=== PATIENT | female | born 1955 | race Caucasian/White ===

== ENCOUNTER 2020-05-06 08:18 | Day surgery (SDC) | payer BC, SELFPAY ==
--- NOTE | 2020-05-06 08:28 | MHC.SHP ---
Pre-Procedural Eval Section A The patient is an INPATIENT: No Changes since office visit: Yes Patient answered all questions; No Cold of Flu in the past 2 weeks, No New Medical Problems and No Changes in Medication The History & Physical has been completed within 30 days and I have reviewed it.: No Section B Chief Complaint: screening Details of Present Illness: Pt. has no GI complaints. She has no family history of colon cancer. She has a normal bowel pattern, BM daily. A good appetite. Relevant Family History (Specify if Yes): No Relevant Social History: None Present Medications: see Short Stay Collaborative assessment Medical History: Significant History (Attention, hyperlipidemia, low back pain, left pain, right shoulder pain.) History of Previous Operations: Relevant previous surgery/procedure and date(s) ( Excision fibroma of tongue 10/2009.) Allergies: Allergies Allergy/AdvReac Type Severity Reaction Status Date / Time No Known Allergies Allergy Mild NKA Unverified 04/07/20 16:18 Review of Systems Sugical H&P ROS: Negative: Constitution, Cardiovascular, Respiratory, Psychiatric and Gastrointestinal Exam Surgical H&P Exam: Normal: HEENT, Normal: Heart, Normal: Lungs, Normal: Extremities and Normal: Abdomen Plan Diagnosis/Plan: Unchanged Patient has been examined and remains a candidate for the planned procedure
--- NOTE | 2020-05-06 08:30 | P.BOP_ITS ---
Brief Operative Note Date of procedure: 05/06/20 Pre-op diagnosis: Colon cancer screening. Post-op diagnosis: other (Colon polyp, diverticulosis) Procedure: COLONOSCOPY TILL CECUM WITH BIOPSIES Consent: Indications for the procedure and potential complications of bleeding, perforation, reaction to medications and missed diagnosis were discussed with the patient and informed consent was obtained. Instrument: Olympus PCF H 190 L variable stiffness pediatric colonoscope Monitoring: Vital signs and clinical assessment, intermittent blood pressure monitoring, continuous EKG monitoring, Pulse oximetry and Carbon Dioxide monitoring were done throughout the procedure. Colon withdrawl time was 13 minutes. Procedure: The patient was placed in the left lateral decubitis position and pre-procedure medications were administered. After a digital rectal examination of the ano-rectum, the video colonoscope was inserted into the rectum and advanced through the colon to the cecum. The colonoscope was slowly withdrawn in a retrograde panoramic fashion and the colon mucosa was carefully examined including a retroflexed view of the rectum. Findings and interventions are described below. Procedure Difficulty: Without difficulty Findings: Terminal Ileum: Distal 5 cms was examined and appeared normal. Cecum: A 4 - 5 mm sessile polyp removed with the cold biopsy Ascending Colon: Normal Transverse Colon: Normal Descending Colon: Normal Sigmoid Colon: Moderate diverticulosis Rectum: Normal Ano-rectum: perianal skin tags Colon preparation: Excellent Impression and Post Procedure Diagnosis: Colonoscopy Findings: One small polyp removed Moderate diverticulosis seen in the sigmoid colon Plan: Await pathology results Patient has an appointment on 05/26/20 in the GI Clinic with JOSE Vargas. Repeat Colonoscopy interval based on path results - in 5 years if polyps is adenomatous and 10 years if polyps is hyperplastic. Above findings were reviewed with the patient and colon polyps and diverticulosis handouts were given to the patient. Surgeon: Charlette Beauchamp MD Anesthesia: MAC (Dena Portillo CRNA) Integrated Circuit Design Engineer: Damon Stokes Pathology: other (A. Cecal polyp x 1) Condition: stable Disposition: PACU
[2020-05-06 08:34] VITALS: BP 142/87; PULSE 64; RESP 16; TEMP 36.6; O2SAT 97
[2020-05-06 08:36] VITALS: BMI 32.8
--- NOTE | 2020-05-06 08:55 | P.CONAN_ITS ---
[facility] Past Medical History Medical History Back pain Colonoscopy planned Elevated cholesterol Fibroma of tongue HTN (hypertension) Hyperlipidemia Left hip pain Right shoulder pain Vertigo Surgical History Surgical History History of dilatation and curettage Social History Social History Smoking Status: Never smoker Second Hand Smoke Exposure: Yes Use of substances other than those prescribed or required for medical reasons: No Advance Directives: No Meds Allergies Allergy/AdvReac Type Severity Reaction Status Date / Time No Known Allergies Allergy Mild NKA Verified 05/06/20 08:39 Home Medications Medication Instructions Recorded Confirmed Type atenolol 50 mg PO DAILY 04/29/20 05/06/20 History atorvastatin 40 mg PO BEDTIME 04/29/20 04/29/20 History hydrochlorothiazide 25 mg PO DAILY 04/29/20 04/29/20 History meclizine 25 mg PO TID PRN 04/29/20 05/06/20 History Exam Exam Date and Time: May 06, 2020 0855 Height,Weight and Vital Signs: Height 5 ft 3 in Weight 83.915 kg Last Vital Signs Temp 97.8 F 05/06/20 08:34 Pulse 64 05/06/20 08:34 Resp 16 05/06/20 08:34 BP 142/87 H 05/06/20 08:34 Pulse Ox 97 05/06/20 08:34 Airway Mallampati Class: II TM Dist: >3cm Neck ROM: Full Heart: RRR Lungs: CTA
--- NOTE | 2020-05-06 08:56 | P.CONAN_ITS ---
[facility] Past Medical History Medical History Back pain Colonoscopy planned Elevated cholesterol Fibroma of tongue HTN (hypertension) Hyperlipidemia Left hip pain Right shoulder pain Vertigo Surgical History Surgical History History of dilatation and curettage Social History Social History Smoking Status: Never smoker Second Hand Smoke Exposure: Yes Use of substances other than those prescribed or required for medical reasons: No Advance Directives: No Meds Allergies Allergy/AdvReac Type Severity Reaction Status Date / Time No Known Allergies Allergy Mild NKA Verified 05/06/20 08:39 Home Medications Medication Instructions Recorded Confirmed Type atenolol 50 mg PO DAILY 04/29/20 05/06/20 History atorvastatin 40 mg PO BEDTIME 04/29/20 04/29/20 History hydrochlorothiazide 25 mg PO DAILY 04/29/20 04/29/20 History meclizine 25 mg PO TID PRN 04/29/20 05/06/20 History Exam Exam Date and Time: May 06, 2020 0856 Height,Weight and Vital Signs: Height 5 ft 3 in Weight 83.915 kg Last Vital Signs Temp 97.8 F 05/06/20 08:34 Pulse 64 05/06/20 08:34 Resp 16 05/06/20 08:34 BP 142/87 H 05/06/20 08:34 Pulse Ox 97 05/06/20 08:34 Assessment and Plan Assessment Anesthesia Assessment: Anesthesia Plan Discussed and Chart Reviewed Final Anesthetic Review NPO: Yes ASA Class: II Final Preanesthetic Review: No Changes in Pt Med Stat, Meds/Allgs Chart Reviewed, Consent Obtained/Reviewed and Anes Risks/Benef Reviewed Patient Risk: Low Procedure Risk: Low Assessment/Block/Sedation in SS: Assess/Block/Sedation-SS Anesthetic Plan Anesthetic Plan: MAC: Disposition: Standard PACU
[2020-05-06 09:34] VITALS: BP 106/64; PULSE 64; RESP 14; TEMP 36.2; O2SAT 96
[2020-05-06 09:49] VITALS: BP 124/79; PULSE 62; RESP 20; TEMP 36.8; O2SAT 95
--- NOTE | 2020-05-06 09:58 | HO.POSTANES ---
Post Anesthesia Evaluation Post Anesthesia Evaluation Vital Signs: Vital Signs Temp Pulse Resp BP Pulse Ox 05/06/20 09:49 98.2 F 62 20 124/79 95 05/06/20 09:34 97.2 F 64 14 106/64 96 05/06/20 08:34 97.8 F 64 16 142/87 H 97 Anesthesia: Monitored Mental Status: Awake Pain Control: Satisfactory Nausea/Vomiting: None Hydration: Adequate Anesthesia-Related Issues: No Anes. Related Issues
== END 2020-05-06 10:10 | disposition home or self-care (01) ==
PROVIDERS: PCP Internal Medicine Medical Oncology; Visit Provider Internal Medicine Gastroenterology
PROC: 0DJD8ZZ Inspection of Lower Intestinal Tract, Via Natural or Artificial Opening Endoscopic (ICD-10-PCS; CPT 45378; principal; 2020-05-06 09:00)
DX: Z12.11 Encounter for screening for malignant neoplasm of colon (principal); D12.0 Benign neoplasm of cecum; K57.30 Diverticulosis of large intestine without perforation or abscess without bleeding; K64.4 Residual hemorrhoidal skin tags; I10 Essential (primary) hypertension; E78.5 Hyperlipidemia, unspecified; Z77.22 Contact with and (suspected) exposure to environmental tobacco smoke (acute) (chronic); R42 Dizziness and giddiness; Z79.899 Other long term (current) drug therapy
CPT/HCPCS: 45380; 88305

== ENCOUNTER 2020-05-21 07:52 | Outpatient (REF) | payer BC, SELFPAY ==
[2020-05-21 08:41] LABS: MANUAL DIFF FLAG NO
[2020-05-21 08:47] LABS: Basophils Absolute Auto 0.1 X10*3/uL (0.0-0.2); Basophils Percent Auto 1.1 % (0-2); Eosinophils Absolute Auto 0.1 X10*3/uL (0.0-0.4); Eosinophils Percent Auto 2.5 % (0-4); Hematocrit 45.6 % (37-47); Hemoglobin 15.2 g/dl (12.0-16.0); Imm Gran Abs Auto 0.01 X10*3/uL (0.00-0.03); Imm Gran Pct Auto 0.2 % (0.0-0.4); Lymphocytes Absolute Auto 2.2 X10*3/uL (1.2-4.9); Lymphocytes Percent Auto 39.2 % (20-40); Mean Corpuscular HGB Conc 33.3 g/dl (31.0-35.0); Mean Corpuscular Hemoglobin 31.5 pg (27.0-33.0); Mean Corpuscular Volume 94.4 fL (80-98); Mean Platelet Volume 11.8 fL (9.4-12.3); Monocytes Absolute Auto 0.4 X10*3/uL (0.1-1.2); Monocytes Percent Auto 7.8 % (2-11); Neutrophils Absolute Auto 2.7 X10*3/uL (2.0-8.3); Neutrophils Percent Auto 49.2 % (45-73); Platelet Count 229 X10*3/uL (160-400); Red Blood Count 4.83 X10*6/uL (4.20-5.50); Red Cell Distribution Width 11.6 % (11.0-16.0); White Blood Count 5.5 X10*3/uL (4.8-10.8)
[2020-05-21 09:04] LABS: Alanine Aminotransferase 41 U/L (0-31); Albumin Level 4.4 g/dL (3.5-5.0); Alkaline Phosphatase 82 U/L (39-117); Anion Gap 13 (12-20); Aspartate Amino Transferase 25 U/L (5-31); Bilirubin Total 0.8 mg/dL (0.0-1.0); Blood Urea Nitrogen 15 mg/dL (9-16); Calcium 8.9 mg/dL (8.4-10.2); Carbon Dioxide 27 mmol/L (22-29); Chloride 107 mmol/L (96-108); Cholesterol 177 mg/dL; Estimated Glomerular Filt Rate > 60; Glucose Fasting 130 mg/dL (60-99); HDL Cholesterol 45 mg/dL; LDL Cholesterol Calculated 102 mg/dl; Potassium 4.3 mmol/l (3.3-5.1); Sodium 143 mmol/L (135-145); Total Protein 7.5 g/dL (6.5-8.0); Triglycerides 152 mg/dL
== END 2020-05-21 07:53 | disposition home or self-care (01) ==
LOC: HO.LAB 07:52
PROVIDERS: PCP Internal Medicine Medical Oncology; Visit Provider Internal Medicine Medical Oncology
DX: E78.5 Hyperlipidemia, unspecified (principal); I10 Essential (primary) hypertension; E66.9 Obesity, unspecified; R73.9 Hyperglycemia, unspecified
CPT/HCPCS: 36415; 80053; 80061; 85025

== ENCOUNTER 2020-08-06 09:52 | Outpatient (REF) | payer BC, SELFPAY ==
--- NOTE | 2020-08-06 09:55 | MM_ITS ---
EXAMINATION: MM SCREENING DIGITAL BREAST TOMOSYNTHESIS, BILATERAL CLINICAL INFORMATION: Screening. Asymptomatic. The lifetime risk of breast cancer based on the Tyrer-Cuzick Model is 4%. COMPARISON: Mammography: 08/01/2019, 07/26/2018, 05/11/2017 TECHNIQUE: Digital breast tomosynthesis is performed in both the craniocaudal and mediolateral oblique views along with computer-aided detection (CAD). Synthesized 2D images are generated from the tomosynthesis. Additional left MLO view is provided. FINDINGS: There are scattered areas of fibroglandular density (ACR BI-RADS breast composition Category b). There are no significant masses, abnormal calcifications, or other abnormalities. Parenchymal pattern is similar to prior exams. No significant changes. MM/MM tomosynthesis screening BI IMPRESSION: There are no significant changes from prior study. ASSESSMENT: BI-RADS 1: Negative RECOMMENDATION: Routine annual mammography screening. This patient's information was entered into a reminder system with a target due date for their next mammogram.
== END 2020-08-06 09:53 | disposition home or self-care (01) ==
LOC: HO.MAMMO 09:52
PROVIDERS: PCP Internal Medicine Medical Oncology; Visit Provider Internal Medicine Medical Oncology
DX: Z12.31 Encounter for screening mammogram for malignant neoplasm of breast (principal)
CPT/HCPCS: 77063; 77067

== ENCOUNTER 2020-09-16 08:00 | Outpatient (REF) | payer BC, SELFPAY ==
[2020-09-16 09:17] LABS: MANUAL DIFF FLAG NO
[2020-09-16 09:23] LABS: Basophils Absolute Auto 0.1 X10*3/uL (0.0-0.2); Basophils Percent Auto 1.2 % (0-2); Eosinophils Absolute Auto 0.1 X10*3/uL (0.0-0.4); Hematocrit 43.8 % (37-47); Imm Gran Abs Auto 0.01 X10*3/uL (0.00-0.03); Imm Gran Pct Auto 0.2 % (0.0-0.4); Lymphocytes Percent Auto 40.3 % (20-40); Mean Corpuscular HGB Conc 34.2 g/dl (31.0-35.0); Mean Corpuscular Hemoglobin 32.3 pg (27.0-33.0); Mean Corpuscular Volume 94.2 fL (80-98); Mean Platelet Volume 11.7 fL (9.4-12.3); Monocytes Absolute Auto 0.4 X10*3/uL (0.1-1.2); Neutrophils Absolute Auto 2.3 X10*3/uL (2.0-8.3); Neutrophils Percent Auto 47.3 % (45-73); Platelet Count 200 X10*3/uL (160-400); Red Blood Count 4.65 X10*6/uL (4.20-5.50); Red Cell Distribution Width 11.7 % (11.0-16.0); White Blood Count 4.9 X10*3/uL (4.8-10.8)
[2020-09-16 09:46] LABS: Alanine Aminotransferase 51 U/L (0-31); Albumin Level 4.2 g/dL (3.5-5.0); Alkaline Phosphatase 84 U/L (39-117); Anion Gap 13 (12-20); Aspartate Amino Transferase 30 U/L (5-31); Bilirubin Total 0.9 mg/dL (0.0-1.0); Blood Urea Nitrogen 18 mg/dL (9-16); Calcium 9.4 mg/dL (8.4-10.2); Carbon Dioxide 26 mmol/L (22-29); Chloride 104 mmol/L (96-108); Cholesterol 178 mg/dL; Estimated Glomerular Filt Rate > 60; Glucose Fasting 113 mg/dL (60-99); HDL Cholesterol 42 mg/dL; LDL Cholesterol Calculated 111 mg/dl; Potassium 4.2 mmol/L (3.3-5.1); Sodium 139 mmol/L (135-145); Total Protein 7.1 g/dL (6.5-8.0); Triglycerides 128 mg/dL
== END 2020-09-16 08:01 | disposition home or self-care (01) ==
LOC: HO.LAB 08:00
PROVIDERS: PCP Internal Medicine Medical Oncology; Visit Provider Internal Medicine Medical Oncology
DX: I10 Essential (primary) hypertension (principal); E78.5 Hyperlipidemia, unspecified; E66.9 Obesity, unspecified; R73.9 Hyperglycemia, unspecified
CPT/HCPCS: 36415; 80053; 80061; 85025

== ENCOUNTER 2020-09-23 14:21 | Outpatient (REF) | payer BC, SELFPAY ==
[2020-09-24 12:04] LABS: BV Int Neg Control Negative (Negative); BV Int Pos Control Positive (Positive)
== END 2020-09-23 14:22 | disposition home or self-care (01) ==
LOC: HO.LAB 14:21
PROVIDERS: Advanced Practice Midwife; PCP Internal Medicine Medical Oncology; Visit Provider Advanced Practice Midwife
DX: N89.8 Other specified noninflammatory disorders of vagina (principal); L29.2 Pruritus vulvae
CPT/HCPCS: 87480; 87510; 87660

== ENCOUNTER 2020-10-20 14:15 | Outpatient (REF) | payer BC, SELFPAY | END 2020-10-20 14:16 | disposition home or self-care (01) | LOC: HO.LAB 14:15 | PROVIDERS: PCP Internal Medicine Medical Oncology; Visit Provider Obstetrics & Gynecology | DX: N90.4 Leukoplakia of vulva (principal) | CPT/HCPCS: 56605; 88305; 88312 ==

== ENCOUNTER → 2020-11-09 16:16 | Outpatient (BNVA) | payer BC, SELFPAY | PROVIDERS: PCP Internal Medicine Medical Oncology; Visit Provider Obstetrics & Gynecology ==

== ENCOUNTER 2021-01-28 08:01 | Outpatient (REF) | payer BC, SELFPAY ==
[2021-01-28 08:47] LABS: Basophils Percent Auto 0.8 % (0-2); Eosinophils Absolute Auto 0.1 X10*3/uL (0.0-0.4); Eosinophils Percent Auto 2.1 % (0-4); Hematocrit 44.3 % (37-47); Hemoglobin 15.2 g/dl (12.0-16.0); Imm Gran Abs Auto 0.01 X10*3/uL (0.00-0.03); Imm Gran Pct Auto 0.2 % (0.0-0.4); Lymphocytes Absolute Auto 1.9 X10*3/uL (1.2-4.9); MANUAL DIFF FLAG NO; Mean Corpuscular HGB Conc 34.3 g/dl (31.0-35.0); Mean Corpuscular Hemoglobin 32.3 pg (27.0-33.0); Mean Corpuscular Volume 94.1 fL (80-98); Mean Platelet Volume 11.6 fL (9.4-12.3); Monocytes Absolute Auto 0.5 X10*3/uL (0.1-1.2); Monocytes Percent Auto 9.7 % (2-11); Neutrophils Absolute Auto 2.3 X10*3/uL (2.0-8.3); Neutrophils Percent Auto 48.2 % (45-73); Platelet Count 208 X10*3/uL (160-400); Red Blood Count 4.71 X10*6/uL (4.20-5.50); Red Cell Distribution Width 11.9 % (11.0-16.0); White Blood Count 4.9 X10*3/uL (4.8-10.8)
[2021-01-28 09:27] LABS: Alanine Aminotransferase 50 U/L (0-31); Albumin Level 4.2 g/dL (3.5-5.0); Alkaline Phosphatase 73 U/L (39-117); Anion Gap 13 (12-20); Aspartate Amino Transferase 29 U/L (5-31); Bilirubin Total 0.8 mg/dL (0.0-1.0); Blood Urea Nitrogen 15 mg/dL (9-16); Calcium 9.6 mg/dL (8.4-10.2); Carbon Dioxide 24 mmol/L (22-29); Chloride 106 mmol/L (96-108); Cholesterol 182 mg/dL; Estimated Glomerular Filt Rate > 60; Glucose Fasting 133 mg/dL (60-99); HDL Cholesterol 45 mg/dL; LDL Cholesterol Calculated 108 mg/dl; Potassium 4.2 mmol/L (3.3-5.1); Sodium 139 mmol/L (135-145); Total Protein 7.2 g/dL (6.5-8.0); Triglycerides 147 mg/dL
== END 2021-01-28 08:02 | disposition home or self-care (01) ==
LOC: HO.LAB 08:01
PROVIDERS: PCP Internal Medicine Medical Oncology; Visit Provider Internal Medicine Medical Oncology
DX: E78.5 Hyperlipidemia, unspecified (principal); I10 Essential (primary) hypertension; D70.9 Neutropenia, unspecified
CPT/HCPCS: 36415; 80053; 80061; 85025

== ENCOUNTER 2021-08-12 10:15 | Outpatient (REF) | payer MEDICARE, SELFPAY ==
--- NOTE | ~2021-08-12 | MM_ITS ---
EXAMINATION: MM SCREENING DIGITAL BREAST TOMOSYNTHESIS, BILATERAL CLINICAL INFORMATION: Screening. Asymptomatic. The lifetime risk of breast cancer based on the Tyrer-Cuzick Model is 4%. COMPARISON: Mammography: 08/06/2020, 08/01/2019, 07/26/2018 TECHNIQUE: Digital breast tomosynthesis is performed in both the craniocaudal and mediolateral oblique views along with computer-aided detection (CAD). Synthesized 2D images are generated from the tomosynthesis. FINDINGS: There are scattered areas of fibroglandular density (ACR BI-RADS breast composition Category b). There are no significant masses, abnormal calcifications, or other abnormalities. Parenchymal pattern is similar to prior studies. There is no developing density or architectural abnormality. The axilla and skin contours are unremarkable. No significant changes. MM/MM tomosynthesis screening BI IMPRESSION: No mammographic evidence of malignancy. ASSESSMENT: BI-RADS 1: Negative RECOMMENDATION: Routine annual mammography screening. This patient's information was entered into a reminder system with a target due date for their next mammogram.
== END 2021-08-12 10:16 | disposition home or self-care (01) ==
LOC: HO.MAMMO 10:15
PROVIDERS: PCP Internal Medicine Medical Oncology; Visit Provider Internal Medicine Medical Oncology
DX: Z12.31 Encounter for screening mammogram for malignant neoplasm of breast (principal)
CPT/HCPCS: 77063; 77067

== ENCOUNTER 2021-10-21 07:50 | Outpatient (REF) | payer MEDICARE, SELFPAY ==
[2021-10-21 08:13] LABS: MANUAL DIFF FLAG NO
[2021-10-21 09:30] LABS: Basophils Absolute Auto 0.1 X10*3/uL (0.0-0.2); Eosinophils Absolute Auto 0.1 X10*3/uL (0.0-0.4); Eosinophils Percent Auto 2.1 % (0-4); Hematocrit 43.5 % (37.0-47.0); Hemoglobin 14.7 g/dl (12.0-16.0); Imm Gran Abs Auto 0.01 X10*3/uL (0.00-0.03); Imm Gran Pct Auto 0.2 % (0.0-0.4); Lymphocytes Absolute Auto 1.9 X10*3/uL (1.2-4.9); Lymphocytes Percent Auto 39.6 % (20-40); Mean Corpuscular HGB Conc 33.8 g/dl (31.0-35.0); Mean Corpuscular Hemoglobin 32.2 pg (27.0-33.0); Mean Corpuscular Volume 95.2 fL (80.0-98.0); Mean Platelet Volume 12.3 fL (9.4-12.3); Monocytes Absolute Auto 0.4 X10*3/uL (0.1-1.2); Monocytes Percent Auto 7.6 % (2-11); Neutrophils Absolute Auto 2.4 x10*3/uL (2.0-8.3); Neutrophils Percent Auto 49.5 % (45-73); Platelet Count 189 X10*3/uL (160-400); Red Blood Count 4.57 X10*6/uL (4.20-5.50); Red Cell Distribution Width 11.9 % (11.0-16.0); White Blood Count 4.9 X10*3/uL (4.8-10.8)
[2021-10-21 09:53] LABS: Alanine Aminotransferase 53 U/L (0-31); Albumin Level 4.2 g/dL (3.5-5.0); Alkaline Phosphatase 79 U/L (39-117); Anion Gap 12 (12-20); Aspartate Amino Transferase 29 U/L (5-31); Bilirubin Total 0.7 mg/dL (0.0-1.0); Blood Urea Nitrogen 13 mg/dL (9-16); Calcium 9.6 mg/dL (8.4-10.2); Carbon Dioxide 28 mmol/L (22-29); Chloride 104 mmol/L (96-108); Cholesterol 183 mg/dL; Estimated Glomerular Filt Rate > 60; Glucose Fasting 133 mg/dL (60-99); HDL Cholesterol 37 mg/dL; LDL Cholesterol Calculated 116 mg/dl; Potassium 4.5 mmol/L (3.3-5.1); Sodium 139 mmol/L (135-145); Total Protein 7.2 g/dL (6.5-8.0); Triglycerides 150 mg/dL
== END 2021-10-21 07:51 | disposition home or self-care (01) ==
LOC: HO.LAB 07:50
PROVIDERS: PCP Internal Medicine Medical Oncology; Visit Provider Internal Medicine Medical Oncology
DX: E78.5 Hyperlipidemia, unspecified (principal); I10 Essential (primary) hypertension; D70.9 Neutropenia, unspecified; R73.9 Hyperglycemia, unspecified
CPT/HCPCS: 36415; 80053; 80061; 85025

== ENCOUNTER 2022-02-05 07:48 | Outpatient (REF) | payer MEDICARE, SELFPAY ==
[2022-02-05 08:09] LABS: MANUAL DIFF FLAG NO
[2022-02-05 08:53] LABS: Basophils Absolute Auto 0.1 X10*3/uL (0.0-0.2); Basophils Percent Auto 1.1 % (0-2); Eosinophils Absolute Auto 0.1 X10*3/uL (0.0-0.4); Eosinophils Percent Auto 1.5 % (0-4); Hematocrit 43.6 % (37.0-47.0); Imm Gran Abs Auto 0.01 X10*3/uL (0.00-0.03); Imm Gran Pct Auto 0.2 % (0.0-0.4); Lymphocytes Absolute Auto 1.9 X10*3/uL (1.2-4.9); Lymphocytes Percent Auto 36.1 % (20-40); Mean Corpuscular HGB Conc 34.4 g/dl (31.0-35.0); Mean Corpuscular Hemoglobin 32.5 pg (27.0-33.0); Mean Corpuscular Volume 94.6 fL (80.0-98.0); Mean Platelet Volume 12.2 fL (9.4-12.3); Monocytes Absolute Auto 0.4 X10*3/uL (0.1-1.2); Monocytes Percent Auto 6.7 % (2-11); Neutrophils Absolute Auto 2.9 x10*3/uL (2.0-8.3); Neutrophils Percent Auto 54.4 % (45-73); Platelet Count 204 X10*3/uL (160-400); Red Blood Count 4.61 X10*6/uL (4.20-5.50); Red Cell Distribution Width 12.1 % (11.0-16.0); White Blood Count 5.4 X10*3/uL (4.8-10.8)
[2022-02-05 09:17] LABS: Alanine Aminotransferase 51 U/L (0-31); Albumin Level 4.2 g/dL (3.5-5.0); Alkaline Phosphatase 84 U/L (39-117); Anion Gap 12 (12-20); Aspartate Amino Transferase 27 U/L (5-31); Bilirubin Total 0.6 mg/dL (0.0-1.0); Blood Urea Nitrogen 12 mg/dL (9-16); Calcium 9.4 mg/dL (8.4-10.2); Carbon Dioxide 27 mmol/L (22-29); Chloride 105 mmol/L (96-108); Cholesterol 188 mg/dL; Estimated Glomerular Filt Rate > 60; Glucose Fasting 137 mg/dL (60-99); HDL Cholesterol 39 mg/dL; LDL Cholesterol Calculated 116 mg/dl; Potassium 4.7 mmol/L (3.3-5.1); Sodium 139 mmol/L (135-145); Total Protein 7.2 g/dL (6.5-8.0); Triglycerides 167 mg/dL
== END 2022-02-05 07:49 | disposition home or self-care (01) ==
LOC: HO.LAB 07:48
PROVIDERS: PCP Internal Medicine Medical Oncology; Visit Provider Internal Medicine Medical Oncology
DX: I10 Essential (primary) hypertension (principal); M19.90 Unspecified osteoarthritis, unspecified site; E78.5 Hyperlipidemia, unspecified
CPT/HCPCS: 36415; 80053; 80061; 85025

== ENCOUNTER → 2022-03-22 15:39 | Outpatient (BNVA) | payer MEDICARE, SELFPAY | PROVIDERS: PCP Internal Medicine Medical Oncology; Visit Provider Obstetrics & Gynecology | DX: N76.4 Abscess of vulva (principal) | CPT/HCPCS: 99212 ==

== ENCOUNTER 2022-05-23 08:42 | Outpatient (REF) | payer MEDICARE, SELFPAY ==
[2022-05-23 09:04] LABS: MANUAL DIFF FLAG NO
[2022-05-23 09:30] LABS: Basophils Percent Auto 0.6 % (0-2); Eosinophils Absolute Auto 0.1 X10*3/uL (0.0-0.4); Eosinophils Percent Auto 1.8 % (0-4); Hematocrit 42.6 % (37.0-47.0); Imm Gran Abs Auto 0.01 X10*3/uL (0.00-0.03); Imm Gran Pct Auto 0.2 % (0.0-0.4); Lymphocytes Absolute Auto 2.1 X10*3/uL (1.2-4.9); Lymphocytes Percent Auto 42.1 % (20-40); Mean Corpuscular HGB Conc 35.2 g/dl (31.0-35.0); Mean Corpuscular Hemoglobin 32.6 pg (27.0-33.0); Mean Corpuscular Volume 92.6 fL (80.0-98.0); Mean Platelet Volume 11.6 fL (9.4-12.3); Monocytes Absolute Auto 0.4 X10*3/uL (0.1-1.2); Monocytes Percent Auto 7.9 % (2-11); Neutrophils Absolute Auto 2.4 x10*3/uL (2.0-8.3); Neutrophils Percent Auto 47.4 % (45-73); Platelet Count 171 X10*3/uL (160-400); Red Cell Distribution Width 11.9 % (11.0-16.0)
[2022-05-23 09:59] LABS: Estimated Average Glucose 143 mg/dL; Hemoglobin A1c % 6.6 %
[2022-05-23 10:52] LABS: Alanine Aminotransferase 68 U/L (0-31); Albumin Level 4.2 g/dL (3.5-5.0); Alkaline Phosphatase 83 U/L (39-117); Anion Gap 13 (12-20); Aspartate Amino Transferase 39 U/L (5-31); Bilirubin Total 0.6 mg/dL (0.0-1.0); Blood Urea Nitrogen 11 mg/dL (9-16); Calcium 9.6 mg/dL (8.4-10.2); Carbon Dioxide 26 mmol/L (22-29); Chloride 105 mmol/L (96-108); Cholesterol 176 mg/dL; Estimated Glomerular Filt Rate > 60; Glucose Random 134 mg/dL (60-115); HDL Cholesterol 36 mg/dL; LDL Cholesterol Calculated 113 mg/dl; Potassium 4.1 mmol/L (3.3-5.1); Sodium 140 mmol/L (135-145); Total Protein 7.2 g/dL (6.5-8.0); Triglycerides 139 mg/dL
== END 2022-05-23 08:43 | disposition home or self-care (01) ==
LOC: HO.LAB 08:42
PROVIDERS: PCP Internal Medicine Medical Oncology; Visit Provider Internal Medicine Medical Oncology
DX: I10 Essential (primary) hypertension (principal); R73.9 Hyperglycemia, unspecified; E78.5 Hyperlipidemia, unspecified
CPT/HCPCS: 36415; 80053; 80061; 83036; 85025

== ENCOUNTER 2022-08-25 07:48 | Outpatient (REF) | payer MEDICARE, SELFPAY ==
--- NOTE | ~2022-08-25 | MM_ITS ---
EXAMINATION: MM SCREENING DIGITAL BREAST TOMOSYNTHESIS, BILATERAL CLINICAL INFORMATION: Screening. Asymptomatic. The lifetime risk of breast cancer based on the Tyrer-Cuzick Model is 3.5%. COMPARISON: Mammography: August 12, 2021 and studies dating back to March 31, 2016 TECHNIQUE: Digital breast tomosynthesis is performed in both the craniocaudal and mediolateral oblique views along with computer-aided detection (CAD). Synthesized 2D images are generated from the tomosynthesis. FINDINGS: There are scattered areas of fibroglandular density (ACR BI-RADS breast composition Category b). There are no significant masses, abnormal calcifications, or other abnormalities. MM/MM tomosynthesis screening BI IMPRESSION: No significant changes ASSESSMENT: BI-RADS 1: Negative RECOMMENDATION: Routine annual mammography screening. This patient's information was entered into a reminder system with a target due date for their next mammogram.
[2022-08-25 07:59] LABS: MANUAL DIFF FLAG NO
[2022-08-25 08:55] LABS: Basophils Absolute Auto 0.1 X10*3/uL (0.0-0.2); Basophils Percent Auto 1.1 % (0-2); Eosinophils Absolute Auto 0.1 X10*3/uL (0.0-0.4); Eosinophils Percent Auto 1.8 % (0-4); Hematocrit 43.8 % (37.0-47.0); Hemoglobin 15.3 g/dl (12.0-16.0); Imm Gran Abs Auto 0.01 X10*3/uL (0.00-0.03); Imm Gran Pct Auto 0.2 % (0.0-0.4); Lymphocytes Absolute Auto 2.4 X10*3/uL (1.2-4.9); Lymphocytes Percent Auto 43.5 % (20-40); Mean Corpuscular HGB Conc 34.9 g/dl (31.0-35.0); Mean Corpuscular Hemoglobin 32.3 pg (27.0-33.0); Mean Corpuscular Volume 92.4 fL (80.0-98.0); Monocytes Absolute Auto 0.5 X10*3/uL (0.1-1.2); Monocytes Percent Auto 8.6 % (2-11); Neutrophils Absolute Auto 2.5 x10*3/uL (2.0-8.3); Neutrophils Percent Auto 44.8 % (45-73); Platelet Count 190 X10*3/uL (160-400); Red Blood Count 4.74 X10*6/uL (4.20-5.50); Red Cell Distribution Width 11.9 % (11.0-16.0); White Blood Count 5.6 X10*3/uL (4.8-10.8)
[2022-08-25 09:07] LABS: Estimated Average Glucose 148 mg/dL; Hemoglobin A1c % 6.8 %
[2022-08-25 09:49] LABS: Alanine Aminotransferase 85 U/L (0-31); Albumin Level 4.2 g/dL (3.5-5.0); Alkaline Phosphatase 78 U/L (39-117); Anion Gap 16 (12-20); Aspartate Amino Transferase 46 U/L (5-31); Bilirubin Total 0.8 mg/dL (0.0-1.0); Blood Urea Nitrogen 14 mg/dL (9-16); Calcium 9.6 mg/dL (8.4-10.2); Carbon Dioxide 23 mmol/L (22-29); Chloride 105 mmol/L (96-108); Cholesterol 189 mg/dL; Estimated Glomerular Filt Rate > 60; Glucose Fasting 144 mg/dL (60-99); HDL Cholesterol 37 mg/dL; LDL Cholesterol Calculated 111 mg/dl; Potassium 4.3 mmol/L (3.3-5.1); Sodium 140 mmol/L (135-145); Triglycerides 205 mg/dL
== END 2022-08-25 07:49 | disposition home or self-care (01) ==
LOC: HO.MAMMO 07:48
PROVIDERS: PCP Internal Medicine Medical Oncology; Visit Provider Internal Medicine Medical Oncology
DX: Z12.31 Encounter for screening mammogram for malignant neoplasm of breast (principal); I10 Essential (primary) hypertension; M19.90 Unspecified osteoarthritis, unspecified site; E78.5 Hyperlipidemia, unspecified; R73.9 Hyperglycemia, unspecified
CPT/HCPCS: 36415; 77063; 77067; 80053; 80061; 83036; 85025

== ENCOUNTER 2022-11-16 10:59 | Emergency (ER) | payer MEDICARE, SELFPAY ==
--- NOTE | ~2022-11-16 | XR_ITS ---
EXAMINATION: XR CHEST CLINICAL INFORMATION: Chest pain. COMPARISON: Chest 09/18/2008 TECHNIQUE: Frontal view of the chest was obtained. FINDINGS: The lungs are hypoexpanded with platelike atelectasis left midlung. Rest of the lungs are clear. No pleural effusion seen. The heart size is borderline enlarged. Pulmonary vascularity is normal. No gross bony abnormality seen.. XR/XR chest 1V IMPRESSION: 1. Hypoexpanded lungs with platelike atelectasis left midlung. 2. Mild cardiomegaly.
[2022-11-16 11:09] VITALS: BP 134/101; PULSE 71; RESP 18; TEMP 36.7; O2SAT 99; BMI 35.2
--- NOTE | 2022-11-16 11:13 | ECG_ITS ---
Test Reason : CHEST PAIN Blood Pressure : / mmHG Vent. Rate : 063 BPM Atrial Rate : 063 BPM P-R Int : 194 ms QRS Dur : 096 ms QT Int : 420 ms P-R-T Axes : 048 -10 007 degrees QTc Int : 429 ms Normal sinus rhythm with sinus arrhythmia Moderate voltage criteria for LVH, may be normal variant ( R in aVL , Farhat product ) Nonspecific ST abnormality Abnormal ECG When compared with ECG of 03-OCT-2004 16:35, No significant change was found Referred By: Desiree El Electronically Signed By:Dalton Vazquez
--- NOTE | 2022-11-16 11:40 | ED_ITS ---
HPI - Chest Pain General Chief Complaint: Chest Pain Stated Complaint: Chest pain L arm pain Time Seen by Provider: 11/16/22 11:39 Source: patient and family History of Present Illness HPI narrative: This is a 67 years old female presented to the emergency department complaining of chest pain radiated to the left arm a and weakness in the legs. Patient has history of hypertension she takes atenolol 40 daily and hydrochlorothiazide she has history of hypercholesterolemia she has no smoker. Symptom occur early this morning she is feeling better at this time MD complaint: chest pain Onset (ago): hour(s) (3) Prior episodes: No Pain location: substernal Pain radiation: left arm Severity: mild Risk Factors Coronary artery disease risk factors: none Thoracic aortic dissection risk factors: none Related Data Home Medications Medication Instructions Recorded Confirmed atenolol 50 mg tablet 50 mg PO DAILY 04/29/20 05/06/20 atorvastatin 40 mg tablet 40 mg PO BEDTIME 04/29/20 04/29/20 hydrochlorothiazide 25 mg tablet 25 mg PO DAILY 04/29/20 04/29/20 meclizine 25 mg tablet 25 mg PO TID PRN Vertigo 04/29/20 05/06/20 Previous Rx's Medication Instructions Recorded clobetasol 0.05 % topical cream 1 appl topical BID 2 weeks #45 11/09/20 grams Allergies Allergy/AdvReac Type Severity Reaction Status Date / Time No Known Allergies Allergy Mild NKA Verified 03/22/22 16:00 Review of Systems Constitutional: Constitutional: Reports no additional constitutional complaints Cardiovascular: Cardiovascular: Reports no additional cardiovascular compl aints [facility] Past Medical History Medical History Back pain Colonoscopy planned Diverticulosis Elevated cholesterol Fibroma of tongue HTN (hypertension) Hyperlipidemia Left hip pain Right shoulder pain Vertigo Surgical History History of dilatation and curettage Social History Social History Second Hand Smoke Exposure: Yes Advance Directives: No Advance Directives Information Provided: Yes Physical Exam Vital Signs: Vital Signs: Last Vital Signs Temp 98.0 F 11/16/22 11:09 Pulse 78 11/16/22 13:59 Resp 12 11/16/22 13:59 BP 143/89 H 11/16/22 13:59 Pulse Ox 98 11/16/22 13:59 O2 Del Method Room Air 11/16/22 13:59 BMI result Body Mass Index 33.7 Const: General: cooperative, no acute distress, well developed, alert and awake Orientation/consciousness: patient oriented x3 HEENT: Head: Yes normal to inspection Face and sinus: Yes normal facial exam Throat: Yes posterior oropharynx normal Neck: Neck: Yes normal visual inspection Chest: Chest palpation & inspection: normal inspection of the chest Resp: Effort & Inspection: normal respiratory effort Cardio: Rate: regular rate Rhythm: regular rhythm GI: Inspection: Yes normal to inspection Palpation (GI): Soft to palpation, not firm, nontender and no guarding Auscultation: normal bowel sounds Skin: General skin exam: no rashes or lesions noted Rashes: no rashes Neuro: General: patient oriented x3 Cranial nerves: Yes CN's II-XII intact bilaterally Course Reevaluation(s) Reevaluation #1: pt has elevated tropi exertional symtoms,seen by restoration officer Dr Vazquez she will be transfer to [facility] Time: 13:40 Medications Administered Generic Name Dose Route Start Last Admin Trade Name Freq PRN Reason Stop Dose Admin Heparin Sodium/Sodium Chloride 25,000 unit in 250 mls @ 0 mls/hr 11/16/22 14:00 11/16/22 13:56 Heparin Sodium,Porcine/1/2ns IVCONT 11.57 units/kg/hr .Q0M LILIAN 10 mls/hr Administration Protocol Per Protocol Discontinued Medications Generic Name Dose Route Start Last Admin Trade Name Freq PRN Reason Stop Dose Admin Aspirin 325 mg 11/16/22 12:28 11/16/22 12:45 Aspirin 325 Mg Tablet PO 11/16/22 12:29 325 mg ONCE ONE Administration Heparin Sodium (Porcine) 4,000 unit 11/16/22 13:34 11/16/22 13:53 Heparin Sodium,Porcine 5,000 Unit/Ml Vial IVPUSH 11/16/22 13:35 4,000 unit ONCE ONE Administration Metoprolol Tartrate 50 mg 11/16/22 13:42 11/16/22 13:54 Metoprolol Tartrate 50 Mg Tablet PO 11/16/22 13:43 50 mg ONCE ONE Administration Protocol Medical Decision Making Medical Decision Making [facility] Narrative: Patient presented with chest pain will check EKG chest x-ray and will do high sensitive troponin Differential Diagnosis Differential Diagnoses: The differential diagnosis associated with the presentation includes Acute coronary syndrome/dissection of the thoracic aorta/P Admission/Observation Consideration of admission/observation: Escalation of care including admission/observation considered Consult Healthcare Provider Management of the patient was discussed with: Hogshead Stripper Dr Vazquez Lab Data [facility] Lab Attestation statement: I reviewed the patient's lab results. 11/16/22 11:39 11/16/22 11:39 Labs: Lab Results 11/16/22 11/16/22 11/16/22 Range/Units 11:39 11:39 11:39 WBC 7.4 (4.8-10.8) X10*3/uL RBC 4.76 (4.20-5.50) X10*6/uL Hgb 15.2 (12.0-16.0) g/dl Hct 44.4 (37.0-47.0) % MCV 93.3 (80.0-98.0) fL MCH 31.9 (27.0-33.0) pg MCHC 34.2 (31.0-35.0) g/dl RDW 11.9 (11.0-16.0) % Plt Count 166 (160-400) X10*3/uL MPV 12.0 (9.4-12.3) fL Immature Gran % (Auto) 0.3 (0.0-0.4) % Neut % (Auto) 79.8 H (45-73) % Lymph % (Auto) 13.8 L (20-40) % Montague % (Auto) 5.0 (2-11) % Eos % (Auto) 0.4 (0-4) % Baso % (Auto) 0.7 (0-2) % Lymph # (Auto) 1.0 L (1.2-4.9) X10*3/uL [place]ague # (Auto) 0.4 (0.1-1.2) X10*3/uL Eos # (Auto) 0.0 (0.0-0.4) X10*3/uL Baso # (Auto) 0.1 (0.0-0.2) X10*3/uL Abs Immat Gran (auto) 0.02 (0.00-0.03) X10*3/uL Absolute Neuts (auto) 5.9 (2.0-8.3) x10*3/uL Absolute Nucleated RBC 0.000 (0.0-0.012) X10*3/uL Nucleated RBC % (auto) 0.0 (0.0-0.2) /100WBC PT (10.0-13.1) SEC INR (0.9-1.1) aPTT Heparin Protocol (53-77.9) SEC Sodium 141 (135-145) mmol/L Potassium 3.5 (3.3-5.1) mmol/L Chloride 107 (96-108) mmol/L Carbon Dioxide 24 (22-29) mmol/L Anion Gap 14 (12-20) BUN 20 H (9-16) mg/dL Creatinine 0.84 (0.5-1.4) mg/dL Estim Creat Clear Calc 70.2 Estimated GFR > 60 Random Glucose 161 H (60-115) mg/dL Calcium 9.8 (8.4-10.2) mg/dL Total Bilirubin 0.9 (0.0-1.0) mg/dL AST 40 H (5-31) U/L ALT 67 H (0-31) U/L Alkaline Phosphatase 74 (39-117) U/L Troponin I High Sens 34.7 H (<3.5-17.0) ng/L Total Protein 7.1 (6.5-8.0) g/dL Albumin 4.3 (3.5-5.0) g/dL 11/16/22 11/16/22 11/16/22 Range/Units 13:40 13:40 13:40 WBC 9.1 (4.8-10.8) X10*3/uL RBC 4.87 (4.20-5.50) X10*6/uL Hgb 15.8 (12.0-16.0) g/dl Hct 45.4 (37.0-47.0) % MCV 93.2 (80.0-98.0) fL MCH 32.4 (27.0-33.0) pg MCHC 34.8 (31.0-35.0) g/dl RDW 11.9 (11.0-16.0) % Plt Count 188 (160-400) X10*3/uL MPV 11.2 (9.4-12.3) fL Immature Gran % (Auto) (0.0-0.4) % Neut % (Auto) (45-73) % Lymph % (Auto) (20-40) % Montague % (Auto) (2-11) % Eos % (Auto) (0-4) % Baso % (Auto) (0-2) % Lymph # (Auto) (1.2-4.9) X10*3/uL Montague # (Auto) (0.1-1.2) X10*3/uL Eos # (Auto) (0.0-0.4) X10*3/uL Baso # (Auto) (0.0-0.2) X10*3/uL Abs Immat Gran (auto) (0.00-0.03) X10*3/uL Absolute Neuts (auto) (2.0-8.3) x10*3/uL Absolute Nucleated RBC 0.000 (0.0-0.012) X10*3/uL Nucleated RBC % (auto) 0.0 (0.0-0.2) /100WBC PT 12.6 (10.0-13.1) SEC INR 1.1 (0.9-1.1) aPTT Heparin Protocol 31.6 L (53-77.9) SEC Sodium (135-145) mmol/L Potassium (3.3-5.1) mmol/L Chloride (96-108) mmol/L Carbon Dioxide (22-29) mmol/L Anion Gap (12-20) BUN (9-16) mg/dL Creatinine (0.5-1.4) mg/dL Estim Creat Clear Calc Estimated GFR Random Glucose (60-115) mg/dL Calcium (8.4-10.2) mg/dL Total Bilirubin (0.0-1.0) mg/dL AST (5-31) U/L ALT (0-31) U/L Alkaline Phosphatase (39-117) U/L Troponin I High Sens 1051.2 H* D (<3.5-17.0) ng/L Total Protein (6.5-8.0) g/dL Albumin (3.5-5.0) g/dL Independent Interpretation I performed an independent interpretation of an: EKG Interpretation: Normal sinus st depression V3,V4,V5 Radiology Impression Discussion of test interpretation with radiology: I have reviewed the radiologis t's reading. Radiologist Impression: TECHNIQUE: Frontal view of the chest was obtained. FINDINGS: The lungs are hypoexpanded with platelike atelectasis left midlung. Rest of the lungs are clear. No pleural effusion seen. The heart size is borderline enlarged. Pulmonary vascularity is normal. No gross bony abnormality seen.. XR/XR chest 1V IMPRESSION: 1.? Hypoexpanded lungs with platelike atelectasis left midlung. 2.? Mild cardiomegaly. ? Dictated By: Kyle Jorgensen MD Signed By: <Electronically salma Chronic Conditions Patient?s care impacted by: Hypertension Critical Care Time Critical Care Time Critical Care Time: Yes Total Critical Care Time: 60 Attestation: starting IV heparin/cardiology consult Discharge Plan Discharge Clinical Impression: ACS (acute coronary syndrome), Non-ST elevation (NSTEMI) myocardial infarction Patient Disposition: Xfer [facility] Transfer Details: [facility] for cath Prescriptions: No Action atorvastatin 40 mg Tablet 40 mg PO BEDTIME meclizine 25 mg Tablet 25 mg PO TID PRN (Reason: Vertigo) hydrochlorothiazide 25 mg Tablet 25 mg PO DAILY atenolol 50 mg Tablet 50 mg PO DAILY clobetasol 0.05 % cream 1 appl topical BID 14 Days Qty: 45 1RF Rx Instructions: Then maintenance therapy for 2-3 times per week
[2022-11-16 11:44] LABS: MANUAL DIFF FLAG NO
[2022-11-16 11:46] LABS: Basophils Absolute Auto 0.1 X10*3/uL (0.0-0.2); Basophils Percent Auto 0.7 % (0-2); Eosinophils Percent Auto 0.4 % (0-4); Hematocrit 44.4 % (37.0-47.0); Hemoglobin 15.2 g/dl (12.0-16.0); Imm Gran Abs Auto 0.02 X10*3/uL (0.00-0.03); Imm Gran Pct Auto 0.3 % (0.0-0.4); Lymphocytes Percent Auto 13.8 % (20-40); Mean Corpuscular HGB Conc 34.2 g/dl (31.0-35.0); Mean Corpuscular Hemoglobin 31.9 pg (27.0-33.0); Mean Corpuscular Volume 93.3 fL (80.0-98.0); Monocytes Absolute Auto 0.4 X10*3/uL (0.1-1.2); Neutrophils Absolute Auto 5.9 x10*3/uL (2.0-8.3); Neutrophils Percent Auto 79.8 % (45-73); Platelet Count 166 X10*3/uL (160-400); Red Blood Count 4.76 X10*6/uL (4.20-5.50); Red Cell Distribution Width 11.9 % (11.0-16.0); White Blood Count 7.4 X10*3/uL (4.8-10.8)
[2022-11-16 12:04] LABS: Alanine Aminotransferase 67 U/L (0-31); Albumin Level 4.3 g/dL (3.5-5.0); Alkaline Phosphatase 74 U/L (39-117); Anion Gap 14 (12-20); Aspartate Amino Transferase 40 U/L (5-31); Bilirubin Total 0.9 mg/dL (0.0-1.0); Blood Urea Nitrogen 20 mg/dL (9-16); Calcium 9.8 mg/dL (8.4-10.2); Carbon Dioxide 24 mmol/L (22-29); Chloride 107 mmol/L (96-108); Creatinine Clr Calc Pharmacy 70.2; Estimated Glomerular Filt Rate > 60; Glucose Random 161 mg/dL (60-115); Potassium 3.5 mmol/L (3.3-5.1); Sodium 141 mmol/L (135-145); Total Protein 7.1 g/dL (6.5-8.0)
[2022-11-16 12:12] LABS: Troponin-I High Sensitivity 34.7 ng/L (<3.5-17.0)
[2022-11-16] MEDS: Aspirin 325 MG TABLET PO (12:45)
--- NOTE | 2022-11-16 13:24 | ECG_ITS ---
Test Reason : chest pain Blood Pressure : / mmHG Vent. Rate : 077 BPM Atrial Rate : 077 BPM P-R Int : 186 ms QRS Dur : 094 ms QT Int : 406 ms P-R-T Axes : 043 -11 027 degrees QTc Int : 459 ms Normal sinus rhythm Moderate voltage criteria for LVH, may be normal variant ( R in aVL , Farhat product ) Borderline ECG When compared with ECG of 16-NOV-2022 11:04, ST no longer depressed in Anterior leads Referred By: Jose Campbell Electronically Signed By:Dalton Vazquez
[2022-11-16 13:45] VITALS: BMI 33.7
[2022-11-16 13:47] LABS: Hematocrit 45.4 % (37.0-47.0); Hemoglobin 15.8 g/dl (12.0-16.0); Mean Corpuscular HGB Conc 34.8 g/dl (31.0-35.0); Mean Corpuscular Hemoglobin 32.4 pg (27.0-33.0); Mean Corpuscular Volume 93.2 fL (80.0-98.0); Mean Platelet Volume 11.2 fL (9.4-12.3); Platelet Count 188 X10*3/uL (160-400); Red Blood Count 4.87 X10*6/uL (4.20-5.50); Red Cell Distribution Width 11.9 % (11.0-16.0); White Blood Count 9.1 X10*3/uL (4.8-10.8)
[2022-11-16] MEDS: Heparin Sodium,Porcine 5,000 UNIT/ML VIAL 4000 UNIT IVPUSH (13:53)
[2022-11-16] MEDS: Metoprolol Tartrate 50 MG TABLET PO (13:54)
[2022-11-16] MEDS: Heparin Sodium,Porcine/1/2NS 25,000 UNIT/250 ML IV.SOLN 10 UNIT IVCONT (13:56)
[2022-11-16 13:58] LABS: INTERNATIONAL NORM RATIO 1.1 (0.9-1.1); Prothrombin Time 12.6 SEC (10.0-13.1)
[2022-11-16 13:59] VITALS: BP 143/89; PULSE 78; RESP 12; O2SAT 98
[2022-11-16 14:01] LABS: PTT Heparin Drip 31.6 SEC (53-77.9)
--- NOTE | 2022-11-16 14:10 | PC.NURSE ---
attempt to call [facility] no answer [phone]
[2022-11-16 14:12] LABS: Troponin-I High Sensitivity 1051.2 ng/L (<3.5-17.0)
--- NOTE | 2022-11-16 14:12 | PC.NURSE ---
second attempt to call mm6 rn is at lunch, told to call back
--- NOTE | 2022-11-16 14:17 | MHC.EDTECH ---
@[id number] was notified that the patient was being tranferred to [facility] M6 room 26. The accepting doctor is Dr. Trevino. Nurse to nurse number is .
--- NOTE | 2022-11-16 14:30 | PC.NURSE ---
medicated per emar. attempt again to give report to [facility]. rn to call back when ready for report. alba gives eta of 1500 for trasnport.
--- NOTE | 2022-11-17 08:59 | PM.CNCAR ---
History of Present Illness History of Present Illness Date of Service: 11/16/22 Requesting physician: Jose Campbell Chief complaint: Chest pain L arm pain Narrative: Patient was seen and examined at bedside on 11/16/2022 in the emergency department. Consult note dictated on 11/17 because of some technical issues with the [employer]. [age] year female background history of hypertension who is presenting with chest pain and left arm discomfort. She is saying that she has been walking regularly up to 4 miles a day without any issues but today while walking she started feeling art and then started feeling chest pressure on the left side along with left arm discomfort. She said these symptoms persisted till she came to the emergency department. She was given nitroglycerin in the ER with some improvement in symptoms and at the time of interview she was pain free. Her EKG showed some inferior T-wave changes then mostly had LVH like changes. No bleeding concerns in the past. No known history of coronary disease. Nonsmoker. Not diabetic. [facility] Past Medical History Medical History Back pain Colonoscopy planned Diverticulosis Elevated cholesterol Fibroma of tongue HTN (hypertension) Hyperlipidemia Left hip pain Right shoulder pain Vertigo Surgical History Surgical History History of dilatation and curettage Social History Social History Second Hand Smoke Exposure: Yes Advance Directives: No Advance Directives Information Provided: Yes Meds Allergies Allergy/AdvReac Type Severity Reaction Status Date / Time No Known Allergies Allergy Mild NKA Verified 03/22/22 16:00 Home Medications Medication Instructions Recorded Confirmed Last Taken Type atenolol 50 mg tablet 50 mg PO DAILY 04/29/20 05/06/20 05/06/20 07:00 History atorvastatin 40 mg tablet 40 mg PO BEDTIME 04/29/20 04/29/20 Unknown History hydrochlorothiazide 25 mg tablet 25 mg PO DAILY 04/29/20 04/29/20 Unknown History meclizine 25 mg tablet 25 mg PO TID PRN Vertigo 04/29/20 05/06/20 05/06/20 07:00 History Physical Exam Vital Signs: Vital Signs: Last Vital Signs Temp 98.0 F 11/16/22 11:09 Pulse 78 11/16/22 13:59 Resp 12 11/16/22 13:59 BP 143/89 H 11/16/22 13:59 Pulse Ox 98 11/16/22 13:59 O2 Del Method Room Air 11/16/22 13:59 BMI result Body Mass Index 33.7 GENERAL APPEARANCE: in no acute distress, pleasant. NECK: no carotid bruit, no jugular venous distention. SKIN: no suspicious lesions, warm and dry. HEART: no murmurs, regular rate and rhythm. LUNGS: clear to auscultation bilaterally. ABDOMEN: soft, nontender. EXTREMITIES: no edema. PERIPHERAL PULSES: equal. NEUROLOGIC: No gross deficits, AAO X 3 Objective Labs and Meds 11/16/22 13:40 11/16/22 11:39 Lab results: Laboratory Results - last 24 hr 11/16/22 11/16/22 11/16/22 11:39 11:39 11:39 WBC 7.4 RBC 4.76 Hgb 15.2 Hct 44.4 MCV 93.3 MCH 31.9 MCHC 34.2 RDW 11.9 Plt Count 166 MPV 12.0 Immature Gran % (Auto) 0.3 Neut % (Auto) 79.8 H Lymph % (Auto) 13.8 L [place] % (Auto) 5.0 Eos % (Auto) 0.4 Baso % (Auto) 0.7 Lymph # (Auto) 1.0 L [place] # (Auto) 0.4 Eos # (Auto) 0.0 Baso # (Auto) 0.1 Abs Immat Gran (auto) 0.02 Absolute Neuts (auto) 5.9 Absolute Nucleated RBC 0.000 Nucleated RBC % (auto) 0.0 PT INR aPTT Heparin Protocol Sodium 141 Potassium 3.5 Chloride 107 Carbon Dioxide 24 Anion Gap 14 BUN 20 H Creatinine 0.84 Estim Creat Clear Calc 70.2 Estimated GFR > 60 Random Glucose 161 H Calcium 9.8 Total Bilirubin 0.9 AST 40 H ALT 67 H Alkaline Phosphatase 74 Troponin I High Sens 34.7 H Total Protein 7.1 Albumin 4.3 11/16/22 11/16/22 11/16/22 13:40 13:40 13:40 WBC 9.1 RBC 4.87 Hgb 15.8 Hct 45.4 MCV 93.2 MCH 32.4 MCHC 34.8 RDW 11.9 Plt Count 188 MPV 11.2 Immature Gran % (Auto) Neut % (Auto) Lymph % (Auto) [place] % (Auto) Eos % (Auto) Baso % (Auto) Lymph # (Auto) [place] # (Auto) Eos # (Auto) Baso # (Auto) Abs Immat Gran (auto) Absolute Neuts (auto) Absolute Nucleated RBC 0.000 Nucleated RBC % (auto) 0.0 PT 12.6 INR 1.1 aPTT Heparin Protocol 31.6 L Sodium Potassium Chloride Carbon Dioxide Anion Gap BUN Creatinine Estim Creat Clear Calc Estimated GFR Random Glucose Calcium Total Bilirubin AST ALT Alkaline Phosphatase Troponin I High Sens 1051.2 H* D Total Protein Albumin Imaging Radiologist's impression: Impressions Chest X-Ray 11/16/22 11:45 IMPRESSION: 1. Hypoexpanded lungs with platelike atelectasis left midlung. 2. Mild cardiomegaly. Assessment and Plan (1) Non-ST elevation (NSTEMI) myocardial infarction: Status: Inactive Plan 67-year-old female who is presenting with chest pain and NSTEMI. Clinical story is quite concerning for acute coronary syndrome. She had sudden-onset chest discomfort while ambulating with radiation to the arm. She also dynamic EKG changes with inferior T-wave changes. We discussed about cardiac catheterization and she is agreeable. Start her on heparin drip per ACS protocol. Keep NPO going for. Will transfer to [facility] for diagnostic angiography today. Pros and cons of angiography discussed with the patient her family and they are agreeable. Low-dose beta-reg metoprolol 25 mg twice a day. High-intensity statin therapy. Thank you for allowing me to participate in the care of your patient. Please feel free to contact me if you have any questions. Time Spent With Patient Time: Total time managing care of this patient today ____ minutes. Procedures Date of Service Date of Service: 11/16/22
== END 2022-11-16 14:49 | disposition short-term general hospital (02) ==
PROVIDERS: Emergency Provider Emergency Medicine; PCP Internal Medicine Medical Oncology
DX: I21.4 Non-ST elevation (NSTEMI) myocardial infarction (principal); I24.9 Acute ischemic heart disease, unspecified; I10 Essential (primary) hypertension; E78.00 Pure hypercholesterolemia, unspecified; Z79.02 Long term (current) use of antithrombotics/antiplatelets; Z79.899 Other long term (current) drug therapy
CPT/HCPCS: 36415; 71045; 80053; 84484; 85025; 85027; 85610; 85730; 93005; 96365; 96375; 99285; J1643

== ENCOUNTER 2022-12-03 08:18 | Outpatient (REF) | payer MEDICARE, SELFPAY ==
[2022-12-03 08:33] LABS: MANUAL DIFF FLAG NO
[2022-12-03 08:48] LABS: Basophils Absolute Auto 0.1 X10*3/uL (0.0-0.2); Basophils Percent Auto 1.1 % (0-2); Eosinophils Absolute Auto 0.2 X10*3/uL (0.0-0.4); Eosinophils Percent Auto 2.6 % (0-4); Hematocrit 41.9 % (37.0-47.0); Hemoglobin 14.7 g/dl (12.0-16.0); Imm Gran Abs Auto 0.01 X10*3/uL (0.00-0.03); Imm Gran Pct Auto 0.2 % (0.0-0.4); Lymphocytes Absolute Auto 1.5 X10*3/uL (1.2-4.9); Lymphocytes Percent Auto 24.1 % (20-40); Mean Corpuscular HGB Conc 35.1 g/dl (31.0-35.0); Mean Corpuscular Hemoglobin 32.2 pg (27.0-33.0); Mean Corpuscular Volume 91.9 fL (80.0-98.0); Mean Platelet Volume 11.3 fL (9.4-12.3); Monocytes Absolute Auto 0.4 X10*3/uL (0.1-1.2); Monocytes Percent Auto 6.9 % (2-11); Neutrophils Percent Auto 65.1 % (45-73); Platelet Count 208 X10*3/uL (160-400); Red Blood Count 4.56 X10*6/uL (4.20-5.50); Red Cell Distribution Width 11.9 % (11.0-16.0); White Blood Count 6.1 X10*3/uL (4.8-10.8)
[2022-12-03 09:33] LABS: Alanine Aminotransferase 53 U/L (0-31); Albumin Level 4.1 g/dL (3.5-5.0); Alkaline Phosphatase 69 U/L (39-117); Anion Gap 11 (12-20); Aspartate Amino Transferase 28 U/L (5-31); Bilirubin Total 0.5 mg/dL (0.0-1.0); Blood Urea Nitrogen 17 mg/dL (9-16); Calcium 9.4 mg/dL (8.4-10.2); Carbon Dioxide 24 mmol/L (22-29); Chloride 108 mmol/L (96-108); Cholesterol 142 mg/dL; Estimated Glomerular Filt Rate > 60; Glucose Fasting 118 mg/dL (60-99); HDL Cholesterol 32 mg/dL; LDL Cholesterol Calculated 77 mg/dl; Potassium 4.2 mmol/L (3.3-5.1); Sodium 139 mmol/L (135-145); Total Protein 6.8 g/dL (6.5-8.0); Triglycerides 168 mg/dL
== END 2022-12-03 08:19 | disposition home or self-care (01) ==
LOC: HO.LAB 08:18
PROVIDERS: PCP Internal Medicine Medical Oncology; Visit Provider Internal Medicine Medical Oncology
DX: I10 Essential (primary) hypertension (principal); E78.5 Hyperlipidemia, unspecified; E66.9 Obesity, unspecified
CPT/HCPCS: 36415; 80053; 80061; 85025

== ENCOUNTER → 2022-12-26 14:58 | Outpatient (BNVA) | payer MEDICARE, SELFPAY | PROVIDERS: PCP Internal Medicine Medical Oncology; Visit Provider Internal Medicine Cardiovascular Disease | DX: I21.4 Non-ST elevation (NSTEMI) myocardial infarction (principal); I20.8 Other forms of angina pectoris; Z98.61 Coronary angioplasty status | CPT/HCPCS: 99212 ==

== ENCOUNTER 2023-01-24 09:42 | Outpatient (REF) | payer MEDICARE, SELFPAY ==
[2023-01-31 05:18] LABS: HPV mRNA E6/E7 rflx Not Detected (Not Detected)
== END 2023-01-24 09:43 | disposition home or self-care (01) ==
LOC: HO.LNP 09:42
PROVIDERS: PCP Internal Medicine Medical Oncology; Visit Provider Obstetrics & Gynecology
DX: Z01.419 Encounter for gynecological examination (general) (routine) without abnormal findings (principal); Z11.51 Encounter for screening for human papillomavirus (HPV); N95.0 Postmenopausal bleeding; N90.89 Other specified noninflammatory disorders of vulva and perineum
CPT/HCPCS: 87624; 88142; 99212

== ENCOUNTER 2023-02-04 11:14 | Outpatient (REF) | payer MEDICARE, SELFPAY ==
--- NOTE | ~2023-02-04 | US_ITS ---
EXAMINATION: US PELVIS CLINICAL INFORMATION: Postmenopausal bleeding COMPARISON: None available. TECHNIQUE: Ultrasound of the pelvis is performed using both transabdominal and transvaginal transducers along with Doppler. Transvaginal imaging is performed due to inadequate visualization transabdominally. FINDINGS: The uterus is anteverted and measures 11.8 x 5.5 x 6.1 cm in dimension. There are 3 focal uterine lesions probably representing fibroids measuring 3.7 x 3.9 x 3.3 cm in the fundus, 5 x 5 x 5.7 cm in the central upper uterine body and 3.5 x 3.4 x 3.6 cm in the left fundus/cornual region. Endometrium not visualized. Ovaries not seen. No fluid in the pelvis. US/US pelvic and transvaginal IMPRESSION: Limited exam. Enlarged fibroid uterus. Endometrium and ovaries not seen. Follow-up pelvic MRI should be considered if clinically indicated.
== END 2023-02-04 11:15 | disposition home or self-care (01) ==
LOC: HO.US 11:14
PROVIDERS: PCP Internal Medicine Medical Oncology; Visit Provider Obstetrics & Gynecology
DX: N95.0 Postmenopausal bleeding (principal)
CPT/HCPCS: 76830; 76856

== ENCOUNTER 2023-03-23 08:14 | Outpatient (REF) | payer MEDICARE, SELFPAY ==
[2023-02-05 07:17] VITALS: BP 104/68; BP 122/80
[2023-03-04 15:25] VITALS: BP 120/70; BMI 33.0
[2023-03-23 08:26] LABS: MANUAL DIFF FLAG NO
[2023-03-23 09:16] LABS: Basophils Percent Auto 0.7 % (0-2); Eosinophils Absolute Auto 0.1 X10*3/uL (0.0-0.4); Eosinophils Percent Auto 2.3 % (0-4); Hematocrit 45.1 % (37.0-47.0); Hemoglobin 15.8 g/dl (12.0-16.0); Lymphocytes Absolute Auto 2.2 X10*3/uL (1.2-4.9); Lymphocytes Percent Auto 38.8 % (20-40); Mean Corpuscular Hemoglobin 32.4 pg (27.0-33.0); Mean Corpuscular Volume 92.4 fL (80.0-98.0); Mean Platelet Volume 11.1 fL (9.4-12.3); Monocytes Absolute Auto 0.4 X10*3/uL (0.1-1.2); Monocytes Percent Auto 7.5 % (2-11); Neutrophils Absolute Auto 2.8 x10*3/uL (2.0-8.3); Neutrophils Percent Auto 50.7 % (45-73); Platelet Count 193 X10*3/uL (160-400); Red Blood Count 4.88 X10*6/uL (4.20-5.50); Red Cell Distribution Width 12.2 % (11.0-16.0); White Blood Count 5.6 X10*3/uL (4.8-10.8)
[2023-03-23 09:26] LABS: Estimated Average Glucose 120 mg/dL; Hemoglobin A1c % 5.8 % (<6.0)
[2023-03-23 09:37] LABS: Alanine Aminotransferase 47 U/L (0-31); Albumin Level 4.2 g/dL (3.5-5.0); Alkaline Phosphatase 77 U/L (39-117); Anion Gap 16 (12-20); Aspartate Amino Transferase 30 U/L (5-31); Bilirubin Total 0.8 mg/dL (0.0-1.0); Blood Urea Nitrogen 15 mg/dL (9-16); Calcium 9.8 mg/dL (8.4-10.2); Carbon Dioxide 23 mmol/L (22-29); Chloride 105 mmol/L (96-108); Cholesterol 185 mg/dL (<200); Estimated Glomerular Filt Rate > 60; Glucose Random 121 mg/dL (60-115); HDL Cholesterol 39 mg/dL (>40); LDL Cholesterol Calculated 110 mg/dL (<100); Sodium 140 mmol/L (135-145); Total Protein 7.2 g/dL (6.5-8.0); Triglycerides 181 mg/dL (<150)
== END 2023-03-23 08:15 | disposition home or self-care (01) ==
LOC: HO.LAB 08:14
PROVIDERS: PCP Internal Medicine Medical Oncology; Visit Provider Internal Medicine Medical Oncology
DX: I21.9 Acute myocardial infarction, unspecified (principal); I10 Essential (primary) hypertension; E78.5 Hyperlipidemia, unspecified; E66.9 Obesity, unspecified; R73.9 Hyperglycemia, unspecified; R73.03 Prediabetes
CPT/HCPCS: 36415; 80053; 80061; 83036; 85025

== ENCOUNTER 2023-05-08 13:46 | Outpatient (AMB) | payer MEDICARE, SELFPAY ==
[2023-02-05 07:17] VITALS: BP 104/68; BP 122/80
[2023-04-30 14:54] VITALS: BP 116/60; BMI 33.0
[2023-05-08 13:50] VITALS: BP 120/78; PULSE 72; BMI 33.6
--- NOTE | 2023-05-08 13:50 | A.OFFVIS_ITS ---
Intake Vital Signs 05/08/23 13:50 Height 5 ft 3 in Weight 189 lb 9.561 oz BMI 33.6 BP 120/78 Blood Pressure Location Lt brachial Position Sitting Pulse 72 Intake Visit Reasons: 4 mth f/up Intake Note: 4 month follow-up feeling good R&D Lab Technician Required: No Allergies No Known Allergies Allergy (Mild, Verified 01/24/23 10:11) NKA Medication List - Last Reconciled 05/08/23 by Dalton Vazquez MD aspirin (Adult Aspirin Regimen) 81 mg PO DAILY atenolol 100 mg PO DAILY atorvastatin 80 mg PO DAILY clopidogrel 75 mg PO DAILY hydrochlorothiazide 25 mg PO DAILY meclizine 25 mg PO TID PRN HPI HPI Comments History of Present Illness Details Pleasant 67 year female who is here for follow-up. She was seen in [facility] for NSTEMI and was transferred cardiac catheterization. Cardiac catheterization shows severe diagonal and LAD stenosis. Lad had diffuse segment of 70% stenosis. Diagonal 1 was a large size branch and had severe stenosis and was culprit for NSTEMI. We decided to treat the diagonal artery and medically treat the LAD. She did fine after that and was discharged home. Subsequently she went back to [facility] with dyspnea and this was thought to be a side effect of Brilinta and she was changed to Plavix. Since then she has done well and has no symptoms. No bleeding concerns. Taking medications regularly. 05/08/2023: She returns for follow-up. She has been doing cardiac rehabilitation and has not had any significant symptoms there. She had severe LAD stenosis which was medically treated previously. Diagonal was stented as culprit. She is tolerating dual antiplatelet therapy. No bleeding concerns currently. [facility] Medical History Back pain Colonoscopy planned Diverticulosis Elevated cholesterol Fibroma of tongue HTN (hypertension) Hyperlipidemia Left hip pain Right shoulder pain Vertigo Surgical History History of cardiac cath History of dilatation and curettage Family History Mother Heart disease Father Throat cancer Social History Alcohol intake: never Patient Tobacco Use Status: Never used Tobacco Second Hand Smoke Exposure: Yes Female Reproductive History Menstrual Age of Menarche: 16 Review of Systems Const Denies chills, Denies fatigue, Denies fever(s), Denies frequent falls, Denies weakness, Denies weight gain and Denies weight loss ENT Denies dizziness Card Denies chest pain, Denies leg edema, Denies lightheadedness, Denies palpitations, Denies dyspnea, Denies dyspnea on exertion, Denies orthopnea and Denies other (loss of consciousness) Resp Denies cough, Denies dyspnea and Denies dyspnea on exertion GI Denies hematochezia and Denies change in stool character Musc Denies abnormal gait, Denies muscle weakness, Denies numbness, Denies radiating pain into limb and Denies tingling Neuro Denies abnormal gait, Denies dizziness, Denies frequent falls, Denies numbness, Denies tingling and Denies weakness Endo Denies fatigue and Denies palpitations Physical Exam Vital Signs: Last Vital Signs Pulse 72 05/08/23 13:50 BP 120/78 05/08/23 13:50 BMI result Body Mass Index 33.6 GENERAL APPEARANCE: in no acute distress, pleasant. NECK: no carotid bruit, no jugular venous distention. SKIN: no suspicious lesions, warm and dry. HEART: no murmurs, regular rate and rhythm. LUNGS: clear to auscultation bilaterally. ABDOMEN: soft, nontender. EXTREMITIES: no edema. PERIPHERAL PULSES: equal. NEUROLOGIC: No gross deficits, AAO X 3 Assessment & Plan Assessment & Plan (1) Stable angina: Code(s): I20.89 - Other forms of angina pectoris (2) S/P coronary angioplasty: Code(s): Z98.61 - Coronary angioplasty status Plan Pleasant 67-year-old female who is here for follow-up. She was seen for NSTEMI at [facility] and was taken for cardiac catheterization at [facility] where severe LAD and diagonal stenosis was noted. Lad had diffuse disease. Diagonal was a large-sized vessel and was culprit for NSTEMI and was treated with drug-eluting stent. She has done well since then. She wants to join a gym as she is finishing her cardiac rehabilitation. I explained to her that there are many ways to approach her residual LAD stenosis at this stage. After discussion we have decided to do an exercise tolerance test. We will arrange this for her. Thank you for allowing me to participate in the care of your patient. Please feel free to contact me if you have any questions. Orders: Orders CA stress test Today I20.89 - Other forms of angina pectoris Coding Level of Care Code Est Pt Level 4 (05009) Diagnoses Stable angina I20.89 S/P coronary angioplasty Z98.61
== END 2023-05-08 14:16 | disposition home or self-care (01) ==
PROVIDERS: PCP Internal Medicine Medical Oncology; Visit Provider Internal Medicine Cardiovascular Disease
DX: I20.89 Other forms of angina pectoris (principal); Z98.61 Coronary angioplasty status
CPT/HCPCS: 99214

== ENCOUNTER → 2023-05-08 13:46 | Outpatient (BNVA) | payer MEDICARE, SELFPAY ==
[2023-02-05 07:17] VITALS: BP 104/68; BP 122/80
[2023-04-30 14:54] VITALS: BP 116/60; BMI 33.0
== END ==
PROVIDERS: PCP Internal Medicine Medical Oncology; Visit Provider Internal Medicine Cardiovascular Disease
DX: I20.89 Other forms of angina pectoris (principal); Z98.61 Coronary angioplasty status
CPT/HCPCS: 99212

== ENCOUNTER → 2023-05-21 07:53 | Outpatient (REF) | payer MEDICARE, SELFPAY ==
[2023-02-05 07:17] VITALS: BP 104/68; BP 122/80
[2023-04-30 14:54] VITALS: BP 116/60; BMI 33.0
--- NOTE | 2023-05-21 07:57 | CA_ITS ---
Acquisition Time: 2023-05-21 08:09:30 Total Exercise Time: 00:08:13 Test Indications: Suspected Angina Medications: ASA ATENOLOL ATORVASTATIN CLOPIDOGREL HCTZ MECLIZINE Protocol: ELAINE Max HR: 117 BPM 75% of Pred: 154 BPM Max BP: 204/088 mmHG Max Work Load: 8.8 METS Exercise stress test exercise 8 min 31 sec of Elaine protocol stage three reduced speed to 2.9 MPH, achieving 72% MPHR. without chest pain , mild SOB, HR slowly climbed, with isolated PACs, with resting HTN max BP 204/88 at peak, without EKG changes. BP and breathing returned to baseline with rest. Test reviewed with Dr. Vazquez Referred By: Dalton Vazquez Overread By: iWllow Lynn
== END ==
LOC: HO.CARD 07:53
PROVIDERS: PCP Internal Medicine Medical Oncology; Visit Provider Internal Medicine Cardiovascular Disease
DX: I20.89 Other forms of angina pectoris (principal)
CPT/HCPCS: 93017

== ENCOUNTER → 2023-05-21 07:57 | Outpatient (BNV) | payer MEDICARE, SELFPAY ==
[2023-05-16 08:53] VITALS: BP 104/68; BP 116/60; BP 122/80; BMI 33.0
== END ==
PROVIDERS: PCP Internal Medicine Medical Oncology; Visit Provider Nurse Practitioner
DX: R06.02 Shortness of breath (principal); I20.89 Other forms of angina pectoris
CPT/HCPCS: 93016; 93018

== ENCOUNTER 2023-06-22 08:04 | Outpatient (REF) | payer MEDICARE, SELFPAY ==
[2023-05-16 08:53] VITALS: BP 104/68; BP 116/60; BP 122/80; BMI 33.0
[2023-06-22 08:33] LABS: MANUAL DIFF FLAG NO
[2023-06-22 09:13] LABS: Basophils Absolute Auto 0.1 X10*3/uL (0.0-0.2); Basophils Percent Auto 0.9 % (0-2); Eosinophils Absolute Auto 0.1 X10*3/uL (0.0-0.4); Eosinophils Percent Auto 1.4 % (0-4); Hematocrit 43.8 % (37.0-47.0); Hemoglobin 14.9 g/dl (12.0-16.0); Lymphocytes Absolute Auto 2.1 X10*3/uL (1.2-4.9); Lymphocytes Percent Auto 36.7 % (20-40); Mean Corpuscular Hemoglobin 31.9 pg (27.0-33.0); Mean Corpuscular Volume 93.8 fL (80.0-98.0); Mean Platelet Volume 11.9 fL (9.4-12.3); Monocytes Absolute Auto 0.7 X10*3/uL (0.1-1.2); Monocytes Percent Auto 11.6 % (2-11); Neutrophils Absolute Auto 2.8 x10*3/uL (2.0-8.3); Neutrophils Percent Auto 49.4 % (45-73); Platelet Count 179 X10*3/uL (160-400); Red Blood Count 4.67 X10*6/uL (4.20-5.50); Red Cell Distribution Width 11.9 % (11.0-16.0); White Blood Count 5.7 X10*3/uL (4.8-10.8)
[2023-06-22 09:47] LABS: Alanine Aminotransferase 27 U/L (0-31); Albumin Level 4.3 g/dL (3.5-5.0); Alkaline Phosphatase 76 U/L (39-117); Anion Gap 13 (12-20); Aspartate Amino Transferase 20 U/L (5-31); Blood Urea Nitrogen 12 mg/dL (9-16); Calcium 9.7 mg/dL (8.4-10.2); Carbon Dioxide 28 mmol/L (22-29); Chloride 104 mmol/L (96-108); Cholesterol 163 mg/dL (<200); Estimated Glomerular Filt Rate > 60; Glucose Fasting 117 mg/dL (60-99); HDL Cholesterol 38 mg/dL (>40); LDL Cholesterol Calculated 104 mg/dL (<100); Potassium 3.7 mmol/L (3.3-5.1); Sodium 141 mmol/L (135-145); Total Protein 7.8 g/dL (6.5-8.0); Triglycerides 108 mg/dL (<150)
== END 2023-06-22 08:05 | disposition home or self-care (01) ==
LOC: HO.LAB 08:04
PROVIDERS: Visit Provider Internal Medicine Medical Oncology
DX: I21.9 Acute myocardial infarction, unspecified (principal); E78.5 Hyperlipidemia, unspecified; E66.9 Obesity, unspecified
CPT/HCPCS: 36415; 80053; 80061; 85025

== ENCOUNTER 2023-07-03 09:27 | Outpatient (AMB) | payer MEDICARE, SELFPAY ==
[2023-02-05 07:17] VITALS: BP 104/68; BP 122/80
[2023-04-01 15:50] VITALS: BP 116/60; BMI 33.0
[2023-04-30 14:54] VITALS: BP 116/60; BMI 33.0
[2023-05-16 08:53] VITALS: BP 104/68; BP 116/60; BP 122/80; BMI 33.0
--- NOTE | 2023-07-03 09:44 | MHC.OFFVIS ---
Intake Vital Signs 07/03/23 09:50 Height 5 ft 3 in Weight 189 lb 9.561 oz BMI 33.6 BP 122/80 Intake Visit Reasons: US follow up/Vulva-EMB/DO NOT RS Collector Of Internal Revenue Required: No Information Interpreted: non-clinical & clinical [employer] Experience Strategy: [employer] Experience Strategy Present Accompanied by: Self / Same As Patient Allergies No Known Allergies Allergy (Mild, Verified 07/03/23 09:51) NKA Post menopausal: Yes HPI HPI Comments History of Present Illness Details Presenting for ultrasound follow-up for postmenopausal bleeding and vulvar biopsies for leukoplakia . Pelvic ultrasound showed the following: The uterus is anteverted and measures 11.8 x 5.5 x 6.1 cm in dimension. There are 3 focal uterine lesions probably representing fibroids measuring 3.7 x 3.9 x 3.3 cm in the fundus, 5 x 5 x 5.7 cm in the central upper uterine body and 3.5 x 3.4 x 3.6 cm in the left fundus/cornual region. Endometrium not visualized. Ovaries not seen. No fluid in the pelvis. No previous ultrasound done prior to 2004 which showed multiple myomas the largest in the anterior body/anterior fundal uterine myoma measuring 7.4 cm. [facility] Medical History Diverticulosis Right shoulder pain Left hip pain Hyperlipidemia Colonoscopy planned Vertigo Fibroma of tongue Back pain Elevated cholesterol HTN (hypertension) Surgical History History of cardiac cath History of dilatation and curettage Family History Mother Heart disease Father Throat cancer Social History Alcohol intake: never Patient Tobacco Use Status: Never used Tobacco Second Hand Smoke Exposure: Yes Female Reproductive History Menstrual Age of Menarche: 16 Office Procedures Endometrial Biopsy Details: The patient was counseled regarding the indication and benefits of endometrial sampling to rule out endometrial pathology including not limited to endometrial hyperplasia or endometrial cancer and others; The alternatives (Either do nothing vs. hysteroscopy D&C) & the risks were discussed with the patient including but not limited: pain, uterine perforation, bleeding, infection, possible injury to bladder, bowel, ureter, possible need for blood transfusion with all its possible risks. The patient verbalized understanding all questions answered and signed consent. The patient was placed into the dorsal lithotomy position; a speculum was inserted in the vagina. Using aseptic technique for the procedure, the cervix was cleansed with Betadine. The anterior lip of the cervix was grasped with a single tooth tenaculum. The uterus was sounded to 7 cm with a 4 mm Pipelle was used. Tissues samples were obtained and placed in formalin, in a patient labeled container and sent to the pathology department. At the end of the procedure, there was minimal bleeding noted The patient tolerated the procedure well and was discharged in good condition with the following instructions: Nothing in the vagina until the bleeding stops. No sex until the bleeding stops, to call if any of the following occurs: fever (>100.4), flu-like symptoms, abdominal pain, heavy bleeding, four smelling vaginal discharge. The patient was instructed to schedule a Follow up appointment in 2 weeks to discuss pathology results of the biopsy and treatment options. This note was generated with a voice recognition program. Some errors may have been overlooked during the review of this note. Sometimes these errors may affect the content or meaning of a given sentence. 43870-Namvraljsmy Biopsy CHASER APPRENTICE Biopsy Before the procedure was started d/w patient the procedure, alternatives ( do nothing, medical rx), & all the risks associated with the procedure ( bleeding , infection, vulvar scarring, painful intercourse, injury to vessels, possible need for transfusion with all its risks) then patient signed the consent. Preop dx: Right vulvar leukoplakia Op: Right vulvar leukoplakia biopsy Post op: Same Anesthesia: Lidocaine 1% 3cc used Procedure: Using betadine the area was scrubbed and draped in the usual manner. 3 cc of lidocaine was used for anesthesia at the right vulvar leukoplakia area ; using punch biopsy and pickup the Right vulvar leukoplakia was biopsied. Pressure was used for hemostasis. The patient tolerated the procedure well. Discharge Instructions: The patient was instructed to schedule an appointment in 2 weeks for follow-up and to call if temp>100.4, area of the biopsy redness or pain, nausea/vomiting. This note was generated with a voice recognition program. Some errors may have been overlooked during the review of this note. Sometimes these errors may affect the content or meaning of a given sentence. 96701-Ilnlhe of Vulva/Perineum Procedure code (CPT) selection complete Assessment & Plan Assessment & Plan (1) Postmenopausal bleeding: Code(s): N95.0 - Postmenopausal bleeding Plan: Since the endometrium was not identified by ultrasound, recommend endometrial biopsy to rule out endometrial pathology including endometrial hyperplasia and/or malignancy. EMB done, see procedure note (2) Labial lesion: Comment: History of lichen sclerosis Code(s): N90.89 - Other specified noninflammatory disorders of vulva and perineum Plan: Vulvar biopsies taken, see procedure note (3) Uterine myoma: Code(s): D25.9 - Leiomyoma of uterus, unspecified Plan: Discussed with the patient the findings on pelvic ultrasound & the risk of myosarcoma; discussed with the patient the options of treatment including expectant management versus hysterectomy; the pros and cons, risks benefits of each approach were discussed with the patient including the fact that in cases of myosarcoma, surgical treatment can lead to early diagnosis and positively affects the prognosis; after further discussion, the patient decided to proceed with expectant management. Will repeat pelvic ultrasound in 3 months compare the size is. Instructions given to patient to call in case any of the following occurs: pressure symptoms, abnormal uterine bleeding, pelvic pain; and to schedule a 3 more office follow-up appointment for reassessment and to follow-up on the repeat ultrasound . All questions answered, the patient verbalized understanding and agreed with the plan . Orders: Orders AMB CHASER APPRENTICE Biopsy Today N90.89 - Other specified noninflammatory disorders of vulva and perineum US pelvic and transvaginal 3 Months D25.9 - Leiomyoma of uterus, unspecified AMB Endometrial Biopsy Today N95.0 - Postmenopausal bleeding Coding Level of Care Code Est Pt Level 3 (44502) Procedure Only Diagnoses Postmenopausal bleeding N95.0 Labial lesion N90.89 Uterine myoma D25.9 CPT Codes Endometrial Biopsy - CPT: 40020-Yciwuilvygy Biopsy ([id number]) CHASER APPRENTICE Biopsy - CPT: 73966-Rwsgde of Vulva/Perineum ([id number])
[2023-07-03 09:50] VITALS: BP 122/80; BMI 33.6
== END 2023-07-03 10:17 | disposition home or self-care (01) ==
PROVIDERS: PCP Internal Medicine Medical Oncology; Visit Provider Obstetrics & Gynecology
DX: N95.0 Postmenopausal bleeding (principal); N90.89 Other specified noninflammatory disorders of vulva and perineum; D25.9 Leiomyoma of uterus, unspecified
CPT/HCPCS: 56605; 58100; 99213

== ENCOUNTER 2023-07-03 09:27 | Outpatient (REF) | payer MEDICARE, SELFPAY ==
[2023-05-16 08:53] VITALS: BP 104/68; BP 116/60; BP 122/80; BMI 33.0
== END 2023-07-03 09:28 | disposition home or self-care (01) ==
LOC: HO.LNP 09:27
PROVIDERS: PCP Internal Medicine Medical Oncology; Visit Provider Obstetrics & Gynecology
DX: N90.89 Other specified noninflammatory disorders of vulva and perineum (principal); N95.0 Postmenopausal bleeding; D25.9 Leiomyoma of uterus, unspecified
CPT/HCPCS: 56605; 58100; 88305; 99212

== ENCOUNTER 2023-08-26 09:13 | Outpatient (AMB) | payer MEDICARE, SELFPAY ==
[2023-05-16 08:53] VITALS: BP 104/68; BP 116/60; BP 122/80; BMI 33.0
[2023-07-03 10:14] VITALS: BP 104/68; BP 116/60; BP 122/80; BMI 33.0
--- NOTE | 2023-08-26 09:20 | A.OFFVIS_ITS ---
Intake Vital Signs 08/26/23 09:22 Height 5 ft 3 in Weight 189 lb 9.561 oz BMI 33.6 BP 120/78 Intake Visit Reasons: follow up Biopsy/ok per Elina for 15 min Audio Visual Aids Director Required: No Information Interpreted: non-clinical & clinical Accompanied by: Self / Same As Patient Allergies No Known Allergies Allergy (Mild, Verified 08/26/23 09:22) NKA Post menopausal: Yes HPI HPI Comments History of Present Illness Details The patient is presenting after endometrial and vulvar biopsy. The patient has no complaints, no vaginal bleeding, no feverishness chills or abdominal pain. The pathology results showed following: A. Vulva, right labia majora, biopsy: Superficial fragments of hyperkeratotic squamous mucosa with features of lichen sclerosus; negative for atypia or malignancy. B. Endometrium, biopsy: Superficial strips of atrophic endometrium, squamous epithelium and endocervical epithelium; no atypia identified [facility] Medical History Diverticulosis Right shoulder pain Left hip pain Hyperlipidemia Colonoscopy planned Vertigo Fibroma of tongue Back pain Elevated cholesterol HTN (hypertension) Surgical History History of cardiac cath History of dilatation and curettage Family History Mother Heart disease Father Throat cancer Social History Alcohol intake: never Patient Tobacco Use Status: Never used Tobacco Second Hand Smoke Exposure: Yes Female Reproductive History Menstrual Age of Menarche: 16 Review of Systems Const All systems reviewed & are unremarkable except as noted in HPI and below Reports as per HPI and Reports no additional complaints GI Reports no additional complaints Reports no additional complaints Physical Exam Vital Signs: Last Vital Signs BP 120/78 08/26/23 09:22 BMI result Body Mass Index 33.6 Assessment & Plan Assessment & Plan (1) Postmenopausal bleeding: Code(s): N95.0 - Postmenopausal bleeding Plan: Discussed with the patient the results of the endometrial biopsy showing inactive endometrium. Discussed with the patient the sensitivity, specificity, positive and negative predictive value, of endometrial biopsy in detecting endometrial pathology including but not limited to endometrial hyperplasia, cancer and other pathology; instructed the patient to call in case is vaginal bleeding bleeding recurs, the next step will be to proceed with a diagnostic hysteroscopy/D&C for further endometrial sampling evaluation to rule out endometrial pathology. All questions answered and the patient verbalized understanding and agreed with the plan. (2) Labial lesion: Comment: History of lichen sclerosis Code(s): N90.89 - Other specified noninflammatory disorders of vulva and perineum Plan: Discussed with the patient the pathology results showing lichen sclerosis. Explained to the patient that Lichen sclerosus refers to a benign, chronic, progressive dermatologic condition characterized by marked inflammation, epithelial thinning accompanied by pruritus and pain. In addition, discussed with the patient that there is a small increased risk of squamous cell cancer of the vulva in patients with lichen sclerosus. Adequate treatment of the disease seems to be associated with a reduced risk of development of neoplasia. Instructed the patient to schedule an appointment in a year to examine the affected area, with possible biopsy of suspicious lesions, in addition explained to the patient that she should look at the skin of the affected area and touch with fingertips monthly to search for thickened lumps or sores that do not heal & to report such findings for inspection & possible biopsy to rule out vulvar cancer Will prescribe Clobetasol propionate 0.05% ointment to be applied daily at night for 6 to 12 weeks, followed by maintenance therapy two to three times per week . Medications: New clobetasol 0.05% Then maintenance therapy for 2-3 times per week 1 appl topical BID 45 grams 1RF 2 weeks Coding Level of Care Code Est Pt Level 3 (56006) Diagnoses Postmenopausal bleeding N95.0 Labial lesion N90.89
[2023-08-26 09:22] VITALS: BP 120/78; BMI 33.6
== END 2023-08-26 09:50 | disposition home or self-care (01) ==
LOC: HO.HWS 09:13
PROVIDERS: PCP Internal Medicine Medical Oncology; Visit Provider Obstetrics & Gynecology
DX: N95.0 Postmenopausal bleeding (principal); N90.89 Other specified noninflammatory disorders of vulva and perineum
CPT/HCPCS: 99213

== ENCOUNTER → 2023-08-26 09:13 | Outpatient (BNVA) | payer MEDICARE, SELFPAY ==
[2023-07-03 10:14] VITALS: BP 104/68; BP 116/60; BP 122/80; BMI 33.0
== END ==
PROVIDERS: PCP Internal Medicine Medical Oncology; Visit Provider Obstetrics & Gynecology
DX: N95.0 Postmenopausal bleeding (principal); N90.89 Other specified noninflammatory disorders of vulva and perineum; Z98.890 Other specified postprocedural states
CPT/HCPCS: 99212

== ENCOUNTER 2023-08-28 10:59 | Outpatient (REF) | payer MEDICARE, SELFPAY ==
[2023-07-03 10:14] VITALS: BP 104/68; BP 116/60; BP 122/80; BMI 33.0
== END 2023-08-28 11:00 | disposition home or self-care (01) ==
LOC: HO.MAMMO 10:59
PROVIDERS: PCP Internal Medicine Medical Oncology; Visit Provider Internal Medicine Medical Oncology
DX: Z12.31 Encounter for screening mammogram for malignant neoplasm of breast (principal)
CPT/HCPCS: 77063; 77067

== ENCOUNTER → 2023-08-28 11:15 | Outpatient (BNV) | payer MEDICARE, SELFPAY ==
[2023-07-03 10:14] VITALS: BP 104/68; BP 116/60; BP 122/80; BMI 33.0
== END ==
PROVIDERS: PCP Internal Medicine Medical Oncology; Visit Provider Radiology Diagnostic Radiology
DX: Z12.31 Encounter for screening mammogram for malignant neoplasm of breast (principal)
CPT/HCPCS: 77063; 77067

== ENCOUNTER 2023-09-20 07:30 | Outpatient (REF) | payer MEDICARE, SELFPAY ==
[2023-07-03 10:14] VITALS: BP 104/68; BP 116/60; BP 122/80; BMI 33.0
[2023-09-20 07:51] LABS: MANUAL DIFF FLAG NO
[2023-09-20 08:11] LABS: Basophils Absolute Auto 0.1 X10*3/uL (0.0-0.2); Basophils Percent Auto 1.1 % (0-2); Eosinophils Absolute Auto 0.1 X10*3/uL (0.0-0.4); Eosinophils Percent Auto 2.4 % (0-4); Hematocrit 44.5 % (37.0-47.0); Hemoglobin 15.4 g/dl (12.0-16.0); Lymphocytes Absolute Auto 1.9 X10*3/uL (1.2-4.9); Lymphocytes Percent Auto 40.2 % (20-40); Mean Corpuscular HGB Conc 34.6 g/dl (31.0-35.0); Mean Corpuscular Hemoglobin 31.5 pg (27.0-33.0); Mean Platelet Volume 11.3 fL (9.4-12.3); Monocytes Absolute Auto 0.4 X10*3/uL (0.1-1.2); Monocytes Percent Auto 8.1 % (2-11); Neutrophils Absolute Auto 2.3 x10*3/uL (2.0-8.3); Neutrophils Percent Auto 48.2 % (45-73); Platelet Count 191 X10*3/uL (160-400); Red Blood Count 4.89 X10*6/uL (4.20-5.50); Red Cell Distribution Width 12.2 % (11.0-16.0); White Blood Count 4.7 X10*3/uL (4.8-10.8)
[2023-09-20 08:23] LABS: Estimated Average Glucose 123 mg/dL; Hemoglobin A1c % 5.9 % (<6.0)
[2023-09-20 08:49] LABS: Alanine Aminotransferase 34 U/L (0-31); Albumin Level 4.3 g/dL (3.5-5.0); Alkaline Phosphatase 78 U/L (39-117); Anion Gap 12 (12-20); Aspartate Amino Transferase 23 U/L (5-31); Bilirubin Total 0.6 mg/dL (0.0-1.0); Blood Urea Nitrogen 18 mg/dL (9-16); Calcium 9.6 mg/dL (8.4-10.2); Carbon Dioxide 27 mmol/L (22-29); Chloride 107 mmol/L (96-108); Cholesterol 167 mg/dL (<200); Estimated Glomerular Filt Rate > 60; Glucose Fasting 125 mg/dL (60-99); HDL Cholesterol 43 mg/dL (>40); LDL Cholesterol Calculated 105 mg/dL (<100); Potassium 4.4 mmol/L (3.3-5.1); Sodium 142 mmol/L (135-145); Total Protein 7.4 g/dL (6.5-8.0); Triglycerides 99 mg/dL (<150)
== END 2023-09-20 07:31 | disposition home or self-care (01) ==
LOC: HO.LAB 07:30
PROVIDERS: PCP Internal Medicine Medical Oncology; Visit Provider Internal Medicine Medical Oncology
DX: I10 Essential (primary) hypertension (principal); E78.5 Hyperlipidemia, unspecified; R73.9 Hyperglycemia, unspecified; R73.03 Prediabetes; I21.9 Acute myocardial infarction, unspecified
CPT/HCPCS: 36415; 80053; 80061; 83036; 85025

== ENCOUNTER 2023-09-25 14:57 | Outpatient (AMB) | payer MEDICARE, SELFPAY ==
[2023-07-03 10:14] VITALS: BP 104/68; BP 116/60; BP 122/80; BMI 33.0
[2023-09-25 15:21] VITALS: BP 140/70; PULSE 65; BMI 33.3
--- NOTE | 2023-09-25 15:21 | A.OFFVIS_ITS ---
Intake Vital Signs 09/25/23 15:21 Height 5 ft 3 in Weight 188 lb 4.396 oz BMI 33.3 BP 140/70 H Blood Pressure Location Lt brachial Position Sitting Pulse 65 Pulse Source Pulse Oximeter Intake Visit Reasons: 4 mth s/p ett Intake Note: pt its here for f/up of a ett. 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 She was seen in [facility] for NSTEMI and was transferred cardiac catheterization. Cardiac catheterization shows severe diagonal and LAD stenosis. Lad had diffuse segment of 70% stenosis. Diagonal 1 was a large size branch and had severe stenosis and was culprit for NSTEMI. We decided to treat the diagonal artery and medically treat the LAD. She did fine after that and was discharged home. Subsequently she went back to [facility] with dyspnea and this was thought to be a side effect of Brilinta and she was changed to Plavix. Since then she has done well and has no symptoms. No bleeding concerns. Taking medications regularly. 05/08/2023: She returns for follow-up. She has been doing cardiac rehabilitation and has not had any significant symptoms there. She had severe LAD stenosis which was medically treated previously. Diagonal was stented as culprit. She is tolerating dual antiplatelet therapy. No bleeding concerns currently. 09/25/23: She returns for follow-up. She has been doing well from cardiovascular point of view. She has no chest discomfort shortness breath and has been physically active. She is saying that with activity she has no symptoms but at night when she laid down she gets very cold feet and tingling in her feet. He is not diabetic and does not have any history of alcohol use. [facility] Medical History (Updated 09/25/23 @ 15:26 by Theresa Phillips MA) STEMI (ST elevation myocardial infarction) Diverticulosis Right shoulder pain Left hip pain Hyperlipidemia Colonoscopy planned Vertigo Fibroma of tongue Back pain Elevated cholesterol HTN (hypertension) Surgical History History of cardiac cath History of dilatation and curettage Family History Mother Heart disease Father Throat cancer Social History Alcohol intake: never Patient Tobacco Use Status: Never used Tobacco Second Hand Smoke Exposure: Yes Female Reproductive History Menstrual Age of Menarche: 16 Review of Systems Const Denies chills, Denies fatigue, Denies fever(s), Denies frequent falls, Denies weakness, Denies weight gain and Denies weight loss ENT Denies dizziness Card Denies chest pain, Denies leg edema, Denies lightheadedness, Denies palpitations, Denies dyspnea and Denies dyspnea on exertion Resp Denies cough, Denies dyspnea and Denies dyspnea on exertion GI Denies hematochezia Musc Denies abnormal gait, Denies muscle weakness, Denies numbness, Denies radiating pain into limb and Denies tingling Neuro Denies abnormal gait, Denies dizziness, Denies frequent falls, Denies numbness, Denies tingling and Denies weakness Endo Denies fatigue and Denies palpitations Physical Exam Vital Signs: Last Vital Signs Pulse 65 09/25/23 15:21 BP 140/70 H 09/25/23 15:21 BMI result Body Mass Index 33.3 GENERAL APPEARANCE: in no acute distress, pleasant. NECK: no carotid bruit, no jugular venous distention. SKIN: no suspicious lesions, warm and dry. HEART: no murmurs, regular rate and rhythm. LUNGS: clear to auscultation bilaterally. ABDOMEN: soft, nontender. EXTREMITIES: no edema. PERIPHERAL PULSES: equal. NEUROLOGIC: No gross deficits, AAO X 3 Assessment & Plan Assessment & Plan (1) Stable angina: Code(s): I20.89 - Other forms of angina pectoris Plan 68-year-old female who is here for follow-up. She has known history of coronary artery disease with previous diagonal PCI for acute coronary syndrome. She had diffuse LAD stenosis which was medically treated and since the PCI she has been doing well without any exertional symptoms. She is taking dual antiplatelet therapy with aspirin and Plavix. I have advised her to take it long-term. Blood pressure in the office is elevated which was minimal leak reconfirmed. She takes hydrochlorothiazide half tablet daily. I have advised her to go to full tablet of 25 mg daily. As she is complaining of some cold feet as well as tingling in the feet. She should have workup with vitamin B12 level. Symptoms sound like neuropathy. Other possibility is that these are related to beta- reg use. If no obvious cause is found then atenolol dose can be decreased to see if that helps her symptoms. Clinically did not consistent with peripheral vascular disease. Thank you for allowing me to participate in the care of your patient. Please feel free to contact me if you have any questions. Medications: Changed From hydrochlorothiazide 12.5 mg PO DAILY To hydrochlorothiazide 25 mg PO DAILY Coding Level of Care Code Est Pt Level 4 (76842) Diagnoses Stable angina I20.89
== END 2023-09-25 15:54 | disposition home or self-care (01) ==
PROVIDERS: PCP Internal Medicine Medical Oncology; Visit Provider Internal Medicine Cardiovascular Disease
DX: I20.89 Other forms of angina pectoris (principal)
CPT/HCPCS: 99214

== ENCOUNTER → 2023-09-25 14:57 | Outpatient (BNVA) | payer MEDICARE, SELFPAY ==
[2023-07-03 10:14] VITALS: BP 104/68; BP 116/60; BP 122/80; BMI 33.0
== END ==
PROVIDERS: PCP Internal Medicine Medical Oncology; Visit Provider Internal Medicine Cardiovascular Disease
DX: I20.89 Other forms of angina pectoris (principal)
CPT/HCPCS: 99212

== ENCOUNTER 2023-10-02 10:43 | Outpatient (REF) | payer MEDICARE, SELFPAY ==
[2023-07-03 10:14] VITALS: BP 104/68; BP 116/60; BP 122/80; BMI 33.0
--- NOTE | ~2023-10-02 | US_ITS ---
EXAMINATION: US PELVIS CLINICAL INFORMATION: Leiomyoma of uterus. COMPARISON: Pelvic ultrasound 02/04/2023. TECHNIQUE: Ultrasound of the pelvis is performed using both transabdominal and transvaginal transducers along with Doppler. Transvaginal imaging is performed due to inadequate visualization transabdominally. FINDINGS: The uterus measures 9.3 x 5.8 x 7.4 cm. Fibroid uterus with 3 distinct fibroids as below: 1. 3.8 cm intramural fibroid in the midline uterine fundus. Previously 3.9 cm. 2. 5.5 cm broad submucosal fibroid in the uterine body. Previously 5.7 cm. 3. 3.7 cm intramural fibroid in the left uterine fundus. Previously 3.6 cm. Fibroid disease obscures the endometrial stripe. Neither ovary is visible. No free pelvic fluid visible. US/US pelvic and transvaginal IMPRESSION: No significant change in fibroid uterus compared to prior imaging 02/04/2023. The endometrial stripe and the ovaries are not visible.
[2023-10-02 13:52] LABS: Free T4 (Free Thyroxine) 1.14 ng/dL (0.71-1.85); Thyroid Stimulating Hormone 0.54 uIU/mL (0.32-4.0)
== END 2023-10-02 10:44 | disposition home or self-care (01) ==
LOC: HO.US 10:43
PROVIDERS: Absent Provider Internal Medicine Medical Oncology; PCP Internal Medicine Medical Oncology; Visit Provider Obstetrics & Gynecology
DX: D25.9 Leiomyoma of uterus, unspecified (principal); I73.9 Peripheral vascular disease, unspecified; R53.83 Other fatigue
CPT/HCPCS: 36415; 76830; 76856; 84439; 84443

== ENCOUNTER 2023-10-17 13:07 | Outpatient (REF) | payer MEDICARE, SELFPAY ==
[2023-07-03 10:14] VITALS: BP 104/68; BP 116/60; BP 122/80; BMI 33.0
--- NOTE | ~2023-10-17 | US_ITS ---
EXAMINATION: US arterial duplex LE BI, US KENISHA complete CLINICAL INFORMATION: claudication COMPARISON: None TECHNIQUE: Ankle pulse volume recordings, ankle pressure measurements and ankle brachial indices were obtained of the lower extremity arterial system bilaterally in addition to duplex Doppler techniques with wave form analysis and measurement of velocities in the common femoral, profunda femoral, superficial femoral, popliteal, tibial and peroneal arteries. The study was performed only at rest. FINDINGS: RIGHT LE. THE RIGHT ANKLE-BRACHIAL INDEX IS: 1.15 2. SEGMENTAL PRESSURES (mmHg): Ankle: PT 160, DP 158 3. PVR WAVEFORMS: Ankle: Normal 4. DIRECT DUPLEX: Common femoral artery: 101 cm/s, Multiphasic Profunda femoris artery: 50 cm/s, Multiphasic Superficial femoral artery (proximal): 66 cm/s, biphasic Superficial femoral artery (mid): 64 cm/s, Multiphasic Superficial femoral artery (distal): 45 cm/s, biphasic Proximal Popliteal artery: 49 cm/s, Multiphasic Distal popliteal artery: 51 cm/s, Multiphasic Mid posterior tibial artery: 62 cm/s, biphasic Peroneal artery: 56 cm/s, biphasic Anterior tibial artery: 53 cm/sec, multiphasic LEFT LE. THE LEFT ANKLE-BRACHIAL INDEX IS: 1.15 2. SEGMENTAL PRESSURES: Ankle: PT 160, DP 150 3. PVR WAVEFORMS: Ankle: Normal 4. DIRECT DUPLEX: Common femoral artery: 77 cm/s, Multiphasic Profunda femoris artery: 59 cm/s, Multiphasic Superficial femoral artery (proximal): 71 cm/s, Multiphasic Superficial femoral artery (mid): 75 cm/s, Multiphasic Superficial femoral artery (distal): 50 cm/s, biphasic Proximal Popliteal artery: 47 cm/s, biphasic Distal popliteal artery: 50 cm/s, biphasic Mid posterior tibial artery: 47 cm/s, biphasic Peroneal artery: 35 cm/s, biphasic Anterior to the artery: 59 cm/sec, triphasic US/US KENISHA complete IMPRESSION: No evidence of arterial occlusion or hemodynamically significant stenosis.
--- NOTE | ~2023-10-17 | US_ITS ---
EXAMINATION: US arterial duplex LE BI, US KENISHA complete CLINICAL INFORMATION: claudication COMPARISON: None TECHNIQUE: Ankle pulse volume recordings, ankle pressure measurements and ankle brachial indices were obtained of the lower extremity arterial system bilaterally in addition to duplex Doppler techniques with wave form analysis and measurement of velocities in the common femoral, profunda femoral, superficial femoral, popliteal, tibial and peroneal arteries. The study was performed only at rest. FINDINGS: RIGHT LE. THE RIGHT ANKLE-BRACHIAL INDEX IS: 1.15 2. SEGMENTAL PRESSURES (mmHg): Ankle: PT 160, DP 158 3. PVR WAVEFORMS: Ankle: Normal 4. DIRECT DUPLEX: Common femoral artery: 101 cm/s, Multiphasic Profunda femoris artery: 50 cm/s, Multiphasic Superficial femoral artery (proximal): 66 cm/s, biphasic Superficial femoral artery (mid): 64 cm/s, Multiphasic Superficial femoral artery (distal): 45 cm/s, biphasic Proximal Popliteal artery: 49 cm/s, Multiphasic Distal popliteal artery: 51 cm/s, Multiphasic Mid posterior tibial artery: 62 cm/s, biphasic Peroneal artery: 56 cm/s, biphasic Anterior tibial artery: 53 cm/sec, multiphasic LEFT LE. THE LEFT ANKLE-BRACHIAL INDEX IS: 1.15 2. SEGMENTAL PRESSURES: Ankle: PT 160, DP 150 3. PVR WAVEFORMS: Ankle: Normal 4. DIRECT DUPLEX: Common femoral artery: 77 cm/s, Multiphasic Profunda femoris artery: 59 cm/s, Multiphasic Superficial femoral artery (proximal): 71 cm/s, Multiphasic Superficial femoral artery (mid): 75 cm/s, Multiphasic Superficial femoral artery (distal): 50 cm/s, biphasic Proximal Popliteal artery: 47 cm/s, biphasic Distal popliteal artery: 50 cm/s, biphasic Mid posterior tibial artery: 47 cm/s, biphasic Peroneal artery: 35 cm/s, biphasic Anterior to the artery: 59 cm/sec, triphasic US/US arterial duplex LE BI IMPRESSION: No evidence of arterial occlusion or hemodynamically significant stenosis.
== END 2023-10-17 13:08 | disposition home or self-care (01) ==
LOC: HO.US 13:07
PROVIDERS: PCP Internal Medicine Medical Oncology; Visit Provider Internal Medicine Medical Oncology
DX: I73.9 Peripheral vascular disease, unspecified (principal)
CPT/HCPCS: 93923; 93925

== ENCOUNTER 2023-10-28 07:49 | Outpatient (AMB) | payer MEDICARE, SELFPAY ==
[2023-07-03 10:14] VITALS: BP 104/68; BP 116/60; BP 122/80; BMI 33.0
--- NOTE | 2023-10-28 08:09 | A.OFFVIS_ITS ---
Intake Vital Signs 10/28/23 08:12 Height 5 ft 3 in Weight 188 lb BMI 33.3 BP 132/80 Intake Visit Reasons: ultrasound follow up Associate Material Handler Required: Yes Associate Material Handler Language: Russian Associate Material Handler Name: Paty [id number] Allergies No Known Allergies Allergy (Mild, Verified 10/28/23 08:15) NKA Is last menstrual period known: No Post menopausal: Yes Patient : No HPI HPI Comments History of Present Illness Details Presenting for ultrasound follow-up regarding myomas. No complaints, no pelvic pressure, vaginal bleeding or pelvic pain. Ultrasound done recently showed the following: The uterus measures 9.3 x 5.8 x 7.4 cm. Fibroid uterus with 3 distinct fibroids as below: 1. 3.8 cm intramural fibroid in the midl ine uterine fundus. Previously 3.9 cm. 2. 5.5 cm broad submucosal fibroid in th e uterine body. Previously 5.7 cm. 3. 3.7 cm intramural fibroid in the left uterine fundus. Previously 3.6 cm. Fibroid disease obscures the endometrial stripe. Neither ovary is visible. No free pelvic fluid visible. [facility] Medical History STEMI (ST elevation myocardial infarction) Diverticulosis Right shoulder pain Left hip pain Hyperlipidemia Colonoscopy planned Vertigo Fibroma of tongue Back pain Elevated cholesterol HTN (hypertension) Surgical History History of cardiac cath History of dilatation and curettage Family History Mother Heart disease Father Throat cancer Social History Alcohol intake: never Patient Tobacco Use Status: Never used Tobacco Second Hand Smoke Exposure: Yes Patient : No Female Reproductive History Menstrual Age of Menarche: 16 control method: none Review of Systems Const All systems reviewed & are unremarkable except as noted in HPI and below Reports as per HPI and Reports no additional complaints GI Reports no additional complaints Reports no additional complaints Physical Exam Vital Signs: Last Vital Signs BP 132/80 10/28/23 08:12 BMI result Body Mass Index 33.3 Assessment & Plan Assessment & Plan (1) Uterine myoma: Code(s): D25.9 - Leiomyoma of uterus, unspecified Plan: Discussed with the patient the findings on pelvic ultrasound & the risk of myosarcoma; discussed with the patient the options of treatment including expectant management versus hysterectomy; the pros and cons, risks benefits of each approach were discussed with the patient including the fact that in cases of myosarcoma, surgical treatment can lead to early diagnosis and positively affects the prognosis; after further discussion, the patient decided to proceed with expectant management. Will repeat pelvic ultrasound periodically. Instructions given to patient to call in case any of the following occurs: pressure symptoms, abnormal uterine bleeding, pelvic pain; and to schedule a pelvic ultrasound and a follow-up appointment in a year . All questions answered, the patient verbalized understanding and agreed with the plan . Orders: Orders US pelvic and transvaginal 08/24/24 D25.9 - Leiomyoma of uterus, unspecified Coding Level of Care Code Est Pt Level 3 (45834) Diagnoses Uterine myoma D25.9
[2023-10-28 08:12] VITALS: BP 132/80; BMI 33.3
== END 2023-10-28 08:33 | disposition home or self-care (01) ==
PROVIDERS: PCP Internal Medicine Medical Oncology; Visit Provider Obstetrics & Gynecology
DX: D25.9 Leiomyoma of uterus, unspecified (principal)
CPT/HCPCS: 99213

== ENCOUNTER → 2023-10-28 07:49 | Outpatient (BNVA) | payer MEDICARE, SELFPAY ==
[2023-07-03 10:14] VITALS: BP 104/68; BP 116/60; BP 122/80; BMI 33.0
== END ==
PROVIDERS: PCP Internal Medicine Medical Oncology; Visit Provider Obstetrics & Gynecology
DX: D25.9 Leiomyoma of uterus, unspecified (principal); Z78.0 Asymptomatic menopausal state
CPT/HCPCS: 99212

== ENCOUNTER 2024-02-05 13:18 | Outpatient (AMB) | payer MEDICARE, SELFPAY ==
[2023-07-03 10:14] VITALS: BP 104/68; BP 116/60; BP 122/80; BMI 33.0
[2024-02-05 13:44] VITALS: BP 140/70; PULSE 61; BMI 34.1
--- NOTE | 2024-02-05 13:44 | MHC.OFFVIS ---
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 She was seen in [facility] for NSTEMI and was transferred cardiac catheterization. Cardiac catheterization shows severe diagonal and LAD stenosis. Lad had diffuse segment of 70% stenosis. Diagonal 1 was a large size branch and had severe stenosis and was culprit for NSTEMI. We decided to treat the diagonal artery and medically treat the LAD. She did fine after that and was discharged home. Subsequently she went back to [facility] with dyspnea and this was thought to be a side effect of Brilinta and she was changed to Plavix. Since then she has done well and has no symptoms. No bleeding concerns. Taking medications regularly. 05/08/2023: She returns for follow-up. She has been doing cardiac rehabilitation and has not had any significant symptoms there. She had severe LAD stenosis which was medically treated previously. Diagonal was stented as culprit. She is tolerating dual antiplatelet therapy. No bleeding concerns currently. 09/25/23: She returns for follow-up. She has been doing well from cardiovascular point of view. She has no chest discomfort shortness breath and has been physically active. She is saying that with activity she has no symptoms but at night when she laid down she gets very cold feet and tingling in her feet. He is not diabetic and does not have any history of alcohol use. 02/05/24: She is here for follow-up. Again complaining of some paresthesia in her feet. Denying any chest discomfort. [facility] Medical History STEMI (ST elevation myocardial infarction) Diverticulosis Right shoulder pain Left hip pain Hyperlipidemia Colonoscopy planned Vertigo Fibroma of tongue Back pain Elevated cholesterol HTN (hypertension) Surgical History History of cardiac cath History of dilatation and curettage Family History Mother Heart disease Father Throat cancer Social History Alcohol intake: never Patient Tobacco Use Status: Never used Tobacco Second Hand Smoke Exposure: Yes Female Reproductive History Menstrual Age of Menarche: 16 Review of Systems Const Denies chills, Denies fatigue, Denies fever(s), Denies frequent falls, Denies weakness, Denies weight gain and Denies weight loss ENT Denies dizziness Card Denies chest pain, Denies leg edema, Denies lightheadedness, Denies palpitations, Denies dyspnea and Denies dyspnea on exertion Resp Denies cough, Denies dyspnea and Denies dyspnea on exertion GI Denies hematochezia Musc Denies abnormal gait, Denies muscle weakness, Denies numbness, Denies radiating pain into limb and Denies tingling Neuro Denies abnormal gait, Denies dizziness, Denies frequent falls, Denies numbness, Denies tingling and Denies weakness Endo Denies fatigue and Denies palpitations Physical Exam Vital Signs: Last Vital Signs Pulse 61 02/05/24 13:44 BP 140/70 H 02/05/24 13:44 BMI result Body Mass Index 34.1 GENERAL APPEARANCE: in no acute distress, pleasant. NECK: no carotid bruit, no jugular venous distention. SKIN: no suspicious lesions, warm and dry. HEART: no murmurs, regular rate and rhythm. LUNGS: clear to auscultation bilaterally. ABDOMEN: soft, nontender. EXTREMITIES: no edema. PERIPHERAL PULSES: equal. NEUROLOGIC: No gross deficits, AAO X 3 Office Procedures EKG Details: Sinus rhythm 61 beats per minute, normal axis, normal ECG, QTC 450 milliseconds. [id number], Complete Assessment & Plan Assessment & Plan (1) Stable angina: Code(s): I20.8 - Other forms of angina pectoris Category: Medical Plan Pleasant 68 year female who is here for follow-up. She has history of coronary disease with previous diagonal PCI. She had diffuse LAD stenosis which was medically treated. She continues to be asymptomatic. Blood pressure is mildly elevated. Please monitor and on follow-up if elevated then add TERESA inhibitor. She is complaining of paresthesia in her feet. I have advised her to start taking some multivitamins to see if it improves. She does not drink alcohol. She is reportedly not a diabetic also. Thank you for allowing me to participate in the care of your patient. Please feel free to contact me if you have any questions. Coding Level of Care Code Est Pt Level 4 (71765) Diagnoses Stable angina I20.8 CPT Codes EKG - CPT: 33523-[id number], Complete ([id number])
== END 2024-02-05 14:08 | disposition home or self-care (01) ==
PROVIDERS: PCP Internal Medicine Medical Oncology; Visit Provider Internal Medicine Cardiovascular Disease
DX: I20.89 Other forms of angina pectoris (principal)
CPT/HCPCS: 93010; 99214

== ENCOUNTER → 2024-02-05 13:18 | Outpatient (BNVA) | payer MEDICARE, SELFPAY ==
[2023-07-03 10:14] VITALS: BP 104/68; BP 116/60; BP 122/80; BMI 33.0
== END ==
PROVIDERS: PCP Internal Medicine Medical Oncology; Visit Provider Internal Medicine Cardiovascular Disease
DX: I20.89 Other forms of angina pectoris (principal)
CPT/HCPCS: 93005; 99212

== ENCOUNTER 2024-04-16 08:34 | Outpatient (REF) | payer MEDICARE, SELFPAY ==
[2023-07-03 10:14] VITALS: BP 104/68; BP 116/60; BP 122/80; BMI 33.0
[2024-04-16 08:48] LABS: MANUAL DIFF FLAG NO
[2024-04-16 09:12] LABS: Basophils Absolute Auto 0.1 X10*3/uL (0.0-0.2); Eosinophils Absolute Auto 0.1 X10*3/uL (0.0-0.4); Hematocrit 43.1 % (37.0-47.0); Hemoglobin 15.1 g/dl (12.0-16.0); Lymphocytes Absolute Auto 1.8 X10*3/uL (1.2-4.9); Lymphocytes Percent Auto 35.6 % (20-40); Mean Corpuscular Volume 91.3 fL (80.0-98.0); Mean Platelet Volume 11.5 fL (9.4-12.3); Monocytes Absolute Auto 0.4 X10*3/uL (0.1-1.2); Monocytes Percent Auto 8.3 % (2-11); Neutrophils Absolute Auto 2.6 x10*3/uL (2.0-8.3); Neutrophils Percent Auto 53.1 % (45-73); Platelet Count 204 X10*3/uL (160-400); Red Blood Count 4.72 X10*6/uL (4.20-5.50); White Blood Count 4.9 X10*3/uL (4.8-10.8)
[2024-04-16 09:34] LABS: Alanine Aminotransferase 48 U/L (0-31); Albumin Level 4.3 g/dL (3.5-5.0); Alkaline Phosphatase 77 U/L (39-117); Anion Gap 11 (12-20); Aspartate Amino Transferase 31 U/L (5-31); Bilirubin Total 0.8 mg/dL (0.0-1.0); Blood Urea Nitrogen 14 mg/dL (9-16); Calcium 9.8 mg/dL (8.4-10.2); Carbon Dioxide 27 mmol/L (22-29); Chloride 105 mmol/L (96-108); Cholesterol 161 mg/dL (<200); Estimated Glomerular Filt Rate > 60; Glucose Fasting 129 mg/dL (60-99); HDL Cholesterol 37 mg/dL (>40); LDL Cholesterol Calculated 93 mg/dL (<100); Potassium 3.9 mmol/L (3.3-5.1); Sodium 139 mmol/L (135-145); Total Protein 7.3 g/dL (6.5-8.0); Triglycerides 155 mg/dL (<150)
== END 2024-04-16 08:35 | disposition home or self-care (01) ==
LOC: HO.LAB 08:34
PROVIDERS: PCP Internal Medicine Medical Oncology; Visit Provider Internal Medicine Medical Oncology
DX: E78.5 Hyperlipidemia, unspecified (principal); E66.9 Obesity, unspecified; R73.03 Prediabetes
CPT/HCPCS: 36415; 80053; 80061; 85025

== ENCOUNTER 2024-06-26 08:39 | Outpatient (REF) | payer MEDICARE, SELFPAY ==
[2023-07-03 10:14] VITALS: BP 104/68; BP 116/60; BP 122/80; BMI 33.0
[2024-06-26 09:00] LABS: MANUAL DIFF FLAG NO
[2024-06-26 09:37] LABS: Basophils Absolute Auto 0.1 X10*3/uL (0.0-0.2); Basophils Percent Auto 1.1 % (0-2); Eosinophils Absolute Auto 0.1 X10*3/uL (0.0-0.4); Eosinophils Percent Auto 1.5 % (0-4); Hemoglobin 15.6 g/dl (12.0-16.0); Imm Gran Abs Auto 0.01 X10*3/uL (0.00-0.03); Imm Gran Pct Auto 0.2 % (0.0-0.4); Lymphocytes Absolute Auto 1.9 X10*3/uL (1.2-4.9); Lymphocytes Percent Auto 35.1 % (20-40); Mean Corpuscular HGB Conc 36.3 g/dl (31.0-35.0); Mean Corpuscular Hemoglobin 32.4 pg (27.0-33.0); Mean Corpuscular Volume 89.4 fL (80.0-98.0); Mean Platelet Volume 11.3 fL (9.4-12.3); Monocytes Absolute Auto 0.4 X10*3/uL (0.1-1.2); Monocytes Percent Auto 7.8 % (2-11); Neutrophils Absolute Auto 2.9 x10*3/uL (2.0-8.3); Neutrophils Percent Auto 54.3 % (45-73); Platelet Count 198 X10*3/uL (160-400); Red Blood Count 4.81 X10*6/uL (4.20-5.50); Red Cell Distribution Width 11.8 % (11.0-16.0); White Blood Count 5.3 X10*3/uL (4.8-10.8)
[2024-06-26 10:07] LABS: Alanine Aminotransferase 59 U/L (0-31); Albumin Level 4.3 g/dL (3.5-5.0); Alkaline Phosphatase 72 U/L (39-117); Anion Gap 12 (12-20); Aspartate Amino Transferase 41 U/L (5-31); Bilirubin Total 0.7 mg/dL (0.0-1.0); Blood Urea Nitrogen 13 mg/dL (9-16); Calcium 9.8 mg/dL (8.4-10.2); Carbon Dioxide 25 mmol/L (22-29); Chloride 106 mmol/L (96-108); Cholesterol 162 mg/dL (<200); Estimated Glomerular Filt Rate > 60; Glucose Fasting 134 mg/dL (60-99); HDL Cholesterol 38 mg/dL (>40); LDL Cholesterol Calculated 103 mg/dL (<100); Magnesium 1.8 mg/dL (1.6-2.6); Potassium 3.4 mmol/L (3.3-5.1); Sodium 140 mmol/L (135-145); Total Protein 7.6 g/dL (6.5-8.0); Triglycerides 107 mg/dL (<150)
--- OUTSIDE RECORDS SUMMARY | 2024-07-01 05:48 | XMS_ITS ---
[facility] Address [address] [place] [address] Care Team Providers Care Roller Repairer Name Role Phone Suhail Ramos MD Primary Care Provider Samm Torres Unavailable [phone] Allergies No Known Allergies REASON FOR VISIT last visit pcp 04/21/24, Foot pain Medications Medication SIG (Take, Route, Frequency, Duration) Notes Start Date End Date Status Gabapentin 100 MG 1 capsule in morning and one at bedtime Orally Twice a Day for 30 days 06/04/2024 Active Clopidogrel Bisulfate 75 MG 1 tablet Ora lly Once a day Active Atorvastatin Calcium 80 MG 1 tablet Oral ly Once a day Active Meclizine HCl 25 MG 1 tablet as needed Orally every 12 hrs Active Aspirin 81 81 MG 1 tablet Orally Once a day Active Atenolol 100 MG 1 tablet Orally Once a day Active hydroCHLOROthiazide 25 MG 1 tablet in th e morning Orally Once a day Active Social History Tobacco Use: Social History Observation Description Date Details (start date - stop date) Never Smoker NA - NA Tobacco use other than smoking: Question Answer Notes Are you an other tobacco user? No Tobacco Control (Standard) Question Answer Notes Tobacco use: Nonsmoker Additional Findings: Tobacco non-user Current no nsmoker AUDIT-C (Standard) Question Answer Notes Did you have a drink containing alcohol in the p ast year? No Points 0 Interpretation Negative Problems Problem Type SNOMED Code ICD Code Onset Dates Problem Status W/U Status Risk Notes Problem Mononeuropathy of lower limb (763658155) Neuritis of right foot (G57.91) Active confirmed Vital Signs Height 5ft 3in in 06/04/2024 Weight 190 lbs 06/04/2024 BMI 33.65 kg/m2 06/04/2024 Encounters Encounter [facility] Date [facility] [place] [address] 06/04/2024 Samm Irwin Pain in left foot M79.672 ; Neuralgia and neuritis M79.2 ; Hallux valgus (acquired), left foot M20.12 ; Pain in right foot M79.671 and Hallux valgus (acquired), right foot M20.11 Assessments Encounter Date Diagnosis (ICD Code) Assessment Notes Treatment Notes Treatment Clinical Notes Section Notes 06/04/2024 Pain in left foot (ICD-10 - M79.672) 06/04/2024 Neuralgia and neuritis (ICD-10 - M79.2) 06/04/2024 Hallux valgus (acquired), left foot (ICD-10 - M20.12) 06/04/2024 Pain in right foot (ICD-10 - M79.671) 06/04/2024 Hallux valgus (acquired), right foot (ICD-10 - M20.11) Plan Of Treatment Medication Medication Name Sig Start Date Stop Date Notes Gabapentin 100 MG 1 capsule in morning and one at bedtime Orally Twice a Day for 30 days 06/04/2024 Next Appt Details Follow Up: 3 Weeks, Reason: Provider Name:Samm Irwin, 09/01/2024 11:15:00 AM, [address] [place] [address], [place], [address], Progress Notes * Sylvie AYALADOB:1955 (69 yo F)Acc No.[id number]:06/04/2024 Progress Notes Patient:?Sylvie AYALA Provider:?Samm Irwin D.P.M. :1955???Age:69 Y???Sex:Female D ate:06/04/2024 Address:[address] [place] [address], [facility] Pcp:Suhail Ramos MD Subjective: * Chief Complaints: * ???Last visit pcp 04/21/24Fo ot pain * HPI: ???Foot Pain:?Nature:?burning , radiating , shooting , tingling.?Location:?Top, Bottom, Inside, Outside, B/L.?Duration:?several months.?Onset:?unknown.?Course:?worse?.?Aggravated:?Worse at night when in bed.?Treatments:?rest/alter normal daily activity.? * ROS:?General/Constitutional:?Nausea?denies.?Vomiting?denies.?Hunger Thirst?denies.?Loss appetite?denies.?Chills?denies.?Fatigue?denies.?Fever?denies.?Night Sweats?denies.?Unexplained weight loss?denies.?Unexplained weight gain?denies.?HEENTM:?Dentures?denies.?Dizziness?denies.?Glasses/contacts?denies.?Retinopathy?de nies.?Blurred/double vision?denies.?TMJ?denies.?Discharge/drainage?denies.?Implants?denies.?Sore throat?denies.?Dental implants?denies.?Hard of hearing ?denies.?Difficulty chewing/swallowing/speaking?denies.?Nose bleeds?denies.?Sore mouth?denies.?Respiratory:?On Oxygen?denies.?Pneumonia/pleurisy?denies.?Bronchitis?denies.?Emphysema?denies.?C oughing?denies.?Cough blood?denies.?Shortness of breath?denies.?Wheezing?denies.?Cardiovascular:?Pacemaker?denies.?MVP?denies.?WPW?denies.?CHF?denies.?Heart attack?denies.?Septal defect?denies.?Rapid beat?denies.?Chest pain ?denies.?Atrial Fib.?denies.?Murmur/Palpitations?denies.?Gastrointestinal:?Hemorrhoids?denies.?Stomach/Abdominal pain?denies.?Dark blood stool?denies.?Irritable bowel ?denies.?Constipation?denies.?Diarrhea?denies.?Hematology:?Swelling?admits.?Clots?denies.?Varicose Veins?denies.?Bruising?denies.?Bleeding problem?denies.?Genitourinary:?Blood urine?denies.?Frequent/Painfu/urination/bladder control?denies.?Kidney stones?denies.?Infection (UTI)?denies.?Nephropathy?denies.?sex trans dis (STD)?denies.?Prostate?denies.?Musculoskeletal:?Hammertoes?denies.?Bunions?denies.?Back Pain?denies.?Muscle Cramps/ Resting?admits.?Muscle cramps / walking?admits.?Generalized aches and pains?denies.?Weakness?denies.?Integ.:?Baker?denies.?Scars?denies.?Corns/calluses?denies.?Ingrown nails?denies.?Painful nails?admits.?Open Sores?denies.?Rashes?denies.?Neurologic:?Difficulty sleeping?denies.?Brain disorder?denies.?Numbness?admits.?Balance trouble?denies.?Confusion?denies.?Fainting/blackouts?denies.?Tingling?admits.?Tr emors?denies.? * Medical History:? * Surgical History:?heart sten t 10/2022 * Hospitalization/Major Diagno stic Procedure:?heart attack one stent 10/2022 * Family History:?Mother: dece ased, heart attack, high blood pressure.?Father: , cancer.? * Social History:?Tobacco Use:?Tobacco use other than smoking?Are you an other tobacco user??No ?Tobacco Control (Standard)?Tobacco use:?Nonsmoker ?Additional Findings: Tobacco non-user?Current nonsmoker ???Drugs/Alcohol:?Drugs?Have you used drugs other than those for medical reasons in the past 12 months??No ???Miscellaneous:?Caffeine: yes, frequency:. ?Children: yes, 2. ?Exercise: yes, walking, 3-4 times per week. ?Marital status: . 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 ???Drug/Alcohol:?AUDIT-C (Standard)?Did you have a drink containing alcohol in the past year??No ?Points?0 ?Interpretation?Negative * Medications:?TakingAtenolol 100 MG Tablet 1 tablet Orally Once a day hydroCHLOROthiazide 25 MG Tablet 1 tablet in the morning Orally Once a day Meclizine HCl 25 MG Tablet 1 tablet as needed Orally every 12 hrs Aspirin 81 81 MG Tablet Delayed Release 1 tablet Orally Once a day Clopidogrel Bisulfate 75 MG Tablet 1 tablet Orally Once a day Atorvastatin Calcium 80 MG Tablet 1 tablet Orally Once a day Medication List reviewed and reconciled with the patientTaking Atenolol 100 MG Tablet 1 tablet Orally Once a day Taking hydroCHLOROthiazide 25 MG Tablet 1 tablet in the morning Orally Once a day Taking Meclizine HCl 25 MG Tablet 1 tablet as needed Orally every 12 hrs Taking Aspirin 81 81 MG Tablet Delayed Release 1 tablet Orally Once a day Taking Clopidogrel Bisulfate 75 MG Tablet 1 tablet Orally Once a day Taking Atorvastatin Calcium 80 MG Tablet 1 tablet Orally Once a day Medication List reviewed and reconciled with the patient * Allergies:?N.K.D.A.yes[Aller gies Verified] Objective: * Vitals:?Ht: 5ft 3in, Wt:190, BMI:33.65, Shoe size: 7.5 W, Ht-cm: 160.02 cm, Wt- k.18 kg. * Examination: ???General Examination: ?GENERAL APPEARANCE:?Reveals a pleasant, alert, well-nourished, well- developed, well hydrated individual, who demonstrates proper attention to hygiene/body habitus, and is in no acute distress, Pt serves as own?historian for office visit today.?ORIENTED:?person, place, and time.?Neurological: ?SENSORY:?Neurological exam demonstrates reduced sharp/dull pin prick discrimination reduced light touch sensation reduced vibration sensation reduced proprioception sensation in a stocking fashion 5.07 monofilament test performed at plantar aspects of 5 varied sites per foot shows sensation plantar aspects absent at Forefoot B/L.?TINEL'S COMPRESSION:? Negative, Saphenous nerve distribution, B/L , Positive , Medial dorsal cutaneous nerve distribution , Intermediate dorsal cutaneous nerve distribution , Right.?DEEP TENDON REFLEXES:?Achilles, 2/4, B/L.?Vascular: ?DP PULSES(B):?3/4, B/L.?PT PULSES(B):?3/4, B/L.?CAPILLARY FILL TIME:?immediate, all digits, B/L.?TROPHIC CONDITION-TEXTURE/ELASTICITY/TURGOR/HAIR GROWTH(B):?normal, B/L.?TEMPERTURE GRADIENT(C):?warm to cool, proximal to distal, B/L.?PIGMENTATION:?normal, B/L.?EDEMA(C):?absent, B/L.?Dermatologic: ?SKIN FINDINGS:?Skin exam reveals normal texture, elasticity, and turgor. There are no masses. The interspaces are clear.?Orthopedic: ?MUSCLE STRENGTH:?5/5 all groups in a symmetrical fashion , B/L.?BUNION:? Medially prominent 1st MPJ, (+) Pain on palpation, inflammation present medially, Lateral tracking 1st MPJ incompletely reducible, B/L.?Radiologic: ?X-RAY:?3 views, bilateral, hallux valgus formation, increase in intermetatarsal angle, soft tissue swelling noted, no signs of fracture/dislocation.? Assessment: * Assessment: 1.?Pain in left foot - M79.6 72???2.?Neuralgia and neuritis - M79.2 (Primary)???Specify :Acute problem, Uncomplicated (3) Rx Management (4)???3.?Hallux valgus (acquired), left foot - M20.12???Specify :Chronic problem, Stable (1=3,2=4)???4.?Pain in right foot - M79.671???5.?Hallux valgus (acquired), right foot - M20.11???Specify :Chronic problem, Stable (1=3,2=4)??? Plan: * Treatment: * Procedure Codes:?25667 X-RAY EXAM OF LEFT FOOT 3V, Modifiers: 26 , SF47190 X-RAY EXAM OF RIGHT FOOT 3V, Modifiers: 26 , RT * Preventive Medicine:? ??Counseling:?Discussion:?-04: Office or other outpatient visit for the evaluation and management of a new patient, which required a medically appropriate history and/or examination and MODERATE level of DECISION MAKING for: 1 OR MORE CHRONIC PROBLEM(S) THATS WORSENING, 2 STABLE CHRONIC PROBLEMS, A NEWLY DIAGNOSED PROBLEM WITH UNCERTAIN PROGNOSIS, AN ACUTE COMPLICATED INJURY WITH MULTIPLE TREATMENT OPTIONS, OR AN ACUTE PROBLEM WITH ACCOMPANYING SYSTEMIC SYMPTOMS, THAT POSE(S) A MODERATE RISK OF MORBIDITY. THIS CONDITION MAY ALSO INCLUDE RX DRUG MANAGEMENT, OR A DECISON FOR MINOR SURGERY. The visit on the day of the encounter encompassed interpreting the data and educating the patient as to the nature of their condition, treatment options available according to their individual PMH, meds, allergies, and overall health/living conditions, as well as any potential risks or complications that may occur from a failure to adhere to, and participate in, the recommended course of therapy. The discussion included a complete verbal, and/or written explanation of the examination results, any x-rays taken, the proposed diagnosis, and outline of the treatment plan. A schedule for future care needs was also explained. The patient verbalized an understanding of the instructions at this time and agreed to be an active participant in their treatment. If the patient should think of any questions or concerns after the visit, I have encouraged the patient to call the office.?Digital Treatment:?HV - I explained to the patient the risks/benefits of all the different treatment options for their pain including: No treatment at all, Rest, Ice, New/supportive/wider/deeper Shoegear, Digital Padding/Strapping/Taping/Bracing/Gel protective sleeves, Foot/Ankle AFO Bracing, Stretching exercises, Deep Tissue Massage, Arch support/shoe inserts with splay metatarsal padding, and Custom orthoses. I insisted that any digital devices be removed daily and not worn overnight for safety. The patient is to carefully examine the toes daily for any skin irritation while using any splinting or padding device. The advantages and disadvantages of each option were discussed and the patients questions re: shoegear, padding, custom vs prefabricated inserts, activity level, and consistency in home treatment regimens for optimal success were answered to their verbally confirmed satisfaction.?Neuritis/Neuropathy:?The patient was counseled on the diagnosis, possible etiologies (including mechanical stress, injury, entrapment, chemotherapy, diabetes, vertebral disk herniation if hx), treatment options, and importance for adherence to recommendations in order to address the patients Neuritis/Neuropathy. The advantages and disadvantages re: Accomidative mechanical support/offloading, Topical vs PO analgesics including Aspercream/Voltaren gel/Lidoderm patches/gabapentin/Lyrica along with their potential side effects were discussed with the patient to their satisfaction. I will prescribe gabapentin 100 mg morning and at bedtime. Will gradually raise dosage if this dosage is not theraputic. Patient questions re: medication use, dosage, and possible side effects and drug interactions were reviewed and the answers to each understood.The patient verbally confirmed a full understanding of the above.?P.R.I.C.E.:?The patient was counseled on the use of P.R.I.C.E. and NSAIDS (if well tolerated) to aid in the recovery from their painful condition , Recommended Topical analgesics including Biofreeze/Aspercream/Voltaren gel.?Shoe Gear Counseling:?The patient and I reviewed the types of shoes they should be wearing. My recommendation included obtaining a well-fitted shoe with a good supportive, non-foldable nor twistable sole, plenty of toe/room for the forefoot, and proper arch support. Based on todays examination, I recommended the patient look for new shoes, by having their feet professionally measured. We discussed that generally the best time of the day for a shoe fitting is the afternoon. Different shoes types and brands to best match the patients occupation and vocation were discussed. Specific brand selection will be up to the patient, their individual foot condition/deformities, and fit. The patient and I reviewed the standard new shoe break in period by wearing them for a few hours a day while checking for redness or sores as wear time is increased. The patient verbally confirmed to understanding the information discussed, The patient and I reviewed the types of shoes they should be wearing. My recommendation included obtaining a well-fitted shoe with a good supportive, non-foldable nor twistable sole, plenty of toe/room for the forefoot, and proper arch support. Based on todays examination, I recommended the patient look for new shoes, by having their feet professionally measured. We discussed that generally the best time of the day for a shoe fitting is the afternoon. Different shoes types and brands to best match the patients occupation and vocation were discussed. Specific brand selection will be up to the patient, their individual foot condition/deformities, and fit. The patient and I reviewed the standard new shoe break in period by wearing them for a few hours a day while checking for redness or sores as wear time is increased. The patient verbally confirmed to understanding the information discussed.? ??Screening/Special Tests:?Fall Risk?Assessment:?Performed ?Screening:?No falls in the past year ?FALLS: Screening for Future Fall Risk?Have you had two or more falls in the past year??No ?Have you had any falls with injury in the past year??No * Follow Up:?3 Weeks * Images: * Sign off status: Completed true * Provider:?Samm Irwin D.P.M. Date:?05/22 Generated for Corali ng/Amalia/eTransmitting on:?07/01/2024 05:48 AM EST History and Physical Notes * HPI (History of Present Illness) Category Sub-Category Detail Notes Category Not es Foot Pain Nature: burning , radiating , shooti ng , tingling Location: Top, Bottom, Inside, Outside, B/L Duration: several months Onset: unknown Course: worse Aggravated: Worse at night when in bed Treatments: rest/alter normal da neldia activity Examination Category Sub-Category Detail Notes Category Not es Neurological SENSORY: Neurological exa m demonstrates reduced sharp/dull pin prick discrimination reduced light touch sensation reduced vibration sensation reduced proprioception sensation in a stocking fashion 5.07 monofilament test performed at plantar aspects of 5 varied sites per foot shows sensation plantar aspects absent at Forefoot B/L TINEL'S COMPRESSION: Negative, Saphenous nerve distribution, B/L , Positive , Medial dorsal cutaneous nerve distribution , Intermediate dorsal cutaneous nerve distribution , Right DEEP TENDON REFLEXES: Achilles, 2/4, B/L Dermatologic SKIN FINDINGS: Skin exam reveal s normal texture, elasticity, and turgor. There are no masses. The interspaces are clear Orthopedic BUNION: Medially promine nt 1st MPJ, (+) Pain on palpation, inflammation present medially, Lateral tracking 1st MPJ incompletely reducible, B/L MUSCLE STRENGTH: 5/5 all groups in a symmetrical fashion , B/L General Examination GENERAL APPEARANCE: Reveals a pleasant, alert, well- nourished, well-developed, well hydrated individual, who demonstrates proper attention to hygiene/body habitus, and is in no acute distress, Pt serves as own historian for office visit today ORIENTED: person, place, and t ney Radiologic X-RAY: 3 views, bilater al, hallux valgus formation, increase in intermetatarsal angle, soft tissue swelling noted, no signs of fracture/dislocation Vascular DP PULSES(B): 3/4, B/L PT PULSES(B): 3/4, B/L CAPILLARY FILL TIME: immediate, all digi ts, B/L TEMPERTURE GRADIENT(C): warm to cool, pr oximal to distal, B/L TROPHIC CONDITION-TEXTURE/ELASTICITY/TURGOR/HAIR GROWTH(B): normal, B/L EDEMA(C): absent, B/L PIGMENTATION: normal, B/L
--- OUTSIDE RECORDS SUMMARY | 2024-07-01 05:48 | XMS_ITS ---
Author Organization [facility] Address [address] [place] [address] Care Team Providers Care Container Repairer Name Role Phone Suhail Ramos MD Primary Care Provider Unavailab Samm Obregon [phone] REASON FOR VISIT last visit pcp 04/21/24, Foot pain Medications Medication SIG (Take, Route, Frequency, Duration) Notes Start Date End Date Status Atenolol 100 MG 1 tablet Orally Once a day Active Gabapentin 100 MG 1 capsule in morning and one at bedtime Orally Twice a Day for 30 days 06/04/2024 Active hydroCHLOROthiazide 25 MG 1 tablet in th e morning Orally Once a day Active Meclizine HCl 25 MG 1 tablet as needed Orally every 12 hrs Active Aspirin 81 81 MG 1 tablet Orally Once a day Active Atorvastatin Calcium 80 MG 1 tablet Oral ly Once a day Active Clopidogrel Bisulfate 75 MG 1 tablet Ora lly Once a day Active Social History Tobacco [...] ast year? No Points 0 Interpretation Negative Vital Signs Height 5ft 3in in 06/23/2024 Weight 190 lbs 06/23/2024 BMI 33.65 kg/m2 06/23/2024 Encounters [facility]counter [facility] [address] [facility] Samm Irwin Pain in left foot M79.672 ; Neuralgia and neuritis M79.2 and Pain in right foot M79.671 Assessments Encounter Date Diagnosis (ICD Code) Assessment Notes Treatment Notes Treatment Clinical Notes Section Notes 06/23/2024 Pain in left foot (ICD-10 - M79.672) 06/23/2024 Neuralgia and neuritis (ICD-10 - M79.2) I have instructed the patient to increase dosage of gabapentin to 100mg TID. When she needs a refill she is to have the pharmacy contact us 06/23/2024 Pain in right foot (ICD-10 - M79.671) Plan Of Treatment Treatment Notes Assessment Notes Neuralgia and neuritis I have instructed the patient to increase dosage of gabapentin to 100mg TID. When she needs a refill she is to have the pharmacy contact us Next Appt Details Follow Up: 2 Months, Reason: Provider Name:Samm Irwin, 09/01/2024 11:15:00 AM, [address] [facility], [place], [address], Progress Notes * LISSETJasslarisaDOB:1955 (69 yo F)Acc No.[id number]:06/23/2024 Progress Notes Patient:?Sylvie AYALA Provider:?Samm Irwin D.P.M. :1955???Age:69 Y???Sex:Female D ate:06/23/2024 Address:[address] [place], [place] [id number] Pcp:Suhail Ramos MD Subjective: * Chief Complaints: * ???Last visit pcp 04/21/24Fo ot pain * HPI: ???Foot Pain:?Nature:?burning , radiating , shooting , tingling.?Location:?Top, Bottom, Inside, Outside, B/L.?Duration:?several months.?Onset:?unknown.?Course:?improved, at 80%.?Aggravated:?Worse at night when in bed.?Treatments:?Taking 100 mg gabapentin BID.? * ROS:?General/Constitutional:?Nausea?denies.?Vomiting?denies.?Hunger Thirst?denies.?Loss appetite?denies.?Chills?denies.?Fatigue?denies.?Fever?denies.?Night Sweats?denies.?Unexplained weight loss?denies.?Unexplained [...] Tablet 1 tablet Orally Once a day Gabapentin 100 MG Capsule 1 capsule in morning and one at bedtime Orally Twice a Day Medication List reviewed and reconciled with the [...] 1 tablet Orally Once a day Taking Gabapentin 100 MG Capsule 1 capsule in morning and one at bedtime Orally Twice a Day Medication List reviewed and reconciled with the patient * Allergies:?yes[Allergies Vicente ified] Objective: * Vitals:?Ht: 5ft 3in, Wt:190, BMI:33.65, Shoe size: 7.5, Ht-cm: 160.02 cm, Wt-k.18 kg. * Examination: ???General Examination: ?GENERAL APPEARANCE:?Reveals [...] medially, Lateral tracking 1st MPJ incompletely reducible, B/L.? Assessment: * Assessment: 1.?Pain in left foot - M79.6 72???2.?Neuralgia and neuritis - M79.2 (Primary)???Specify :Acute problem, Stable Response to treatment - Improvement Rx Management (4)???3.?Pain in right foot - M79.671??? Plan: * Treatment: * Procedure Codes:? * Preventive Medicine:? ??Counseling:?Discussion:?-13: Office or other outpatient visit for the evaluation and management of an established patient, which required a medically appropriate history and/or examination and LOW level of DECISION MAKING for: 1 STABLE ACUTE UNCOMPLICATED PROBLEM, 2 OR MORE MINOR PROBLEMS, OR 1 STABLE CHRONIC PROBLEM, THAT POSE(S) A LOW RISK FOR MORBIDITY/MORTALITY. The visit on the day of the [...] have encouraged the patient to call the office.?Neuritis/Neuropathy:?The patient was counseled on the diagnosis, possible [...] satisfaction. I will prescribe gabapentin 100 mg at breakfast, lunch and dinner. Patient questions re: medication use, dosage, and possible side effects and drug interactions were reviewed and the answers to each understood.The patient verbally confirmed a full understanding of the above.? ??Screening/Special Tests:?Fall Risk?Assessment:?Performed ?Screening:?No falls in the past year ?FALLS: Screening for Future Fall Risk?Have you had two or more falls in the past year??No ?Have you had any falls with injury in the past year??No * Follow Up:?2 Months * Images: * Sign off status: Completed true * Provider:?Samm Irwin D.P.M. Date:?09/2023 Generated for Printi ng/Faxing/eTransmitting on:?07/01/2024 05:48 AM EST History and Physical Notes * HPI (History of Present Illness) Category Sub-Category Detail Notes Category Not es Foot Pain Nature: burning , radiating , shooti ng , tingling Location: Top, Bottom, Inside, Outside, B/L Duration: several months Onset: unknown Course: improved, at 80% Aggravated: Worse at night when in bed Treatments: Taking 100 mg gabape ntin BID Examination Category Sub-Category Detail Notes Category Not [...] today ORIENTED: person, place, and t ney Vascular DP PULSES(B): 3/4, B/L PT PULSES(B): 3/4, B/L CAPILLARY FILL TIME: immediate, all digi ts, B/L TEMPERTURE GRADIENT(C): warm to cool, pr oximal to distal, B/L TROPHIC CONDITION-TEXTURE/ELASTICITY/TURGOR/HAIR GROWTH(B): normal, B/L EDEMA(C): absent, B/L PIGMENTATION: normal, B/L
--- OUTSIDE RECORDS SUMMARY | 2024-07-01 05:49 | XMS_ITS ---
Author Organization Suhail Ramos III, MD Address [address] [place] [address] [place] [address] Support Name Relationship Address Phone MAXIMO CORRIGAN Caregiver [address] [place] [address] Octavia Richard Caregiver [address] [place] [address] TED BURCH Caregiver [address] [place], [place] [phone] ASHLYN CONTI Caregiver [address] [place], [place] [phone] [employer] Caregiver [address] [place] [address] Suhail Ramos Caregiver [address] [place] [address] [place] [address] NAM AYALA Emergency Contact [address] [place] [address] [phone] Sylvie Ayala Guarantor Unknown [phone] Care Team Providers Care Digital Marketing Consultant Name Role Phone Suhail Ramos Primary Care Provider Allergies Allergen (clinical drug ingredient) Drug/Non Drug Allergy documented on EMR Reaction Allergy Type Onset Date Status No Known Drug Allergy Unknown Drug Allergy Active REASON FOR VISIT Hypertension, Lower extremity pain, Coronary artery disease Medications Medication SIG (Take, Route, Frequency, Duration) Notes Start Date End Date Status Meclizine HCl 25 MG TAKE 1 TABLET BY EDOUARD TH 3 TIMES DAILY NEEDED Active hydroCHLOROthiazide 25 MG 1 tablet in th e morning Orally Once a day for 30 days 12/27/2023 Active Clopidogrel Bisulfate 75 MG TAKE 1 TABLE T BY MOUTH EVERY DAY Active Atenolol 100 MG TAKE 1 TABLET BY EDOUARD TH ONCE DAILY Active hydroCHLOROthiazide 25 MG TAKE ONE-HALF TABLET BY MOUTH ONCE DAILY Active Aspirin 81 81 MG 1 tablet Orally Once a day Active Atorvastatin Calcium 80 MG 1 tablet Oral ly Once a day 01/17/2023 Active hydroCHLOROthiazide 25 MG 1 tablet in morning Orally Once a day for 90 days 12/27/2023 Active Social History Tobacco Use: Social History Observation Description Date Details (start date - stop date) Never Smoker NA - NA Sex Assigned At : Social History Observation Description Sex Assigned At Female Tobacco Use/Smoking Question Answer Notes Patient is a nonsmoker Additional Findings: Tobacco Non-User Aggressive non-smoker Vital Signs Temperature 97.2 degrees Fahrenheit 12/27/19 24 Blood pressure systolic 138 mm Hg 12/27/19 24 Blood pressure diastolic 85 mm Hg 024 Heart Rate 59 /min 12/27/2023 Height 63 in 12/27/2023 Weight 191 lbs 12/27/2023 BMI 33.83 kg/m2 12/27/2023 Encounters Encounter Location Date Provider Diagnosis Suhail Ramos III, MD [address] [place] [address] [place] [address] 12/27/2023 Suhail Ramos Hyperlipidemia E78.5 ; Obesity E66.9 ; Hypertension I10 ; Osteoarthritis M19.90 ; Hyperglycemia R73.9 and Coronary artery disease involving cachil dehe coronary artery of cachil dehe heart without angina pectoris I25.10 Assessments Encounter Date Diagnosis (ICD Code) Assessment Notes Treat ment Notes Treatment Clinical Notes 12/27/2023 Hyperlipidemia (ICD-10 - E78.5) A current fasting lipid profile is not available. Her lipids have been stable and no change in her regimen was made today. We discussed her diet. 12/27/2023 Obesity (ICD-10 - E66.9) Her weight remains in the obese range. She is trying to lose weight. We discussed her weight loss strategy. We made a plan to lose weight at a rate of one half of a pound per week. 12/27/2023 Hypertension (ICD-10 - I10) Her blood pressure today is 130/80, and no change in her regimen was needed. I have recommended aggressive weight loss and sodium restriction with regular physical activity. 12/27/2023 Osteoarthritis (ICD-10 - M19.90) Her arthritis has improved, but she has significant pain in her left shoulder and left hip. I recommended she return to the office if the injections given at [facility] orthopedic surgeons are not affected. 12/27/2023 Hyperglycemia (ICD-1 0 - R73.9) Her hemoglobin A1c was 5.8, which is an improvement from 144. We discussed prediabetes today. I recommended aggressive weight loss and a healthy diet low in concentrated sweets and carbohydrates. 12/27/2023 Coronary artery disease involving cachil dehe coronary artery of cachil dehe heart without angina pectoris (ICD-10 - I25.10) She had a recent nonSTEMI and has recovered well after her cardiac catheterization. She is being managed medically. She has had no chest pain recently. If the angina returns or becomes unstable. She is a candidate for bypass surgery. Plan Of Treatment Medication Medication Name Sig Start Date Stop Date Notes Meclizine HCl 25 MG TAKE 1 TABLET BY EDOUARD TH 3 TIMES DAILY NEEDED hydroCHLOROthiazide 25 MG 1 tablet in th e morning Orally Once a day for 30 days 12/27/2023 Clopidogrel Bisulfate 75 MG TAKE 1 TABLE T BY MOUTH EVERY DAY Atenolol 100 MG TAKE 1 TABLET BY EDOUARD TH ONCE DAILY hydroCHLOROthiazide 25 MG TAKE ONE-HALF TABLET BY MOUTH ONCE DAILY Aspirin 81 81 MG 1 tablet Orally Once a day Atorvastatin Calcium 80 MG 1 tablet Orally Once a day 12/21 hydroCHLOROthiazide 25 MG 1 tablet in th e morning Orally Once a day for 90 days 12/27/2023 Next Appt Details Follow Up: 4 Months, Reason: OV Provider Name:Suhail Ramos, 07/06/2024 02:00:00 PM, [address] [place] [address] [address] [address], [place], [address], Progress Notes * Jass AYALAlarisaDOB:1955 (68 yo F)Acc No.[id number]:12/27/2023 Progress Notes Patient:?Sylvie Ayala Provider:?Suhail Ramos MD :1955???Age:68 Y???Sex:Female D ate:12/27/2023 Address:[address] [place] [address] [phone] Subjective: * Chief Complaints: * ???HypertensionLower extremi ty painCoronary artery disease * HPI: ???COVID-19 Screening:? She has had a discomfort in her lower extremities with walking that suggested claudication. It has now resolved. Ultrasound evaluation of the arterial supply of the lower extremities was unremarkable. Repeat thyroid function test were within normal limits. No change in her regimen was needed today. ?Questions?Have you experienced fever, chills, cough, sore throat, shortness of breath, difficulty breathing, muscle aches, loss of taste or smell??No ?Have you been exposed to the virus within the last 10 days??No ?Have you travelled internationally in the last 10 days??No ?Have you been exposed to COVID-19 in the past??No * ROS:?General/Constitutional:?pain?Lower extremity discomfort resolved.?Chills?denies.?Fatigue?admits.?Fever?denies.?ENT:?Decreased hearing?denies.?Respiratory:?Cough?denies.?Cardiovascular:?Chest pain with exertion?denies.?Dyspnea on exertion?denies.?Shortness of breath?denies.?Gastrointestinal:?Constipation?occasional.?Decreased appetite?denies.?Diarrhea?denies.?Heartburn?denies.?Nausea?denies.?Rectal bleeding?denies.?Vomiting?denies.?Hematology:?bruising?denies.?petechiae?denies.?Swollen glands?none have been noted.?Genitourinary:?Frequent urination?a small amount.?Musculoskeletal:?Muscle aches?denies.?Painful joints?denies.?Sciatica?denies.?Weakness?denies.?Skin:?Itching?denies.?Rash?denies.?Skin lesion(s)?denies.?Neurologic:?Difficulty speaking?denies.?Dizziness?denies.?Headache?denies.?Low back pain?denies.?Psychiatric:?Depressed mood?denies.? * Medical History:? * Surgical History:?excision f ibroma tongue october 2009Cardiac stent placement 10/2022 * Hospitalization/Major Diagno stic Procedure:?Dyspnea 11/21/2022 * Family History:?Father: dece ased 60 yrs, head/neck cancer.?Mother: 62 yrs, heart related.?Spouse: alive 57 yrs.?2 son(s) - healthy. .? 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 She is a nonsmoker and has two sons, Trey and Yung. She was born in [place]. * Medications:?TakinghydroCHLO ROthiazide 25 MG Tablet TAKE ONE-HALF TABLET BY MOUTH ONCE DAILY Meclizine HCl 25 MG Tablet TAKE 1 TABLET BY MOUTH 3 TIMES DAILY NEEDED Aspirin 81 81 MG Tablet Delayed Release 1 tablet Orally Once a dayAtorvastatin Calcium 80 MG Tablet 1 tablet Orally Once a dayAtenolol 100 MG Tablet TAKE 1 TABLET BY MOUTH ONCE DAILY Clopidogrel Bisulfate 75 MG Tablet TAKE 1 TABLET BY MOUTH EVERY DAY Medication List reviewed and reconciled with the patientTaking hydroCHLOROthiazide 25 MG Tablet TAKE ONE-HALF TABLET BY MOUTH ONCE DAILY Taking Meclizine HCl 25 MG Tablet TAKE 1 TABLET BY MOUTH 3 TIMES DAILY NEEDED Taking Aspirin 81 81 MG Tablet Delayed Release 1 tablet Orally Once a dayTaking Atorvastatin Calcium 80 MG Tablet 1 tablet Orally Once a dayTaking Atenolol 100 MG Tablet TAKE 1 TABLET BY MOUTH ONCE DAILY Taking Clopidogrel Bisulfate 75 MG Tablet TAKE 1 TABLET BY MOUTH EVERY DAY Medication List reviewed and reconciled with the patient * Allergies:?No Known Drug All ergyno[Allergies Verified] Objective: * Vitals:?Ht: 63, Wt:191, BMI: 33.83, BP:138/85, HR:59, Temp:97.2, Ht-cm: 160.02, Wt-k.64. * ???Past Orders: ???Lab:Thyroid Stimulating H bill (Order Date - 10/02/2023) (Collection Date - 10/02/2023) ? Value Reference Range ?Thyroid Stimulating Hormone 0.54 0.32-4.0 - uIU/mL ???Lab:Free T4 (Free Thyroxi ne) (Order Date - 10/01/2023) (Collection Date - 10/02/2023) ? Value Reference Range ?Free T4 (Free Thyroxine) 1.14 0.71-1.85 - ng/dL ???Imaging:US KENISHA complete ( Order Date - 10/17/2023) (Collection Date - 10/17/2023) ???Imaging:US pelvic and tra nsvaginal (Order Date - 10/02/2023) (Collection Date - 10/02/2023) ???Imaging:US arterial duple x LE BI (Order Date - 10/17/2023) (Collection Date - 10/17/2023) * Examination: ???General Examination: ?GENERAL APPEARANCE:?pleasant, well nourished, well developed, in no acute distress, calm and relaxed , obese , woman.?HEAD:?atraumatic, normocephalic.?EYES:?eomi, perrla, anicteric, conjugate.?EARS:?normal.?NOSE:?septum intact.?ORAL CAVITY:?normal, unremarkable.?NECK/THYROID:?no jugular venous distention, no carotid bruit, thyroid normal.?LYMPH NODES:?no enlarged lymph nodes,spleen normal.?SKIN:?no suspicious lesions, anicteric.?HEART:?no clicks, gallops, murmurs, or rubs, regular rhythm, S1, S2 normal, no s3, or vascular bruits.?LUNGS:?clear to auscultation .?BREASTS:?not examined.?ABDOMEN:?bowel sounds normal, no ascites, no organomegaly, no mass , centripital obesity.?RECTAL EXAM:?not examined.?MUSCULOSKELETAL:?extremities unremarkable, no clubbing, cyanosis or edema.?PERIPHERAL PULSES:?normal.?NEUROLOGIC:?alert and oriented, cranial nerves 2-12 grossly intact, deep tendon reflexes 2+ symmetrical, motor strength normal upper and lower extremities, sensory exam intact.?PSYCH:?alert, oriented.? Assessment: * Assessment: 1.?Hyperlipidemia - E78.5 (P rimary), A current fasting lipid profile is not available. Her lipids have been stable and no change in her regimen was made today. We discussed her diet.?2. Obesity - E66.9, Her weight remains in the obese range. She is trying to lose weight. We discussed her weight loss strategy. We made a plan to lose weight at a rate of one half of a pound per week. 3.?Hypertension - I10, Her blood pressure today is 130/80, and no change in her regimen was needed. I have recommended aggressive weight loss and sodium restriction with regular physical activity.?4.?Osteoarthritis - M19.90, Her arthritis has improved, but she has significant pain in her left shoulder and left hip. I recommended she return to the office if the injections given at [facility] orthopedic surgeons are not affected.?5.?Hyperglycemia - R73.9, Her hemoglobin A1c was 5.8, which is an improvement from 144. We discussed prediabetes today. I recommended aggressive weight loss and a healthy diet low in concentrated sweets and carbohydrates.?6.?Coronary artery disease involving cachil dehe coronary artery of cachil dehe heart without angina pectoris - I25.10, She had a recent nonSTEMI and has recovered well after her cardiac catheterization. She is being managed medically. She has had no chest pain recently. If the angina returns or becomes unstable. She is a candidate for bypass surgery.? Plan: * Treatment: 2.?Obesity?LAB: PROFILE, FASTING (COMPREHENSIVE METABOLIC) ?LAB: CBC WITH AUTO DIFF ?LAB: Lipid Panel 3.?Others? Continue Clopidogrel Bisulfate Tablet, 75 MG, TAKE 1 TABLET BY MOUTH EVERY DAY;?Continue Atenolol Tablet, 100 MG, TAKE 1 TABLET BY MOUTH ONCE DAILY;?Continue Meclizine HCl Tablet, 25 MG, TAKE 1 TABLET BY MOUTH 3 TIMES DAILY NEEDED;?Continue Aspirin 81 Tablet Delayed Release, 81 MG, 1 tablet, Orally, Once a day;?Continue Atorvastatin Calcium Tablet, 80 MG, 1 tablet, Orally, Once a day;?Start hydroCHLOROthiazide Tablet, 25 MG, 1 tablet in the morning, Orally, Once a day, 30 days, 30 Tablet, Refills 0;?Start hydroCHLOROthiazide Tablet, 25 MG, 1 tablet in the morning, Orally, Once a day, 90 days, 90 Tablet, Refills 3.?? * Procedure Codes:? * Preventive Medicine:? ??Counseling:?Care goal follow-up plan:?Counseling for abnormal BMI given?Yes ?Above Normal BMI Follow-up?Dietary management education, guidance, and counseling, Dietary needs education, Exercise promotion: strength training, Exercise promotion: stretching, Feeding regime, Giving encouragement to exercise, Lifestyle education regarding diet, Nutrition / feeding management, Nutrition therapy, Prescribed activity/exercise education, Prescribed diet education, Prescribed dietary intake, Special diet education, Weight monitoring , Intervention, Order not done: Medical or Other reason not done * Follow Up:?4 Months (Reason: OV) * Images: * Sign off status: Completed true * Provider:?Suhail Ramos MD Date:?01/2024 Generated for Ye thomas/Amalia/Souravitting on:?07/01/2024 05:49 AM EST History and Physical Notes * HPI (History of Present Illness) Category Sub-Category Detail Notes COVID-19 Screening Questions Have you expe rienced fever, chills, cough, sore throat, shortness of breath, difficulty breathing, muscle aches, loss of taste or smell?: No Have you been exposed to the virus with n the last 10 days?: No Have you travelled internationally in [facility] last 10 days?: No Have you been exposed to COVID-19 in the past?: No Examination Category Sub-Category Detail Notes General Examination GENERAL APPEARANCE: pleasant , well nourished, well developed, in no acute distress, calm and relaxed , obese , woman HEAD: atraumatic, normocep halic EYES: eomi, perrla, anicte varsha, conjugate EARS: normal NOSE: septum intact NECK/THYROID: no jugular venous di stention, no carotid bruit, thyroid normal HEART: no clicks, gallops, murmurs, or rubs, regular rhythm, S1, S2 normal, no s3, or vascular bruits LUNGS: clear to auscultatio n ABDOMEN: bowel sounds normal, no ascites, no organomegaly, no mass , centripital obesity NEUROLOGIC: alert and oriented, cranial nerves 2-12 grossly intact, deep tendon reflexes 2+ symmetrical, motor strength normal upper and lower extremities, sensory exam intact SKIN: no suspicious lesion s, anicteric PERIPHERAL PULSES: normal BREASTS: not examined MUSCULOSKELETAL: extremities unremark able, no clubbing, cyanosis or edema LYMPH NODES: no enlarged lymph no bhakti,spleen normal RECTAL EXAM: not examined PSYCH: alert, oriented ORAL CAVITY: normal, unremarkable
--- OUTSIDE RECORDS SUMMARY | 2024-07-01 05:49 | XMS_ITS | Patient Health Record ---
Author Organization Suhail Ramos III, MD Address [address] [place] [address] Support Name Relationship Address Phone MAXIMO CORRIGAN Caregiver [address] [place] [address] Octavia Richard Caregiver [address] [place] [address] TED BURCH Caregiver [address], [place] [id number] GALLITOASHLYN Caregiver [address], [place] [phone] [employer] Caregiver [address] [place] [address] Suhail Ramos Caregiver [address] [place] [address] [place] [address] NAM AYALA Emergency Contact [address] [place] [address] [phone] Sylvie Ayala Guarantor Unknown [phone] Care Team Providers [employer] Founder Name Role Phone Suhail Ramos Primary Care Provider Allergies Allergen (clinical drug ingredient) Drug/Non Drug Allergy documented on EMR Reaction Allergy Type Onset Date Status No Known Drug Allergy Unknown Drug Allergy Active Results Component Value Reference Range Notes URINE DIP STICK Reviewed date:07/02/2023 02:08:33 PM Interpretation: Performing Lab: Notes/Report: SG 1.020 1.005 - 1.025 pH 5.0 5.0 - 9.0 IVAN 70 Negative - NIT Negative Negative - PRO 15 Negative - Trace GLU Negative Negative - KET Negative Negative - UBG 0.2 0.1 - 1.8 HUBER Negative 0.2 - 1.3 BLD Negative Negative - Free T4 (Free Thyroxine) Reviewed date:10/31/2023 05:57:27 AM Interpretation: Performing Lab:[facility], [address] [facility] [address] Notes/Report: Free T4 (Free Thyroxine) 1.14 0.71-1.85 ng/dL MM tomosynthesis screening B I Reviewed date:09/29/2023 04:00:43 PM Interpretation: Performing Lab: Notes/Report: [address] [place] [address] Mammography Report Signed Patient: Sylvie Ayala MR#: [id number] : 1955 Acct:[id number] Age/Sex: 68 / F ADM Date: 08/28/23 Loc: HO.MAMMO Attending Dr: Suhail Ramos MD Ordering Physician: Suhail Ramos MD Results: 1Negativ e Date of Service: 08/28/23 Follow Up: 1 Year From Orig ina Mammogram Procedure(s): MM tomosynthesis screening BI Accession Number(s): [id number] cc: Suhail Ramos MD EXAMINATION: MM SCREENING DIGITAL BREAST TOMOSYNTHESIS, BILATERAL CLINICAL INFORMATION: Screening. Asymptomatic. COMPARISON: Mammography: This study is compared with prior exams dating back to 2019. TECHNIQUE: Digital breast tomosynthesis is performed in both the craniocaudal and mediolateral oblique views along with computer-aided detection (CAD). Synthesized 2D images are generated from the tomosynthesis. FINDINGS: There are scattered areas of fibroglandular density (ACR BI-RADS breast composition Category b). There are no significant masses, abnormal calcifications, or other abnormalities. MM/MM tomosynthesis screening BI IMPRESSION: No mammographic evidence of malignancy. ASSESSMENT: BI-RADS BI-RADS 1 - Negative RECOMMENDATION: Routine annual mammography screening. 1 year F/U This examination should not preclude the clinical evaluation of a suspicious palpable abnormality. This patient's information was entered into a reminder system with a target due date for their next mammogram. Dictated By: Blanquita Concepcion MD Signed By: <Electronically signed by Blanquita Concepcion MD in OV> 09/22/23 0903 DD/ 1115 TD/TT: Infrastructure Tech: [facility] [address] [place] [address] Mammography Report Signed Patient: Jj Ayala MR#: [id number] : 1955 Acct:[id number] Age/Sex: 68 / F ADM Date: 08/28/23 Loc: HO.MAMMO Attending Dr: Suhail Ramos MD Ordering Physician: Suhail Ramos MD Results: 1Negativ e Date of Service: 08/28/23 Follow Up: 1 Year From Orig inal Mammogram Procedure(s): MM tomosynthesis screening BI Accession Number(s): [id number] cc: Suhail Ramos MD EXAMINATION: MM SCREENING DIGITAL BREAST TOMOSYNTHESIS, BILATERAL CLINICAL INFORMATION: Screening. Asymptomatic. COMPARISON: Mammography: This st udy is compared with prior exams dating back to 2019. TECHNIQUE: Digital breast tomosynthesis is performed in both the craniocaudal and mediolateral oblique views along with computer-aided detection (CAD). Synthesized 2D image s are generated from the tomosynthesis. FINDINGS: There are scattered areas of fibroglandular density (ACR BI-RADS breast composition Category b). There are no significant masses, abnormal calcifications, or other abnormalities. MM/MM tomosynthesis screening BI IMPRESSION: No mammographic evidence of malignancy. ASSESSMENT: BI-RADS BI-RADS 1 - Negative RECOMMENDATION: Routine annual mammography screening. 1 year F/U This examination terrance uld not preclude the clinical evaluation of a suspicious palpable abnormality. This patient's information was entered into a reminder system with a target due date for their next mammogram. Dictated By: Blanquita Concepcion MD Signed By: <Electronically signed by Blanquita Concepcion MD in OV> 09/22/23 0903 DD/ 1115 TD/TT: Infrastructure Tech: Complete Blood Count Auto Di ff Reviewed date:09/29/2023 04:00:43 PM Interpretation: Performing Lab:[facility], [address] [place] [phone] Notes/Report: White Blood Count 4.7 4.8-10.8 X10*3/uL Red Blood Count 4.89 4.20-5.50 X10*6/uL Hemoglobin 15.4 12.0-16.0 g/dl Hematocrit 44.5 37.0-47.0 % Mean Corpuscular Volume 91.0 80.0-98.0 fL Mean Corpuscular Hemoglobin 31.5 27.0-33.0 pg Mean Corpuscular HGB Conc 34.6 31.0-35.0 g/dl Red Cell Distribution Width 12.2 11.0-16.0 % Platelet Count 191 160-400 X10*3/uL Mean Platelet Volume 11.3 9.4-12.3 fL Neutrophils Percent Auto 48.2 45-73 % Imm Gran Pct Auto 0.0 0.0-0.4 % Lymphocytes Percent Auto 40.2 20-40 % Monocytes Percent Auto 8.1 2-11 % Eosinophils Percent Auto 2.4 0-4 % Basophils Percent Auto 1.1 0-2 % NRBC Pct Auto 0.0 0.0-0.2 /100WBC Neutrophils Absolute Auto 2.3 2.0-8.3 x10*3/uL Imm Gran Abs Auto 0.00 0.00-0.03 X10*3/uL Lymphocytes Absolute Auto 1.9 1.2-4.9 X10*3/uL Monocytes Absolute Auto 0.4 0.1-1.2 X10*3/uL Eosinophils Absolute Auto 0.1 0.0-0.4 X10*3/uL Basophils Absolute Auto 0.1 0.0-0.2 X10*3/uL NRBC Abs Auto 0.000 0.0-0.012 X10*3/uL Comprehensive [place]. Panel Fa st Reviewed date:09/29/2023 04:00:43 PM Interpretation: Performing Lab:[facility], [address] [place] [phone] Notes/Report: Sodium 142 135-145 mmol/L Potassium 4.4 3.3-5.1 mmol/L Chloride 107 96-108 mmol/L Carbon Dioxide 27 22-29 mmol/L Anion Gap 12 12-20 Blood Urea Nitrogen 18 9-16 mg/dL Creatinine 0.80 0.5-1.4 mg/dL Estimated Glomerular Filt Rate > 60 NOTE: For -Haitian individuals, multiply the result by 1.210. Chronic Kidney Disease: Estimated GFR < 60 mL/min/1.73m2 Severe Kidney Disease: Estimated GFR < 15 mL/min/1.73m2 Glucose Fasting 125 60-99 mg/dL A fasting glucose from 100-125 mg/dl is considered impaired (pre-diabetes). Calcium 9.6 8.4-10.2 mg/dL Bilirubin Total 0.6 0.0-1.0 mg/dL Aspartate Amino Transferase 23 5-31 U/L Alanine Aminotransferase 34 0-31 U/L Total Protein 7.4 6.5-8.0 g/dL Albumin Level 4.3 3.5-5.0 g/dL Alkaline Phosphatase 78 39-117 U/L Lipid Panel Reviewed date:09/29/2023 04:00:43 PM Interpretation: Performing Lab:[facility], [address] [place] [phone] Notes/Report: Triglycerides 99 <150 mg/dL Desirable Triglyceride: less than 150 mg/dL Borderline High Triglyceride 150-199 mg/dL High Triglyceride: 200-499 mg/dL Very High Triglyceride: greater than or equal to 5OO mg/dL Cholesterol 167 <200 mg/dL Desirable Cholesterol: less than 200 mg/dL Borderline High Cholesterol: 200-239 mg/dL High Cholesterol: greater than 239 mg/dL LDL Cholesterol Calculated 105 <100 mg/dL Desirable LDL: less than 100 mg/dL Near Optimal/Above Optimal LDL: 110-129 mg/dL Borderline High LDL: 130-159 mg/dL High LDL: 160-189 mg/dL Very High LDL: greater than or equal to 190 mg/dL HDL Cholesterol 43 >40 mg/dL Desirable HDL: greater than 40 mg/dL Note: This HDL assay may give artificially low results in patients with liver disease. Hemoglobin A1c Reviewed date:09/29/2023 04:00:43 PM Interpretation: Performing Lab:[facility], [address] [place] [phone] Notes/Report: Hemoglobin A1c % 5.9 <6.0 % Hemoglobin A1C Reference Range Adults: 4.8 - 6.0 % Non diabetic: < 6.0 % Goal: < 7.0 % Additional Action Suggested: > 8.0 % Note: Hemoglobin A1c results are invalid for patients with abnormal amounts of HbF. Blood transfusions may impact the HbA1c concentration in the patient sample. Estimated Average Glucose 123 eAG = Estimated average glucose which is %A1C expressed as average glucose, using the formula of the [id number] Average Glucose study (ADAG), Diabetes Care, Vol.31,#8, 2007 Thyroid Stimulating Hormone Reviewed date:10/31/2023 05:57:27 AM Interpretation: Performing Lab:[facility], [address] [place] [phone] Notes/Report: Thyroid Stimulating Hormone 0.54 0.32-4.0 uIU/mL TSH 3rd Generation ([facility]) US pelvic and transvaginal Reviewed date:10/31/2023 05:57:27 AM Interpretation: Performing Lab: Notes/Report: [address] [place] [address] Ultrasound Report Signed Patient: Sylvie Ayala MR#: [id number] : 1955 Acct:[id number] Age/Sex: 68 / F ADM Date: 10/02/23 Loc: HO.US Attending Dr: Samm Munoz MD Ordering Physician: Samm Munoz MD Date of Service: 10/02/23 Procedure(s): US pelvic and transvaginal Accession Number(s): [id number] cc: Suhail Ramos MD; Samm Munoz MD EXAMINATION: US PELVIS CLINICAL INFORMATION: Leiomyoma of uterus. COMPARISON: Pelvic ultrasound 02/04/2023. TECHNIQUE: Ultrasound of the pelvis is performed using both transabdominal and transvaginal transducers along with Doppler. Transvaginal imaging is performed due to inadequate visualization transabdominally. FINDINGS: The uterus measures 9.3 x 5.8 x 7.4 cm. Fibroid uterus with 3 distinct fibroids as below: 1. 3.8 cm intramural fibroid in the midline uterine fundus. Previously 3.9 cm. 2. 5.5 cm broad submucosal fibroid in the uterine body. Previously 5.7 cm. 3. 3.7 cm intramural fibroid in the left uterine fundus. Previously 3.6 cm. Fibroid disease obscures the endometrial stripe. Neither ovary is visible. No free pelvic fluid visible. US/US pelvic and transvaginal IMPRESSION: No significant change in fibroid uterus compared to prior imaging 02/04/2023. The endometrial stripe and the ovaries are not visible. Dictated By: Rasta Brumfield MD Signed By: <Electronically signed by Rasta Brumfield MD in OV> 10/04/23 1222 DD/ 1103 TD/TT: Infrastructure Tech: ANDRE [address] [address] Ultrasound Report Signed Patient: Jj Ayala MR#: [id number] : 1955 Acct:[id number] Age/Sex: 68 / F ADM Date: 10/02/23 Loc: HO.US Attending Dr: Samm Munoz MD Ordering Physician: Samm Munoz MD Date of Service: 10/02/23 Procedure(s): US pel nhan and transvaginal Accession Number(s): [id number] cc: Suhail Ramos MD; Samm Munoz MD EXAMINATION: US PELVIS CLINICAL INFORMATION: Leiomyoma of uterus. COMPARISON: Pelvic ultrasound 02/04/2023. TECHNIQUE: Ultrasound of the pelvis is performed using both transabdominal and transvaginal transducers along with Doppler. Transvaginal imaging is performed due to inadequate visualization transabdominally. FINDINGS: The uterus measures 9.3 x 5.8 x 7.4 cm. Fibroid uterus with 3 distinct fibroids as below: 1. 3.8 cm intramural fibroid in the midline uterine fundus. Previously 3.9 cm. 2. 5.5 cm broad submucosal fibroid in the uterine body. Previously 5.7 cm. 3. 3.7 cm intramural fibroid in the left uterine fundus. Previously 3.6 cm. Fibroid disease obscures the endometrial stripe. Neither ovary is visible. No free pelvic fluid visible. US/US pelvic and transvaginal IMPRESSION: No significant esteban e in fibroid uterus compared to prior imaging 02/04/2023. The endometrial stri pe and the ovaries are not visible. Dictated By: Rasta Brumfield MD Signed By: <Electronically signed by Rasta Brumfield MD in OV> 10/04/23 1222 DD/ 1103 TD/TT: Infrastructure Tech: ANDRE WHITLOCK KENISHA complete Reviewed date:10/31/2023 05:57:27 AM Interpretation: Performing Lab: Notes/Report: [address] [address] Ultrasound Report Signed Patient: Sylvie Ayala MR#: [id number] : 1955 Acct:[id number] Age/Sex: 68 / F ADM Date: 10/17/23 Loc: . Attending Dr: Suhail Ramos MD Ordering Physician: Suhail Ramos MD Date of Service: 10/17/23 Procedure(s): US KENISHA complete Accession Number(s): [id number] cc: Suhail Ramos MD EXAMINATION: US arterial duplex LE BI, US KENISHA complete CLINICAL INFORMATION: claudication COMPARISON: None TECHNIQUE: Ankle pulse volume recordings, ankle pressure measurements and ankle brachial indices were obtained of the lower extremity arterial system bilaterally in addition to duplex Doppler techniques with wave form analysis and measurement of velocities in the common femoral, profunda femoral, superficial femoral, popliteal, tibial and peroneal arteries. The study was performed only at rest. FINDINGS: RIGHT LE. THE RIGHT ANKLE-BRACHIAL INDEX IS: 1.15 2. SEGMENTAL PRESSURES (mmHg): Ankle: PT 160, DP 158 3. PVR WAVEFORMS: Ankle: Normal 4. DIRECT DUPLEX: Common femoral artery: 101 cm/s, Multiphasic Profunda femoris artery: 50 cm/s, Multiphasic Superficial femoral artery (proximal): 66 cm/s, biphasic Superficial femoral artery (mid): 64 cm/s, Multiphasic Superficial femoral artery (distal): 45 cm/s, biphasic Proximal Popliteal artery: 49 cm/s, Multiphasic Distal popliteal artery: 51 cm/s, Multiphasic Mid posterior tibial artery: 62 cm/s, biphasic Peroneal artery: 56 cm/s, biphasic Anterior tibial artery: 53 cm/sec, multiphasic LEFT LE. THE LEFT ANKLE-BRACHIAL INDEX IS: 1.15 2. SEGMENTAL PRESSURES: Ankle: PT 160, DP 150 3. PVR WAVEFORMS: Ankle: Normal 4. DIRECT DUPLEX: Common femoral artery: 77 cm/s, Multiphasic Profunda femoris artery: 59 cm/s, Multiphasic Superficial femoral artery (proximal): 71 cm/s, Multiphasic Superficial femoral artery (mid): 75 cm/s, Multiphasic Superficial femoral artery (distal): 50 cm/s, biphasic Proximal Popliteal artery: 47 cm/s, biphasic Distal popliteal artery: 50 cm/s, biphasic Mid posterior tibial artery: 47 cm/s, biphasic Peroneal artery: 35 cm/s, biphasic Anterior to the artery: 59 cm/sec, triphasic US/US KENISHA complete IMPRESSION: No evidence of arterial occlusion or hemodynamically significant stenosis. Dictated By: Marialuisa Reina Signed By: <Electronically signed by Marialuisa Reina in OV> 10/20/23 1456 DD/ 1408 TD/TT: Infrastructure Tech: [place] [address] Ultrasound Report Signed Patient: Jj Ayala MR#: [id number] : 1955 Acct:[id number] Age/Sex: 68 / F ADM Date: 10/17/23 Loc: .US Attending Dr: Suhail Ramos MD Ordering Physician: Suhail Ramos MD Date of Service: 10/17/23 Procedure(s): US KENISHA complete Accession Number(s): [id number] cc: Suhail Ramos MD EXAMINATION: US arterial duplex L E BI, US KENISHA complete CLINICAL INFORMATION: claudication COMPARISON: None TECHNIQUE: Ankle pulse volume recordings, ankle pressure measurements and ankle brachial indices wer e obtained of the lower extremity arterial system bilaterally in addit ion to duplex Doppler techniques with wave form analysis and measurement of velocities in the common femoral, profunda femoral, superficial femoral, popliteal, tibial and peroneal arteries. The study was perfor med only at rest. FINDINGS: RIGHT LE. THE RIGHT ANKLE-BRACHIAL INDEX IS: 1.15 2. SEGMENTAL PRESSUR ES (mmHg): Ankle: PT 160, DP 158 3. PVR WAVEFORMS: Ankle: Normal 4. DIRECT DUPLEX: Common femoral arter y: 101 cm/s, Multiphasic Profunda femoris artery: 50 cm/s, Multiphasic Superficial femoral artery (proximal): 66 cm/s, biphasic Superficial femoral artery (mid): 64 cm/s, Multiphasic Superficial femoral artery (distal): 45 cm/s, biphasic Proximal Popliteal artery: 49 cm/s, Multiphasic Distal popliteal artery: 51 cm/s, Multiphasic Mid posterior tibial artery: 62 cm/s, biphasic Peroneal artery: 56 cm/s, biphasic Anterior tibial ghazal ry: 53 cm/sec, multiphasic LEFT LE. THE LEFT ANKLE-BRACHIAL INDEX IS: 1.15 2. SEGMENTAL PRESSURES: Ankle: PT 160, DP 150 3. PVR WAVEFORMS: Ankle: Normal 4. DIRECT DUPLEX: Common femoral arter y: 77 cm/s, Multiphasic Profunda femoris artery: 59 cm/s, Multiphasic Superficial femoral artery (proximal): 71 cm/s, Multiphasic Superficial femoral artery (mid): 75 cm/s, Multiphasic Superficial femoral artery (distal): 50 cm/s, biphasic Proximal Popliteal artery: 47 cm/s, biphasic Distal popliteal artery: 50 cm/s, biphasic Mid posterior tibial artery: 47 cm/s, biphasic Peroneal artery: 35 cm/s, biphasic Anterior to the ghazal ry: 59 cm/sec, triphasic US/US KENISHA complete IMPRESSION: No evidence of arter ial occlusion or hemodynamically significant stenosis. Dictated By: Marialuisa Reina Signed By: <Electronically signed by Marialuisa Reina in OV> 10/20/23 1456 DD/ 1408 TD/TT: Infrastructure Tech: US arterial duplex LE BI Reviewed date:10/31/2023 05:57:27 AM Interpretation: Performing Lab: Notes/Report: [place] [address] Ultrasound Report Signed Patient: Sylvie Ayala MR#: [id number] : 1955 Acct:[id number] Age/Sex: 68 / F ADM Date: 10/17/23 Loc: .US Attending Dr: Suhail Ramos MD Ordering Physician: Suhail Ramos MD Date of Service: 10/17/23 Procedure(s): US arterial duplex LE BI Accession Number(s): [id number] cc: Suhail Ramos MD EXAMINATION: US arterial duplex LE BI, US KENISHA complete CLINICAL INFORMATION: claudication COMPARISON: None TECHNIQUE: Ankle pulse volume recordings, ankle pressure measurements and ankle brachial indices were obtained of the lower extremity arterial system bilaterally in addition to duplex Doppler techniques with wave form analysis and measurement of velocities in the common femoral, profunda femoral, superficial femoral, popliteal, tibial and peroneal arteries. The study was performed only at rest. FINDINGS: RIGHT LE. THE RIGHT ANKLE-BRACHIAL INDEX IS: 1.15 2. SEGMENTAL PRESSURES (mmHg): Ankle: PT 160, DP 158 3. PVR WAVEFORMS: Ankle: Normal 4. DIRECT DUPLEX: Common femoral artery: 101 cm/s, Multiphasic Profunda femoris artery: 50 cm/s, Multiphasic Superficial femoral artery (proximal): 66 cm/s, biphasic Superficial femoral artery (mid): 64 cm/s, Multiphasic Superficial femoral artery (distal): 45 cm/s, biphasic Proximal Popliteal artery: 49 cm/s, Multiphasic Distal popliteal artery: 51 cm/s, Multiphasic Mid posterior tibial artery: 62 cm/s, biphasic Peroneal artery: 56 cm/s, biphasic Anterior tibial artery: 53 cm/sec, multiphasic LEFT LE. THE LEFT ANKLE-BRACHIAL INDEX IS: 1.15 2. SEGMENTAL PRESSURES: Ankle: PT 160, DP 150 3. PVR WAVEFORMS: Ankle: Normal 4. DIRECT DUPLEX: Common femoral artery: 77 cm/s, Multiphasic Profunda femoris artery: 59 cm/s, Multiphasic Superficial femoral artery (proximal): 71 cm/s, Multiphasic Superficial femoral artery (mid): 75 cm/s, Multiphasic Superficial femoral artery (distal): 50 cm/s, biphasic Proximal Popliteal artery: 47 cm/s, biphasic Distal popliteal artery: 50 cm/s, biphasic Mid posterior tibial artery: 47 cm/s, biphasic Peroneal artery: 35 cm/s, biphasic Anterior to the artery: 59 cm/sec, triphasic US/US arterial duplex LE BI IMPRESSION: No evidence of arterial occlusion or hemodynamically significant stenosis. Dictated By: Marialuisa Reina Signed By: <Electronically signed by Marialuisa Reina in OV> 10/20/23 1443 DD/ 1408 TD/TT: Infrastructure Tech: [address] [address] Ultrasound Report Signed Patient: Jj Ayala MR#: [id number] : 1955 Acct:[id number] Age/Sex: 68 / F ADM Date: 10/17/23 Loc: .US Attending Dr: Suhail Ramos MD Ordering Physician: Suhail Ramos MD Date of Service: 10/17/23 Procedure(s): US arterial duplex LE BI Accession Number(s): [id number] cc: Suhail Ramos MD EXAMINATION: US arterial duplex L E BI, US KENISHA complete CLINICAL INFORMATION: claudication COMPARISON: None TECHNIQUE: Ankle pulse volume recordings, ankle pressure measurements and ankle brachial indices wer e obtained of the lower extremity arterial system bilaterally in addit ion to duplex Doppler techniques with wave form analysis and measurement of velocities in the common femoral, profunda femoral, superficial femoral, popliteal, tibial and peroneal arteries. The study was perfor med only at rest. FINDINGS: RIGHT LE. THE RIGHT ANKLE-BRACHIAL INDEX IS: 1.15 2. SEGMENTAL PRESSUR ES (mmHg): Ankle: PT 160, DP 158 3. PVR WAVEFORMS: Ankle: Normal 4. DIRECT DUPLEX: Common femoral arter y: 101 cm/s, Multiphasic Profunda femoris artery: 50 cm/s, Multiphasic Superficial femoral artery (proximal): 66 cm/s, biphasic Superficial femoral artery (mid): 64 cm/s, Multiphasic Superficial femoral artery (distal): 45 cm/s, biphasic Proximal Popliteal artery: 49 cm/s, Multiphasic Distal popliteal artery: 51 cm/s, Multiphasic Mid posterior tibial artery: 62 cm/s, biphasic Peroneal artery: 56 cm/s, biphasic Anterior tibial ghazal ry: 53 cm/sec, multiphasic LEFT LE. THE LEFT ANKLE-BRACHIAL INDEX IS: 1.15 2. SEGMENTAL PRESSURES: Ankle: PT 160, DP 150 3. PVR WAVEFORMS: Ankle: Normal 4. DIRECT DUPLEX: Common femoral arter y: 77 cm/s, Multiphasic Profunda femoris artery: 59 cm/s, Multiphasic Superficial femoral artery (proximal): 71 cm/s, Multiphasic Superficial femoral artery (mid): 75 cm/s, Multiphasic Superficial femoral artery (distal): 50 cm/s, biphasic Proximal Popliteal artery: 47 cm/s, biphasic Distal popliteal artery: 50 cm/s, biphasic Mid posterior tibial artery: 47 cm/s, biphasic Peroneal artery: 35 cm/s, biphasic Anterior to the ghazal ry: 59 cm/sec, triphasic US/US arterial duplex LE BI IMPRESSION: No evidence of arter ial occlusion or hemodynamically significant stenosis. Dictated By: Marialuisa Reina Signed By: <Electronically signed by Marialuisa Reina in OV> 10/20/23 1456 DD/ 1408 TD/TT: Infrastructure Tech: Complete Blood Count Auto Di ff Reviewed date:04/17/2024 02:53:38 PM Interpretation: Performing Lab:[facility], [address] [place] [phone] Notes/Report: White Blood Count 4.9 4.8-10.8 X10*3/uL Red Blood Count 4.72 4.20-5.50 X10*6/uL Hemoglobin 15.1 12.0-16.0 g/dl Hematocrit 43.1 37.0-47.0 % Mean Corpuscular Volume 91.3 80.0-98.0 fL Mean Corpuscular Hemoglobin 32.0 27.0-33.0 pg Mean Corpuscular HGB Conc 35.0 31.0-35.0 g/dl Red Cell Distribution Width 12.0 11.0-16.0 % Platelet Count 204 160-400 X10*3/uL Mean Platelet Volume 11.5 9.4-12.3 fL Neutrophils Percent Auto 53.1 45-73 % Imm Gran Pct Auto 0.0 0.0-0.4 % Lymphocytes Percent Auto 35.6 20-40 % Monocytes Percent Auto 8.3 2-11 % Eosinophils Percent Auto 2.0 0-4 % Basophils Percent Auto 1.0 0-2 % NRBC Pct Auto 0.0 0.0-0.2 /100WBC Neutrophils Absolute Auto 2.6 2.0-8.3 x10*3/uL Imm Gran Abs Auto 0.00 0.00-0.03 X10*3/uL Lymphocytes Absolute Auto 1.8 1.2-4.9 X10*3/uL Monocytes Absolute Auto 0.4 0.1-1.2 X10*3/uL Eosinophils Absolute Auto 0.1 0.0-0.4 X10*3/uL Basophils Absolute Auto 0.1 0.0-0.2 X10*3/uL NRBC Abs Auto 0.000 0.0-0.012 X10*3/uL Comprehensive [place]. Panel Fa Reviewed date:04/17/2024 02:53:38 PM Interpretation: Performing Lab:[facility], [address] [place] [phone] Notes/Report: Sodium 139 135-145 mmol/L Potassium 3.9 3.3-5.1 mmol/L Chloride 105 96-108 mmol/L Carbon Dioxide 27 22-29 mmol/L Anion Gap 11 12-20 Blood Urea Nitrogen 14 9-16 mg/dL Creatinine 0.74 0.5-1.4 mg/dL Estimated Glomerular Filt Rate > 60 NOTE: For -Haitian individuals, multiply the result by 1.210. Chronic Kidney Disease: Estimated GFR < 60 mL/min/1.73m2 Severe Kidney Disease: Estimated GFR < 15 mL/min/1.73m2 Glucose Fasting 129 60-99 mg/dL A fasting glucose of 126 mg/dl or greater on more than one occasion is considered diagnostic of diabetes. Calcium 9.8 8.4-10.2 mg/dL Bilirubin Total 0.8 0.0-1.0 mg/dL Aspartate Amino Transferase 31 5-31 U/L Alanine Aminotransferase 48 0-31 U/L Total Protein 7.3 6.5-8.0 g/dL Albumin Level 4.3 3.5-5.0 g/dL Alkaline Phosphatase 77 39-117 U/L Lipid Panel Reviewed date:04/17/2024 02:53:38 PM Interpretation: Performing Lab:[facility], [address] [place] [phone] Notes/Report: Triglycerides 155 <150 mg/dL Desirable Triglyceride: less than 150 mg/dL Borderline High Triglyceride 150-199 mg/dL High Triglyceride: 200-499 mg/dL Very High Triglyceride: greater than or equal to 5OO mg/dL Cholesterol 161 <200 mg/dL Desirable Cholesterol: less than 200 mg/dL Borderline High Cholesterol: 200-239 mg/dL High Cholesterol: greater than 239 mg/dL LDL Cholesterol Calculated 93 <100 mg/dL Desirable LDL: less than 100 mg/dL Near Optimal/Above Optimal LDL: 110-129 mg/dL Borderline High LDL: 130-159 mg/dL High LDL: 160-189 mg/dL Very High LDL: greater than or equal to 190 mg/dL HDL Cholesterol 37 >40 mg/dL Desirable HDL: greater than 40 mg/dL Note: This HDL assay may give artificially low results in patients with liver disease. Complete Blood Count Auto Di ff Reviewed date:06/29/2024 04:58:18 AM Interpretation: Performing Lab:[facility], [address] [place] [phone] Notes/Report: White Blood Count 5.3 4.8-10.8 X10*3/uL Red Blood Count 4.81 4.20-5.50 X10*6/uL Hemoglobin 15.6 12.0-16.0 g/dl Hematocrit 43.0 37.0-47.0 % Mean Corpuscular Volume 89.4 80.0-98.0 fL Mean Corpuscular Hemoglobin 32.4 27.0-33.0 pg Mean Corpuscular HGB Conc 36.3 31.0-35.0 g/dl Red Cell Distribution Width 11.8 11.0-16.0 % Platelet Count 198 160-400 X10*3/uL Mean Platelet Volume 11.3 9.4-12.3 fL Neutrophils Percent Auto 54.3 45-73 % Imm Gran Pct Auto 0.2 0.0-0.4 % Lymphocytes Percent Auto 35.1 20-40 % Monocytes Percent Auto 7.8 2-11 % Eosinophils Percent Auto 1.5 0-4 % Basophils Percent Auto 1.1 0-2 % NRBC Pct Auto 0.0 0.0-0.2 /100WBC Neutrophils Absolute Auto 2.9 2.0-8.3 x10*3/uL Imm Gran Abs Auto 0.01 0.00-0.03 X10*3/uL Lymphocytes Absolute Auto 1.9 1.2-4.9 X10*3/uL Monocytes Absolute Auto 0.4 0.1-1.2 X10*3/uL Eosinophils Absolute Auto 0.1 0.0-0.4 X10*3/uL Basophils Absolute Auto 0.1 0.0-0.2 X10*3/uL NRBC Abs Auto 0.000 0.0-0.012 X10*3/uL Comprehensive [place]. Panel Fa Reviewed date:06/29/2024 04:58:18 AM Interpretation: Performing Lab:[facility], [address] [place] [phone] Notes/Report: Sodium 140 135-145 mmol/L Potassium 3.4 3.3-5.1 mmol/L Chloride 106 96-108 mmol/L Carbon Dioxide 25 22-29 mmol/L Anion Gap 12 12-20 Blood Urea Nitrogen 13 9-16 mg/dL Creatinine 0.70 0.5-1.4 mg/dL Estimated Glomerular Filt Rate > 60 Chronic Kidney Disease: Estimated GFR < 60 mL/min/1.73m2 Severe Kidney Disease: Estimated GFR < 15 mL/min/1.73m2 Glucose Fasting 134 60-99 mg/dL A fasting glucose of 126 mg/dl or greater on more than one occasion is considered diagnostic of diabetes. Calcium 9.8 8.4-10.2 mg/dL Bilirubin Total 0.7 0.0-1.0 mg/dL Aspartate Amino Transferase 41 5-31 U/L Alanine Aminotransferase 59 0-31 U/L Total Protein 7.6 6.5-8.0 g/dL Albumin Level 4.3 3.5-5.0 g/dL Alkaline Phosphatase 72 39-117 U/L Magnesium Reviewed date:06/29/2024 04:58:18 AM Interpretation: Performing Lab:[facility], [address] [place] [phone] Notes/Report: Magnesium 1.8 1.6-2.6 mg/dL Lipid Panel Reviewed date:06/29/2024 04:58:18 AM Interpretation: Performing Lab:[facility], [address] [place] [phone] Notes/Report: Triglycerides 107 <150 mg/dL Desirable Triglyceride: less than 150 mg/dL Borderline High Triglyceride 150-199 mg/dL High Triglyceride: 200-499 mg/dL Very High Triglyceride: greater than or equal to 5OO mg/dL Cholesterol 162 <200 mg/dL Desirable Cholesterol: less than 200 mg/dL Borderline High Cholesterol: 200-239 mg/dL High Cholesterol: greater than 239 mg/dL LDL Cholesterol Calculated 103 <100 mg/dL Desirable LDL: less than 100 mg/dL Near Optimal/Above Optimal LDL: 110-129 mg/dL Borderline High LDL: 130-159 mg/dL High LDL: 160-189 mg/dL Very High LDL: greater than or equal to 190 mg/dL HDL Cholesterol 38 >40 mg/dL Desirable HDL: greater than 40 mg/dL Note: This HDL assay may give artificially low results in patients with liver disease. Reason For Referral No Information Medications Medication SIG (Take, Route, Frequency, Duration) Notes Start Date End Date Status Meclizine HCl 25 MG TAKE 1 TABLET BY EDOUARD TH 3 TIMES DAILY NEEDED Active Atenolol 100 MG TAKE 1 TABLET BY EDOUARD TH ONCE DAILY Active Clopidogrel Bisulfate 75 MG TAKE 1 TABLE T BY MOUTH EVERY DAY Active hydroCHLOROthiazide 25 MG 1 tablet in th e morning Orally Once a day 12/27/2023 Active Aspirin 81 MG TAKE 1 TABLET BY EDOUARD TH EVERY DAY Active Atorvastatin Calcium 80 MG TAKE 1 TABLET BY MOUTH EVERY DAY Active hydroCHLOROthiazide 25 MG TAKE ONE-HALF TABLET BY MOUTH ONCE DAILY Active Aspirin 81 81 MG 1 tablet Orally Once a day Active Immunizations Vaccine Route Administration Date Status Comme nts COVID PFIZER Unknown 04/10/2021 Administered COVID PFIZER Unknown 03/20/2021 Administered Social History Tobacco Use: Social History Observation Description Date Details (start date - stop date) Never Smoker NA - NA Sex Assigned At : Social History Observation Description Sex Assigned At Female Tobacco Use/Smoking Question Answer Notes Patient is a nonsmoker Additional Findings: Tobacco Non-User Aggressive non-smoker Alcohol Screen Question Answer Notes Did you have a drink containing alcohol in the p ast year? No Points 0 Interpretation Negative Problems Problem Type SNOMED Code ICD Code Onset Dates Problem Status W/U Status Risk Notes Problem 48834404 Hyperlipidemia (E78.5) Active confirmed A current fasting lipid profile is not available. Her lipids have been stable and no change in her regimen was made today. We discussed her diet.Her total cholesterol was 161. Problem 958488795 Obesity (E66.9) Active confirmed Her weight remains in the obese range. She is trying to lose weight. We discussed her weight loss strategy. We made a plan to lose weight at a rate of one half of a pound per week. Problem 56800517 Hyperglycemia (R73.9) Active confirmed Her hemoglobin A1c was 5.8, which is an improvement. We discussed prediabetes today. I recommended aggressive weight loss and a healthy diet low in concentrated sweets and carbohydrates. Her current fasting glucose is 129. She is currently controlled with diet. She has gained 4 pounds. She will lose weight at a rate of one half of a pound per week. Problem 88440332 Hypertension (I10) Active confirmed Her blood pressure is in the normal range. She has gained 4 pounds. We reviewed her diet and nutrition. We went over a diet restricted in fat calories and sodium. Problem 079098143 Osteoarthritis (M19.90) Active confirmed Her arthritis has improved, but she has significant pain in her left shoulder and left hip. I recommended she return to the office if the injections given at [facility] orthopedic surgeons are not affected. Problem 62996069 Coronary artery disease involving [place] coronary artery of [place] heart without angina pectoris (I25.10) Active confirmed She had a recent nonSTEMI and has recovered well after her cardiac catheterizatio n. She is being managed medically. She has had no chest pain recently. If the angina returns or becomes unstable. She is a candidate for bypass surgery.She has had no angina since her last visit. Problem 00301872 Myocardial infarction, unspecified SD type, unspecified artery (I21.9) Active confirmed She has had n o exertional chest pain. She has been compliant with her medications. She is up-to-date with cardiology. Problem 54598551 Claudication (I73.9) Active confirmed Since her last visit she has not experienced claudication. Vital Signs Heart Rate 62 /min 04/27/2024 Temperature 97.5 degrees Fahrenheit 04/27/2024 Blood pressure diastolic 77 mm Hg 04/27/2024 Height 63 in 04/27/2024 Blood pressure systolic 136 mm Hg 04/27/2024 Weight 195 lbs 04/27/2024 BMI 34.54 kg/m2 04/27/2024 Encounters Encounter Location Date Provider Diagnosis Suhail Ramos III, MD [address] [place] [address] [place] [phone] 07/02/2023 Suhail Ramos Myocardial infarctio n, unspecified SD type, unspecified artery I21.9 ; Hyperlipidemia E78.5 ; Hyperglycemia R73.9 ; Hypertension I10 ; Prediabetes R73.03 and Encounter for screening mammogram for malignant neoplasm of breast Z12.31 Suhail Ramos III, MD [address] [place] [address] [place] [phone] 10/01/2023 Suhail Ramos Peripheral vascular disease I73.9 ; Hypertension I10 ; Osteoarthritis M19.90 ; Hyperlipidemia E78.5 ; Obesity E66.9 ; Hyperglycemia R73.9 ; Coronary artery disease involving [place] coronary artery of [place] heart without angina pectoris I25.10 and Prediabetes R73.03 Suhail Ramos III, MD [address] [place] [address] [place] [address] 10/28/2023 Suhail Ramos Hyperlipidemia E78.5 ; Hypertension I10 ; Obesity E66.9 ; Hyperglycemia R73.9 ; Osteoarthritis M19.90 and Coronary artery disease involving [place] coronary artery of [place] heart without angina pectoris I25.10 Suhail Ramos III, MD [address] [place] [address] [place] [address] 12/27/2023 Suhail Ramos Hyperlipidemia E78.5 ; Obesity E66.9 ; Hypertension I10 ; Osteoarthritis M19.90 ; Hyperglycemia R73.9 and Coronary artery disease involving [place] coronary artery of [place] heart without angina pectoris I25.10 Suhail Ramos III, MD [address] [place] [address] [address] [place] [address] 04/27/2024 Suhail Ramos Hyperlipidemia E78.5 ; Coronary artery disease involving [place] coronary artery of [place] heart without angina pectoris I25.10 ; Hypertension I10 ; Claudication I73.9 ; Osteoarthritis M19.90 ; Obesity E66.9 and Hyperglycemia R73.9 Suhail Ramos III, MD [address] [place] [address] [address] [place] [address] 10/07/2023 Suhail Ramos Claudication I73.9 Assessments Encounter Date Diagnosis (ICD Code) Assessment Notes Treat ment Notes Treatment Clinical Notes 07/02/2023 Hyperlipidemia (ICD-10 - E78.5) Her lipids are under target range. No change in her statin therapy was necessary. 07/02/2023 Myocardial infarction, unspecified SD type, unspecified artery (ICD-10 - I21.9) She has had no exertional chest pain. She has been compliant with her medications. She is up-to-date with cardiology. 10/01/2023 Hypertension (ICD-10 - I10) Her blood pressure today is 130/80, and no change in her regimen was needed. I have recommended aggressive weight loss and sodium restriction with regular physical activity. 10/01/2023 Peripheral vascular disease (ICD-10 - I73.9) Has been no change in her cclaudication. 10/28/2023 Hyperlipidemia (ICD-10 - E78.5) Her lipids are under target range. No change in her statin therapy was necessary. 10/28/2023 Hypertension (ICD-10 - I10) Her blood pressure today is 130/80, and no change in her regimen was needed. I have recommended aggressive weight loss and sodium restriction with regular physical activity. 12/27/2023 Hyperlipidemia (ICD-10 - E78.5) A current [...] one half of a pound per week. 04/27/2024 Hyperlipidemia (ICD-10 - E78.5) A current fasting lipid profile is not available. Her lipids have been stable and no change in her regimen was made today. We discussed her diet.Her total cholesterol was 161. 04/27/2024 Coronary artery disease involving [place] coronary artery of [place] heart without angina pectoris (ICD-10 - I25.10) She had a recent nonSTEMI and has recovered well after her cardiac catheterization. She is being managed medically. She has had no chest pain recently. If the angina returns or becomes unstable. She is a candidate for bypass surgery.She has had no angina since her last visit. 07/02/2023 Hyperglycemia (ICD-1 0 - R73.9) Her fasting glucose was 117, which is an improvement from 144. We discussed prediabetes today. I recommended aggressive weight loss and a healthy diet low in concentrated sweets and carbohydrates. 10/01/2023 Osteoarthritis (ICD-10 - M19.90) Her arthritis has improved, but she has significant pain in her left shoulder and left hip. I recommended she return to the office if the injections given at [facility] orthopedic surgeons are not affected. 10/28/2023 Obesity (ICD-10 - E66.9) Her body mass index is 33. Her weight has been stable. We reviewed her weight loss strategy. I recommended aggressive weight loss through a diet restricted in fat calories and sodium combined with regular activity. 12/27/2023 Hypertension (ICD-10 - I10) Her blood pressure today is 130/80, and no change in her regimen was needed. I have recommended aggressive weight loss and sodium restriction with regular physical activity. 04/27/2024 Hypertension (ICD-10 - I10) Her blood pressure is in the normal range. She has gained 4 pounds. We reviewed her diet and nutrition. We went over a diet restricted in fat calories and sodium. 10/07/2023 Claudication (ICD-10 - I73.9) 07/02/2023 Hypertension (ICD-10 - I10) Her blood pressure today is 130/80, and no change in her regimen was needed. I have recommended aggressive weight loss and sodium restriction with regular physical activity. 10/01/2023 Hyperlipidemia (ICD-10 - E78.5) Her lipids are under target range. No change in her statin therapy was necessary. 10/28/2023 Hyperglycemia (ICD-1 0 - R73.9) Her hemoglobin A1c was 5.8, which is an improvement from 144. We discussed prediabetes today. I recommended aggressive weight loss and a healthy diet low in concentrated sweets and carbohydrates. 12/27/2023 Osteoarthritis (ICD-10 - M19.90) Her arthritis has improved, but she has significant pain in her left shoulder and left hip. I recommended she return to the office if the injections given at [facility] surgeons are not affected. 04/27/2024 Claudication (ICD-10 - I73.9) Since her last visit she has not experienced claudication. 07/02/2023 Prediabetes (ICD-10 - R73.03) She will have a hemoglobin A1c prior to her next visit. 10/01/2023 Obesity (ICD-10 - E66.9) Her body mass index is 33. Her weight has been stable. We reviewed her weight loss strategy. I recommended aggressive weight loss through a diet restricted in fat calories and sodium combined with regular activity. 10/28/2023 Osteoarthritis (ICD-10 - M19.90) Her arthritis has improved, but she has significant pain in her left shoulder and left hip. I recommended she return to the office if the injections given at [facility] orthopedic surgeons are not affected. 12/27/2023 Hyperglycemia (ICD-1 0 - R73.9) Her hemoglobin A1c was 5.8, which is an improvement from 144. We discussed prediabetes today. I recommended aggressive weight loss and a healthy diet low in concentrated sweets and carbohydrates. 04/27/2024 Osteoarthritis (ICD-10 - M19.90) Her arthritis has improved, but she has significant pain in her left shoulder and left hip. I recommended she return to the office if the injections given at [facility] surgeons are not affected. 07/02/2023 Encounter for screening mammogram for malignant neoplasm of breast (ICD-10 - Z12.31) 10/01/2023 Hyperglycemia (ICD-1 0 - R73.9) Her fasting glucose was 117, which is an improvement from 144. We discussed prediabetes today. I recommended aggressive weight loss and a healthy diet low in concentrated sweets and carbohydrates. 10/28/2023 Coronary artery disease involving [place] coronary artery of [place] heart without angina pectoris (ICD-10 - I25.10) She had a recent nonSTEMI and has recovered well after her cardiac catheterization. She is being managed medically. She has had no chest pain recently. If the angina returns or becomes unstable. She is a candidate for bypass surgery. 12/27/2023 Coronary artery disease involving [place] coronary artery of [place] heart without angina pectoris (ICD-10 - I25.10) She had a recent nonSTEMI and has recovered well after her cardiac catheterization. She is being managed medically. She has had no chest pain recently. If the angina returns or becomes unstable. She is a candidate for bypass surgery. 04/27/2024 Obesity (ICD-10 - E66.9) Her weight remains in the obese range. She is trying to lose weight. We discussed her weight loss strategy. We made a plan to lose weight at a rate of one half of a pound per week. 10/01/2023 Coronary artery disease involving [place] coronary artery of [place] heart without angina pectoris (ICD-10 - I25.10) She had a recent nonSTEMI and has recovered well after her cardiac catheterization. She is being managed medically. She has had no chest pain recently. If the angina returns or becomes unstable. She is a candidate for bypass surgery. 04/27/2024 Hyperglycemia (ICD-1 0 - R73.9) Her hemoglobin A1c was 5.8, which is an improvement. We discussed prediabetes today. I recommended aggressive weight loss and a healthy diet low in concentrated sweets and carbohydrates.Her current fasting glucose is 129. She is currently controlled with diet. She has gained 4 pounds. She will lose weight at a rate of one half of a pound per week. 10/01/2023 Prediabetes (ICD-10 - R73.03) She will have a hemoglobin A1c prior to her next visit. Plan Of Treatment Pending Test Test Name Order Date PROFILE, FASTING (COMPREHENSIVE METABOLI C) 04/03/2023 PROFILE, FASTING (COMPREHENSIVE METABOLI C) 10/12/2019 PROFILE, FASTING (COMPREHENSIVE METABOLI C) 06/04/2022 PROFILE, FASTING (COMPREHENSIVE METABOLI C) 05/30/2020 PROFILE, FASTING (COMPREHENSIVE METABOLI C) 01/17/2023 PROFILE, FASTING (COMPREHENSIVE METABOLI C) 02/08/2021 PROFILE, FASTING (COMPREHENSIVE METABOLI C) 10/21/2017 PROFILE, FASTING (COMPREHENSIVE METABOLI C) 02/14/2022 PROFILE, FASTING (COMPREHENSIVE METABOLI C) 02/09/2019 PROFILE, FASTING (COMPREHENSIVE METABOLI C) 07/02/2023 PROFILE, FASTING (COMPREHENSIVE METABOLI C) 02/26/2020 PROFILE, FASTING (COMPREHENSIVE METABOLI C) 11/28/2022 PROFILE, FASTING (COMPREHENSIVE METABOLI C) 04/27/2024 PROFILE, FASTING (COMPREHENSIVE METABOLI C) 09/28/2020 PROFILE, FASTING (COMPREHENSIVE METABOLI C) 11/01/2021 PROFILE, FASTING (COMPREHENSIVE METABOLI C) 10/31/2022 PROFILE, FASTING (COMPREHENSIVE METABOLI C) 10/03/2018 HEMOGLOBIN A1C (GLYCOHEMOGLOBIN) 023 HEMOGLOBIN A1C (GLYCOHEMOGLOBIN) 022 HEMOGLOBIN A1C (GLYCOHEMOGLOBIN) 023 HEMOGLOBIN A1C (GLYCOHEMOGLOBIN) 023 LIPID PANEL 11/01/2021 LIPID PANEL 10/03/2018 LIPID PANEL 04/03/2023 LIPID PANEL 10/12/2019 LIPID PANEL 10/31/2022 LIPID PANEL 05/30/2020 LIPID PANEL 02/08/2021 LIPID PANEL 06/04/2022 LIPID PANEL 10/21/2017 LIPID PANEL 01/17/2023 LIPID PANEL 02/09/2019 LIPID PANEL 02/26/2020 LIPID PANEL 11/28/2022 LIPID PANEL 09/28/2020 CBC w DIFF 02/26/2020 CBC w DIFF 11/28/2022 CBC w DIFF 09/28/2020 CBC w DIFF 11/01/2021 CBC w DIFF 10/03/2018 CBC w DIFF 04/03/2023 CBC w DIFF 10/12/2019 CBC w DIFF 10/31/2022 CBC w DIFF 05/30/2020 CBC w DIFF 02/14/2022 CBC w DIFF 02/08/2021 CBC w DIFF 06/04/2022 CBC w DIFF 10/21/2017 CBC w DIFF 01/17/2023 CBC w DIFF 04/27/2024 CBC w DIFF 02/09/2019 CBC w DIFF 07/02/2023 MAMMOGRAM DIGITAL BILATERAL SCREEN 07/02 US LEG BILATERAL VENOUS DOPPLER 10/01/19 24 Magnesium 04/27/2024 Lipid Panel 07/02/2023 Lipid Panel 04/27/2024 Lipid Panel 02/14/2022 US arterial duplex LE BI 10/07/2023 Hemoglobin A1c 02/14/2022 Next Appt Details Provider Name:Suhail Ramos, 07/06/2024 02:00:00 PM, [address] [place] [address] DR, [place] [address], [place], [address], Insurance Providers Payer Name Payer Address Payer Phone Subscriber Number Group Number Insured Name Patient Relationship to Insured Coverage Start Date Coverage End Date [facility] [address] [facility] [address] [place] [phone] [id number] Sylvie Ayala Self - patient is the insured MEDICARE NGS [address] [place] [phone] [id number] Sylvie Ayala Self - patient is the insured Medical (General) History Medical History History ICD Code hypertension lower back pain hyperlipidemia left hip pain right shoulder pain last bilateral mammogram 12/2012 @ Surgical History Surgery Date(Month/Year) excision fibroma tongue october 2009 Cardiac stent placement 10/2022 No history Hospitalization History Reason Date(Month/Year) Dyspnea 11/21/2022 No history
--- OUTSIDE RECORDS SUMMARY | 2024-07-01 05:49 | XMS_ITS ---
Author Organization Suhail Ramos III, MD Address [address] [place] [address] Support Name Relationship Address Phone MAXIMO CORRIGAN Caregiver [address] [place] [address] Octavia Richard Caregiver [address] [place] [address] TED BURCH Caregiver [address], [place] [phone] ASHLYN CONTI Caregiver [address], [place] [phone] [employer] Caregiver [address] [place] [address] Suhail Ramos Caregiver [address] [place] [address] [place] [address] NAM AYALA Emergency Contact [address] [place] [phone] [phone] Sylvie Ayala Guarantor Unknown [phone] Care Team Providers Care Caustic Loader Name Role Phone Suhail Ramos Primary Care Provider [phone] Allergies Allergen (clinical drug ingredient) Drug/Non Drug Allergy documented on EMR Reaction Allergy Type Onset Date Status No Known Drug Allergy Unknown Drug Allergy Active REASON FOR VISIT Hypertension, Coronary artery disease, Hyperlipidemia Medications Medication SIG (Take, Route, Frequency, Duration) Notes Start Date End Date Status Meclizine HCl 25 MG TAKE 1 TABLET BY EDOUARD TH 3 TIMES DAILY NEEDED Active Atenolol 100 MG TAKE 1 TABLET BY EDOUARD TH ONCE DAILY Active Atorvastatin Calcium 80 MG TAKE 1 TABLET BY MOUTH EVERY DAY Active hydroCHLOROthiazide 25 MG TAKE ONE-HALF TABLET BY MOUTH ONCE DAILY Active Aspirin 81 81 MG 1 tablet Orally Once a day Active Clopidogrel Bisulfate 75 MG TAKE 1 TABLE T BY MOUTH EVERY DAY Active Magnesium Citrate 200 MG as directed Ora lly once a day for 30 days 04/27/2024 05/26/2024 Active hydroCHLOROthiazide 25 MG 1 tablet in th e morning Orally Once a day 12/27/2023 Active Aspirin 81 MG TAKE 1 TABLET BY EDOUARD TH EVERY DAY Active Social History Tobacco Use: Social History Observation Description Date Details (start date - stop date) Never Smoker NA - NA Sex Assigned At : Social History Observation Description Sex Assigned At Female Tobacco Use/Smoking Question Answer Notes Patient is a nonsmoker Additional Findings: Tobacco Non-User Aggressive non-smoker Vital Signs Temperature 97.5 degrees Fahrenheit 04/27/20 24 Blood pressure systolic 136 mm Hg 04/27/20 24 Blood pressure diastolic 77 mm Hg 024 Heart Rate 62 /min 04/27/2024 Height 63 in 04/27/2024 Weight 195 lbs 04/27/2024 BMI 34.54 kg/m2 04/27/2024 Encounters Encounter Location Date Provider Diagnosis Suhail Ramos III, MD [address] [place] [address] [place] [address] 04/27/2024 Suhail Ramos Hyperlipidemia E78.5 ; Coronary artery disease involving [place] coronary artery of [place] heart without angina pectoris I25.10 ; Hypertension I10 ; Claudication I73.9 ; Osteoarthritis M19.90 ; Obesity E66.9 and Hyperglycemia R73.9 Assessments Encounter Date Diagnosis (ICD Code) Assessment Notes Treat ment Notes Treatment Clinical Notes 04/27/2024 Hyperlipidemia (ICD-10 - E78.5) A current fasting lipid profile is not available. Her lipids have been stable and no change in her regimen was made today. We discussed her diet.Her total cholesterol was 161. 04/27/2024 Coronary artery disease involving [place] coronary artery of [place] heart without angina pectoris (ICD-10 - I25.10) She had a recent nonSTEMI and has recovered well after her cardiac catheterization. She is being managed medically. She has had no chest pain recently. If the angina returns or becomes unstable. She is a candidate for bypass surgery.She has had no angina since her last visit. 04/27/2024 Hypertension (ICD-10 - I10) Her blood pressure is in the normal range. She has gained 4 pounds. We reviewed her diet and nutrition. We went over a diet restricted in fat calories and sodium. 04/27/2024 Claudication (ICD-10 - I73.9) Since her last visit she has not experienced claudication. 04/27/2024 Osteoarthritis (ICD-10 - M19.90) Her arthritis has improved, but she has significant pain in her left shoulder and left hip. I recommended she return to the office if the injections given at [facility] orthopedic surgeons are not affected. 04/27/2024 Obesity (ICD-10 - E66.9) Her weight remains in the obese range. She is trying to lose weight. We discussed her weight loss strategy. We made a plan to lose weight at a rate of one half of a pound per week. 04/27/2024 Hyperglycemia (ICD-1 0 - R73.9) Her [...] one half of a pound per week. Plan Of Treatment Medication Medication Name Sig Start Date Stop Date Notes Meclizine HCl 25 MG TAKE 1 TABLET BY EDOUARD TH 3 TIMES DAILY NEEDED Atenolol 100 MG TAKE 1 TABLET BY EDOUARD TH ONCE DAILY Atorvastatin Calcium 80 MG TAKE 1 TABLET BY MOUTH EVERY DAY hydroCHLOROthiazide 25 MG TAKE ONE-HALF TABLET BY MOUTH ONCE DAILY Aspirin 81 81 MG 1 tablet Orally Once a day Clopidogrel Bisulfate 75 MG TAKE 1 TABLE T BY MOUTH EVERY DAY Magnesium Citrate 200 MG as directed Orlaurent llkatie once a day for 30 days 04/27/2024 05/26/2024 hydroCHLOROthiazide 25 MG 1 tablet in th e morning Orally Once a day 12/27/2023 Aspirin 81 MG TAKE 1 TABLET BY EDOUARD TH EVERY DAY Pending Test Test Name Order Date PROFILE, FASTING (COMPREHENSIVE METABOLI C) 04/27/2024 CBC w DIFF 04/27/2024 Magnesium 04/27/2024 Lipid Panel 04/27/2024 Next Appt Details Follow Up: as scheduled, Jun, Reason: annual exam review labs, Routine check-up and to monitor foot discomfort Provider Name:Suhail Ramos, 07/06/2024 02:00:00 PM, [address], [place], [address], Progress Notes * Sylvie AYALADOB:1955 (68 yo F)Acc No.[id number]:04/27/2024 Progress Notes Patient:?Sylvie AYALA Provider:?Suhail Ramos MD :1955???Age:68 Y???Sex:Female D ate:04/27/2024 Address:[address] [place] [address] JODIE Copeland [id number] Subjective: * Chief Complaints: * ???HypertensionCoronary ghazal ry diseaseHyperlipidemia * HPI: ???COVID-19 Screening:?Questions?Have you experienced fever, chills, cough, sore throat, shortness of breath, difficulty breathing, muscle aches, loss of taste or smell??No ?Have you been exposed to the virus within the last 10 days??No ?Have you travelled internationally in the last 10 days??No ?Have you been exposed to COVID-19 in the past??No ???:? The patient, a 68-year-old female, came in for a routine visit and to discuss the results of her recent blood tests. She reported no issues with her current medications, including atorvastatin. She denied experiencing any angina or palpitations and reported no trouble breathing. Her appetite was good, and she admitted to gaining about 4 lbs due to increased eating. She reported occasional joint pain but did not specify the location. The patient also complained of discomfort in her feet, which she described as feeling swollen and sometimes cold. The discomfort was intermittent and seemed to be worse on some days than others. She also mentioned occasional neck pain. The patient is retired and spends most of her time at home. She reported no back pain. Blood Sugar Level is 129. * ROS:?General/Constitutional:?pain?only normal aches and pains.?Chills?denies.?Fatigue?admits.?Fever?denies.?ENT:?Decreased hearing?denies.?Respiratory:?Cough?denies.?Cardiovascular:?Chest pain with exertion?denies.?Dyspnea on exertion?denies.?Denies?Palpitations.?Shortness of breath?denies.?Gastrointestinal:?Constipation?occasional.?Decreased appetite?denies.?Diarrhea?denies.?Heartburn?denies.?Nausea?denies.?Rectal bleeding?denies.?Vomiting?denies.?Hematology:?bruising?denies.?petechiae?denies.?Swollen glands?none have been noted.?Genitourinary:?Frequent urination?denies.?Musculoskeletal:?Muscle aches?denies.?Painful joints?Hands.?Sciatica?denies.?Weakness?denies.?Skin:?Itching?denies.?Rash?denies.?Skin lesion(s)?denies.?Neurologic:?Difficulty speaking?denies.?Dizziness?denies.?Headache?denies.?Low back pain?denies.?Psychiatric:?Depressed mood?denies.? * Medical History:? * Surgical History:?excision f ibroma tongue october 2009Cardiac stent placement 10/2022No history * Hospitalization/Major Diagno stic Procedure:?Dyspnea 11/21/2022No history * Family History:?Father: dece ased 60 yrs, head/neck cancer.?Mother: 62 yrs, heart related.?Spouse: alive 57 yrs.?2 son(s) - healthy. .? 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 She is a nonsmoker and has two sons, Trey and Yung. She was born in [place]. * Medications:?TakingClopidogr el Bisulfate 75 MG Tablet TAKE 1 TABLET BY MOUTH EVERY DAY Atenolol 100 MG Tablet TAKE 1 TABLET BY MOUTH ONCE DAILY Meclizine HCl 25 MG Tablet TAKE 1 TABLET BY MOUTH 3 TIMES DAILY NEEDED Aspirin 81 81 MG Tablet Delayed Release 1 tablet Orally Once a day hydroCHLOROthiazide 25 MG Tablet 1 tablet in the morning Orally Once a day Atorvastatin Calcium 80 MG Tablet TAKE 1 TABLET BY MOUTH EVERY DAY Medication List reviewed and reconciled with the patientTaking Clopidogrel Bisulfate 75 MG Tablet TAKE 1 TABLET BY MOUTH EVERY DAY Taking Atenolol 100 MG Tablet TAKE 1 TABLET BY MOUTH ONCE DAILY Taking Meclizine HCl 25 MG Tablet TAKE 1 TABLET BY MOUTH 3 TIMES DAILY NEEDED Taking Aspirin 81 81 MG Tablet Delayed Release 1 tablet Orally Once a day Taking hydroCHLOROthiazide 25 MG Tablet 1 tablet in the morning Orally Once a day Taking Atorvastatin Calcium 80 MG Tablet TAKE 1 TABLET BY MOUTH EVERY DAY Medication List reviewed and reconciled with the patient * Allergies:?No Known Drug All ergyno[Allergies Verified] Objective: * Vitals:?Ht: 63, Wt:195, BMI: 34.54, BP:136/77, HR:62, Temp:97.5, Ht-cm: 160.02, Wt-k.45. * ???Past Orders: Lab:Lipid Panel * Collection Date 04/16/2024 09/20/2023 06/22/2023 Collection Time 08:47 AM 07:47 AM 08:31 AM Order Date 04/16/2024 09/20/2023 06/22/2023 Triglycerides 155?H (Ref Range: <150 mg/dL) 99 (Ref Range: <150 mg/dL) 108 (Ref Range: <150 mg/dL) Cholesterol 161 (Ref Range: <200 mg/dL) 167 (Ref Range: <200 mg/dL) 163 (Ref Range: <200 mg/dL) LDL Cholesterol Calculated 93 (Ref Range: <100 mg/dL) 105?H (Ref Range: <100 mg/dL) 104?H (Ref Range: <100 mg/dL) HDL Cholesterol 37?L (Ref Range: >40 mg/dL) 43 (Ref Range: >40 mg/dL) 38?L (Ref Range: >40 mg/dL) * Lab:[facility]. Elia l Fast * Collection Date 04/16/2024 09/20/2023 06/22/2023 Collection Time 08:47 AM 07:47 AM 08:31 AM Order Date 04/16/2024 09/20/2023 06/22/2023 Sodium 139 (Ref Range: 135-145 mmol/L) 142 (Ref Range: 135-145 mmol/L) 141 (Ref Range: 135-145 mmol/L) Bilirubin Total 0.8 (Ref Range: 0.0-1.0 mg/dL) 0.6 (Ref Range: 0.0-1.0 mg/dL) 1.0 (Ref Range: 0.0-1.0 mg/dL) Aspartate Amino Transferase 31 (Ref Range: 5-31 U/L) 23 (Ref Range: 5-31 U/L) 20 (Ref Range: 5-31 U/L) Alanine Aminotransferase 48?H (Ref Range: 0-31 U/L) 34?H (Ref Range: 0-31 U/L) 27 (Ref Range: 0-31 U/L) Total Protein 7.3 (Ref Range: 6.5-8.0 g/dL) 7.4 (Ref Range: 6.5-8.0 g/dL) 7.8 (Ref Range: 6.5-8.0 g/dL) Albumin Level 4.3 (Ref Range: 3.5-5.0 g/dL) 4.3 (Ref Range: 3.5-5.0 g/dL) 4.3 (Ref Range: 3.5-5.0 g/dL) Alkaline Phosphatase 77 (Ref Range: 39-117 U/L) 78 (Ref Range: 39-117 U/L) 76 (Ref Range: 39-117 U/L) Potassium 3.9 (Ref Range: 3.3-5.1 mmol/L) 4.4 (Ref Range: 3.3-5.1 mmol/L) 3.7 (Ref Range: 3.3-5.1 mmol/L) Chloride 105 (Ref Range: 96-108 mmol/L) 107 (Ref Range: 96-108 mmol/L) 104 (Ref Range: 96-108 mmol/L) Carbon Dioxide 27 (Ref Range: 22-29 mmol/L) 27 (Ref Range: 22-29 mmol/L) 28 (Ref Range: 22-29 mmol/L) Anion Gap 11?L (Ref Range: 12-20) 12 (Ref Range: 12-20) 13 (Ref Range: 12-20) Blood Urea Nitrogen 14 (Ref Range: 9-16 mg/dL) 18?H (Ref Range: 9-16 mg/dL) 12 (Ref Range: 9-16 mg/dL) Creatinine 0.74 (Ref Range: 0.5-1.4 mg/dL) 0.80 (Ref Range: 0.5-1.4 mg/dL) 0.78 (Ref Range: 0.5-1.4 mg/dL) Estimated Glomerular Filt Rate > 60 > 60 > 60 Glucose Fasting 129?H (Ref Range: 60-99 mg/dL) 125?H (Ref Range: 60-99 mg/dL) 117?H (Ref Range: 60-99 mg/dL) Calcium 9.8 (Ref Range: 8.4-10.2 mg/dL) 9.6 (Ref Range: 8.4-10.2 mg/dL) 9.7 (Ref Range: 8.4-10.2 mg/dL) * Lab:Complete Blood Count Aut o Diff * Collection Date 04/16/2024 09/20/2023 06/22/2023 Collection Time 08:47 AM 07:47 AM 08:31 AM Order Date 04/16/2024 09/20/2023 06/22/2023 White Blood Count 4.9 (Ref Range: 4.8-10.8 X10*3/uL) 4.7?L (Ref Range: 4.8-10.8 X10*3/uL) 5.7 (Ref Range: 4.8-10.8 X10*3/uL) Red Blood Count 4.72 (Ref Range: 4.20-5.50 X10*6/uL) 4.89 (Ref Range: 4.20-5.50 X10*6/uL) 4.67 (Ref Range: 4.20-5.50 X10*6/uL) Hemoglobin 15.1 (Ref Range: 12.0-16.0 g/dl) 15.4 (Ref Range: 12.0-16.0 g/dl) 14.9 (Ref Range: 12.0-16.0 g/dl) Hematocrit 43.1 (Ref Range: 37.0-47.0 %) 44.5 (Ref Range: 37.0-47.0 %) 43.8 (Ref Range: 37.0-47.0 %) Mean Corpuscular Volume 91.3 (Ref Range: 80.0-98.0 fL) 91.0 (Ref Range: 80.0-98.0 fL) 93.8 (Ref Range: 80.0-98.0 fL) Mean Corpuscular Hemoglobin 32.0 (Ref Range: 27.0-33.0 pg) 31.5 (Ref Range: 27.0-33.0 pg) 31.9 (Ref Range: 27.0-33.0 pg) Mean Corpuscular HGB Conc 35.0 (Ref Range: 31.0-35.0 g/dl) 34.6 (Ref Range: 31.0-35.0 g/dl) 34.0 (Ref Range: 31.0-35.0 g/dl) Red Cell Distribution Width 12.0 (Ref Range: 11.0-16.0 %) 12.2 (Ref Range: 11.0-16.0 %) 11.9 (Ref Range: 11.0-16.0 %) Platelet Count 204 (Ref Range: 160-400 X10*3/uL) 191 (Ref Range: 160-400 X10*3/uL) 179 (Ref Range: 160-400 X10*3/uL) Mean Platelet Volume 11.5 (Ref Range: 9.4-12.3 fL) 11.3 (Ref Range: 9.4-12.3 fL) 11.9 (Ref Range: 9.4-12.3 fL) Neutrophils Percent Auto 53.1 (Ref Range: 45-73 %) 48.2 (Ref Range: 45-73 %) 49.4 (Ref Range: 45-73 %) Imm Gran Pct Auto 0.0 (Ref Range: 0.0-0.4 %) 0.0 (Ref Range: 0.0-0.4 %) 0.0 (Ref Range: 0.0-0.4 %) Lymphocytes Percent Auto 35.6 (Ref Range: 20-40 %) 40.2?H (Ref Range: 20-40 %) 36.7 (Ref Range: 20-40 %) Monocytes Percent Auto 8.3 (Ref Range: 2-11 %) 8.1 (Ref Range: 2-11 %) 11.6?H (Ref Range: 2-11 %) Eosinophils Percent Auto 2.0 (Ref Range: 0-4 %) 2.4 (Ref Range: 0-4 %) 1.4 (Ref Range: 0-4 %) Basophils Percent Auto 1.0 (Ref Range: 0-2 %) 1.1 (Ref Range: 0-2 %) 0.9 (Ref Range: 0-2 %) NRBC Pct Auto 0.0 (Ref Range: 0.0-0.2 /100WBC) 0.0 (Ref Range: 0.0-0.2 /100WBC) 0.0 (Ref Range: 0.0-0.2 /100WBC) Neutrophils Absolute Auto 2.6 (Ref Range: 2.0-8.3 x10*3/uL) 2.3 (Ref Range: 2.0-8.3 x10*3/uL) 2.8 (Ref Range: 2.0-8.3 x10*3/uL) Imm Gran Abs Auto 0.00 (Ref Range: 0.00-0.03 X10*3/uL) 0.00 (Ref Range: 0.00-0.03 X10*3/uL) 0.00 (Ref Range: 0.00-0.03 X10*3/uL) Lymphocytes Absolute Auto 1.8 (Ref Range: 1.2-4.9 X10*3/uL) 1.9 (Ref Range: 1.2-4.9 X10*3/uL) 2.1 (Ref Range: 1.2-4.9 X10*3/uL) Monocytes Absolute Auto 0.4 (Ref Range: 0.1-1.2 X10*3/uL) 0.4 (Ref Range: 0.1-1.2 X10*3/uL) 0.7 (Ref Range: 0.1-1.2 X10*3/uL) Eosinophils Absolute Auto 0.1 (Ref Range: 0.0-0.4 X10*3/uL) 0.1 (Ref Range: 0.0-0.4 X10*3/uL) 0.1 (Ref Range: 0.0-0.4 X10*3/uL) Basophils Absolute Auto 0.1 (Ref Range: 0.0-0.2 X10*3/uL) 0.1 (Ref Range: 0.0-0.2 X10*3/uL) 0.1 (Ref Range: 0.0-0.2 X10*3/uL) NRBC Abs Auto 0.000 (Ref Range: 0.0-0.012 X10*3/uL) 0.000 (Ref Range: 0.0-0.012 X10*3/uL) 0.000 (Ref Range: 0.0-0.012 X10*3/uL) * Examination: ???General Examination: ?GENERAL APPEARANCE:?pleasant, well nourished, well developed, in no acute distress, calm and relaxed.?HEAD:?atraumatic, normocephalic.?EYES:?eomi, perrla, anicteric, conjugate.?EARS:?normal.?NOSE:?septum intact.?ORAL CAVITY:?normal, unremarkable.?NECK/THYROID:?no jugular venous distention, no carotid bruit, thyroid normal.?LYMPH NODES:?no enlarged lymph nodes,spleen normal.?SKIN:?no suspicious lesions, anicteric.?HEART:?no clicks, gallops, murmurs, or rubs, regular rhythm, S1, S2 normal, no s3, or vascular bruits.?LUNGS:?clear to auscultation .?BREASTS:??no masses palpable bilaterally.?ABDOMEN:?bowel sounds normal, no ascites, no organomegaly, no mass.?RECTAL EXAM:?not examined.?MUSCULOSKELETAL:?extremities unremarkable, no clubbing, cyanosis or edema.?PERIPHERAL PULSES:?normal.?NEUROLOGIC:?alert and oriented, cranial nerves 2-12 grossly intact, deep tendon reflexes 2+ symmetrical, motor strength normal upper and lower extremities, sensory exam intact.?PSYCH:?alert, oriented.? : ???Feet examination:Normal, healthy looking feet. No trouble with blood supply. Skin looks intense. Pulse: Excellent. Heart and lungs: Sound good. ??? Assessment: * Assessment: 1.?Coronary artery disease i nvolving [place] coronary artery of [place] heart without angina pectoris - I25.10 (Primary)???Notes :She had a recent nonSTEMI and has recovered well after her cardiac catheterization. She is being managed medically. She has had no chest pain recently. If the angina returns or becomes unstable. She is a candidate for bypass surgery.She has had no angina since her last visit.???2.?Hyperlipidemia - E78.5???Notes :A current fasting lipid profile is not available. Her lipids have been stable and no change in her regimen was made today. We discussed her diet.Her total cholesterol was 161.???3.?Hypertension - I10???Notes :Her blood pressure is in the normal range.? She has gained 4 pounds.? We reviewed her diet and nutrition.? We went over a diet restricted in fat calories and sodium.???4.?Claudication - I73.9???Notes :Since her last visit she has not experienced claudication.???5.?Osteoarthritis - M19.90???Notes :Her arthritis has improved, but she has significant pain in her left shoulder and left hip. I recommended she return to the office if the injections given at [facility] orthopedic surgeons are not affected.???6.?Obesity - E66.9???Notes :Her weight remains in the obese range. She is trying to lose weight. We discussed her weight loss strategy. We made a plan to lose weight at a rate of one half of a pound per week.???7.?Hyperglycemia - R73.9???Notes :Her hemoglobin A1c was 5.8, which is an improvement. We discussed prediabetes today. I recommended aggressive weight loss and a healthy diet low in concentrated sweets and carbohydrates.Her current fasting glucose is 129.? She is currently controlled with diet.? She has gained 4 pounds. She will lose weight at a rate of one half of a pound per week.??? Plan: * Treatment: 2.?Hypertension?LAB: PROFILE, FASTING (COMPREHENSIVE METABOLIC) ?LAB: CBC w DIFF ?LAB: Magnesium ?LAB: Lipid Panel 3.?Claudication?LAB: PROFILE, FASTING (COMPREHENSIVE METABOLIC) ?LAB: CBC w DIFF ?LAB: Magnesium ?LAB: Lipid Panel 4.?Others? Continue Clopidogrel Bisulfate Tablet, 75 MG, TAKE 1 TABLET BY MOUTH EVERY DAY;?Continue Atenolol Tablet, 100 MG, TAKE 1 TABLET BY MOUTH ONCE DAILY;?Continue Meclizine HCl Tablet, 25 MG, TAKE 1 TABLET BY MOUTH 3 TIMES DAILY NEEDED;?Continue Aspirin 81 Tablet Delayed Release, 81 MG, 1 tablet, Orally, Once a day;?Continue Atorvastatin Calcium Tablet, 80 MG, TAKE 1 TABLET BY MOUTH EVERY DAY;?Continue Aspirin Tablet Chewable, 81 MG, TAKE 1 TABLET BY MOUTH EVERY DAY;?Start Magnesium Citrate Tablet, 200 MG, as directed, Orally, once a day, 30 days, 30.?? * Procedure Codes:? * Preventive Medicine:? ??Counseling:?Care goal follow-up plan:?Counseling for abnormal BMI given?Yes ?Above Normal BMI Follow-up?Dietary management education, guidance, and counseling * Follow Up:?as scheduled, Jun (Reason: annual exam review labs, Routine check-up and to monitor foot discomfort) * Images: * Sign off status: Completed true * Provider:?Suhail Ramos MD Date:?01/2024 Generated for Printi ng/Amalia/eTransmitting on:?07/01/2024 05:49 AM EST History and Physical Notes * HPI (History of Present Illness) Category Sub-Category Detail Notes COVID-19 Screening Questions Have you expe rienced fever, chills, cough, sore throat, shortness of breath, difficulty breathing, muscle aches, loss of taste or smell?: No Have you been exposed to the virus withi n the last 10 days?: No Have you travelled internationally in [facility] last 10 days?: No Have you been exposed to COVID-19 in the past?: No Examination Category Sub-Category Detail Notes General Examination GENERAL APPEARANCE: pleasant , well nourished, well developed, in no acute distress, calm and relaxed HEAD: atraumatic, normocep halic EYES: eomi, perrla, anicte varsha, conjugate EARS: normal NOSE: septum intact NECK/THYROID: no jugular venous di stention, no carotid bruit, thyroid normal HEART: no clicks, gallops, murmurs, or rubs, regular rhythm, S1, S2 normal, no s3, or vascular bruits LUNGS: clear to auscultatio n ABDOMEN: bowel sounds normal, no ascites, no organomegaly, no mass NEUROLOGIC: alert and oriented, cranial nerves 2-12 grossly intact, deep tendon reflexes 2+ symmetrical, motor strength normal upper and lower extremities, sensory exam intact SKIN: no suspicious lesion s, anicteric PERIPHERAL PULSES: normal BREASTS: no masses palpable b ilaterally MUSCULOSKELETAL: extremities unremark able, no clubbing, cyanosis or edema LYMPH NODES: no enlarged lymph no bhakti,spleen normal RECTAL EXAM: not examined PSYCH: alert, oriented ORAL CAVITY: normal, unremarkable
--- OUTSIDE RECORDS SUMMARY | 2024-07-01 05:49 | XMS_ITS ---
Author Organization Suhail Ramos III, MD Address [address] [place] [address] Support Name Relationship Address Phone MAXIMO CORRIGAN Caregiver [address] [place] [address] Octavia Richard Caregiver [address] [place] [address] TED BURCH Caregiver [address] [place], [place] [phone] ASHLYN CONTI Caregiver [address] [place], [place] [phone] [employer] Caregiver [address] [place] [address] Suhail Ramos Caregiver [address] [place] [address] [place] [address] NAM AYALA Emergency Contact [address] [place] [address] [phone] Sylvie Ayala Guarantor Unknown [phone] Care Team Providers Care Industrial Sales Representative Name Role Phone Suhail Ramos Primary Care Provider Allergies Allergen (clinical drug ingredient) Drug/Non Drug Allergy documented on EMR Reaction Allergy Type Onset Date Status No Known Drug Allergy Unknown Drug Allergy Active REASON FOR VISIT Hypothyroid, Lower extremity pain Medications Medication SIG (Take, Route, Frequency, Duration) Notes Start Date End Date Status hydroCHLOROthiazide 25 MG 1 tablet in th e morning Orally Once a day 12/27/2023 Active Atenolol 100 MG TAKE 1 TABLET BY EDOUARD TH ONCE DAILY Active Clopidogrel Bisulfate 75 MG TAKE 1 TABLE T BY MOUTH EVERY DAY Active Atorvastatin Calcium 80 MG 1 tablet Oral ly Once a day 01/17/2023 Active hydroCHLOROthiazide 25 MG 1 tablet in th e morning Orally Once a day 12/27/2023 Active Aspirin 81 81 MG 1 tablet Orally Once a day Active Atenolol 100 MG take 1 tablet by edouard th once daily Orally Once a day Active Clopidogrel Bisulfate 75 MG take 1 table t by mouth every day Orally Once a day Active hydroCHLOROthiazide 25 MG TAKE ONE-HALF TABLET BY MOUTH ONCE DAILY Active Meclizine HCl 25 MG TAKE 1 TABLET BY EDOUARD TH 3 TIMES DAILY NEEDED Active Social History Tobacco Use: Social History Observation Description Date Details (start date - stop date) Never Smoker NA - NA Sex Assigned At : Social History Observation Description Sex Assigned At Female Tobacco Use/Smoking Question Answer Notes Patient is a nonsmoker Additional Findings: Tobacco Non-User Aggressive non-smoker Vital Signs Height 63 in 10/28/2023 Weight 187 lbs 10/28/2023 BMI 33.12 kg/m2 10/28/2023 Encounters Encounter Location Date Provider Diagnosis Suhail Ramos III, MD [address] [place] [address] [place] [address] 10/28/2023 Suhail Ramos Hyperlipidemia E78.5 ; Hypertension I10 ; Obesity E66.9 ; Hyperglycemia R73.9 ; Osteoarthritis M19.90 and Coronary artery disease involving sokaogon coronary artery of sokaogon heart without angina pectoris I25.10 Assessments Encounter Date Diagnosis (ICD Code) Assessment Notes Treat ment Notes Treatment Clinical Notes 10/28/2023 Hyperlipidemia (ICD-10 - E78.5) Her lipids are under target range. No change in her statin therapy was necessary. 10/28/2023 Hypertension (ICD-10 - I10) Her blood pressure today is 130/80, and no change in her regimen was needed. I have recommended aggressive weight loss and sodium restriction with regular physical activity. 10/28/2023 Obesity (ICD-10 - E66.9) Her body mass index is 33. Her weight has been stable. We reviewed her weight loss strategy. I recommended aggressive weight loss through a diet restricted in fat calories and sodium combined with regular activity. 10/28/2023 Hyperglycemia (ICD-1 0 - R73.9) Her hemoglobin A1c was 5.8, which is an improvement from 144. We discussed prediabetes today. I recommended aggressive weight loss and a healthy diet low in concentrated sweets and carbohydrates. 10/28/2023 Osteoarthritis (ICD-10 - M19.90) Her arthritis has improved, but she has significant pain in her left shoulder and left hip. I recommended she return to the office if the injections given at [facility] orthopedic surgeons are not affected. 10/28/2023 Coronary artery disease involving sokaogon coronary artery of sokaogon heart without angina pectoris (ICD-10 - I25.10) She had a recent nonSTEMI and has recovered well after her cardiac catheterization. She is being managed medically. She has had no chest pain recently. If the angina returns or becomes unstable. She is a candidate for bypass surgery. Plan Of Treatment Medication Medication Name Sig Start Date Stop Date Notes hydroCHLOROthiazide 25 MG 1 tablet in th e morning Orally Once a day 12/27/2023 Atenolol 100 MG TAKE 1 TABLET BY EDOUARD TH ONCE DAILY Clopidogrel Bisulfate 75 MG TAKE 1 TABLE T BY MOUTH EVERY DAY Atorvastatin Calcium 80 MG 1 tablet Orally Once a day 12/21 hydroCHLOROthiazide 25 MG 1 tablet in th e morning Orally Once a day 12/27/2023 Aspirin 81 81 MG 1 tablet Orally Once a day Atenolol 100 MG take 1 tablet by edouard th once daily Orally Once a day Clopidogrel Bisulfate 75 MG take 1 table t by mouth every day Orally Once a day hydroCHLOROthiazide 25 MG TAKE ONE-HALF TABLET BY MOUTH ONCE DAILY Meclizine HCl 25 MG TAKE 1 TABLET BY EDOUARD TH 3 TIMES DAILY NEEDED Next Appt Details Follow Up: 2 Months, Reason: Office visit Provider Name:Suhail Ramos, 07/06/2024 02:00:00 PM, [address] [place] [address], [address], Progress Notes * LISSETJasslarisaDOB:1955 (68 yo F)Acc No.[id number]:10/28/2023 Patient:?Sylvie Ayala Provider:?Suhail Ramos MD :1955???Age:68 Y???Sex:Female D ate:10/28/2023 Address:[address] [place] [address] Min [id number] Subjective: * Chief Complaints: * ???HypothyroidLower extremit y pain * HPI: ???:? This telehealth visit took place over 15 minutes with the patient at home and me in my office. He gave consent for billing. Her repeat thyroid function tests are available and were reviewed. They are within normal limits. The ultrasound of her arterial system in the lower extremities is available and shows no significant obstruction. She is free of pain at this timee. No change in her regimen was needed Dr. haney's results. ?Telehealth?Location of provider rendering services:?{...} [address] [facility] [address] ?Location of patient:?address listed in demographics for today's visit ?Patient identification confirmed using:?Name, ?Telehealth method:?Telephone only. Patient not visible to care provider. ?Consent:?Patient verbally consented to treatment, Patient verbally consented to billing insurance company, Patient informed of any privacy concerns related to method of visit ?Total time spent with patient (mins)?15 * ROS:?General/Constitutional:?pain?Mild bilateral calf pain.?Chills?denies.?Fatigue?admits.?Fever?denies.?ENT:?Decreased hearing?denies.?Respiratory:?Cough?denies.?Cardiovascular:?Chest pain with exertion?denies.?Dyspnea on exertion?denies.?Shortness of breath?denies.?Gastrointestinal:?Constipation?occasional.?Decreased appetite?denies.?Diarrhea?denies.?Heartburn?denies.?Nausea?denies.?Rectal bleeding?denies.?Vomiting?denies.?Hematology:?bruising?denies.?petechiae?denies.?Swollen glands?none have been noted.?Genitourinary:?Frequent urination?denies.?Musculoskeletal:?Muscle aches?denies.?Painful joints?denies.?Sciatica?denies.?Weakness?denies.?Skin:?Itching?denies.?Rash?denies.?Skin lesion(s)?denies.?Neurologic:?Difficulty speaking?denies.?Dizziness?denies.?Headache?denies.?Low back pain?denies.?Psychiatric:?Depressed mood?denies.? * Medical History:? * Surgical History:?excision f ibroma tongue october 2009Cardiac stent placement 10/2022 * Hospitalization/Major Diagno stic Procedure:?Dyspnea 11/21/2022 * Family History:?Father: dece ased 60 yrs, head/neck cancer.?Mother: 62 yrs, heart related.?Spouse: alive 57 yrs.?2 son(s) - healthy. .? 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 She is a nonsmoker and has two sons, Trey and Yung. She was born in [place]. * Medications:?TakinghydroCHLO ROthiazide 25 MG Tablet TAKE ONE-HALF TABLET BY MOUTH ONCE DAILY Meclizine HCl 25 MG Tablet TAKE 1 TABLET BY MOUTH 3 TIMES DAILY NEEDED Aspirin 81 81 MG Tablet Delayed Release 1 tablet Orally Once a dayAtenolol 100 MG Tablet take 1 tablet by mouth once daily Orally Once a dayClopidogrel Bisulfate 75 MG Tablet take 1 tablet by mouth every day Orally Once a dayAtorvastatin Calcium 80 MG Tablet 1 tablet Orally Once a dayMedication List reviewed and reconciled with the patientTaking hydroCHLOROthiazide 25 MG Tablet TAKE ONE-HALF TABLET BY MOUTH ONCE DAILY Taking Meclizine HCl 25 MG Tablet TAKE 1 TABLET BY MOUTH 3 TIMES DAILY NEEDED Taking Aspirin 81 81 MG Tablet Delayed Release 1 tablet Orally Once a dayTaking Atenolol 100 MG Tablet take 1 tablet by mouth once daily Orally Once a dayTaking Clopidogrel Bisulfate 75 MG Tablet take 1 tablet by mouth every day Orally Once a dayTaking Atorvastatin Calcium 80 MG Tablet 1 tablet Orally Once a dayMedication List reviewed and reconciled with the patient * Allergies:?No Known Drug All ergyno[Allergies Verified] Objective: * Vitals:?Ht: 63 , Wt:187, BMI :33.12, Ht-cm: 160.02, Wt-k.82. * ???Past Orders: Lab:Lipid Panel * Order Date 09/20/2023 06/22/2023 03/23/2023 Triglycerides 99 (Ref Range: <150 mg/dL) 108 (Ref Range: <150 mg/dL) 181?H (Ref Range: <150 mg/dL) Cholesterol 167 (Ref Range: <200 mg/dL) 163 (Ref Range: <200 mg/dL) 185 (Ref Range: <200 mg/dL) LDL Cholesterol Calculated 105?H (Ref Range: <100 mg/dL) 104?H (Ref Range: <100 mg/dL) 110?H (Ref Range: <100 mg/dL) HDL Cholesterol 43 (Ref Range: >40 mg/dL) 38?L (Ref Range: >40 mg/dL) 39?L (Ref Range: >40 mg/dL) * Lab:Comprehensive [place]. Pane l Fast * Order Date 09/20/2023 06/22/2023 12/03/2022 Sodium 142 (Ref Range: 135-145 mmol/L) 141 (Ref Range: 135-145 mmol/L) 139 (Ref Range: 135-145 mmol/L) Bilirubin Total 0.6 (Ref Range: 0.0-1.0 mg/dL) 1.0 (Ref Range: 0.0-1.0 mg/dL) 0.5 (Ref Range: 0.0-1.0 mg/dL) Aspartate Amino Transferase 23 (Ref Range: 5-31 U/L) 20 (Ref Range: 5-31 U/L) 28 (Ref Range: 5-31 U/L) Alanine Aminotransferase 34?H (Ref Range: 0-31 U/L) 27 (Ref Range: 0-31 U/L) 53?H (Ref Range: 0-31 U/L) Total Protein 7.4 (Ref Range: 6.5-8.0 g/dL) 7.8 (Ref Range: 6.5-8.0 g/dL) 6.8 (Ref Range: 6.5-8.0 g/dL) Albumin Level 4.3 (Ref Range: 3.5-5.0 g/dL) 4.3 (Ref Range: 3.5-5.0 g/dL) 4.1 (Ref Range: 3.5-5.0 g/dL) Alkaline Phosphatase 78 (Ref Range: 39-117 U/L) 76 (Ref Range: 39-117 U/L) 69 (Ref Range: 39-117 U/L) Potassium 4.4 (Ref Range: 3.3-5.1 mmol/L) 3.7 (Ref Range: 3.3-5.1 mmol/L) 4.2 (Ref Range: 3.3-5.1 mmol/L) Chloride 107 (Ref Range: 96-108 mmol/L) 104 (Ref Range: 96-108 mmol/L) 108 (Ref Range: 96-108 mmol/L) Carbon Dioxide 27 (Ref Range: 22-29 mmol/L) 28 (Ref Range: 22-29 mmol/L) 24 (Ref Range: 22-29 mmol/L) Anion Gap 12 (Ref Range: 12-20) 13 (Ref Range: 12-20) 11?L (Ref Range: 12-20) Blood Urea Nitrogen 18?H (Ref Range: 9-16 mg/dL) 12 (Ref Range: 9-16 mg/dL) 17?H (Ref Range: 9-16 mg/dL) Creatinine 0.80 (Ref Range: 0.5-1.4 mg/dL) 0.78 (Ref Range: 0.5-1.4 mg/dL) 0.80 (Ref Range: 0.5-1.4 mg/dL) Estimated Glomerular Filt Rate > 60 > 60 > 60 Glucose Fasting 125?H (Ref Range: 60-99 mg/dL) 117?H (Ref Range: 60-99 mg/dL) 118?H (Ref Range: 60-99 mg/dL) Calcium 9.6 (Ref Range: 8.4-10.2 mg/dL) 9.7 (Ref Range: 8.4-10.2 mg/dL) 9.4 (Ref Range: 8.4-10.2 mg/dL) * Lab:Complete Blood Count Aut o Diff * Order Date 09/20/2023 06/22/2023 03/23/2023 White Blood Count 4.7?L (Ref Range: 4.8-10.8 X10*3/uL) 5.7 (Ref Range: 4.8-10.8 X10*3/uL) 5.6 (Ref Range: 4.8-10.8 X10*3/uL) Red Blood Count 4.89 (Ref Range: 4.20-5.50 X10*6/uL) 4.67 (Ref Range: 4.20-5.50 X10*6/uL) 4.88 (Ref Range: 4.20-5.50 X10*6/uL) Hemoglobin 15.4 (Ref Range: 12.0-16.0 g/dl) 14.9 (Ref Range: 12.0-16.0 g/dl) 15.8 (Ref Range: 12.0-16.0 g/dl) Hematocrit 44.5 (Ref Range: 37.0-47.0 %) 43.8 (Ref Range: 37.0-47.0 %) 45.1 (Ref Range: 37.0-47.0 %) Mean Corpuscular Volume 91.0 (Ref Range: 80.0-98.0 fL) 93.8 (Ref Range: 80.0-98.0 fL) 92.4 (Ref Range: 80.0-98.0 fL) Mean Corpuscular Hemoglobin 31.5 (Ref Range: 27.0-33.0 pg) 31.9 (Ref Range: 27.0-33.0 pg) 32.4 (Ref Range: 27.0-33.0 pg) Mean Corpuscular HGB Conc 34.6 (Ref Range: 31.0-35.0 g/dl) 34.0 (Ref Range: 31.0-35.0 g/dl) 35.0 (Ref Range: 31.0-35.0 g/dl) Red Cell Distribution Width 12.2 (Ref Range: 11.0-16.0 %) 11.9 (Ref Range: 11.0-16.0 %) 12.2 (Ref Range: 11.0-16.0 %) Platelet Count 191 (Ref Range: 160-400 X10*3/uL) 179 (Ref Range: 160-400 X10*3/uL) 193 (Ref Range: 160-400 X10*3/uL) Mean Platelet Volume 11.3 (Ref Range: 9.4-12.3 fL) 11.9 (Ref Range: 9.4-12.3 fL) 11.1 (Ref Range: 9.4-12.3 fL) Neutrophils Percent Auto 48.2 (Ref Range: 45-73 %) 49.4 (Ref Range: 45-73 %) 50.7 (Ref Range: 45-73 %) Imm Gran Pct Auto 0.0 (Ref Range: 0.0-0.4 %) 0.0 (Ref Range: 0.0-0.4 %) 0.0 (Ref Range: 0.0-0.4 %) Lymphocytes Percent Auto 40.2?H (Ref Range: 20-40 %) 36.7 (Ref Range: 20-40 %) 38.8 (Ref Range: 20-40 %) Monocytes Percent Auto 8.1 (Ref Range: 2-11 %) 11.6?H (Ref Range: 2-11 %) 7.5 (Ref Range: 2-11 %) Eosinophils Percent Auto 2.4 (Ref Range: 0-4 %) 1.4 (Ref Range: 0-4 %) 2.3 (Ref Range: 0-4 %) Basophils Percent Auto 1.1 (Ref Range: 0-2 %) 0.9 (Ref Range: 0-2 %) 0.7 (Ref Range: 0-2 %) NRBC Pct Auto 0.0 (Ref Range: 0.0-0.2 /100WBC) 0.0 (Ref Range: 0.0-0.2 /100WBC) 0.0 (Ref Range: 0.0-0.2 /100WBC) Neutrophils Absolute Auto 2.3 (Ref Range: 2.0-8.3 x10*3/uL) 2.8 (Ref Range: 2.0-8.3 x10*3/uL) 2.8 (Ref Range: 2.0-8.3 x10*3/uL) Imm Gran Abs Auto 0.00 (Ref Range: 0.00-0.03 X10*3/uL) 0.00 (Ref Range: 0.00-0.03 X10*3/uL) 0.00 (Ref Range: 0.00-0.03 X10*3/uL) Lymphocytes Absolute Auto 1.9 (Ref Range: 1.2-4.9 X10*3/uL) 2.1 (Ref Range: 1.2-4.9 X10*3/uL) 2.2 (Ref Range: 1.2-4.9 X10*3/uL) Monocytes Absolute Auto 0.4 (Ref Range: 0.1-1.2 X10*3/uL) 0.7 (Ref Range: 0.1-1.2 X10*3/uL) 0.4 (Ref Range: 0.1-1.2 X10*3/uL) Eosinophils Absolute Auto 0.1 (Ref Range: 0.0-0.4 X10*3/uL) 0.1 (Ref Range: 0.0-0.4 X10*3/uL) 0.1 (Ref Range: 0.0-0.4 X10*3/uL) Basophils Absolute Auto 0.1 (Ref Range: 0.0-0.2 X10*3/uL) 0.1 (Ref Range: 0.0-0.2 X10*3/uL) 0.0 (Ref Range: 0.0-0.2 X10*3/uL) NRBC Abs Auto 0.000 (Ref Range: 0.0-0.012 X10*3/uL) 0.000 (Ref Range: 0.0-0.012 X10*3/uL) 0.000 (Ref Range: 0.0-0.012 X10*3/uL) * Lab:Hemoglobin A1c * Order Date 09/20/2023 03/23/2023 08/25/2022 Hemoglobin A1c % 5.9 (Ref Range: <6.0 %) 5.8 (Ref Range: <6.0 %) 6.8 (Ref Range: %) Estimated Average Glucose 123 (Ref Range: mg/dL) 120 (Ref Range: mg/dL) 148 (Ref Range: mg/dL) ???Lab:Thyroid Stimulating Hormone (Order Date - 10/02/2023) (Collection Date - 10/02/2023)?ValueReference Range?Thyroid Stimulating Hormone0.54 0.32-4.0 - uIU/mL ???Lab:Free T4 (Free Thyroxine) (Order Date - 10/01/2023) (Collection Date - 10/02/2023)?ValueReference Range?Free T4 (Free Thyroxine)1.140.71- 1.85 - ng/dL ???Imaging:US KENISHA complete (Order Date - 10/17/2023) (Collection Date - 10/17/2023) ???Imaging:US arterial duplex LE BI (Order Date - 10/17/2023) (Collection Date - 10/17/2023) ???Imaging:US pelvic and transvaginal (Order Date - 10/02/2023) (Collection Date - 10/02/2023) Assessment: * Assessment: 1.?Hyperlipidemia - E78.5 (P rimary), Her lipids are under target range. No change in her statin therapy was necessary.?2.?Hypertension - I10, Her blood pressure today is 130/80, and no change in her regimen was needed. I have recommended aggressive weight loss and sodium restriction with regular physical activity.?3.?Obesity - E66.9, Her body mass index is 33. Her weight has been stable. We reviewed her weight loss strategy. I recommended aggressive weight loss through a diet restricted in fat calories and sodium combined with regular activity.?4.?Hyperglycemia - R73.9, Her hemoglobin A1c was 5.8, which is an improvement from 144. We discussed prediabetes today. I recommended aggressive weight loss and a healthy diet low in concentrated sweets and carbohydrates.?5.?Osteoarthritis - M19.90, Her arthritis has improved, but she has significant pain in her left shoulder and left hip. I recommended she return to the office if the injections given at [facility] orthopedic surgeons are not affected.?6.?Coronary artery disease involving sokaogon coronary artery of sokaogon heart without angina pectoris - I25.10, She had a recent nonSTEMI and has recovered well after her cardiac catheterization. She is being managed medically. She has had no chest pain recently. If the angina returns or becomes unstable. She is a candidate for bypass surgery.? Plan: * Treatment: 2.?Others? Continue hydroCHLOROthiazide Tablet, 25 MG, TAKE ONE-HALF TABLET BY MOUTH ONCE DAILY;?Continue Meclizine HCl Tablet, 25 MG, TAKE 1 TABLET BY MOUTH 3 TIMES DAILY NEEDED;?Continue Aspirin 81 Tablet Delayed Release, 81 MG, 1 tablet, Orally, Once a day;?Continue Atenolol Tablet, 100 MG, take 1 tablet by mouth once daily, Orally, Once a day;?Continue Clopidogrel Bisulfate Tablet, 75 MG, take 1 tablet by mouth every day, Orally, Once a day;?Continue Atorvastatin Calcium Tablet, 80 MG, 1 tablet, Orally, Once a day.?? * Procedure Codes:?42515 PHONE E/M BY SEVERINO 11-20 MIN * Preventive Medicine:? ??Counseling:?Care goal follow-up plan:?Counseling for abnormal BMI given?Yes ?Above Normal BMI Follow-up?Dietary management education, guidance, and counseling ?Care goal follow-up plan:?Counseling for abnormal BMI given?Yes ?Above Normal BMI Follow-up?Dietary management education, guidance, and counseling * Follow Up:?2 Months (Reason: Office visit) * Images: * Sign off status: Completed true * Provider:?Suhail Ramos MD Date:?02/2024 Generated for Ye thomas/Amalia/Souravitting on:?07/01/2024 05:49 AM EST History and Physical Notes * HPI (History of Present Illness) Category Sub-Category Detail Notes Telehealth Location of [facility] rendering services:: {...} [address] [facility] [address] Location of patient:: address listed in demographics for today's visit Patient identification confirmed using:: Name, Telehealth method:: Telephone only. Geetha ent not visible to care provider. Consent:: Patient verbally c onsented to treatment, Patient verbally consented to billing insurance company, Patient informed of any privacy concerns related to method of visit Total time spent with patient (mins): 15
--- OUTSIDE RECORDS SUMMARY | 2024-07-01 05:49 | XMS_ITS | Patient Health Record ---
Author Organization [facility] Matilde aquilino [place] Address [address] [place] [address] Care Team Providers Care Automotive Finance Manager Name Role Phone Suhail Ramos MD Primary Care Provider Unavailab Samm Obregon Unavailable [phone] Allergies No Known Allergies Reason For Referral No Information Medications Medication SIG (Take, Route, Frequency, Duration) Notes Start Date End Date Status Atenolol 100 MG 1 tablet Orally Once a day Active Atorvastatin Calcium 80 MG 1 tablet Oral ly Once a day Active Gabapentin 100 MG 1 capsule in morning and one at bedtime Orally Twice a Day for 30 days Active hydroCHLOROthiazide 25 MG 1 tablet in [...] Risk Notes Problem Mononeuropathy of lower limb (775293065) Neuritis of right foot (G57.91) Active confirmed Vital Signs Height 5ft 3in in 06/23/2024 Weight 190 lbs 06/23/2024 BMI 33.65 kg/m2 06/23/2024 Encounters Encounter Location Date [facility] [address] 06/04/2024 Samm Irwin Pain in left foot M79.672 ; Neuralgia and neuritis M79.2 ; Hallux valgus (acquired), left foot M20.12 ; Pain in right foot M79.671 and Hallux valgus (acquired), right foot M20.11 [facility] [place] [address] [place] [address] 06/23/2024 Samm Irwin Pain in left foot M79.672 ; Neuralgia and neuritis M79.2 and Pain in right foot M79.671 Assessments Encounter Date Diagnosis (ICD Code) Assessment Notes Treatment Notes Treatment Clinical Notes Section Notes 06/04/2024 Pain in left foot (ICD-10 - M79.672) 06/04/2024 Neuralgia and neuritis (ICD-10 - M79.2) 06/23/2024 Pain in left foot (ICD-10 - M79.672) 06/23/2024 Neuralgia and neuritis (ICD-10 - M79.2) I have instructed the patient to increase dosage of gabapentin to 100mg TID. When she needs a refill she is to have the pharmacy contact us 06/23/2024 Pain in right foot (ICD-10 - M79.671) 06/04/2024 Hallux valgus (acquired), left foot (ICD-10 - M20.12) 06/04/2024 Pain in right foot (ICD-10 - M79.671) 06/04/2024 Hallux valgus (acquired), right foot (ICD-10 - M20.11) Plan Of Treatment Next Appt Details Provider Name:Samm Irwin, 09/01/2024 11:15:00 AM, [address] [facility], [place], [address], Insurance Providers Payer Name Payer Address Payer Phone Subscriber Number Group Number Insured Name Patient Relationship to Insured Coverage Start Date Coverage End Date [employer] [address] [place] [address] [id number] Sylvie Ayala Self - patient is the insured [facility] [address] [place] [id number] Jass Ayalauta Self - patient is the insured 3 Medical (General) History Medical History History ICD Code High Blood Pressure Bone implants/screws Heart attack Surgical History Surgery Date(Month/Year) heart stent 10/2022 Hospitalization History Reason Date(Month/Year) heart attack one stent 10/2022
== END 2024-06-26 08:40 | disposition home or self-care (01) ==
LOC: HO.LAB 08:39
PROVIDERS: PCP Internal Medicine Medical Oncology; Visit Provider Internal Medicine Medical Oncology
DX: E78.5 Hyperlipidemia, unspecified (principal); I10 Essential (primary) hypertension; I73.9 Peripheral vascular disease, unspecified
CPT/HCPCS: 36415; 80053; 80061; 83735; 85025

== ENCOUNTER 2024-08-17 14:22 | Outpatient (AMB) | payer MEDICARE, SELFPAY ==
[2023-07-03 10:14] VITALS: BP 104/68; BP 116/60; BP 122/80; BMI 33.0
[2024-08-17 14:50] VITALS: BP 110/80; PULSE 62; BMI 34.3
--- NOTE | 2024-08-17 14:50 | MHC.OFFVIS ---
Vital Signs 08/17/24 14:50 Height 5 ft 3 in Weight 193 lb 9.054 oz BMI 34.3 BP 110/80 Blood Pressure Location Lt brachial Position Sitting Pulse 62 Pulse Source Pulse Oximeter Intake Visit Reasons: 4 mth f/up Intake Note: 4 mth f/up Bilingual Sales Assistant Required: No Accompanied by: Self / Same As Patient Allergies No Known Allergies Allergy (Mild, Verified 10/28/23 08:15) NKA Medication List - Last Reconciled 08/17/24 by Dalton Vazquez MD aspirin (Adult Aspirin Regimen) 81 mg PO DAILY atenolol 100 mg PO DAILY atorvastatin 80 mg PO DAILY clobetasol 0.05% 1 appl topical BID 2 weeks clopidogrel 75 mg PO DAILY hydrochlorothiazide 25 mg PO DAILY meclizine 25 mg PO TID PRN HPI Comments Details: Pleasant 69 year female who is here for follow-up. She was seen in [facility] for NSTEMI and was transferred cardiac catheterization. Cardiac catheterization shows severe diagonal and LAD stenosis. Lad had diffuse segment of 70% stenosis. Diagonal 1 was a large size branch and had severe stenosis and was culprit for NSTEMI. We decided to treat the diagonal artery and medically treat the LAD. She did fine after that and was discharged home. Subsequently she went back to [facility] with dyspnea and this was thought to be a side effect of Brilinta and she was changed to Plavix. Since then she has done well and has no symptoms. No bleeding concerns. Taking medications regularly. 05/08/2023: She returns for follow-up. She has been doing cardiac rehabilitation and has not had any significant symptoms there. She had severe LAD stenosis which was medically treated previously. Diagonal was stented as culprit. She is tolerating dual antiplatelet therapy. No bleeding concerns currently. 09/25/23: She returns for follow-up. She has been doing well from cardiovascular point of view. She has no chest discomfort shortness breath and has been physically active. She is saying that with activity she has no symptoms but at night when she laid down she gets very cold feet and tingling in her feet. He is not diabetic and does not have any history of alcohol use. 02/05/24: She is here for follow-up. Again complaining of some paresthesia in her feet. Denying any chest discomfort. 08/17/2024: She is here for follow-up. No exertional symptoms on follow-up. She walks daily. Taking medications regularly. [facility] Medical History STEMI (ST elevation myocardial infarction) Diverticulosis Right shoulder pain Left hip pain Hyperlipidemia Colonoscopy planned Vertigo Fibroma of tongue Back pain Elevated cholesterol HTN (hypertension) Surgical History History of cardiac cath History of dilatation and curettage Family History Mother Heart disease Father Throat cancer Social History Alcohol intake: never Patient Tobacco Use Status: Never used Tobacco Second Hand Smoke Exposure: Yes Female Reproductive History Menstrual Age of Menarche: 16 Review of Systems Const Denies chills, Denies fatigue, Denies fever(s), Denies frequent falls, Denies weakness, Denies weight gain and Denies weight loss ENT Denies dizziness Card Denies chest pain, Denies leg edema, Denies lightheadedness, Denies palpitations, Denies dyspnea and Denies dyspnea on exertion Resp Denies cough, Denies dyspnea and Denies dyspnea on exertion GI Denies hematochezia Musc Denies abnormal gait, Denies muscle weakness, Denies numbness, Denies radiating pain into limb and Denies tingling Neuro Denies abnormal gait, Denies dizziness, Denies frequent falls, Denies numbness, Denies tingling and Denies weakness Endo Denies fatigue and Denies palpitations Physical Exam Vital Signs: Last Vital Signs Pulse 62 08/17/24 14:50 BP 110/80 08/17/24 14:50 BMI result Body Mass Index 34.3 GENERAL APPEARANCE: in no acute distress, pleasant. NECK: no carotid bruit, no jugular venous distention. SKIN: no suspicious lesions, warm and dry. HEART: no murmurs, regular rate and rhythm. LUNGS: clear to auscultation bilaterally. ABDOMEN: soft, nontender. EXTREMITIES: no edema. PERIPHERAL PULSES: equal. NEUROLOGIC: No gross deficits, AAO X 3 Assessment & Plan Assessment & Plan (1) Stable angina: Code(s): I20.89 - Other forms of angina pectoris Category: Medical Plan Pleasant 69-year-old lady who is here for follow-up. She has known history of coronary artery disease with previous NSTEMI when diagonal PCI was performed. She had diffuse LAD stenosis which was medically treated. She continues to be asymptomatic. Blood pressure is well controlled. I have advised her to stop the aspirin and take Plavix monotherapy going forward. She is on atorvastatin 80 mg daily. Last LDL was 103. She is on atorvastatin 80 mg daily. Adding ezetimibe 10 mg daily. She should have repeat fasting lipid panel in 2 months. Thank you for allowing me to participate in the care of your patient. Please feel free to contact me if you have any questions. Orders: Orders Lipid Panel 2 Months I20.8 - Other forms of angina pectoris Medications: New ezetimibe 10 mg PO DAILY 90 tabs 3RF I20.8 - Other forms of angina pectoris Coding Level of Care Code Est Pt Level 4 (52892) Diagnoses Stable angina I20.89
--- OUTSIDE RECORDS SUMMARY | 2024-08-17 18:52 | XMS_ITS | Patient Health Record ---
Author Organization [facility] Matilde aquilino Festus Address [address] [place] [address] Care Team Providers Care Machine Operator Hop Picker Name Role Phone Suhail Ramos MD Primary Care Provider Unavailab Samm Obregon Unavailable [phone] Allergies No Known Allergies Reason For Referral [...] Risk Notes Problem Mononeuropathy of lower limb (485499926) Neuritis of right foot (G57.91) Active confirmed Vital Signs Height 5ft 3in in 06/23/2024 Weight 190 lbs 06/23/2024 BMI 33.65 kg/m2 06/23/2024 Encounters Encounter Location Date Provider Diagnosis [facility] [address] 06/04/2024 Samm Irwin Pain in left foot M79.672 ; Neuralgia and neuritis M79.2 ; Hallux valgus (acquired), left foot M20.12 ; Pain in right foot M79.671 and Hallux valgus (acquired), right foot M20.11 [facility] [address] [place] [address] 06/23/2024 Samm Irwin Pain in left foot [...] Of Treatment Next Appt Details Provider Name:Samm Bhatia Dc, 09/03/2024 11:00:00 AM, [address] [facility], [place], [address], Insurance Providers Payer Name Payer Address Payer Phone Subscriber Number Group Number Insured Name Patient Relationship to Insured Coverage Start Date Coverage End Date [facility] [address] [place] [id number] [phone] [id number] Sylvie Ayala Self - patient is the insured Medical (General) History Medical History History ICD Code High Blood Pressure Bone implants/screws Heart attack Surgical History Surgery Date(Month/Year) heart stent 10/2022 Hospitalization History Reason Date(Month/Year) heart attack one stent 10/2022
--- OUTSIDE RECORDS SUMMARY | 2024-08-17 18:52 | XMS_ITS ---
Author Organization [facility] Address [address] [place] [address] Care Team Providers Care Lead Electrical Controls Engineer Name Role Phone Suhail Ramos MD Primary Care Provider Samm Torres Unavailable [phone] Allergies No Known Allergies REASON FOR VISIT [...] Risk Notes Problem Mononeuropathy of lower limb (006219495) Neuritis of right foot (G57.91) Active confirmed Vital Signs Height 5ft 3in in 06/04/2024 Weight 190 lbs 06/04/2024 BMI 33.65 kg/m2 06/04/2024 Encounters Encounter Location Date Provider Diagnosis [facility] [place] [address] 06/04/2024 Samm Irwin Pain in left foot [...] Up: 3 Weeks, Reason: Provider Name:Samm Irwin, 09/03/2024 11:00:00 AM, [address] [place] [address], [place], [address], Progress Notes * Sylvie AYALADOB:1955 (69 yo F)Acc No.[id number]:06/04/2024 Progress Notes Patient:?Sylvie AYALA Provider:?Samm Irwin D.P.M. :1955???Age:69 Y???Sex:Female D ate:06/04/2024 Address:[address] [place] [address], [facility] Pcp:Suhail Ramos MD Subjective: * Chief Complaints: [...] Stable (1=3,2=4)??? Plan: * Treatment: * Procedure Codes:?40389 X-RAY EXAM OF LEFT FOOT 3V, Modifiers: 26 , [id number] X-RAY EXAM OF RIGHT FOOT 3V, Modifiers: [...] Provider:?Samm Irwin D.P.M. Date:?05/22 Generated for Corali ng/Abiolag/eTransmitting on:?08/17/2024 06:52 PM EST History and Physical Notes * HPI (History of Present Illness) Category Sub-Category Detail Notes Category Not es Foot Pain Nature: burning , radiating , shooti ng , tingling Location: Top, Bottom, Inside, Outside, B/L Duration: several months Onset: unknown Course: worse Aggravated: Worse at night when in bed Treatments: rest/alter normal da nelida activity Examination Category Sub-Category Detail Notes Category [...] noted, no signs of fracture/dislocation Vascular DP PULSES (B): 3/4, B/L PT PULSES (B): 3/4, B/L CAPILLARY FILL TIME: immediate, all digi ts, B/L TEMPERTURE GRADIENT (C): warm to cool, p roximal to distal, B/L TROPHIC CONDITION-TEXTURE/ELASTICITY/TURGOR/HAIR GROWTH (B): normal, B/L EDEMA (C): absent, B/L PIGMENTATION: normal, B/L
--- OUTSIDE RECORDS SUMMARY | 2024-08-17 18:52 | XMS_ITS ---
Author Organization Suhail Ramos III, MD Address [address] [place] [address] Support Name Relationship Address Phone MAXIMO CORRIGAN Caregiver [address] [place] [address] Octavia Richard Caregiver [address] [place] [address] TED BURCH Caregiver [address], [place] [phone] ASHLYN CONTI Caregiver [address] [place], [place] [phone] [employer] Caregiver [address] [place] [address] Suhail Ramos Caregiver [address] [place] [address] [place] [address] NAM AYALA Emergency Contact [address] [place] [id number] Sylvie Ayala Guarantor Unknown [phone] Care Team Providers Care Special Projects Manager Name Role Phone Suhail Ramos Primary Care [...] Date Provider Diagnosis Suhail Ramos III, MD [address] [place] [address] [place] [address] 04/27/2024 Suhail Ramos Hyperlipidemia E78.5 ; Coronary artery disease involving [place] coronary artery of [place] heart without angina pectoris I25.10 ; Hypertension [...] was 161. 04/27/2024 Coronary artery disease involving [place] coronary artery of [place] heart without angina pectoris (ICD-10 - I25.10) [...] the office if the injections given at [facility] orthopedic surgeons are not affected. 04/27/2024 Obesity [...] Magnesium Citrate 200 MG as directed Orlaurent helms once a day for 30 days 04/27/2024 [...] to monitor foot discomfort Provider Name:Suhail Ramos, 10/05/2024 02:15:00 PM, [address], [place], [address], Provider Name:Suhail Ramos, 07/12/2025 02:00:00 PM, [address] [place] [address] [address], [place], [address], Progress Notes * Syvlie AYALADOB:1955 (68 yo F)Acc No.[id number]:04/27/2024 Progress Notes Patient:?Sylvie AYALA Provider:?Suhail Ramos MD :1955???Age:68 Y???Sex:Female D ate:04/27/2024 Address:[address] [place] [address] JODIE Copeland [id number] Subjective: * Chief Complaints: * ???HypertensionCoronary ghazal [...] Tobacco Non-User?Aggressive non-smoker ???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 She is a nonsmoker and has two sons, Trey and Yung. She was [place] in [place] * Medications:?TakingClopidogr el Bisulfate 75 MG Tablet [...] mg/dL) 38?L (Ref Range: >40 mg/dL) * Lab:[facility] * Collection Date 04/16/2024 [...] * Assessment: 1.?Coronary artery disease i nvolving [place] coronary artery of [place] heart without angina pectoris - I25.10 (Primary)???Notes [...] the office if the injections given at [facility] orthopedic surgeons are not affected.???6.?Obesity - E66.9???Notes [...] Ramos MD Date:?01/2024 Generated for Printi ng/Amalia/eTransmitting on:?08/17/2024 06:51 PM EST History and Physical Notes * HPI (History of Present Illness) Category Sub-Category Detail Notes COVID-19 Screening Questions Have you had any new onset fever, chills, cough, congestion, sore throat, shortness of breath, muscle aches?: No Have you been exposed to the virus withi n the last 10 days?: No Have you travelled internationally in [facility] last 10 days?: No Have [...]
--- OUTSIDE RECORDS SUMMARY | 2024-08-17 18:53 | XMS_ITS ---
Author Organization [facility] Address [address] [place] [address] Care Team Providers Care Mechatronics Engineer Name Role Phone Suhail Ramos MD Primary Care Provider Unavailab Samm Obregon [phone] REASON FOR VISIT last visit pcp 04/21/24, [...] 06/23/2024 Encounters Encounter [facility] Date [facility] [address] 06/23/2024 Samm Irwin Pain in left foot [...] Up: 2 Months, Reason: Provider Name:Samm Irwin, 09/03/2024 11:00:00 AM, [address] [facility], [place], [address], Progress Notes * LISSET SylvieDOB:1955 (69 yo F)Acc No.[id number]:06/23/2024 Progress Notes Patient:?Sylvie AYALA Provider:?Samm Irwin D.P.M. :1955???Age:69 Y???Sex:Female D ate:06/23/2024 Address:[address] [place], [place] [id number] Pcp:Suhail Ramos MD Subjective: * Chief Complaints: [...] Irwin D.P.M. Date:?09/2023 Generated for Printi ng/Faxing/eTransmitting on:?08/17/2024 06:52 PM EST History and Physical [...] person, place, and t ney Vascular DP PULSES (B): 3/4, B/L PT PULSES (B): 3/4, B/L CAPILLARY FILL TIME: immediate, all digi ts, B/L TEMPERTURE GRADIENT (C): warm to cool, p roximal to distal, B/L TROPHIC CONDITION-TEXTURE/ELASTICITY/TURGOR/HAIR GROWTH (B): normal, B/L EDEMA (C): absent, B/L PIGMENTATION: normal, B/L
--- OUTSIDE RECORDS SUMMARY | 2024-08-17 18:53 | XMS_ITS ---
Author Organization Suhail Ramos III, MD Address [address] [place] [address] Support Name Relationship Address Phone MAXIMO CORRIGAN Caregiver [address] [place] [address] Octavia Richard Caregiver [address] [place] [address] TED BURCH Caregiver [address] [place], [place] [id number] ASHLYN CONTI Caregiver [address] [place], [place] [phone] [employer] Caregiver [address] [place] [address] Suhail Ramos Caregiver [address] [place] [address] [place] [address] NAM AYALA Emergency Contact [address] [place] [address] [phone] Sylvie Ayala Guarantor Unknown [phone] Care Team Providers Care Trout Farmer Name Role Phone Suhail Ramos Primary Care Provider [phone] Allergies Allergen (clinical drug ingredient) Drug/Non Drug Allergy documented on EMR Reaction Allergy Type Onset Date Status No Known Drug Allergy Unknown Drug Allergy Active Results Component Value Reference Range Notes URINE DIP STICK Reviewed date:07/06/2024 02:08:32 PM Interpretation: Performing Lab: Notes/Report: SG 1.010 1.005 - 1.025 pH 6.0 5.0 - 9.0 IVAN Negative Negative - NIT Negative Negative - PRO 15 Negative - Trace GLU Negative Negative - KET Negative Negative - UBG 0.2 0.1 - 1.8 HUEBR Negative 0.2 - 1.3 BLD Negative Negative - REASON FOR VISIT annual exam Medications Medication SIG (Take, Route, Frequency, Duration) Notes Start Date End Date Status Gabapentin 100 MG TAKE 1 CAPSULE BY MO UTH IN THE MORNING AND 1 CAPSULE AT BEDTIME Oral Active Clopidogrel Bisulfate 75 MG TAKE 1 TABLE T BY MOUTH EVERY DAY Active Meclizine HCl 25 MG TAKE 1 TABLET BY EDOUARD TH 3 TIMES DAILY NEEDED Active Atenolol 100 MG TAKE 1 TABLET BY EDOUARD TH ONCE DAILY Active Aspirin 81 81 MG 1 tablet Orally Once a day Active Atorvastatin Calcium 80 MG TAKE 1 [...] nonsmoker Additional Findings: Tobacco Non-User Aggressive non-smoker Tobacco Control (Standard) Question Answer Notes Tobacco use: Nonsmoker Additional Findings: Tobacco non-user Aggressive nonsmoker AUDIT-C (Standard) Question Answer Notes Did you have a drink containing alcohol in the p ast year? No Points 0 Interpretation Negative Problems Problem Type SNOMED Code ICD Code Onset Dates Problem Status W/U Status Risk Notes Problem Prediabetes (270807236) Pre-diab etes (R73.03) Active confirmed Her fasting glucose remains elevated at 134. Hemoglobin A1c has been ordered to be done with her next blood work. We discussed this diagnosis at length. I strongly recommended aggressive weight loss and restriction of concentrated sweets. Vital Signs Temperature 97.2 degrees Fahrenheit 07/06/20 24 Blood pressure systolic 130 mm Hg 07/06/20 24 Blood pressure diastolic 85 mm Hg 024 Heart Rate 60 /min 07/06/2024 Height 63 in 07/06/2024 Weight 199 lbs 07/06/2024 BMI 35.25 kg/m2 07/06/2024 Encounters Encounter Location Date Provider Diagnosis Suhail Ramos III, MD [address] [place] [address] [place] [address] 07/06/2024 Suhail Ramos Hyperlipidemia E78.5 ; Coronary artery disease involving mashpee coronary artery of mashpee heart without angina pectoris I25.10 ; Pre-diabetes R73.03 ; Obesity E66.9 ; Hypertension I10 ; Osteoarthritis M19.90 and Myocardial infarction, unspecified NC type, unspecified artery I21.9 Assessments Encounter Date Diagnosis (ICD Code) Assessment Notes Treat ment Notes Treatment Clinical Notes 07/06/2024 Hyperlipidemia (ICD-10 - E78.5) Her current fasting lipid profile shows good control of her lipids in the target range. Her lipids have been stable and no change in her regimen was made today. We discussed her diet.Her total cholesterol was 161. 07/06/2024 Coronary artery disease involving mashpee coronary artery of mashpee heart without angina pectoris (ICD-10 - I25.10) She had a recent nonSTEMI and has recovered well after her cardiac catheterization. She is being managed medically. She has had no chest pain recently. If the angina returns or becomes unstable. She is a candidate for bypass surgery.She has had no angina since her last visit. 07/06/2024 Pre-diabetes (ICD-10 - R73.03) Her fasting glucose remains elevated at 134. Hemoglobin A1c has been ordered to be done with her next blood work. We discussed this diagnosis at length. I strongly recommended aggressive weight loss and restriction of concentrated sweets. 07/06/2024 Obesity (ICD-10 - E66.9) Her weight remains in the obese range. Her body mass index is 35. She is trying to lose weight. We discussed her weight loss strategy. We made a plan to lose weight at a rate of one half of a pound per week. 07/06/2024 Hypertension (ICD-10 - I10) Her blood pressure is in the normal range. She has gained 4 pounds. We reviewed her diet and nutrition. We went over a diet restricted in fat calories and sodium. 07/06/2024 Osteoarthritis (ICD-10 - M19.90) Her arthritis has improved, but she has significant pain in her left shoulder and left hip. I recommended she return to the office if the injections given at [facility] orthopedic surgeons are not affected. 07/06/2024 Myocardial infarction, unspecified NC type, unspecified artery (ICD-10 - I21.9) She has had no exertional chest pain. She has been compliant with her medications. She is up-to-date with cardiology. Plan Of Treatment Medication Medication Name Sig Start Date Stop Date Notes Gabapentin 100 MG TAKE 1 CAPSULE BY MO UTH IN THE MORNING AND 1 CAPSULE AT BEDTIME Oral Clopidogrel Bisulfate 75 MG TAKE 1 TABLE T BY MOUTH EVERY DAY Meclizine HCl 25 MG TAKE 1 TABLET BY EDOUARD TH 3 TIMES DAILY NEEDED Atenolol 100 MG TAKE 1 TABLET BY EDOUARD TH ONCE DAILY Aspirin 81 81 MG 1 tablet Orally Once a day Atorvastatin Calcium 80 MG TAKE 1 TABLET BY MOUTH EVERY DAY hydroCHLOROthiazide 25 MG 1 tablet in th e morning Orally Once a day 12/27/2023 Aspirin 81 MG TAKE 1 TABLET BY EDOUARD TH EVERY DAY Pending Test Test Name Order Date PROFILE, FASTING (COMPREHENSIVE METABOLI C) 07/06/2024 CBC WITH AUTO DIFF 07/06/2024 Lipid Panel 07/06/2024 Hemoglobin A1c 07/06/2024 Next Appt Details Follow Up: 3 Months, Reason: OV Provider Name:Suhail Ramos, 10/05/2024 02:15:00 PM, [address] [place] [address] SOLIS SANTO, JODI PATEL, [id number], Provider Name:Suhail Ramos, 07/12/2025 02:00:00 PM, [address] [place] [address] SOLIS SANTO, JODI PATEL, [phone], Progress Notes * Sylvie AYALADOB:1955 (69 yo F)Acc No.[id number]:07/06/2024 Progress Notes Patient:?Sylvie AYALA Provider:?Suhail Ramos MD :[id number]???Age:69 Y???Sex:Female D ate:07/06/2024 Address:[address] [place] [address] KTLuz Elena Min [phone] Subjective: * Chief Complaints: * ???Annual exam * HPI: ???Depression Screening:?PHQ-9?Little interest or pleasure in doing things?Not at all ?Feeling down, depressed, or hopeless?Not at all ?Trouble falling or staying asleep, or sleeping too much?Not at all ?Feeling tired or having little energy?Not at all ?Poor appetite or overeating?Not at all ?Feeling bad about yourself or that you are a failure, or have let yourself or your family down?Not at all ?Trouble concentrating on things, such as reading the newspaper or watching television?Not at all ?Moving or speaking so slowly that other people could have noticed; or the opposite, being so fidgety or restless that you have been moving around a lot more than usual?Not at all ?Thoughts that you would be better off or of hurting yourself in some way?Not at all ?Total Score?0 ???COVID-19 Screening:?Questions?Have you had any new onset fever, chills, cough, congestion, sore throat, shortness of breath, muscle aches??No ???Fall Risk Screening:?Fall History?Have you had any falls with injury in the past year??No ?Have you had two or more falls in the past year??No ?Fall Risk Assessment:?No falls in the past year ???SDOH Questions:?SDOH Questions?In the past year have you been worried about losing your housing??No ?In the past year have you or any family members you live with been unable to get any of the following when it was really needed? Check all that apply:?None ???:? The patient, a 69-year-old female, has been experiencing slightly elevated blood sugar levels, which the doctor suspects could be a sign of pre-diabetes. The patient's blood sugar was measured at 134, which is a bit high. The patient has also gained some weight, specifically 4 lbs, which the doctor believes could be contributing to the elevated blood sugar levels. The patient has been trying to lose weight and has expressed a desire to avoid taking additional medication. The patient also mentioned that her feet have been bothering her, but it's unclear what specific symptoms she's experiencing. The patient's cholesterol levels are good at 162, and her liver, kidneys, and electrolytes are all in good condition. Blood Sugar Level is 134. * ROS:?General/Constitutional:?pain?only normal aches and pains.?Chills?denies.?Fatigue?admits.?Fever?denies.?ENT:?Decreased hearing?mild.?Respiratory:?Cough?denies.?Cardiovascular:?Chest pain with exertion?denies.?Dyspnea on exertion?denies.?Shortness of breath?denies.?Gastrointestinal:?Constipation?occasional.?Decreased [...] is a?nonsmoker ?Additional Findings: Tobacco Non-User?Aggressive non-smoker ?Tobacco Control (Standard)?Tobacco use:?Nonsmoker ?Additional Findings: Tobacco non-user?Aggressive nonsmoker ???Drugs/Alcohol:?Drugs?Have you used drugs other than those for medical reasons in the past 12 months??No ???Drug/Alcohol:?AUDIT-C (Standard)?Did you have a drink containing alcohol in the past year??No ?Points?0 ?Interpretation?Negative ???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 She is a nonsmoker and [...] Release 1 tablet Orally Once a day Atorvastatin Calcium 80 MG Tablet TAKE 1 TABLET BY MOUTH EVERY DAY Aspirin 81 MG Tablet Chewable TAKE 1 TABLET BY MOUTH EVERY DAY hydroCHLOROthiazide 25 MG Tablet 1 tablet in the morning Orally Once a day Gabapentin 100 MG Capsule TAKE 1 CAPSULE BY MOUTH IN THE MORNING AND 1 CAPSULE AT BEDTIME Oral Taking Clopidogrel Bisulfate 75 MG Tablet TAKE [...] 1 TABLET BY MOUTH EVERY DAY Taking Aspirin 81 MG Tablet Chewable TAKE 1 TABLET BY MOUTH EVERY DAY Taking hydroCHLOROthiazide 25 MG Tablet 1 tablet in the morning Orally Once a day Taking Gabapentin 100 MG Capsule TAKE 1 CAPSULE BY MOUTH IN THE MORNING AND 1 CAPSULE AT BEDTIME Oral DiscontinuedhydroCHLOROthiazide 25 MG Tablet TAKE ONE-HALF TABLET BY MOUTH ONCE DAILY Medication List reviewed and reconciled with the patientDiscontinued hydroCHLOROthiazide 25 MG Tablet TAKE ONE-HALF TABLET BY MOUTH ONCE DAILY Medication List reviewed and reconciled with the patient * Allergies:?No Known Drug All ergyno[Allergies Verified] Objective: * Vitals:?Ht: 63, Wt:199, BMI: 35.25, BP:130/85, HR:60, Temp:97.2, Ht-cm: 160.02, Wt-k.26. * ???Past Orders: Lab:Lipid Panel * Collection Date 06/26/2024 04/16/2024 09/20/2023 Collection Time 08:58 AM 08:47 AM 07:47 AM Order Date 06/26/2024 04/16/2024 09/20/2023 Triglycerides 107 (Ref Range: <150 mg/dL) 155?H (Ref Range: <150 mg/dL) 99 (Ref Range: <150 mg/dL) Cholesterol 162 (Ref Range: <200 mg/dL) 161 (Ref Range: <200 mg/dL) 167 (Ref Range: <200 mg/dL) LDL Cholesterol Calculated 103?H (Ref Range: <100 mg/dL) 93 (Ref Range: <100 mg/dL) 105?H (Ref Range: <100 mg/dL) HDL Cholesterol 38?L (Ref Range: >40 mg/dL) 37?L (Ref Range: >40 mg/dL) 43 (Ref Range: >40 mg/dL) * Lab:Comprehensive [place]. Pane l Fast * Collection Date 06/26/2024 04/16/2024 09/20/2023 Collection Time 08:58 AM 08:47 AM 07:47 AM Order Date 06/26/2024 04/16/2024 09/20/2023 Sodium 140 (Ref Range: 135-145 mmol/L) 139 (Ref Range: 135-145 mmol/L) 142 (Ref Range: 135-145 mmol/L) Bilirubin Total 0.7 (Ref Range: 0.0-1.0 mg/dL) 0.8 (Ref Range: 0.0-1.0 mg/dL) 0.6 (Ref Range: 0.0-1.0 mg/dL) Aspartate Amino Transferase 41?H (Ref Range: 5-31 U/L) 31 (Ref Range: 5-31 U/L) 23 (Ref Range: 5-31 U/L) Alanine Aminotransferase 59?H (Ref Range: 0-31 U/L) 48?H (Ref Range: 0-31 U/L) 34?H (Ref Range: 0-31 U/L) Total Protein 7.6 (Ref Range: 6.5-8.0 g/dL) 7.3 (Ref Range: 6.5-8.0 g/dL) 7.4 (Ref Range: 6.5-8.0 g/dL) Albumin Level 4.3 (Ref Range: 3.5-5.0 g/dL) 4.3 (Ref Range: 3.5-5.0 g/dL) 4.3 (Ref Range: 3.5-5.0 g/dL) Alkaline Phosphatase 72 (Ref Range: 39-117 U/L) 77 (Ref Range: 39-117 U/L) 78 (Ref Range: 39-117 U/L) Potassium 3.4 (Ref Range: 3.3-5.1 mmol/L) 3.9 (Ref Range: 3.3-5.1 mmol/L) 4.4 (Ref Range: 3.3-5.1 mmol/L) Chloride 106 (Ref Range: 96-108 mmol/L) 105 (Ref Range: 96-108 mmol/L) 107 (Ref Range: 96-108 mmol/L) Carbon Dioxide 25 (Ref Range: 22-29 mmol/L) 27 (Ref Range: 22-29 mmol/L) 27 (Ref Range: 22-29 mmol/L) Anion Gap 12 (Ref Range: 12-20) 11?L (Ref Range: 12-20) 12 (Ref Range: 12-20) Blood Urea Nitrogen 13 (Ref Range: 9-16 mg/dL) 14 (Ref Range: 9-16 mg/dL) 18?H (Ref Range: 9-16 mg/dL) Creatinine 0.70 (Ref Range: 0.5-1.4 mg/dL) 0.74 (Ref Range: 0.5-1.4 mg/dL) 0.80 (Ref Range: 0.5-1.4 mg/dL) Estimated Glomerular Filt Rate > 60 > 60 > 60 Glucose Fasting 134?H (Ref Range: 60-99 mg/dL) 129?H (Ref Range: 60-99 mg/dL) 125?H (Ref Range: 60-99 mg/dL) Calcium 9.8 (Ref Range: 8.4-10.2 mg/dL) 9.8 (Ref Range: 8.4-10.2 mg/dL) 9.6 (Ref Range: 8.4-10.2 mg/dL) * Lab:Complete Blood Count Aut o Diff * Collection Date 06/26/2024 04/16/2024 09/20/2023 Collection Time 08:58 AM 08:47 AM 07:47 AM Order Date 06/26/2024 04/16/2024 09/20/2023 White Blood Count 5.3 (Ref Range: 4.8-10.8 X10*3/uL) 4.9 (Ref Range: 4.8-10.8 X10*3/uL) 4.7?L (Ref Range: 4.8-10.8 X10*3/uL) Red Blood Count 4.81 (Ref Range: 4.20-5.50 X10*6/uL) 4.72 (Ref Range: 4.20-5.50 X10*6/uL) 4.89 (Ref Range: 4.20-5.50 X10*6/uL) Hemoglobin 15.6 (Ref Range: 12.0-16.0 g/dl) 15.1 (Ref Range: 12.0-16.0 g/dl) 15.4 (Ref Range: 12.0-16.0 g/dl) Hematocrit 43.0 (Ref Range: 37.0-47.0 %) 43.1 (Ref Range: 37.0-47.0 %) 44.5 (Ref Range: 37.0-47.0 %) Mean Corpuscular Volume 89.4 (Ref Range: 80.0-98.0 fL) 91.3 (Ref Range: 80.0-98.0 fL) 91.0 (Ref Range: 80.0-98.0 fL) Mean Corpuscular Hemoglobin 32.4 (Ref Range: 27.0-33.0 pg) 32.0 (Ref Range: 27.0-33.0 pg) 31.5 (Ref Range: 27.0-33.0 pg) Mean Corpuscular HGB Conc 36.3?H (Ref Range: 31.0-35.0 g/dl) 35.0 (Ref Range: 31.0-35.0 g/dl) 34.6 (Ref Range: 31.0-35.0 g/dl) Red Cell Distribution Width 11.8 (Ref Range: 11.0-16.0 %) 12.0 (Ref Range: 11.0-16.0 %) 12.2 (Ref Range: 11.0-16.0 %) Platelet Count 198 (Ref Range: 160-400 X10*3/uL) 204 (Ref Range: 160-400 X10*3/uL) 191 (Ref Range: 160-400 X10*3/uL) Mean Platelet Volume 11.3 (Ref Range: 9.4-12.3 fL) 11.5 (Ref Range: 9.4-12.3 fL) 11.3 (Ref Range: 9.4-12.3 fL) Neutrophils Percent Auto 54.3 (Ref Range: 45-73 %) 53.1 (Ref Range: 45-73 %) 48.2 (Ref Range: 45-73 %) Imm Gran Pct Auto 0.2 (Ref Range: 0.0-0.4 %) 0.0 (Ref Range: 0.0-0.4 %) 0.0 (Ref Range: 0.0-0.4 %) Lymphocytes Percent Auto 35.1 (Ref Range: 20-40 %) 35.6 (Ref Range: 20-40 %) 40.2?H (Ref Range: 20-40 %) Monocytes Percent Auto 7.8 (Ref Range: 2-11 %) 8.3 (Ref Range: 2-11 %) 8.1 (Ref Range: 2-11 %) Eosinophils Percent Auto 1.5 (Ref Range: 0-4 %) 2.0 (Ref Range: 0-4 %) 2.4 (Ref Range: 0-4 %) Basophils Percent Auto 1.1 (Ref Range: 0-2 %) 1.0 (Ref Range: 0-2 %) 1.1 (Ref Range: 0-2 %) NRBC Pct Auto 0.0 (Ref Range: 0.0-0.2 /100WBC) 0.0 (Ref Range: 0.0-0.2 /100WBC) 0.0 (Ref Range: 0.0-0.2 /100WBC) Neutrophils Absolute Auto 2.9 (Ref Range: 2.0-8.3 x10*3/uL) 2.6 (Ref Range: 2.0-8.3 x10*3/uL) 2.3 (Ref Range: 2.0-8.3 x10*3/uL) Imm Gran Abs Auto 0.01 (Ref Range: 0.00-0.03 X10*3/uL) 0.00 (Ref Range: 0.00-0.03 X10*3/uL) 0.00 (Ref Range: 0.00-0.03 X10*3/uL) Lymphocytes Absolute Auto 1.9 (Ref Range: 1.2-4.9 X10*3/uL) 1.8 (Ref Range: 1.2-4.9 X10*3/uL) 1.9 (Ref Range: 1.2-4.9 X10*3/uL) Monocytes Absolute Auto 0.4 (Ref Range: 0.1-1.2 X10*3/uL) 0.4 (Ref Range: 0.1-1.2 X10*3/uL) 0.4 (Ref [...] 0.0-0.012 X10*3/uL) 0.000 (Ref Range: 0.0-0.012 X10*3/uL) ???Lab:Magnesium (Order Date - 06/26/2024) (Collection Date & Time - 06/26/2024 08:58 AM)?ValueReference Range?Magnesium1.81.6-2.6 - mg/dL * Lab:URINE DIP STICK * Collection Date 07/06/2024 07/02/2023 06/04/2022 Order Date 07/06/2024 07/02/2023 06/04/2022 SG 1.010 (Ref Range: 1.005 - 1.025) 1.020 (Ref Range: 1.005 - 1.025) 1.020 pH 6.0 (Ref Range: 5.0 - 9.0) 5.0 (Ref Range: 5.0 - 9.0) 6.5 IVAN Negative (Ref Range: Negative -) 70 (Ref Range: Negative -) 125++ NIT Negative (Ref Range: Negative -) Negative (Ref Range: Negative -) neg PRO 15 (Ref Range: Negative - Trace) 15 (Ref Range: Negative - Trace) trace GLU Negative (Ref Range: Negative -) Negative (Ref Range: Negative -) normal KET Negative (Ref Range: Negative -) Negative (Ref Range: Negative -) neg UBG 0.2 (Ref Range: 0.1 - 1.8) 0.2 (Ref Range: 0.1 - 1.8) neg HUBER Negative (Ref Range: 0.2 - 1.3) Negative (Ref Range: 0.2 - 1.3) neg BLD Negative (Ref Range: Negative -) Negative (Ref Range: Negative -) neg Menstrating NR NR no * Examination: ???General Examination: ?GENERAL APPEARANCE:?pleasant, well nourished, well developed, in no acute distress, calm and relaxed, obese, woman.?HEAD:?atraumatic, normocephalic.?EYES:?eomi, perrla, anicteric, conjugate.?EARS:?normal.?NOSE:?septum intact.?ORAL CAVITY:?normal, unremarkable.?NECK/THYROID:?no jugular venous distention, no carotid bruit, thyroid normal.?LYMPH NODES:?no enlarged lymph nodes,spleen normal.?SKIN:?no suspicious lesions, anicteric.?HEART:?no clicks, gallops, murmurs, or rubs, regular rhythm, S1, S2 normal, no s3, or vascular bruits.?LUNGS:?clear to auscultation .?BREASTS:?no masses palpable bilaterally, no discharge, no dimpling, no drainage, nontender.?ABDOMEN:?bowel sounds normal, no ascites, no organomegaly, no mass, centripital obesity.?RECTAL EXAM:?not examined.?MUSCULOSKELETAL:?extremities unremarkable, no clubbing, cyanosis or edema.?PERIPHERAL PULSES:?normal.?NEUROLOGIC:?alert and oriented, cranial nerves 2-12 grossly intact, deep tendon reflexes 2+ symmetrical, motor strength normal upper and lower extremities, sensory exam intact.?PSYCH:?alert, oriented.? : ???Blood Pressure Check:130/85, Weight Check: Gained 4 lbs, Cholesterol Check: 162, Blood Sugar Check: 134, Ear Check: Irritation and dry skin. ??? Assessment: * Assessment: 1.?Coronary artery disease i nvolving mashpee coronary artery of mashpee heart without angina pectoris - I25.10 (Primary)???Notes :She had a recent nonSTEMI and has recovered well after her cardiac catheterization. She is being managed medically. She has had no chest pain recently. If the angina returns or becomes unstable. She is a candidate for bypass surgery.She has had no angina since her last visit.???2.?Hyperlipidemia - E78.5???Notes :Her current fasting lipid profile shows good control of her lipids in the target range. ?Her lipids have been stable and no change in her regimen was made today. We discussed her diet.Her total cholesterol was 161.???3.?Pre-diabetes - R73.03???Notes :Her fasting glucose remains elevated at 134.? Hemoglobin A1c has been ordered to be done with her next blood work.? We discussed this diagnosis at length.? I strongly recommended aggressive weight loss and restriction of concentrated sweets.???4.?Obesity - E66.9???Notes :Her weight remains in the obese range. Her body mass index is 35. She is trying to lose weight. We discussed her weight loss strategy. We made a plan to lose weight at a rate of one half of a pound per week.???5.?Hypertension - I10???Notes :Her blood pressure is in the normal range. She has gained 4 pounds. We reviewed her diet and nutrition. We went over a diet restricted in fat calories and sodium.???6.?Osteoarthritis - M19.90???Notes :Her arthritis has improved, but she has significant pain in her left shoulder and left hip. I recommended she return to the office if the injections given at [facility] orthopedic surgeons are not affected.???7.?Myocardial infarction, unspecified NC type, unspecified artery - I21.9???Notes :She has had no exertional chest pain. She has been compliant with her medications. She is up-to-date with cardiology.??? Plan: * Treatment: 2.?Pre-diabetes?LAB: PROFILE, FASTING (COMPREHENSIVE METABOLIC) ?LAB: CBC WITH AUTO DIFF ?LAB: Lipid Panel ?LAB: Hemoglobin A1c 3.?Others? Continue Clopidogrel Bisulfate Tablet, 75 MG, [...] MG, TAKE 1 TABLET BY MOUTH EVERY DAY.?? * Labs:? * ?Lab: URINE DIP STICK (C ollection Date & Time - 07/06/2024) ? Value Reference Range ?SG 1.010 1.005 - 1.025 * ?pH 6.0 5.0 - 9.0 * ?IVAN Negative Negative - * ?NIT Negative Negative - * ?PRO 15 Negative - Trac e * ?GLU Negative Negative - * ?KET Negative Negative - * ?UBG 0.2 0.1 - 1.8 * ?HUBER Negative 0.2 - 1.3 * ?BLD Negative Negative - * Procedure Codes:?98818 URINE -NO MICRO * Preventive Medicine:? ??Counseling:?Care goal follow-up plan:?Counseling [...] or Other reason not done * Follow Up:?3 Months (Reason: OV) * Images: * Sign off status: Completed true * Provider:?Suhail Ramos MD Date:?06/21 Generated for Ye thomas/Amalia/eTivissmitting on:?08/17/2024 06:52 PM EST History and Physical Notes * HPI (History of Present Illness) Category Sub-Category Detail Notes Depression Screening PHQ-9 Little inte rest or pleasure in doing things: Not at all Feeling down, depressed, or hopeless: No t at all Trouble falling or staying asleep, or sl eeping too much: Not at all Feeling tired or having little energy: N ot at all Poor appetite or overeating: Not at all Feeling bad about yourself o r that you are a failure, or have let yourself or your family down: Not at all Trouble concentrating on thi ngs, such as reading the newspaper or watching television: Not at all Moving or speaking so slowly that other people could have noticed; or the opposite, being so fidgety or restless that you have been moving around a lot more than usual: Not at all Thoughts that you would be b julissa off or of hurting yourself in some way: Not at all Total Score: 0 Fall Risk Screening Fall History Have you had any falls with injury in the past year?: No Have you had two or more falls in the year?: No Fall Risk Assessment:: No falls in the p year COVID-19 Screening Questions Have you had any new onset fever, chills, cough, congestion, sore throat, shortness of breath, muscle aches?: No SDOH Questions SDOH Questions In the past year have you been worried about losing your housing?: No In the past year have you or any family members you live with been unable to get any of the following when it was really needed? Check all that apply:: None Examination Category Sub-Category Detail Notes General Examination GENERAL APPEARANCE: pleasant , well nourished, well developed, in no acute distress, calm and relaxed, obese, woman HEAD: atraumatic, normocep halic EYES: eomi, perrla, anicte varsha, conjugate EARS: normal NOSE: septum intact NECK/THYROID: no jugular venous di stention, no carotid bruit, thyroid normal HEART: no clicks, gallops, murmurs, or rubs, regular rhythm, S1, S2 normal, no s3, or vascular bruits LUNGS: clear to auscultatio n ABDOMEN: bowel sounds normal, no ascites, no organomegaly, no mass, centripital obesity NEUROLOGIC: alert and oriented, cranial nerves 2-12 grossly intact, deep tendon reflexes 2+ symmetrical, motor strength normal upper and lower extremities, sensory exam intact SKIN: no suspicious lesion s, anicteric PERIPHERAL PULSES: normal BREASTS: no masses palpable b ilaterally, no discharge, no dimpling, no drainage, nontender MUSCULOSKELETAL: extremities unremark able, no clubbing, cyanosis or edema LYMPH NODES: no enlarged lymph no bhakti,spleen normal RECTAL EXAM: not examined PSYCH: alert, oriented ORAL CAVITY: normal, unremarkable
--- OUTSIDE RECORDS SUMMARY | 2024-08-17 18:53 | XMS_ITS ---
Author Organization Suhail Ramos III, MD Address [address] [place] [address] [place] [address] Support Name Relationship Address Phone MAXIMO CORRIGAN Caregiver [address] [place] [address] [place] [address] Octavia Richard Caregiver [address] [place] [address] [place] [address] TED BURCH Caregiver [address] [place], [place] [phone] ASHLYN CONTI Caregiver [address] [place], [place] [phone] [employer] Caregiver [address] [place] [address] Suhail Ramos Caregiver [address] [place] [address] [place] [address] NAM AYALA Emergency Contact [address] [place] [phone] Sylvie Ayala Guarantor Unknown [phone] Care Team Providers 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 Role Phone Suhail Ramos Primary Care Provider [phone] Allergies Allergen (clinical drug ingredient) Drug/Non Drug [...] Date Provider Diagnosis Suhail Ramos III, MD [address] [place] [address] [place] [address] 12/27/2023 Suhail Ramos Hyperlipidemia E78.5 ; Obesity E66.9 ; Hypertension I10 ; Osteoarthritis M19.90 ; Hyperglycemia R73.9 and Coronary artery disease involving [place] coronary artery of [place] heart without angina pectoris I25.10 Assessments Encounter [...] the office if the injections given at [facility] orthopedic surgeons are not affected. 12/27/2023 Hyperglycemia (ICD-1 0 - R73.9) Her hemoglobin A1c was 5.8, which is an improvement from 144. We discussed prediabetes today. I recommended aggressive weight loss and a healthy diet low in concentrated sweets and carbohydrates. 12/27/2023 Coronary artery disease involving [place] coronary artery of [place] heart without angina pectoris (ICD-10 - I25.10) [...] 4 Months, Reason: OV Provider Name:Suhail Ramos, 10/05/2024 02:15:00 PM, [address] [place] [address] [address], [place], [address], Provider Name:Suhail Ramos, 07/12/2025 02:00:00 PM, [address] [place] [address] [address], [place], [address], Progress Notes * Sylvie AYALADOB:1955 (68 yo F)Acc No.[id number]:12/27/2023 Progress Notes Patient:?Sylvie Ayala Provider:?Suhail Ramos MD :1955???Age:68 Y???Sex:Female D ate:12/27/2023 Address:[address] [place] [address] [id number] Subjective: * Chief Complaints: * ???HypertensionLower extremi [...] Tobacco Non-User?Aggressive non-smoker ???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 She is a nonsmoker and has two sons, Trey and Yung. She was born in [place] * Medications:?TakinghydroCHLO ROthiazide 25 MG Tablet TAKE [...] the office if the injections given at [facility] orthopedic surgeons are not affected.?5.?Hyperglycemia - R73.9, Her hemoglobin A1c was 5.8, which is an improvement from 144. We discussed prediabetes today. I recommended aggressive weight loss and a healthy diet low in concentrated sweets and carbohydrates.?6.?Coronary artery disease involving [place] coronary artery of [place] heart without angina pectoris - I25.10, She [...] Provider:?Suhail Ramos MD Date:?01/2024 Generated for Ye thomas/Amalia/Channingsmitting on:?08/17/2024 06:52 PM EST History and Physical Notes * HPI (History of Present Illness) Category Sub-Category Detail Notes COVID-19 Screening Questions Have you had any new onset fever, chills, cough, congestion, sore throat, shortness of breath, muscle aches?: No Have you been exposed to the virus withi n the last 10 days?: No Have you travelled internationally in [facility] last 10 days?: No Have you been [...]
== END 2024-08-17 15:02 | disposition home or self-care (01) ==
PROVIDERS: PCP Internal Medicine Medical Oncology; Visit Provider Internal Medicine Cardiovascular Disease
DX: I20.89 Other forms of angina pectoris (principal)
CPT/HCPCS: 99214

== ENCOUNTER → 2024-08-17 14:22 | Outpatient (BNVA) | payer MEDICARE, SELFPAY ==
[2023-07-03 10:14] VITALS: BP 104/68; BP 116/60; BP 122/80; BMI 33.0
== END ==
PROVIDERS: PCP Internal Medicine Medical Oncology; Visit Provider Internal Medicine Cardiovascular Disease
DX: I20.89 Other forms of angina pectoris (principal)
CPT/HCPCS: 99212

== ENCOUNTER 2024-08-20 10:39 | Outpatient (REF) | payer MEDICARE, SELFPAY ==
[2023-07-03 10:14] VITALS: BP 104/68; BP 116/60; BP 122/80; BMI 33.0
--- NOTE | ~2024-08-20 | US_ITS ---
CLINICAL HISTORY: D25.9 - Leiomyoma of uterus, unspecified US pelvis transvaginal Comparison: US/LA/SR - US PELVIC AND TRANSVAGINAL - 10/02/23 10:49 EDT Findings: Transvaginal scanning performed. anteverted uterus is 8.6 cm length. Three discrete leiomyomata are noted the 1st in the fundal region now measures 3.6 x 4.3 x 3.9 cm increased in size relative to the prior exam where it measured 3.8 x 2.7 x 3.2 cm. A 2nd leiomyoma is in the left body of the uterus now measuring 3.2 x 3.9 x 4 cm and previously 3.7 x 3.3 x 3.6 cm. A 3rd leiomyoma is seen in the body now measuring 5.6 x 4.7 x 5.5 cm previously 5.5 x 5.4 x 3.9 cm. Nabothian cysts are noted. The endometrium is poorly seen as it is effaced by leiomyomata. Right ovary Is not identified. Left ovary 1.2 x 1 x 1.1 cm cm. No free fluid. IMPRESSION: 1. Three leiomyomata are noted all of which appear to have enlarged relative to the prior exam. This document has been electronically signed by: Kevan Dillon MD on 08/20/2024 12:41:01
--- OUTSIDE RECORDS SUMMARY | 2024-08-20 14:19 | XMS_ITS ---
Author Organization Suhail Ramos III, MD Address [address] [place] [address] [place] [address] Support Name Relationship Address Phone MAXIMO CORRIGAN Caregiver [address] [place] [address] Octavia Richard Caregiver [address] [place] [address] TED BURCH Caregiver [address] [place], [place] [phone] ASHLYN CONTI Caregiver [address] [place], [place] [phone] [employer] Caregiver [address] [place] [address] Suhail Ramos Caregiver [address] [place] [address] [place] [address] NAM AYALA Emergency Contact [address] [place] [phone] Sylvie Ayala Guarantor Unknown [phone] Care Team Providers 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 04/27/2024 Coronary artery disease involving [place] coronary artery of [place] heart without angina pectoris (ICD-10 - I25.10) [...] office if the injections given at [facility] orthopedic surgeons are not affected. 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 She is a nonsmoker and has two [...] 38?L (Ref Range: >40 mg/dL) * Lab:[facility] [place] * Collection Date 04/16/2024 [...] * Assessment: 1.?Coronary artery disease i nvolving [place] coronary artery of [place] heart without angina pectoris - I25.10 (Primary)???Notes [...] office if the injections given at [facility] orthopedic surgeons are not affected.???6.?Obesity - [...] Sign off status: Completed true * Provider:?Suhail aRmos MD Date:?01/2024 Generated for Printi ng/Amalia/eTransmitting on:?08/20/2024 02:18 PM EST History and Physical Notes * HPI (History of Present Illness) Category Sub-Category Detail Notes COVID-19 Screening Questions Have you had any new onset fever, chills, cough, congestion, sore throat, shortness of breath, muscle aches?: No Have you been exposed to the virus withi n the last 10 days?: No Have you travelled internationally in [facility] last 10 days?: No Have you been [...]
--- OUTSIDE RECORDS SUMMARY | 2024-08-20 14:19 | XMS_ITS | Patient Health Record ---
Author Organization Suhail Ramos III, MD Address [address] [place] [address] Support Name Relationship Address Phone MAXIMO CORRIGAN Caregiver [address] [place] [address] Octavia Richrad Caregiver [address] [place] [address] TED BURCH Caregiver [address], [place] [phone] ASHLYN CONTI Caregiver [address], [place] [phone] [employer] Caregiver [address] [place] [address] Suhail Ramos Caregiver [address] [place] [address] [place] [address] NAM AYALA Emergency Contact [address] [place] [address] [phone] Sylvie Ayala Guarantor Unknown [phone] Care Team Providers Care [employer] Internship Name Role Phone Suhail Ramos Primary Care Provider [phone] Allergies Allergen (clinical drug ingredient) Drug/Non Drug Allergy documented on EMR Reaction Allergy Type Onset Date Status No Known Drug Allergy Unknown Drug Allergy Active Results Component Value Reference Range Notes Free T4 (Free Thyroxine) Reviewed date:10/31/2023 05:57:27 AM Interpretation: Performing Lab:[facility], [address] [place] [phone] Notes/Report: Free T4 (Free Thyroxine) 1.14 0.71-1.85 ng/dL URINE DIP STICK Reviewed date:07/06/2024 02:08:32 PM Interpretation: Performing Lab: Notes/Report: SG 1.010 1.005 - 1.025 pH 6.0 5.0 - 9.0 IVAN Negative Negative - NIT Negative Negative - PRO 15 Negative - Trace GLU Negative Negative - KET Negative Negative - UBG 0.2 0.1 - 1.8 HUBER Negative 0.2 - 1.3 BLD Negative Negative - MM tomosynthesis screening B I Reviewed date:09/29/2023 04:00:43 PM Interpretation: Performing Lab: Notes/Report: [address] [place] [address] Mammography Report Signed Patient: Sylvie Ayala MR#: [id number] : 1955 Acct:[id number] Age/Sex: 68 / F ADM Date: 08/28/23 Loc: HO.MAMMO Attending Dr: Suhail Ramos MD Ordering Physician: Suhail Ramos MD Results: 1Negativ e Date of Service: 08/28/23 Follow Up: 1 Year From Orig ina Mammogram Procedure(s): MM tomosynthesis screening BI Accession Number(s): [id number] cc: Suhail Ramos MD EXAMINATION: MM SCREENING [...] in OV> 09/22/23 0903 DD/ 1115 TD/TT: Ball Shagger: [facility] [address] [place] [address] Mammography Report Signed Patient: Jj Ayala MR#: [id number] : 1955 Acct:[id number] Age/Sex: 68 / F ADM Date: 08/28/23 Loc: HO.MAMMO Attending Dr: Suhail Ramos MD Ordering Physician: Suhail Ramos MD Results: 1Negativ e Date of Service: 08/28/23 Follow Up: 1 Year From Orig inal Mammogram Procedure(s): MM tomosynthesis screening BI Accession Number(s): [id number] cc: Suhail Ramos MD EXAMINATION: MM SCREENING [...] in OV> 09/22/23 0903 DD/ 1115 TD/TT: Ball Shagger: MAMMOGRAM DIGITAL BILATERAL SCREEN Reviewed date:07/02/2024 10:10:28 AM Interpretation:undefined Performing Lab: Notes/Report: undefined Complete Blood Count Auto Di ff Reviewed date:09/29/2023 04:00:43 PM Interpretation: Performing Lab:[facility], [address] [place] [phone] Notes/Report: White Blood Count 4.7 4.8-10.8 X10*3/uL [...] NRBC Abs Auto 0.000 0.0-0.012 X10*3/uL Comprehensive [place]. Panel Fa st Reviewed date:09/29/2023 04:00:43 PM Interpretation: Performing Lab:[facility], [address] [place] [address], [place] [address] Notes/Report: Sodium 142 135-145 mmol/L Potassium 4.4 3.3-5.1 mmol/L Chloride 107 96-108 mmol/L Carbon Dioxide 27 22-29 mmol/L Anion Gap 12 12-20 Blood Urea Nitrogen 18 9-16 mg/dL Creatinine 0.80 0.5-1.4 mg/dL Estimated Glomerular Filt Rate > 60 NOTE: For -Puerto Rican individuals, multiply the result by 1.210. Chronic [...] Panel Reviewed date:09/29/2023 04:00:43 PM Interpretation: Performing Lab:[facility], [address] [place] [phone] Notes/Report: Triglycerides 99 <150 mg/dL Desirable Triglyceride: [...] A1c Reviewed date:09/29/2023 04:00:43 PM Interpretation: Performing Lab:[address] [phone] Notes/Report: Hemoglobin A1c % 5.9 <6.0 % [...] average glucose, using the formula of the H5A-Blpzcxk Average Glucose study (ADAG), Diabetes Care, Vol.31,#8, Feb. 2007 Thyroid Stimulating Hormone Reviewed date:10/31/2023 05:57:27 AM Interpretation: Performing Lab:[facility], [address] [place] [phone] Notes/Report: Thyroid Stimulating Hormone 0.54 0.32-4.0 uIU/mL TSH 3rd Generation ([facility]) US pelvic and transvaginal Reviewed date:10/31/2023 05:57:27 AM Interpretation: Performing Lab: Notes/Report: [address] [place] [address] Ultrasound Report Signed Patient: Sylvie Ayala MR#: [id number] : 1955 Acct:[id number] Age/Sex: 68 / F ADM Date: 10/02/23 Loc: HO.US Attending Dr: Samm Munoz MD Ordering Physician: Samm Munoz MD Date of Service: 10/02/23 Procedure(s): US pelvic and transvaginal Accession Number(s): [id number] cc: Suhail Ramos MD; Samm Munoz MD [...] in OV> 10/04/23 1222 DD/ 1103 TD/TT: Ball Shagger: [facility] [address] Ultrasound Report Signed Patient: Jj Ayala MR#: [id number] : 1955 Acct:[id number] Age/Sex: 68 / F ADM Date: 10/02/23 Loc: HO.US Attending Dr: Samm Munoz MD Ordering Physician: Samm Munoz MD Date of Service: 10/02/23 Procedure(s): US pel nhan and transvaginal Accession Number(s): [id number] cc: Suhail Ramos MD; Samm Munoz MD [...] in OV> 10/04/23 1222 DD/ 1103 TD/TT: Ball Shagger: JK US KENISHA complete Reviewed date:10/31/2023 05:57:27 AM Interpretation: Performing Lab: Notes/Report: [address] [address] Ultrasound Report Signed Patient: Sylvie Ayala MR#: [id number] : 1955 Acct:[id number] Age/Sex: 68 / F ADM Date: 10/17/23 Loc: .US Attending Dr: Shuail Ramos MD Ordering Physician: Suhail Ramos MD Date of Service: 10/17/23 Procedure(s): US KENISHA complete Accession Number(s): [id number] cc: Suhail Ramos MD EXAMINATION: US arterial [...] in OV> 10/20/23 1456 DD/ 1408 TD/TT: Ball Shagger: [place] [address] Ultrasound Report Signed Patient: Jj Ayala MR#: [id number] : 1955 Acct:[id number] Age/Sex: 68 / F ADM Date: 10/17/23 Loc: HO.US Attending Dr: Suhail Ramos MD Ordering Physician: Suhail Ramos MD Date of Service: 10/17/23 Procedure(s): US KENISHA complete Accession Number(s): [id number] cc: Suhail Ramos MD EXAMINATION: US arterial [...] in OV> 10/20/23 1456 DD/ 1408 TD/TT: Ball Shagger: US arterial duplex LE BI Reviewed date:10/31/2023 05:57:27 AM Interpretation: Performing Lab: Notes/Report: [address] [address] Ultrasound Report Signed Patient: Sylvie Ayala MR#: [id number] : 1955 Acct:[id number] Age/Sex: 68 / F ADM Date: 10/17/23 Loc: .US Attending Dr: Suhail Ramos MD Ordering Physician: Suhail Ramos MD Date of Service: 10/17/23 Procedure(s): US arterial duplex LE BI Accession Number(s): [id number] cc: Suhail Ramos MD EXAMINATION: US arterial [...] in OV> 10/20/23 1456 DD/ 1408 TD/TT: Ball Shagger: [address] [address] Ultrasound Report Signed Patient: Jj Ayala MR#: [id number] : 1955 Acct:[id number] Age/Sex: 68 / F ADM Date: 10/17/23 Loc: . Attending Dr: Suhail Ramos MD Ordering Physician: Suhail Ramos MD Date of Service: 10/17/23 Procedure(s): US arterial duplex LE BI Accession Number(s): [id number] cc: Suhail Ramos MD EXAMINATION: US arterial [...] signed by Marialuisa Reina in OV> 10/20/23 6774 DD/ 1404 TD/TT: Ball Shagger: Complete Blood Count Auto Eve ff Reviewed date:04/17/2024 02:53:38 PM Interpretation: Performing Lab:[facility], [address] [place] [phone] Notes/Report: White Blood Count 4.9 4.8-10.8 X10*3/uL [...] NRBC Abs Auto 0.000 0.0-0.012 X10*3/uL Comprehensive [place]. Panel Fa Reviewed date:04/17/2024 02:53:38 PM Interpretation: Performing Lab:[facility], [address] [place] [phone] Notes/Report: Sodium 139 135-145 mmol/L Potassium 3.9 3.3-5.1 mmol/L Chloride 105 96-108 mmol/L Carbon Dioxide 27 22-29 mmol/L Anion Gap 11 12-20 Blood Urea Nitrogen 14 9-16 mg/dL Creatinine 0.74 0.5-1.4 mg/dL Estimated Glomerular Filt Rate > 60 NOTE: For -Puerto [place]ican individuals, multiply the result by 1.210. Chronic [...] Panel Reviewed date:04/17/2024 02:53:38 PM Interpretation: Performing Lab:[facility], [address] [place] [phone] Notes/Report: Triglycerides 155 <150 mg/dL Desirable Triglyceride: [...] ff Reviewed date:06/29/2024 04:58:18 AM Interpretation: Performing Lab:[facility], [address] [place] [phone] Notes/Report: White Blood Count 5.3 4.8-10.8 X10*3/uL [...] NRBC Abs Auto 0.000 0.0-0.012 X10*3/uL Comprehensive [place]. Panel Fa Reviewed date:06/29/2024 04:58:18 AM Interpretation: Performing Lab:[facility], [address] [place] [phone] Notes/Report: Sodium 140 135-145 mmol/L Potassium 3.4 [...] Magnesium Reviewed date:06/29/2024 04:58:18 AM Interpretation: Performing Lab:[facility], [address] [place] [phone] Notes/Report: Magnesium 1.8 1.6-2.6 mg/dL Lipid Panel Reviewed date:06/29/2024 04:58:18 AM Interpretation: Performing Lab:[facility], [address] [place] [phone] Notes/Report: Triglycerides 107 <150 mg/dL Desirable Triglyceride: [...] low results in patients with liver disease. US pelvic and transvaginal ( Not yet reviewed by provider) Interpretation: Performing Lab: Notes/Report: [address] [address] Ultrasound Report Signed Patient: Sylvie Ayala MR#: [id number] : 1955 Acct:[id number] Age/Sex: 69 / F ADM Date: 08/20/24 Loc: .US Attending Dr: Samm Munoz MD Ordering Physician: Samm Munoz MD Date of Service: 08/20/24 Procedure(s): US pelvic and transvaginal Accession Number(s): [id number] cc: Suhail Ramos MD; Samm Munoz MD CLINICAL HISTORY: D25.9 - Leiomyoma of uterus, unspecified US pelvis transvaginal Comparison: US/SD/SR - US PELVIC AND TRANSVAGINAL - 10/02/23 10:49 EDT Findings: Transvaginal scanning performed. anteverted uterus is 8.6 cm length. Three discrete leiomyomata are noted the 1st in the fundal region now measures 3.6 x 4.3 x 3.9 cm increased in size relative to the prior exam where it measured 3.8 x 2.7 x 3.2 cm. A 2nd leiomyoma is in the left body of the uterus now measuring 3.2 x 3.9 x 4 cm and previously 3.7 x 3.3 x 3.6 cm. A 3rd leiomyoma is seen in the body now measuring 5.6 x 4.7 x 5.5 cm previously 5.5 x 5.4 x 3.9 cm. Nabothian cysts are noted. The endometrium is poorly seen as it is effaced by leiomyomata. Right ovary Is not identified. Left ovary 1.2 x 1 x 1.1 cm cm. No free fluid. IMPRESSION: 1. Three leiomyomata are noted all of which appear to have enlarged relative to the prior exam. This document has been electronically signed by: Kevan Dillon MD on 08/20/2024 12:41:01 Dictated By: Kevan Dillon MD Signed By: <Electronically signed by Kevan Dillon MD in OV> 08/20/24 1242 DD/ 1241 TD/TT: 08/20/24 1241 Ball Shagger: [place] [address] Ultrasound Report Signed Patient: Jj Ayala MR#: [id number] : 1955 Acct:[id number] Age/Sex: 69 / F ADM Date: 08/20/24 Loc: HO.US Attending Dr: Samm Munoz MD Ordering Physician: Samm Munoz MD Date of Service: 08/20/24 Procedure(s): US pel nhan and transvaginal Accession Number(s): [id number] cc: Suhail Ramos MD; Samm Munoz MD CLINICAL HISTORY: D2 5.9 - Leiomyoma of uterus, unspecified US pelvis transvaginal Comparison: US/SD/SR - US PELVIC AND TRANSVAGINAL - 10/02/23 10:49 EDT Findings: Transvaginal scannin g performed. anteverted uterus is 8.6 cm length. Three discrete leiomyomata are noted the 1st in the fundal region now measures 3.6 x 4.3 x 3.9 cm increased in size relative to the prior exam where it measured 3. 8 x 2.7 x 3.2 cm. A 2nd leiomyoma is i n the left body of the uterus now measuring 3.2 x 3.9 x 4 cm and previousl y 3.7 x 3.3 x 3.6 cm. A 3rd leiomyoma is s een in the body now measuring 5.6 x 4.7 x 5.5 cm previously 5.5 x 5.4 x 3.9 cm. Nabothian cysts are noted. The endometrium is poorly seen as it is effaced by leiomyomata. Right ovary Is not identified. Left ovary 1.2 x 1 x 1.1 cm cm. No free fluid. IMPRESSION: 1. Three leiomyomata are noted all of which appear to have enlarged relative to the prio r exam. This document has be en electronically signed by: Kevan Dillon MD on 08/20/2024 12:41:01 Dictated By: Kevan Dillon MD Signed By: <Electronically signed by Kevan Dillon MD in OV> 08/20/24 1242 DD/ 1241 TD/TT: 08/20/24 1241 Ball Shagger: Reason For Referral No Information Medications Medication SIG (Take, Route, Frequency, Duration) Notes Start Date End Date Status Aspirin 81 81 MG 1 tablet Orally Once a day Active Atorvastatin Calcium 80 MG TAKE 1 TABLET BY MOUTH EVERY DAY Active hydroCHLOROthiazide 25 MG 1 tablet in th e morning Orally Once a day 12/27/2023 Active Aspirin 81 MG TAKE 1 TABLET BY EDOUARD TH EVERY DAY Active Gabapentin 100 MG TAKE 1 CAPSULE BY MO UTH IN THE MORNING AND 1 CAPSULE AT BEDTIME Oral Active Clopidogrel Bisulfate 75 MG TAKE 1 TABLE T BY MOUTH EVERY DAY Active Meclizine HCl 25 MG TAKE 1 TABLET BY EDOUARD TH 3 TIMES DAILY NEEDED Active Atenolol 100 MG TAKE 1 TABLET BY EDOUARD TH ONCE DAILY Active Immunizations Vaccine Route Administration Date Status [...] Problem Status W/U Status Risk Notes Problem 32671405 Hyperlipidemia (E78.5) Active confirmed Her current fasting lipid profile shows good control of her lipids in the target range. Her lipids have been stable and no change in her regimen was made today. We discussed her diet.Her total cholesterol was 161. Problem [id number] Obesity (E66.9) Active confirmed Her weight remains in the obese range. Her body mass index is 35. She is trying to lose weight. We discussed her weight loss strategy. We made a plan to lose weight at a rate of one half of a pound per week. Problem 50371086 Hyperglycemia (R73.9) Active confirmed Her hemoglobin A1c [...] half of a pound per week. Problem 61366133 Hypertension (I10) Active confirmed Her blood pressure is in the normal range. She has gained 4 pounds. We reviewed her diet and nutrition. We went over a diet restricted in fat calories and sodium. Problem 313480699 Osteoarthritis (M19.90) Active confirmed Her arthritis has improved, but she has significant pain in her left shoulder and left hip. I recommended she return to the office if the injections given at [facility] orthopedic surgeons are not affected. Problem 93728206 Coronary artery disease involving as[place] coronary artery of [place] heart without angina pectoris (I25.10) Active confirmed She had a recent nonSTEMI and has recovered well after her cardiac catheterizatio n. She is being managed medically. She has had no chest pain recently. If the angina returns or becomes unstable. She is a candidate for bypass surgery.She has had no angina since her last visit. Problem Prediabetes (172962974) Pre-diabetes (R73.03) Active confirmed Her fasting glucose remains elevated at 134. Hemoglobin A1c has been ordered to be done with her next blood work. We discussed this diagnosis at length. I strongly recommended aggressive weight loss and restriction of concentrated sweets. Problem 23070812 Myocardial infarction, unspecified [place] type, unspecified artery (I21.9) Active confirmed She has had n o exertional chest pain. She has been compliant with her medications. She is up-to-date with cardiology. Problem 13933329 Claudication (I73.9) Active confirmed Since her last visit she has not experienced claudication. Vital Signs Heart Rate 60 /min 07/06/2024 Temperature 97.2 degrees Fahrenheit 07/06/2024 Blood pressure diastolic 85 mm Hg 07/06/2024 Height 63 in 07/06/2024 Blood pressure systolic 130 mm Hg 07/06/2024 Weight 199 lbs 07/06/2024 BMI 35.25 kg/m2 07/06/2024 Encounters Encounter Location Date Provider Diagnosis Suhail Ramos III, MD [address] [place] [address] [place] [address] 10/01/2023 Suhail Ramos Peripheral vascular disease I73.9 ; Hypertension I10 ; Osteoarthritis M19.90 ; Hyperlipidemia E78.5 ; Obesity E66.9 ; Hyperglycemia R73.9 ; Coronary artery disease involving [place] coronary artery of [place] heart without angina pectoris I25.10 and Prediabetes R73.03 Suhail Ramos III, MD [address] [place] [address] [place] [address] 10/28/2023 Suhail Ramos Hyperlipidemia E78.5 ; Hypertension I10 ; Obesity E66.9 ; Hyperglycemia R73.9 ; Osteoarthritis M19.90 and Coronary artery disease involving [place] coronary artery of [place] heart without angina pectoris I25.10 Suhail Ramos III, MD [address] [place] [address] [place] [address] 12/27/2023 Suhail Ramos Hyperlipidemia E78.5 ; Obesity E66.9 ; Hypertension I10 ; Osteoarthritis M19.90 ; Hyperglycemia R73.9 and Coronary artery disease involving [place] coronary artery of [place] heart without angina pectoris I25.10 Suhail Ramos III, MD [address] [place] [address] [place] [address] 04/27/2024 Suhail Ramos Hyperlipidemia E78.5 ; Coronary artery disease involving [place] coronary artery of [place] heart without angina pectoris I25.10 ; Hypertension I10 ; Claudication I73.9 ; Osteoarthritis M19.90 ; Obesity E66.9 and Hyperglycemia R73.9 Suhail Ramos III, MD [address] [place] [address] [place] [address] 07/06/2024 Suhail Ramos Hyperlipidemia E78.5 ; Coronary artery disease involving [place]a'[place] coronary artery of [place] heart without angina pectoris I25.10 ; Pre-diabetes R73.03 ; Obesity E66.9 ; Hypertension I10 ; Osteoarthritis M19.90 and Myocardial infarction, unspecified [place] type, unspecified artery I21.9 Suhail Ramos III, MD [address] [place] [address] [place] [address] 10/07/2023 Suhail Ramos Claudication I73.9 Assessments Encounter Date Diagnosis (ICD Code) Assessment Notes Treat ment Notes Treatment Clinical Notes 10/01/2023 Hypertension (ICD-10 - I10) Her blood [...] was 161. 04/27/2024 Coronary artery disease involving [place] coronary artery of [place] heart without angina pectoris (ICD-10 - I25.10) She had a recent nonSTEMI and has recovered well after her cardiac catheterization. She is being managed medically. She has had no chest pain recently. If the angina returns or becomes unstable. She is a candidate for bypass surgery.She has had no angina since her last visit. 07/06/2024 Hyperlipidemia (ICD-10 - E78.5) Her current fasting lipid profile shows good control of her lipids in the target range. Her lipids have been stable and no change in her regimen was made today. We discussed her diet.Her total cholesterol was 161. 07/06/2024 Coronary artery disease involving asa'[place] coronary artery of as[place] heart without angina pectoris (ICD-10 - I25.10) She had a recent nonSTEMI and has recovered well after her cardiac catheterization. She is being managed medically. She has had no chest pain recently. If the angina returns or becomes unstable. She is a candidate for bypass surgery.She has had no angina since her last visit. 10/01/2023 Osteoarthritis (ICD-10 - M19.90) Her arthritis has improved, but she has significant pain in her left shoulder and left hip. I recommended she return to the office if the injections given at [facility] orthopedic surgeons are not affected. 10/28/2023 [...] restricted in fat calories and sodium. 07/06/2024 Pre-diabetes (ICD-10 - R73.03) Her fasting glucose remains elevated at 134. Hemoglobin A1c has been ordered to be done with her next blood work. We discussed this diagnosis at length. I strongly recommended aggressive weight loss and restriction of concentrated sweets. 10/07/2023 Claudication (ICD-10 - I73.9) 10/01/2023 Hyperlipidemia (ICD-10 - E78.5) Her lipids [...] the office if the injections given at [facility] orthopedic surgeons are not affected. 04/27/2024 Claudication (ICD-10 - I73.9) Since her last visit she has not experienced claudication. 07/06/2024 Obesity (ICD-10 - E66.9) Her weight remains in the obese range. Her body mass index is 35. She is trying to lose weight. We discussed her weight loss strategy. We made a plan to lose weight at a rate of one half of a pound per week. 10/01/2023 Obesity (ICD-10 - E66.9) Her body [...] the office if the injections given at [facility] orthopedic surgeons are not affected. 12/27/2023 [...] the office if the injections given at [facility] orthopedic surgeons are not affected. 07/06/2024 Hypertension (ICD-10 - I10) Her blood pressure is in the normal range. She has gained 4 pounds. We reviewed her diet and nutrition. We went over a diet restricted in fat calories and sodium. 10/01/2023 Hyperglycemia (ICD-1 0 - R73.9) Her fasting glucose was 117, which is an improvement from 144. We discussed prediabetes today. I recommended aggressive weight loss and a healthy diet low in concentrated sweets and carbohydrates. 10/28/2023 Coronary artery disease involving [place] coronary artery of asa'cars[place] heart without angina pectoris (ICD-10 - I25.10) She had a recent nonSTEMI and has recovered well after her cardiac catheterization. She is being managed medically. She has had no chest pain recently. If the angina returns or becomes unstable. She is a candidate for bypass surgery. 12/27/2023 Coronary artery disease involving [place]a'[place] coronary artery of asa'cars[place] heart without angina pectoris (ICD-10 - I25.10) [...] half of a pound per week. 07/06/2024 Osteoarthritis (ICD-10 - M19.90) Her arthritis has improved, but she has significant pain in her left shoulder and left hip. I recommended she return to the office if the injections given at [facility] orthopedic surgeons are not affected. 10/01/2023 Coronary artery disease involving as[place] coronary artery of asa'cars[place] heart without angina pectoris (ICD-10 - I25.10) [...] half of a pound per week. 07/06/2024 Myocardial infarction, unspecified [place] type, unspecified artery (ICD-10 - I21.9) She has had no exertional chest pain. She has been compliant with her medications. She is up-to-date with cardiology. 10/01/2023 Prediabetes (ICD-10 - R73.03) She will have a hemoglobin A1c prior to her next visit. Plan Of Treatment Pending Test Test Name Order Date PROFILE, FASTING (COMPREHENSIVE METABOLI C) 04/03/2023 PROFILE, FASTING (COMPREHENSIVE METABOLI C) 07/06/2024 PROFILE, FASTING (COMPREHENSIVE METABOLI C) 10/12/2019 PROFILE, FASTING (COMPREHENSIVE METABOLI C) 06/04/2022 PROFILE, FASTING (COMPREHENSIVE METABOLI C) 05/30/2020 PROFILE, FASTING (COMPREHENSIVE METABOLI C) 01/17/2023 PROFILE, FASTING (COMPREHENSIVE METABOLI C) 02/08/2021 PROFILE, FASTING (COMPREHENSIVE METABOLI C) 04/27/2024 PROFILE, FASTING (COMPREHENSIVE METABOLI C) 10/21/2017 PROFILE, FASTING (COMPREHENSIVE METABOLI C) 02/14/2022 PROFILE, FASTING (COMPREHENSIVE METABOLI C) 02/09/2019 PROFILE, FASTING (COMPREHENSIVE METABOLI C) 07/02/2023 PROFILE, FASTING (COMPREHENSIVE METABOLI C) 02/26/2020 PROFILE, FASTING (COMPREHENSIVE METABOLI C) 11/28/2022 PROFILE, FASTING (COMPREHENSIVE METABOLI C) 09/28/2020 PROFILE, [...] CBC w DIFF 10/31/2022 CBC w DIFF 04/27/2024 CBC w DIFF 05/30/2020 CBC w DIFF 02/14/2022 CBC w DIFF 02/08/2021 CBC w DIFF 06/04/2022 CBC w DIFF 10/21/2017 CBC w DIFF 01/17/2023 CBC w DIFF 02/09/2019 CBC w DIFF 07/02/2023 CBC WITH AUTO DIFF 07/06/2024 Magnesium 04/27/2024 Lipid Panel 07/02/2023 Lipid Panel 07/06/2024 Lipid Panel 02/14/2022 Lipid Panel 04/27/2024 Hemoglobin A1c 02/14/2022 Hemoglobin A1c 07/06/2024 US pelvic and transvaginal 08/20/2024 Next Appt Details Provider Name:Suhail Ramos, 10/05/2024 02:15:00 PM, [address] [place] [address] [address], [place], [phone], Provider Name:Suhail Ramos, 07/12/2025 02:00:00 PM, [address] [place] [address] [address], [place], [phone], Insurance Providers Payer Name Payer Address Payer Phone Subscriber Number Group Number Insured Name Patient Relationship to Insured Coverage Start Date Coverage End Date [facility] [address] [place] [address] [phone] [id number] Sylvie Ayala Self - patient is the insured MEDICARE NGS [address] [place] [phone] [id number] Sylvie Ayala Self - patient is the insured Medical (General) History Medical History History ICD Code hypertension lower back pain hyperlipidemia left hip pain right shoulder pain last bilateral mammogram 12/2012 @ Surgical History Surgery Date(Month/Year) excision fibroma tongue october 2009 Cardiac stent placement 10/2022 No history Hospitalization History Reason Date(Month/Year) Dyspnea 11/21/2022 No history
--- OUTSIDE RECORDS SUMMARY | 2024-08-20 14:19 | XMS_ITS ---
Author Organization [facility] Address [address] [place] [address] Care Team Providers Care Steamfitter Apprentice Name Role Phone Suhail Ramos MD Primary Care Provider Unavailab Samm Obregon [phone] REASON FOR VISIT last visit pcp 04/21/24, [...] 06/23/2024 Encounters [facility]counter [facility] [address] 06/23/2024 Samm Irwin Pain in left foot [...] Provider Name:Samm Irwin, 09/03/2024 11:00:00 AM, [address] [facility], [place], [address], Progress Notes * LISSET SylvieDOB:1955 (69 yo F)Acc No.[id number]:06/23/2024 Progress Notes Patient:?Sylvie AYALA Provider:?Samm Irwin D.P.M. :1955???Age:69 Y???Sex:Female D ate:06/23/2024 Address:[address] [place], [place] [id number] Pcp:Suhail Ramos MD Subjective: * Chief Complaints: [...] Irwin D.P.M. Date:?09/2023 Generated for Printi ng/Faxing/eTransmitting on:?08/20/2024 02:19 PM EST History and Physical Notes * [...]
--- OUTSIDE RECORDS SUMMARY | 2024-08-20 14:19 | XMS_ITS ---
Author Organization [facility] Address [address] [place] [address] Care Team Providers Care Senior Design Engineering Specialist Name Role Phone Suhail Ramos MD Primary Care Provider Samm Torres Unavailable [phone] Allergies No Known Allergies REASON FOR VISIT [...] Risk Notes Problem Mononeuropathy of lower limb (291394033) Neuritis of right foot (G57.91) Active confirmed Vital Signs Height 5ft 3in in 06/04/2024 Weight 190 lbs 06/04/2024 BMI 33.65 kg/m2 06/04/2024 Encounters Encounter [facility] [place] [address] 06/04/2024 Samm Irwin Pain in left foot [...] Follow Up: 3 Weeks, Reason: Provider Name:Samm Iriwn, 09/03/2024 11:00:00 AM, [address] [place] [address], [place], [address], Progress Notes * Sylvie AYALADOB:1955 (69 yo F)Acc No.[id number]:06/04/2024 Progress Notes Patient:?Sylvie AYALA Provider:?Samm Irwin D.P.M. :1955???Age:69 Y???Sex:Female D ate:06/04/2024 Address:[address] [place] [address], [facility] Pcp:Suhail Ramos MD Subjective: * Chief Complaints: [...] Stable (1=3,2=4)??? Plan: * Treatment: * Procedure Codes:?87073 X-RAY EXAM OF LEFT FOOT 3V, Modifiers: 26 , [id number] X-RAY EXAM OF RIGHT FOOT 3V, Modifiers: [...] Irwin D.P.M. Date:?05/22 Generated for Corali ng/Abiolag/eTransmitting on:?08/20/2024 02:19 PM EST History and Physical [...]
--- OUTSIDE RECORDS SUMMARY | 2024-08-20 14:19 | XMS_ITS ---
Author Organization Suhail Ramos III, MD Address [address] [place] [address] [place] [address] Support Name Relationship Address Phone MAXIMO CORRIGAN Caregiver [address] [place] [address] [place] [address] Octavia Richard Caregiver [address] [place] [address] [place] [address] TED BUCRH Caregiver [address] [place], [place] [phone] ASHLYN CONTI Caregiver [address] [place], [place] [phone] [employer] Caregiver [address] [place] [address] Suhail Ramos Caregiver [address] [place] [address] [place] [address] NAM AYALA Emergency Contact [address] [place] [phone] Sylvie Ayala Guarantor Unknown [phone] Care Team Providers Care Adjusto Writer Operator Name Role Phone Suhail Ramos Primary Care [...] Provider Diagnosis Suhail Ramos III, MD [address] [place] [address] [place] [address] 12/27/2023 Suhail Ramos Hyperlipidemia E78.5 ; Obesity E66.9 ; Hypertension I10 ; Osteoarthritis M19.90 ; Hyperglycemia R73.9 and Coronary artery disease involving [place] coronary artery of [place] heart without angina pectoris I25.10 Assessments Encounter [...] the office if the injections given at [facility] orthopedic surgeons are not affected. 12/27/2023 Hyperglycemia (ICD-1 0 - R73.9) Her hemoglobin A1c was 5.8, which is an improvement from 144. We discussed prediabetes today. I recommended aggressive weight loss and a healthy diet low in concentrated sweets and carbohydrates. 12/27/2023 Coronary artery disease involving [place] coronary artery of [place] heart without angina pectoris (ICD-10 - I25.10) [...] Provider Name:Suhail Ramos, 10/05/2024 02:15:00 PM, [address] [place] [address] [address], [place], [address], Provider Name:Suhail Ramos, 07/12/2025 02:00:00 PM, [address] [place] [address] [address], [place], [address], Progress Notes * Sylvie AYALADOB:1955 (68 yo F)Acc No.[id number]:12/27/2023 Progress Notes Patient:?Sylvie Ayala Provider:?Suhail Ramos MD :1955???Age:68 Y???Sex:Female D ate:12/27/2023 Address:[address] [place] [address] [place] ALVAREZ [place]-[id number] Subjective: * Chief Complaints: * ???HypertensionLower extremi [...] Tobacco Non-User?Aggressive non-smoker ???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 She is a nonsmoker and has two sons, Trey and Yung. She was born in [place]. * Medications:?TakinghydroCHLO ROthiazide 25 MG Tablet TAKE [...] the office if the injections given at [facility] orthopedic surgeons are not affected.?5.?Hyperglycemia - R73.9, Her hemoglobin A1c was 5.8, which is an improvement from 144. We discussed prediabetes today. I recommended aggressive weight loss and a healthy diet low in concentrated sweets and carbohydrates.?6.?Coronary artery disease involving [place] coronary artery of [place] heart without angina pectoris - I25.10, She [...] Ramos MD Date:?01/2024 Generated for Ye thomas/Amalia/Souravitting on:?08/20/2024 02:19 PM EST History and Physical Notes * HPI (History of Present Illness) Category Sub-Category Detail Notes COVID-19 Screening Questions Have you had any new onset fever, chills, cough, congestion, sore throat, shortness of breath, muscle aches?: No Have you been exposed to the virus withi n the last 10 days?: No Have you travelled internationally in [facility] last 10 days?: No Have you been [...]
--- OUTSIDE RECORDS SUMMARY | 2024-08-20 14:19 | XMS_ITS | Patient Health Record ---
Author Organization [facility] [place] Address [address] [place] [address] Care Team Providers Care Cardiology Physician Assistant Name Role Phone Suhail Ramos MD Primary Care Provider Unavailab Samm Obregon Unavailable [phone] Allergies No Known Allergies Reason For Referral [...] Risk Notes Problem Mononeuropathy of lower limb (559669230) Neuritis of right foot (G57.91) Active confirmed Vital Signs Height 5ft 3in in 06/23/2024 Weight 190 lbs 06/23/2024 BMI 33.65 kg/m2 06/23/2024 Encounters Encounter Location Date [facility] [address] 06/04/2024 Samm Irwin Pain in left foot M79.672 ; Neuralgia and neuritis M79.2 ; Hallux valgus (acquired), left foot M20.12 ; Pain in right foot M79.671 and Hallux valgus (acquired), right foot M20.11 [facility] [address] [place] [address] 06/23/2024 Samm Irwin Pain in left foot [...] Name:Samm Bhatia Dc, 09/03/2024 11:00:00 AM, [address] [facility], [place], [address], Insurance Providers Payer Name Payer Address Payer Phone Subscriber Number Group Number Insured Name Patient Relationship to Insured Coverage Start Date Coverage End Date [facility] [address] [place] [id number] [phone] [id number] Sylvie Ayala Self - patient is the insured Medical (General) History Medical History History ICD Code High Blood Pressure Bone implants/screws Heart attack Surgical History Surgery Date(Month/Year) heart stent 10/2022 Hospitalization History Reason Date(Month/Year) heart attack one stent 10/2022
--- OUTSIDE RECORDS SUMMARY | 2024-08-20 14:20 | XMS_ITS ---
Author Organization Suhail Ramos III, MD Address [address] [place] [address] Support Name Relationship Address Phone MAXIMO CORRIGAN Caregiver [address] [place] [address] Octavia Richard Caregiver [address] [place] [address] TED BURCH Caregiver [address] [place], [place] [phone] ASHLYN CONTI Caregiver [address] [place], [place] [phone] [employer] Caregiver [address] [place] [address] Suhail Ramos Caregiver [address] [place] [address] [place] [address] NAM AYALA Emergency Contact [address] [place] [phone] Sylvie Ayala Guarantor Unknown [phone] Care Team Providers Care Search Lead Name Role Phone Suhail Ramos Primary Care [...] Status W/U Status Risk Notes Problem Prediabetes (494859972) Pre-diab etes (R73.03) Active confirmed Her fasting [...] Date Provider Diagnosis Suhail Ramos III, MD [address] [place] [address] [place] [address] 07/06/2024 Suhail Ramos Hyperlipidemia E78.5 ; Coronary artery disease involving [place] coronary artery of [place] heart without angina pectoris I25.10 ; Pre-diabetes R73.03 ; Obesity E66.9 ; Hypertension I10 ; Osteoarthritis M19.90 and Myocardial infarction, unspecified [place] type, unspecified artery I21.9 Assessments Encounter Date [...] was 161. 07/06/2024 Coronary artery disease involving [place] coronary artery of [place] heart without angina pectoris (ICD-10 - I25.10) [...] the office if the injections given at [facility] orthopedic surgeons are not affected. 07/06/2024 Myocardial infarction, unspecified [place] type, unspecified artery (ICD-10 - I21.9) She [...] OV Provider Name:Suhail Ramos, 10/05/2024 02:15:00 PM, [address] [place] [address] [address], [place], [address], Provider Name:Suhail Ramos, 07/12/2025 02:00:00 PM, [address] [place] [address] [address], [place], [address], Progress Notes * Sylvie AYALADOB:1955 (69 yo F)Acc No.[id number]:07/06/2024 Progress Notes Patient:?Sylvie AYALA Provider:?Suhail Ramos MD :1955???Age:69 Y???Sex:Female D ate:07/06/2024 Address:[address] [place] [address] KTLuz Elena Min TE-[phone] Subjective: * Chief Complaints: * ???Annual exam [...] year??No ?Points?0 ?Interpretation?Negative ???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 She is a nonsmoker and [...] 43 (Ref Range: >40 mg/dL) * Lab:[facility] * Collection Date 06/26/2024 [...] * Assessment: 1.?Coronary artery disease i nvolving [place] coronary artery of [place] heart without angina pectoris - I25.10 (Primary)???Notes [...] the office if the injections given at [facility] orthopedic surgeons are not affected.???7.?Myocardial infarction, unspecified [place] type, unspecified artery - I21.9???Notes :She has [...] * ?BLD Negative Negative - * Procedure Codes:?36455 URINE -NO MICRO * Preventive Medicine:? ??Counseling:?Care [...] Ramos MD Date:?06/21 Generated for Ye thomas/Amalia/eTivissmitting on:?08/20/2024 02:19 PM EST History and Physical [...] had two or more falls in the st year?: No Fall Risk Assessment:: No falls [...]
== END 2024-08-20 10:40 | disposition home or self-care (01) ==
LOC: HO.US 10:39
PROVIDERS: PCP Internal Medicine Medical Oncology; Visit Provider Obstetrics & Gynecology
DX: D25.9 Leiomyoma of uterus, unspecified (principal)
CPT/HCPCS: 76830; 76856

== ENCOUNTER → 2024-08-20 10:42 | Outpatient (BNV) | payer MEDICARE, SELFPAY ==
[2023-07-03 10:14] VITALS: BP 104/68; BP 116/60; BP 122/80; BMI 33.0
== END ==
PROVIDERS: PCP Internal Medicine Medical Oncology; Visit Provider Radiology Diagnostic Radiology
DX: D25.9 Leiomyoma of uterus, unspecified (principal)
CPT/HCPCS: 76830; 76856

== ENCOUNTER 2024-08-31 08:48 | Outpatient (REF) | payer MEDICARE, SELFPAY ==
[2023-07-03 10:14] VITALS: BP 104/68; BP 116/60; BP 122/80; BMI 33.0
== END 2024-08-31 08:49 | disposition home or self-care (01) ==
LOC: HO.MAMMO 08:48
PROVIDERS: PCP Internal Medicine Medical Oncology; Visit Provider Internal Medicine Medical Oncology
DX: Z12.31 Encounter for screening mammogram for malignant neoplasm of breast (principal)
CPT/HCPCS: 77063; 77067

== ENCOUNTER → 2024-08-31 09:15 | Outpatient (BNV) | payer MEDICARE, SELFPAY ==
[2023-07-03 10:14] VITALS: BP 104/68; BP 116/60; BP 122/80; BMI 33.0
== END ==
PROVIDERS: PCP Internal Medicine Medical Oncology; Visit Provider Internal Medicine
DX: Z12.31 Encounter for screening mammogram for malignant neoplasm of breast (principal)
CPT/HCPCS: 77063; 77067

== ENCOUNTER 2024-09-01 09:45 | Outpatient (AMB) | payer MEDICARE, SELFPAY ==
[2023-07-03 10:14] VITALS: BP 104/68; BP 116/60; BP 122/80; BMI 33.0
--- NOTE | 2024-09-01 09:48 | MHC.OFFVIS ---
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 The patient is doing well with no complaints no pelvic pressure or pain or vaginal bleeding. It has been using clobetasol 2 to 3 times a week for maintenance therapy no vulvovaginal itching , no other concerns. Pelvic ultrasound done in 08/20/2024 showed the following: Findings: Transvaginal scanning performed. anteverted uterus is 8.6 cm length. Three discrete leiomyomata are noted the 1st in the fundal region now measures 3.6 x 4.3 x 3.9 cm increased in size relative to the prior exam where it measured 3.8 x 2.7 x 3.2 cm. A 2nd leiomyoma is in the left body of the uterus now measuring 3.2 x 3.9 x 4 cm and previously 3.7 x 3.3 x 3.6 cm. A 3rd leiomyoma is seen in the body now measuring 5.6 x 4.7 x 5.5 cm previously 5.5 x 5.4 x 3.9 cm. Nabothian cysts are noted. The endometrium is poorly seen as it is effaced by leiomyomata. Right ovary Is not identified. Left ovary 1.2 x 1 x 1.1 cm cm. No free fluid. [facility] Medical History STEMI (ST elevation myocardial infarction) Diverticulosis Right shoulder pain Left hip pain Hyperlipidemia Colonoscopy planned Vertigo Fibroma of tongue Back pain Elevated cholesterol HTN (hypertension) Surgical History History of cardiac cath History of dilatation and curettage Family History Mother Heart disease Father Throat cancer Social History Alcohol intake: never Patient Tobacco Use Status: Never used Tobacco Second Hand Smoke Exposure: Yes Patient : No Female Reproductive History Menstrual Age of Menarche: 16 Review of Systems Const All systems reviewed & are unremarkable except as noted in HPI and below Reports as per HPI and Reports no additional complaints GI Reports no additional complaints Reports no additional complaints Physical Exam General: Yes no CVA tenderness External Female Exam: No normal external appearance (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 ) and normal appearance of the urethra Speculum Exam - Vagina: normal appearance of the vagina, normal palpation, no lesions and no masses Speculum Exam - Cervix: normal appearance of the cervix, normal palpation, no lesions, no masses and nontender Bimanual exam- vagina & uterus: normal bimanual exam, normal palpation, uterine size normal, normal palpation, uterine shape normal, No Cervical tenderness present and non-tender Bimanual Exam- Adnexa, other: normal adnexae Back/Spine/Pelvis Back: no CVA tenderness Assessment & Plan Assessment & Plan (1) Uterine myoma: Comment: Increase in sizes Code(s): D25.9 - Leiomyoma of uterus, unspecified Category: Medical Plan: Discussed with the patient the finding on pelvic ultrasound showing an increase in uterine myoma compare to previous ultrasound, risk of myosarcoma was discussed with the patient will refer to court operations clerk Oncology for further management. All questions answered, the patient verbalized understanding. Appointment scheduled with Dr. Cade olvera at [facility] court operations clerk Oncology on 09/14/2024 at 14:00, the patient is aware. Instructed the patient to call our office back in case a referral appointment is not scheduled, missed or canceled so that we will assist on rescheduling another appointment, the patient verbalized understanding agreed with the plan. (2) Lichen sclerosus: Code(s): L90.0 - Lichen sclerosus et atrophicus Category: Medical Plan: Instructions given the patient to keep using clobetasol 2 to 3 times a week as maintenance and to call in case of development of any of the following vulvar lesions, hard areas or open sores, and to schedule a 1 year follow-up appointment for reinspection. Coding Level of Care Code Est Pt Level 3 (04043) Diagnoses Uterine myoma D25.9 Lichen sclerosus L90.0
== END 2024-09-01 10:23 | disposition home or self-care (01) ==
LOC: HO.HWS 09:45
PROVIDERS: PCP Internal Medicine Medical Oncology; Visit Provider Obstetrics & Gynecology
DX: D25.9 Leiomyoma of uterus, unspecified (principal); L90.0 Lichen sclerosus et atrophicus
CPT/HCPCS: 99213

== ENCOUNTER → 2024-09-01 09:45 | Outpatient (BNVA) | payer MEDICARE, SELFPAY ==
[2023-07-03 10:14] VITALS: BP 104/68; BP 116/60; BP 122/80; BMI 33.0
== END ==
PROVIDERS: PCP Internal Medicine Medical Oncology; Visit Provider Obstetrics & Gynecology
DX: D25.9 Leiomyoma of uterus, unspecified (principal); L90.0 Lichen sclerosus et atrophicus
CPT/HCPCS: 99212

== ENCOUNTER 2024-09-21 08:20 | Outpatient (REF) | payer MEDICARE, SELFPAY ==
[2023-07-03 10:14] VITALS: BP 104/68; BP 116/60; BP 122/80; BMI 33.0
--- OUTSIDE RECORDS SUMMARY | 2024-09-21 08:35 | XMS_ITS ---
[facility] Address [address] [place] [address] Care Team Providers Care Software Design Engineer Name Role Phone Suhail Ramos MD Primary Care Provider Unavailab Vianney Shane Unavailable [phone] Samm Irwin Unavailable [phone] Allergies No Known Allergies REASON FOR VISIT [...] Risk Notes Problem Mononeuropathy of lower limb (094582145) Neuritis of right foot (G57.91) Active confirmed Vital Signs Height 5ft 3in in 06/04/2024 Weight 190 lbs 06/04/2024 BMI 33.65 kg/m2 06/04/2024 Encounters Encounter Location Date Provider Diagnosis [facility] [address] [place] [address] 06/04/2024 Samm Irwin Pain in left foot [...] Details Follow Up: 3 Weeks, Reason: Provider Name:Vianney mancilla, 11/12/2024 02:30:00 PM, [address] [facility], [place], [address], Progress Notes * Sylvie AYALADOB:1955 (69 yo F)Acc No.[id number]:06/04/2024 Progress Notes Patient:?Jass AYALAuta Provider:?Samm Irwin D.P.M. :1955???Age:69 Y???Sex:Female D ate:06/04/2024 Address:[address] [place] [address], [facility] Pcp:Suhail Ramos MD Subjective: * Chief Complaints: [...] Stable (1=3,2=4)??? Plan: * Treatment: * Procedure Codes:?83066 X-RAY EXAM OF LEFT FOOT 3V, Modifiers: 26 , [id number] X-RAY EXAM OF RIGHT FOOT 3V, Modifiers: [...] * Provider:?Samm Irwin D.P.M. Date:?05/22 Generated for Ye thomas/Amalia/eTransmitting on:?09/21/2024 08:34 AM EST History and Physical Notes * [...]
--- OUTSIDE RECORDS SUMMARY | 2024-09-21 08:35 | XMS_ITS | Patient Health Record ---
Author Organization [facility] Matilde aquilino [place] Address [address] [place] [address] Care Team Providers Care Associate Director Qa Name Role Phone Suhail Ramos MD Primary Care Provider Unavailab Vianney Shane Unavailable [phone] Samm Irwin Unavailable [phone] Allergies No Known Allergies Reason For Referral No Information Medications Medication SIG (Take, Route, Frequency, Duration) Notes Start Date End Date Status Meclizine HCl 25 MG 1 tablet as needed Orally every 12 hrs Active hydroCHLOROthiazide 25 MG 1 tablet in th e morning Orally Once a day Active Gabapentin 100 MG 1 capsule in morning and one at bedtime Orally Twice a Day for 30 days Active Clopidogrel Bisulfate 75 MG 1 tablet Ora lly Once a day Active Atorvastatin Calcium 80 MG 1 tablet Oral ly Once a day Active Atenolol 100 MG 1 tablet Orally Once a day Active Aspirin 81 81 MG 1 tablet Orally Once a day Active Gabapentin 300 MG [address] ee times a day for 90 days 09/03/2024 Active Social History Tobacco Use: Social History [...] Risk Notes Problem Mononeuropathy of lower limb (256264488) Neuritis of right foot (G57.91) Active confirmed Vital Signs Heart Rate 63 /min 09/03/2024 Blood pressure diastolic 87 mm Hg 09/03/2024 Height 5ft 3 in in 09/03/2024 Blood pressure systolic 141 mm Hg 09/03/2024 Weight 190 lbs 09/03/2024 BMI 33.65 kg/m2 09/03/2024 Encounters Encounter Location Date Provider Diagnosis [address] [address] 06/04/2024 Samm Irwin Pain in left foot M79.672 ; Neuralgia and neuritis M79.2 ; Hallux valgus (acquired), left foot M20.12 ; Pain in right foot M79.671 and Hallux valgus (acquired), right foot M20.[address] [address] 06/23/2024 Samm Irwin Pain in left foot M79.672 ; Neuralgia and neuritis M79.2 and Pain in right foot M79.[address] [address] 09/03/2024 Samm Irwin Pain in left foot M79.672 [...] is to have the pharmacy contact us 09/03/2024 Pain in left foot (ICD-10 - M79.672) 09/03/2024 Neuralgia and neuritis (ICD-10 - M79.2) I feel an increase in the dosage of the gabapentin is indicated 09/03/2024 Pain in right foot (ICD-10 - M79.671) 06/23/2024 Pain in right foot (ICD-10 - M79.671) 06/04/2024 Hallux valgus (acquired), left foot (ICD-10 - M20.12) 06/04/2024 Pain in right foot (ICD-10 - M79.671) 06/04/2024 Hallux valgus (acquired), right foot (ICD-10 - M20.11) Plan Of Treatment Next Appt Details Provider Name:Vianney mancilla, 11/12/2024 02:30:00 PM, [address] [facility], [place], [address], Insurance Providers Payer Name Payer Address Payer Phone Subscriber Number Group Number Insured Name Patient Relationship to Insured Coverage Start Date Coverage End Date [facility] [address] [place] [id number] Sylvie Ayala Self - patient is the insured 3 Medical (General) History Medical History History ICD Code High Blood Pressure Bone implants/screws Heart attack Surgical History Surgery Date(Month/Year) heart stent 10/2022 Hospitalization History Reason Date(Month/Year) heart attack one stent 10/2022
--- OUTSIDE RECORDS SUMMARY | 2024-09-21 08:35 | XMS_ITS ---
Author Organization [facility] Address [address] [place] [address] Care Team Providers Care Auto Body Repair Teacher Name Role Phone Suhail Ramos MD Primary Care Provider Unavailab Vianney Shane Unavailable [phone] Samm Irwin Unavailable [phone] REASON FOR VISIT last visit pcp 04/21/24, [...] Twice a Day for 30 days Active Aspirin 81 81 MG 1 tablet Orally Once a day Active Gabapentin 300 MG [address] ee times a day for 90 days 09/03/2024 Active Clopidogrel Bisulfate 75 MG 1 tablet Ora lly Once a day Active Atorvastatin Calcium 80 MG 1 tablet Oral ly Once a day Active Atenolol 100 MG 1 tablet Orally Once a day Active Social History [...] 0 Interpretation Negative Vital Signs Height 5ft 3 in in 09/03/2024 Weight 190 lbs 09/03/2024 BMI 33.65 kg/m2 09/03/2024 Blood pressure systolic 141 mm Hg 09/03/19 25 Blood pressure diastolic 87 mm Hg 025 Heart Rate 63 /min 09/03/2024 Encounters Encounter Location Date Provider Diagnosis [facility] [address] [address] 09/03/2024 Samm Irwin Pain in left foot M79.672 ; Neuralgia and neuritis M79.2 and Pain in right foot M79.671 Assessments Encounter Date Diagnosis (ICD Code) Assessment Notes Treatment Notes Treatment Clinical Notes Section Notes 09/03/2024 Pain in left foot (ICD-10 - M79.672) 09/03/2024 Neuralgia and neuritis (ICD-10 - M79.2) I feel an increase in the dosage of the gabapentin is indicated 09/03/2024 Pain in right foot (ICD-10 - M79.671) Plan Of Treatment Medication Medication Name Sig Start Date Stop Date Notes Gabapentin 300 MG 1 capsule Orally Thr ee times a day for 90 days 09/03/2024 Treatment Notes Assessment Notes Neuralgia and neuritis I feel an increas e in the dosage of the gabapentin is indicated Next Appt Details Follow Up: 2 Months, Reason: Provider Name:Vianney mancilla, 11/12/2024 02:30:00 PM, [address] [place] [address], [address], Progress Notes * Jass AYALAlarisaDOB:1955 (69 yo F)Acc No.[id number]:09/03/2024 Progress Note Patient:Sylvie ZHOU Provider:?Samm Irwin D.P.M. :1955???Age:69 Y???Sex:Female D ate:09/03/2024 Address:[address] [place], [place] [id number] Pcp:Suhail Ramos MD Subjective: * Chief Complaints: * ???Last visit pcp 04/21/24Fo ot pain * HPI: ???Foot Pain:?Nature:?burning , radiating , shooting , tingling.?Location:?Top, Bottom, Inside, Outside, B/L.?Duration:?several months.?Onset:?unknown.?Course:?improved, at 60%.?Aggravated:?Worse at night when in bed.?Treatments:?Taking 100 mg gabapentin TID.? * ROS:?General/Constitutional:?Nausea?denies.?Vomiting?denies.?Hunger Thirst?denies.?Loss appetite?denies.?Chills?denies.?Fatigue?denies.?Fever?denies.?Night Sweats?denies.?Unexplained weight loss?denies.?Unexplained [...] ased, heart attack, high blood pressure.?Father: , cancer.?Spouse: alive.? * Social History:?Tobacco Use:?Tobacco use other than [...] in the past year??No ?Points?0 ?Interpretation?Negative * Medications:?TakingAspirin 8 1 81 MG Tablet Delayed Release 1 tablet Orally Once a day Atenolol 100 MG Tablet 1 tablet Orally Once a day Atorvastatin Calcium 80 MG Tablet 1 tablet Orally Once a day Clopidogrel Bisulfate 75 MG Tablet 1 tablet Orally Once a day Gabapentin 100 MG Capsule 1 capsule in morning and one at bedtime Orally Twice a Day hydroCHLOROthiazide 25 MG Tablet 1 tablet in the morning Orally Once a day Meclizine HCl 25 MG Tablet 1 tablet as needed Orally every 12 hrs Medication List reviewed and reconciled with the patientTaking Aspirin 81 81 MG Tablet Delayed Release 1 tablet Orally Once a day Taking Atenolol 100 MG Tablet 1 tablet Orally Once a day Taking Atorvastatin Calcium 80 MG Tablet 1 tablet Orally Once a day Taking Clopidogrel Bisulfate 75 MG Tablet 1 tablet Orally Once a day Taking Gabapentin 100 MG Capsule 1 capsule in morning and one at bedtime Orally Twice a Day Taking hydroCHLOROthiazide 25 MG Tablet 1 tablet in the morning Orally Once a day Taking Meclizine HCl 25 MG Tablet 1 tablet as needed Orally every 12 hrs Medication List reviewed and reconciled with the patient * Allergies:?yes[Allergies Vicente ified] Objective: * Vitals:?Ht:5ft 3 in, Wt:190, BMI:33.65, Shoe size:7.5 W, BP:141/87mm Hg, HR:63/min, Ht-cm: 160.02 cm, Wt-k.18 kg. * Examination: [...] , Right.?DEEP TENDON REFLEXES:?Achilles, 2/4, B/L.?Vascular: ?DP PULSES (B):?3/4, B/L.?PT PULSES (B):?3/4, B/L.?CAPILLARY FILL TIME:?immediate, all digits, B/L.?TROPHIC CONDITION-TEXTURE/ELASTICITY/TURGOR/HAIR GROWTH (B):?normal, B/L.?TEMPERTURE GRADIENT (C):?warm to cool, proximal to distal, B/L.?PIGMENTATION:?normal, B/L.?EDEMA (C):?absent, B/L.?Dermatologic: ?SKIN FINDINGS:?Skin exam reveals normal texture, [...] to their satisfaction. I will prescribe gabapentin 300 mg at breakfast, lunch and dinner. Patient [...] status: Completed true * Provider:?Samm Irwin D.P.M. Date:?08/22 Generated for Ye thomas/Amalia/eTransmitting on:?09/21/2024 08:35 AM EST History and Physical Notes * HPI (History of Present Illness) Category Sub-Category Detail Notes Category Not es Foot Pain Nature: burning , radiating , shooti ng , tingling Location: Top, Bottom, Inside, Outside, B/L Duration: several months Onset: unknown Course: improved, at 60% Aggravated: Worse at night when in bed Treatments: Taking 100 mg gabape ntin TID Examination Category Sub-Category Detail Notes Category Not [...]
--- OUTSIDE RECORDS SUMMARY | 2024-09-21 08:36 | XMS_ITS ---
Author Organization [facility] Address [address] [place] [address] Care Team Providers Care Cook Helper Juice Name Role Phone Suhail Ramos MD Primary Care Provider Unavailab Vianney Shane Unavailable [phone] Samm Irwin Unavailable [phone] REASON FOR VISIT last visit pcp 04/21/24, [...] 06/23/2024 Encounters Encounter Location Date Provider Diagnosis [facility] [address] 06/23/2024 Samm Irwin Pain in left foot [...] Reason: Provider Name:Vianney mancilla, 11/12/2024 02:30:00 PM, [address] [place] [address], [place], [address], Progress Notes * Sylvie AYALADOB:1955 (69 yo F)Acc No.[id number]:06/23/2024 Progress Notes Patient:?Sylvie AYALA Provider:?Samm Irwin D.P.M. :1955???Age:69 Y???Sex:Female D ate:06/23/2024 Address:[address] [place] [address] Pcp:Suhail Ramos MD Subjective: * Chief Complaints: [...] * Provider:?Samm Irwin D.P.M. Date:?09/2023 Generated for Ye thomas/Amalia/eTransmitting on:?09/21/2024 08:35 AM [...]
[2024-09-21 08:54] LABS: MANUAL DIFF FLAG NO
[2024-09-21 10:00] LABS: Estimated Average Glucose 131 mg/dL; Hemoglobin A1C 174.3221 umol/L; Hemoglobin A1c % 6.2 % (<6.0); Total Hemoglobin (HGBA1C) 3961.3162 umol/L
[2024-09-21 10:27] LABS: Basophils Absolute Auto 0.1 X10*3/uL (0.0-0.2); Basophils Percent Auto 1.3 % (0-2); Eosinophils Absolute Auto 0.1 X10*3/uL (0.0-0.4); Eosinophils Percent Auto 2.2 % (0-4); Hematocrit 43.7 % (37.0-47.0); Hemoglobin 15.5 g/dl (12.0-16.0); Imm Gran Abs Auto 0.01 X10*3/uL (0.00-0.03); Imm Gran Pct Auto 0.2 % (0.0-0.4); Mean Corpuscular HGB Conc 35.5 g/dl (31.0-35.0); Mean Corpuscular Volume 90.1 fL (80.0-98.0); Mean Platelet Volume 11.9 fL (9.4-12.3); Monocytes Absolute Auto 0.4 X10*3/uL (0.1-1.2); Monocytes Percent Auto 7.1 % (2-11); Neutrophils Percent Auto 53.2 % (45-73); Platelet Count 192 X10*3/uL (160-400); Red Blood Count 4.85 X10*6/uL (4.20-5.50); Red Cell Distribution Width 12.5 % (11.0-16.0); White Blood Count 5.5 X10*3/uL (4.8-10.8)
[2024-09-21 10:42] LABS: Alanine Aminotransferase 51 U/L (0-31); Albumin Level 4.3 g/dL (3.5-5.0); Alkaline Phosphatase 70 U/L (39-117); Anion Gap 14 (12-20); Aspartate Amino Transferase 31 U/L (5-31); Bilirubin Total 0.8 mg/dL (0.0-1.0); Blood Urea Nitrogen 14 mg/dL (9-16); Calcium 9.4 mg/dL (8.4-10.2); Carbon Dioxide 27 mmol/L (22-29); Chloride 105 mmol/L (96-108); Cholesterol 135 mg/dL (<200); Estimated Glomerular Filt Rate > 60; Glucose Fasting 125 mg/dL (60-99); HDL Cholesterol 39 mg/dL (>40); LDL Cholesterol Calculated 72 mg/dL (<100); Sodium 142 mmol/L (135-145); Total Protein 7.8 g/dL (6.5-8.0); Triglycerides 123 mg/dL (<150)
== END 2024-09-21 08:21 | disposition home or self-care (01) ==
LOC: HO.LAB 08:20
PROVIDERS: PCP Internal Medicine Medical Oncology; Visit Provider Internal Medicine Medical Oncology
DX: Z00.00 Encounter for general adult medical examination without abnormal findings (principal); E78.5 Hyperlipidemia, unspecified; R73.03 Prediabetes
CPT/HCPCS: 36415; 80053; 80061; 83036; 85025

== ENCOUNTER 2024-09-30 08:02 | Outpatient (AMB) | payer MEDICARE, SELFPAY ==
[2023-07-03 10:14] VITALS: BP 104/68; BP 116/60; BP 122/80; BMI 33.0
--- NOTE | 2024-09-30 08:06 | A.OFFVIS_ITS ---
Vital Signs 09/30/24 08:07 Height 5 ft 3 in Weight 194 lb 14.218 oz BMI 34.5 BP 134/82 Blood Pressure Location Rt brachial Position Sitting Pulse 64 Pulse Source Pulse Oximeter Pulse Oximetry (%) 94 Oxygen Delivery Method Room Air Intake Visit Reasons: Colonoscopy Screening Intake Note: NEW PATIENT for recall screening, last as of 5-6 years ago per pt. One found on record from [address] Perry. Records requested 09/24 Chief Complaint; No GI concerns at this time. Configuration Manager Required: No Accompanied by: Self / Same As Patient Allergies No Known Allergies Allergy (Mild, Verified 09/30/24 08:06) NKA HPI HPI Colonoscopy Screening: Details: LAST COLONOSCOPY WITH DR. ARMENDARIZ 05/06/2020 Findings: Terminal Ileum: Distal 5 cms was examined and appeared normal. Cecum: A 4 - 5 mm sessile polyp removed with the cold biopsy Ascending Colon: Normal Transverse Colon: Normal Descending Colon: Normal Sigmoid Colon: Moderate diverticulosis Rectum: Normal Ano-rectum: perianal skin tags Colon preparation: Excellent Impression and Post Procedure Diagnosis: Colonoscopy Findings: One small polyp removed Moderate diverticulosis seen in the sigmoid colon Plan: Await pathology results Repeat Colonoscopy interval based on path results - in 5 years if polyps is adenomatous and 10 years if polyps is hyperplastic. PATHOLOGY RESULTS Diagnosis Cecum, polypectomy: Tubular adenoma; no high grade dysplasia or carcinoma seen TODAY'S VISIT: 69 year old? female with past medical history of uterine myoma, status post coronary angioplasty, diverticulosis, hypertension is here today for pre colonoscopy screening.? Patient was sent to us by her PCP.? Patient had a colonoscopy in 2019, 1 tubular adenoma found. Patient denies any gastrointestinal symptoms in the past or at present.? Denies any personal or family history of gastrointestinal disease, or CRC.? Denies history of difficulty with sedation or anesthesia in the past.? Negative for history of sleep apnea.? Denies any history of renal, pulmonary, or hepatic disease.??In October of 2022 patient had chest pain and was admitted to [facility] and then transferred for cardiac catheterization. Drug-eluting stent was placed and patient is on anti-platelet therapy. Currently she is on Plavix and aspirin. No history of infectious? diseases like hepatitis A, B, C, HIV or tuberculosis.? [facility] Medical History STEMI (ST elevation myocardial infarction) Diverticulosis Right shoulder pain Left hip pain Hyperlipidemia Colonoscopy planned Vertigo Fibroma of tongue Back pain Elevated cholesterol HTN (hypertension) Surgical History History of cardiac cath History of dilatation and curettage Family History Mother Heart disease Father Throat cancer Social History Alcohol intake: never Patient Tobacco Use Status: Never used Tobacco Second Hand Smoke Exposure: Yes Female Reproductive History Menstrual Age of Menarche: 16 Review of Systems Const Denies weight gain and Denies weight loss ENT Reports no additional complaints, Denies dysphagia and Denies odynophagia Card Reports no additional complaints Resp Reports no additional complaints GI Denies abdominal pain, Denies belching, Denies melena, Denies bloating, Denies change in bowel habits, Denies dysphagia, Denies excessive flatus, Denies dyspepsia, Denies heartburn, Denies diarrhea, Denies loose stools, Denies nausea, Denies odynophagia and Denies vomiting Musc Reports no additional complaints Neuro Reports no additional complaints Psych Reports no additional complaints Endo Reports no additional complaints Physical Exam Vital Signs: Last Vital Signs Pulse 64 09/30/24 08:07 BP 134/82 09/30/24 08:07 Pulse Ox 94 09/30/24 08:07 Oxygen Delivery Method Room Air 09/30/24 08:07 BMI result Body Mass Index 34.5 Const General: healthy appearing and no acute distress Nutritional Appearance: obese Orientation/consciousness: patient oriented x3 Resp Effort & Inspection: normal respiratory effort, able to speak in complete sentences, no tracheal deviation and symmetric chest movement Auscultation: clear to auscultation bilaterally Cardio Rate: regular rate GI Inspection: Yes normal to inspection and No distended Palpation (GI): Soft to palpation, not firm, nontender and No hepatosplenomegaly present Auscultation: normal bowel sounds General: Yes no CVA tenderness Back/Spine/Pelvis Back: no CVA tenderness Skin General skin exam: elasticity normal, turgor normal and dry skin Neuro General: patient oriented x3 Psych Appearance: grossly normal Mental Status: mental status grossly normal Assessment & Plan Assessment & Plan (1) Colon cancer screening: Code(s): Z12.11 - Encounter for screening for malignant neoplasm of colon Category: Medical Plan Patient denies any GI, cardiac or respiratory symptoms.? History of stent placed in October 2022. Currently is on aspirin and Plavix. Patient has an appointment with Cardiology in January. Patient would like to schedule her procedure in July of 2025 as she is visiting [place] in the fall. Denies any issues with anesthesia in the past.? Denies any history of sleep apnea.? No history infectious diseases in the past or present. ? No family or personal history of colon cancer or polyps.? Patient denies melena, hematochezia, unintentional weight loss or ribbon like stools.? Discussed at length the pre-procedure,? prep, diet & medications as well as what to expect prior, during and after the procedure.?? Stressed the importance of good bowel prep.? Recommended the use of Vaseline or Calmoseptine OTC & baby wipes with bowel movements to promote comfort.? ?Patient verbalizes understanding and agrees to plan of care.? She was given the opportunity to ask questions and all questions answered.? We will see her after the procedure.? Medications: New bisacodyl (Dulcolax (bisacodyl)) take 4 tabs at noon the day before your colonoscopy 20 mg (4 x 5 mg) PO ONCE 1 day 4 tabs 0RF Z12.11 - Encounter for screening for malignant neoplasm of colon polyethylene glycol 3350 (Miralax) As directed by gastroenterology department at [facility] 238 grams PO ONCE 238 grams 0RF Z12.11 - Encounter for screening for malignant neoplasm of colon Coding Level of Care Code New Pt Level 3 (00260) Diagnoses Colon cancer screening Z12.11 Time Spent (min) 40 Comment 30 minutes spent with patient and additional 10 minutes spent reviewing her records
--- OUTSIDE RECORDS SUMMARY | 2024-09-30 08:06 | XMS_ITS ---
Author Organization [facility] Address [address] [place] [address] Care Team Providers Care Agriculture Manager Name Role Phone Suhail Ramos MD Primary Care Provider Unavailab Vianney Shane Unavailable [phone] Samm Irwin Unavailable [phone] Allergies No Known Allergies REASON FOR VISIT [...] Risk Notes Problem Mononeuropathy of lower limb (262263903) Neuritis of right foot (G57.91) Active confirmed Vital Signs Height 5ft 3in in 06/04/2024 Weight 190 lbs 06/04/2024 BMI 33.65 kg/m2 06/04/2024 Encounters Encounter Location Date Provider Diagnosis [facility] [place] [address] [place] [address] 06/04/2024 Samm Irwin Pain in left foot [...] Provider Name:Vianney mancilla, 11/12/2024 02:30:00 PM, [address] [facility], [place], [address], Progress Notes * Sylvie AYALADOB:1955 (69 yo F)Acc No.[id number]:06/04/2024 Progress Notes Patient:?Jsas AYALAuta Provider:?Samm Irwin D.P.M. :1955???Age:69 Y???Sex:Female D ate:06/04/2024 Address:[address] [place] [address], [id number] Pcp:Suhail Ramos MD Subjective: * Chief Complaints: [...] Stable (1=3,2=4)??? Plan: * Treatment: * Procedure Codes:?18510 X-RAY EXAM OF LEFT FOOT 3V, Modifiers: 26 , VB28382 X-RAY EXAM OF RIGHT FOOT 3V, Modifiers: [...] Provider:?Samm Irwin D.P.M. Date:?05/22 Generated for Ye thomas/Farenettag/eTransmitting on:?09/30/2024 08:06 AM EDT History and Physical Notes * HPI (History [...]
--- OUTSIDE RECORDS SUMMARY | 2024-09-30 08:06 | XMS_ITS ---
Author Organization Suhail Ramos III, MD Address [address] [place] [address] Support Name Relationship Address Phone MAXIMO CORRIGAN Caregiver [address] [place] [address] Octavia Richard Caregiver [address] [place] [address] TED BURCH Caregiver [address] [place], [place] [id number] ASHLYN CONTI Caregiver [address] [place], [place] [phone] [employer] Caregiver [address] [place] [address] Suhail Ramos Caregiver [address] [place] [address] [place] [address] NAM AYALA Emergency Contact [address] [place] [phone] Sylvie Ayala Guarantor Unknown [phone] Care Team Providers Care Rodeo Performer Name Role Phone Suhail Ramos Primary Care [...] Date Provider Diagnosis Suhail Ramos III, MD [address] [place] [address] [place] [address] 04/27/2024 Suhail Ramos Hyperlipidemia E78.5 ; Coronary artery disease involving koi coronary artery of koi heart without angina pectoris I25.10 ; Hypertension [...] was 161. 04/27/2024 Coronary artery disease involving koi coronary artery of koi heart without angina pectoris (ICD-10 - I25.10) [...] the office if the injections given at [facility] orthopedic surgeons are not affected. 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 She is a nonsmoker and has two sons, Trey and Yung. She was born in [place]. * Medications:?TakingClopidogr el Bisulfate 75 MG Tablet [...] 38?L (Ref Range: >40 mg/dL) * Lab:[facility] Elia l Fast * Collection Date 04/16/2024 [...] * Assessment: 1.?Coronary artery disease i nvolving koi coronary artery of koi heart without angina pectoris - I25.10 (Primary)???Notes [...] the office if the injections given at [facility] orthopedic surgeons are not affected.???6.?Obesity - E66.9???Notes [...] Provider:?Suhail Ramos MD Date:?01/2024 Generated for Printi ng/Farenettag/eTransmitting on:?09/30/2024 08:06 AM EDT History and Physical Notes * HPI (History of Present Illness) Category Sub-Category Detail Notes COVID-19 Screening Questions Have you had any new onset fever, chills, cough, congestion, sore throat, shortness of breath, muscle aches?: No Have you been exposed to the virus withi n the last 10 days?: No Have you travelled internationally in [facility] last 10 days?: No Have [...]
[2024-09-30 08:07] VITALS: BP 134/82; PULSE 64; O2SAT 94; BMI 34.5
--- OUTSIDE RECORDS SUMMARY | 2024-09-30 08:07 | XMS_ITS ---
Author Organization [facility] Address [address] [place] [address] Care Team Providers Care Industrial Controls Technician Name Role Phone Suhail Ramos MD Primary Care Provider Unavailab Vianney Shane Unavailable [phone] Samm Irwin Unavailable [phone] REASON FOR VISIT last visit pcp 04/21/24, [...] 09/03/2024 Encounters Encounter Location Date Provider Diagnosis [facility] [address] [address] 09/03/2024 Samm Irwin Pain in left foot [...] Reason: Provider Name:Vianney mancilla, 11/12/2024 02:30:00 PM, [address] [place] [address], [address], Progress Notes * Jass AYALAlarisaDOB:1955 (69 yo F)Acc No.[id number]:09/03/2024 Progress Note Patient:Sylvie ZHOU Provider:?Samm Irwin D.P.M. :1955???Age:69 Y???Sex:Female D ate:09/03/2024 Address:[address] [place], [place] [id number] Pcp:Suhail Ramos MD Subjective: * Chief Complaints: [...] Irwin D.P.M. Date:?08/22 Generated for Ye thomas/Amalia/eTransmitting on:?09/30/2024 08:06 AM EDT History and Physical [...]
--- OUTSIDE RECORDS SUMMARY | 2024-09-30 08:07 | XMS_ITS ---
Author Organization Suhail Ramos III, MD Address [address] [place] [address] Support Name Relationship Address Phone MAXIMO CORRIGAN Caregiver [address] [place] [address] Octavia Richard Caregiver [address] [place] [address] TED BURCH Caregiver [address] [place], [place] [phone] ASHLYN CONTI Caregiver [address] [place], [place] [phone] [employer] Caregiver [address] [place] [address] Suhail Ramos Caregiver [address] [place] [address] [place] [address] NAM AYALA Emergency Contact [address] [place] [phone] Sylvie Ayala Guarantor Unknown [phone] Care Team Providers Care Pediatric Genetic Counselor Name Role Phone Suhail Ramos Primary Care [...] Status W/U Status Risk Notes Problem Prediabetes (198496789) Pre-diab etes (R73.03) Active confirmed Her fasting [...] Date Provider Diagnosis Suhail Ramos III, MD [address] [place] [address] [place] [address] 07/06/2024 Suhail Ramos Hyperlipidemia E78.5 ; Coronary artery disease involving lone pine coronary artery of lone pine heart without angina pectoris I25.10 ; Pre-diabetes R73.03 ; Obesity E66.9 ; Hypertension I10 ; Osteoarthritis M19.90 and Myocardial infarction, unspecified [place] type, unspecified artery I21.9 Assessments Encounter Date [...] was 161. 07/06/2024 Coronary artery disease involving lone pine coronary artery of lone pine heart without angina pectoris (ICD-10 - I25.10) [...] the office if the injections given at [facility] orthopedic surgeons are not affected. 07/06/2024 Myocardial infarction, unspecified [place] type, unspecified artery (ICD-10 - I21.9) She [...] OV Provider Name:Suhail Ramos, 10/05/2024 02:15:00 PM, [address] [place] [address] [address], [place], [address], Provider Name:Suhail Ramos, 07/12/2025 02:00:00 PM, [address] [place] [address] [address], [place], [address], Progress Notes * Sylvie AYALADOB:1955 (69 yo F)Acc No.[id number]:07/06/2024 Progress Notes Patient:?Sylvie AYALA Provider:?Suhail Ramos MD :1955???Age:69 Y???Sex:Female D ate:07/06/2024 Address:[address] [place] [address] KTLuz Elena Min [id number] Subjective: * Chief Complaints: * ???Annual exam [...] year??No ?Points?0 ?Interpretation?Negative ???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 She is a nonsmoker and has [...] 43 (Ref Range: >40 mg/dL) * Lab:[facility] Pane l Fast * Collection Date 06/26/2024 [...] * Assessment: 1.?Coronary artery disease i nvolving lone pine coronary artery of lone pine heart without angina pectoris - I25.10 (Primary)???Notes [...] the office if the injections given at [facility] orthopedic surgeons are not affected.???7.?Myocardial infarction, unspecified [place] type, unspecified artery - I21.9???Notes :She has [...] * ?BLD Negative Negative - * Procedure Codes:?94926 URINE -NO MICRO * Preventive Medicine:? ??Counseling:?Care [...] Ramos MD Date:?06/21 Generated for Ye thomas/Amalia/eTivissmitting on:?09/30/2024 08:07 AM EDT History and Physical Notes * [...] all Thoughts that you would be b julisas off or of hurting yourself in some [...]
--- OUTSIDE RECORDS SUMMARY | 2024-09-30 08:07 | XMS_ITS ---
Author Organization Suhail Ramos III, MD Address [address] [place] [address] [place] [address] Support Name Relationship Address Phone MAXIMO CORRIGAN Caregiver [address] [facility] [place] [address] Octavia Richard Caregiver [address] [place] [address] [place] [address] TED BURCH Caregiver [address] [place], [place] [phone] ASHLYN CONTI Caregiver [address] [place], [place] [phone] [employer] SERVICES Caregiver [address] [place] [address] Suhail Ramos Caregiver [address] [place] [address] [place] [address] NAM AYALA Emergency Contact [address] [place] [address] [phone] Sylvie Ayala Guarantor Unknown [phone] Care Team Providers Care Bender Helper Name Role Phone Suhail Ramos Primary Care Provider [phone] Allergies Allergen (clinical drug ingredient) Drug/Non Drug [...] Date Provider Diagnosis Suhail Ramos III, MD [address] [place] [address] [place] [address] 12/27/2023 Suhail Ramos Hyperlipidemia E78.5 ; Obesity E66.9 ; Hypertension I10 ; Osteoarthritis M19.90 ; Hyperglycemia R73.9 and Coronary artery disease involving capitan grande coronary artery of capitan grande heart without angina pectoris I25.10 Assessments Encounter [...] the office if the injections given at [facility] orthopedic surgeons are not affected. 12/27/2023 Hyperglycemia (ICD-1 0 - R73.9) Her hemoglobin A1c was 5.8, which is an improvement from 144. We discussed prediabetes today. I recommended aggressive weight loss and a healthy diet low in concentrated sweets and carbohydrates. 12/27/2023 Coronary artery disease involving capitan grande coronary artery of capitan grande heart without angina pectoris (ICD-10 - I25.10) [...] OV Provider Name:Suhail Ramos, 10/05/2024 02:15:00 PM, [address] [place] [address] [address], [place], [address], Provider Name:Suhail Ramos, 07/12/2025 02:00:00 PM, [address] [place] [address] [address], [place], [address], Progress Notes * Sylvie AYALADOB:1955 (68 yo F)Acc No.[id number]:12/27/2023 Progress Notes Patient:?Sylvie Ayala Provider:?Suhail Ramos MD :1955???Age:68 Y???Sex:Female D ate:12/27/2023 Address:[address] [place] [address] [place] ALVAREZ [place]-[id number] Subjective: * Chief Complaints: * ???HypertensionLower extremi [...] Tobacco Non-User?Aggressive non-smoker ???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 She is a nonsmoker and [...] the office if the injections given at [facility] orthopedic surgeons are not affected.?5.?Hyperglycemia - R73.9, Her hemoglobin A1c was 5.8, which is an improvement from 144. We discussed prediabetes today. I recommended aggressive weight loss and a healthy diet low in concentrated sweets and carbohydrates.?6.?Coronary artery disease involving capitan grande coronary artery of capitan grande heart without angina pectoris - I25.10, She [...] Ramos MD Date:?01/2024 Generated for Ye thomas/Amalia/Souravitting on:?09/30/2024 08:07 AM EDT History and Physical Notes * HPI (History of Present Illness) Category Sub-Category Detail Notes COVID-19 Screening Questions Have you had any new onset fever, chills, cough, congestion, sore throat, shortness of breath, muscle aches?: No Have you been exposed to the virus withi n the last 10 days?: No Have you travelled internationally in [facility] last 10 days?: No Have [...]
--- OUTSIDE RECORDS SUMMARY | 2024-09-30 08:07 | XMS_ITS | Patient Health Record ---
Author Organization [facility] Matilde aquilino [place] Address [address] [place] [address] Care Team Providers Care Band Log Mill And Carriage Operator Name Role Phone Suhail Ramos MD Primary Care Provider Unavailab Vianney Shane Unavailable [phone] Samm Irwin Unavailable [phone] Allergies No Known Allergies Reason For Referral [...] Risk Notes Problem Mononeuropathy of lower limb (431436310) Neuritis of right foot (G57.91) Active confirmed Vital Signs Heart Rate 63 /min 09/03/2024 Blood pressure diastolic 87 mm Hg 09/03/2024 Height 5ft 3 in in 09/03/2024 Blood pressure systolic 141 mm Hg 09/03/2024 Weight 190 lbs 09/03/2024 BMI 33.65 kg/m2 09/03/2024 Encounters Encounter Location Date Provider Diagnosis [address] [address] 06/04/2024 Samm Irwin Pain in left foot M79.672 ; Neuralgia and neuritis M79.2 ; Hallux valgus (acquired), left foot M20.12 ; Pain in right foot M79.671 and Hallux valgus (acquired), right foot M20.[address] [address] 06/23/2024 Samm Irwin Pain in left foot M79.672 ; Neuralgia and neuritis M79.2 and Pain in right foot M79.[address] [address] 09/03/2024 Samm Irwin Pain in left foot [...] Provider Name:Vianney mancilla, 11/12/2024 02:30:00 PM, [address] [facility], [place], [address], Insurance Providers Payer Name Payer Address Payer Phone Subscriber Number Group Number Insured Name Patient Relationship to Insured Coverage Start Date Coverage End Date [facility] [address] [place] [address] [phone] [id number] Sylvie Ayala Self - patient is the insured 3 Medical (General) History Medical History History ICD Code High Blood Pressure Bone implants/screws Heart attack Surgical History Surgery Date(Month/Year) heart stent 10/2022 Hospitalization History Reason Date(Month/Year) heart attack one stent 10/2022
--- OUTSIDE RECORDS SUMMARY | 2024-09-30 08:07 | XMS_ITS ---
Author Organization [facility] Address [address] [place] [address] Care Team Providers Care Head Of Cytogenetics Name Role Phone Suhail Ramos MD Primary Care Provider Unavailab Vianney Shane Unavailable [phone] Samm Irwin Unavailable [phone] REASON FOR VISIT last visit pcp 04/21/24, [...] 06/23/2024 Encounters Encounter Location Date Provider Diagnosis [facility] [address] 06/23/2024 Samm Irwin Pain in left foot [...] Reason: Provider Name:Vianney mancilla, 11/12/2024 02:30:00 PM, [address] [place] [address], [place], [address], Progress Notes * Sylvie AYALADOB:1955 (69 yo F)Acc No.[id number]:06/23/2024 Progress Notes Patient:?Sylvie AYALA Provider:?Samm Irwin D.P.M. :1955???Age:69 Y???Sex:Female D ate:06/23/2024 Address:[address] [place] [address] Pcp:Suhail Ramos MD Subjective: * Chief Complaints: [...] * Provider:?Samm Irwin D.P.M. Date:?09/2023 Generated for Corali william/Farenettag/eTransmitting on:?09/30/2024 08:07 AM EDT History and Physical [...]
== END 2024-09-30 08:51 | disposition home or self-care (01) ==
LOC: HO.HGI 08:03
PROVIDERS: PCP Internal Medicine Medical Oncology; Visit Provider Nurse Practitioner Family
DX: Z01.818 Encounter for other preprocedural examination (principal); Z12.11 Encounter for screening for malignant neoplasm of colon; Z86.0100 Personal history of colon polyps, unspecified
CPT/HCPCS: 99024

== ENCOUNTER → 2024-09-30 08:02 | Outpatient (BNVA) | payer MEDICARE, SELFPAY ==
[2023-07-03 10:14] VITALS: BP 104/68; BP 116/60; BP 122/80; BMI 33.0
== END ==
PROVIDERS: PCP Internal Medicine Medical Oncology; Visit Provider Nurse Practitioner Family
DX: Z12.11 Encounter for screening for malignant neoplasm of colon (principal)
CPT/HCPCS: 99212

== ENCOUNTER 2025-01-25 10:40 | Outpatient (REF) | payer MEDICARE, SELFPAY ==
[2023-07-03 10:14] VITALS: BP 104/68; BP 116/60; BP 122/80; BMI 33.0
--- OUTSIDE RECORDS SUMMARY | 2024-11-12 10:30 | XMS_ITS ---
Author Organization [facility] Address [address] [place] [address] Care Team Providers Care Player Piano Technician Name Role Phone Rachel ARIAS, Suhail Primary Care Provider Unavailab Vianney Shane Unavailable [phone] Encounters Encounter [facility] [address] 11/12/2024 Vianney Jung Plan Of Treatment Next Appt Details Provider Name:Vianney mancilla, 05/27/2025 10:00:00 AM, [address] [place] [address], [phone], Progress Notes * Sylvie AYALADOB:1955 (69 yo F)Acc No.[id number]:11/12/2024 Progress Note Patient: Sylvie CRABTREE Provider: Wei Jung DPM :1955 A ge:69 Y S ex:Female Date:11/12/2024 Address:[address] [place] [phone] Pcp:Suhail Ramos MD Subjective: * Chief Complaints: * * Medical History: Objective: * Vitals: Assessment: Plan: * Treatment: * Images: * The named appointment provid er may or may not be the originator of this progress note, and it is not deemed complete until electronically signed by the appointment provider. Sign off status: Pending * Provider: Wei Jung DPM Date: 11/12/2024 Generated for Corali ng/Farenettag/eTransmitting on: 01/25/2025 11:33 AM EDT
--- OUTSIDE RECORDS SUMMARY | 2024-11-23 06:43 | XMS_ITS ---
Author Organization Suhail Ramos III, MD Address [address] [facility] [place] [address] Support Name Relationship Address Phone MAXIMO CORRIGAN Caregiver [address] [facility] [place] [address] Octavia Richard Caregiver [address] [facility] [place] [address] TED BURCH Caregiver [address] [place], [place] [phone] ASHLYN CONTI Caregiver [address] [place], [place] [phone] [employer] NUTR[employer], SERVICES Caregiver [address] [place] [address] Suhail Ramos Caregiver [address] [place] [address] [place] [address] NAM AYALA Emergency Contact [address] [place] [phone] Sylvie Ayala Guarantor Unknown [phone] Care Team Providers Care Ring Rolling Machine Operator Name Role Phone Suhail Ramos Primary Care Provider Reason For Referral Reason neuropathy Diagnosis 1 Type 2 diabetes yaritza itus without complication, without long-term current use of insulin (E11.9) Diagnosis 2 Neuropathy (G62.9) Referral Organization Suhail Ramos III, MD Referring Provider First Name Suhail Referring Provider Last Name Rachel Referring Provider Speciality Internal M edicine Referred Provider Naren Boyer Referred Provider Specialty Neurology General Notes Gladys Downs CMA 12/09 10:28:51 AM > I called Dr Boyer office at [phone] made patient appt for 12/30/2024 at 12 noon at [address] [facility] pt called and mailed this appt information. also ref/demo/progress note from Dr Ramos and Dr. Jung faxed to Dr Boyer office today Referral Priority Routine Referral Appointment Date 12/30/2024 REASON FOR VISIT Message Social History Sex Assigned At : Social History Observation Description Sex Assigned At Female Encounters Encounter Location Date Provider Diagnosis Suhail Ramos III, MD [address] [place] [address] [place] [address] 11/23/2024 Suhail Ramos Plan Of Treatment Referrals Referral Date Details 12/07/2024 12/07/2024, neuropat hy, Naren Boyer Next Appt Details Provider Name:Suhail Ramos, 02/05/2025 11:00:00 AM, [address] [place] [address] [address], [place], [address], Provider Name:Suhail Ramos, 07/12/2025 02:00:00 PM, [address] [place] [address] [address], [place], [address], Progress Notes * Sylvie AYALADOB:1955 (69 yo F)Acc No.[id number]:11/23/2024 Patient: Sylvie CRABTREE :1955 A ge:69 Y S ex:Female Address:[address] [place] [phone] Subjective: * Chief Complaints: * M essage * Medical History: * Surgical History: * Hospitalization/Major Diagno stic Procedure: * Medications: Objective: * Vitals: * Physical Examination: Assessment: Plan: * Treatment: * Procedure Codes: * true * Date: Generated for Printi ng/Faxing/eTransmitting on: 0 01/25/2025 11:33 AM EDT Consultation Request Notes Referral Date Referring Provider Referred Provider Not es 12/07/2024 Suhail Ramos, Naren neuropathy
--- OUTSIDE RECORDS SUMMARY | 2025-01-24 23:59 | XMS_ITS | Continuity of Care Document ---
Author Organization [facility] Address [address] [place] [address]- Care Team Providers Care Pharmaceutical Worker Name Role Phone Rachel ARIAS, Suhail Copeland Primary Care Physician [phone] Encounter [facility] Date(s): 12/25/24 - 01/24/25 [facility]PERATOR Oncology [address] [place] [id number] Encounter Type: Triage Allergies, Adverse Reactions, Alerts No Known Medication Allergies Medications atenolol 100 mg oral tablet 1 tablet = 100 mg, By Mouth, Daily, # 30 tablet, 0 Refills, Maintenance, 11/16/22 3:32:00 PM EDT, Tablet, Partial fill upon patient request if the prescription is for a schedule II opioid drug. Start Date: 11/16/22 Stop Date: 11/16/22 Status: Ordered Quantity: 30.0 Unit: tablet Repeat number: 1 ezetimibe 10 mg oral tablet 1 tablet = 10 mg, By Mouth, Daily, # 30 tablet, 0 Refills, Maintenance, 09/14/24 2:18:00 PM EST, Tablet, Partial fill upon patient request if the prescription is for a schedule II opioid drug. Start Date: 09/14/24 Status: Ordered Quantity: 30.0 Unit: tablet Repeat number: 1 hydrochlorothiazide 25 mg oral tablet 1/2 tablet, By Mouth, Daily, # 30 tablet, Refills 0, Maintenance, 11/16/22 3:35:00 PM EDT, Partial fill upon patient request if the prescription is for a schedule II opioid drug. Start Date: 11/16/22 Stop Date: 11/15/22 Status: Ordered Quantity: 30.0 Unit: tablet Repeat number: 1 Lipitor 80 mg oral tablet 1 tablet = 80 mg, By Mouth, Daily, # 90 tablet, 0 Refills, Maintenance, 11/18/22 2:19:00 PM EDT, Tablet, [facility], Partial fill upon patient request if the prescription is for a schedule II opioid drug., 160.02, cm, 11/18/22 12:18:00 EDT, Height, 81.5, kg, 11/16/22 15:51:00 EDT, Dry Weight Start Date: 11/18/22 Status: Ordered Quantity: 90.0 Unit: tablet Repeat number: 1 meclizine 25 mg oral tablet See Instructions, PRN as needed for dizziness, 1 tablet By Mouth daily as needed, 0 Refills, Maintenance, 11/16/22 3:33:00 PM EDT, Tablet, Partial fill upon patient request if the prescription is for a schedule II opioid drug. Start Date: 11/16/22 Status: Ordered Repeat number: 1 Plavix 75 mg oral tablet 75 mg, 1, tablet, By Mouth, Daily, # 30 tablet, Refills 5, Tot. Refills 5, Maintenance, 11/22/22 3:27:00 PM EDT, Route to Pharmacy Electronically, [facility], Partial fill upon patient request if the prescription is for a schedule II opioid drug., 160, cm, 11/22/22 11:49:00 EDT, Height,83.6, kg, 11/22/22 1:51:00 EDT, Dry Weight Start Date: 11/22/22 Stop Date: 05/21/23 Status: Ordered Quantity: 30.0 Unit: tablet Repeat number: 6 Readi-Cat 2 Smoothie Mendoza 2% oral suspension See Instructions, If scan in Am drink 1 bottle before bed and 2nd bottle 90 min before the scan If scan after 12PM drink 1 bottle at 8am and 2nd bottle 90 min before scan If scan after 4pm drink 1 bottle 6 hours before the scan and 2nd bottle 90 min before scan, # 900 mL, 0 Refills, Maintenance, 01/07/25 8:57:00 AM EDT, [facility], Partial fill upon patient request if the prescription is for a schedule II opioid drug., If scan in Am drink 1 bottle before bed and 2nd bottle 90 min before the scan; If scan after 12PM drink 1 bottle at 8am and 2nd bottle 90 min before scan; If scan after 4pm drink 1 bottle 6 hours before the scan and 2nd bottle 90 min before scan, 160, cm, 01/05/25 13:06:00 EDT, Height, 89, kg, 01/05/25 13:06:00 EDT, Dry Weight Start Date: 01/07/25 Status: Ordered Quantity: 900.0 Unit: mL Repeat number: 1 Problem List Condition Confirmation Course Effective Dates Status H ealth Status Informant Diverticulosis Confirmed Active Hyperlipidemia Confirmed Active Hypertension Confirmed Active Non-Djiboutian speaking patient Confirmed Active Lichen sclerosus Confirmed Active STEMI (ST elevation myocardial infarction) Confirmed Active Obese class I Confirmed Active Fibroid uterus Confirmed Active Social History Social History Type Response Smoking Status Never (less than 100 in lifetime) entered on: 09/14/24 Sex Sex Representation Female (finding) Patient Care team information Care Team Personnel Name: Suhail Ramos MD Position: [facility] Physician - Oncology Member Role: PCP Address: [address] [place] [address] [place], [place] [address]Stefany Ramos III, [place], [place] [address] Telecom: Name: Sweta Davidson RN Position: [facility] RN Member Role: Primary Care Nurse Name: Rhoda Nugent RN Position: [facility] RN Member Role: Primary Care Nurse Care Team Related Persons Name: GAUTAM DARLING Insurance Providers Guarantor name: DUDLEY DARLING Health Plan Information #: 1 Payer: [employer] ADV PPO Payer Identifier: KENNETH Member Number: [id number] Group Number: [id number] Subscriber Identifier: [id number] Relationship to Subscriber: self Coverage Type: Medicare PPO Coverage Verification Date: Telecom: NA Address:
--- NOTE | 2025-01-25 | EMG_ITS ---
Please see the attached neurophysiology report MTDD
== END 2025-01-25 10:41 | disposition home or self-care (01) ==
LOC: HO.NEURO 10:40
PROVIDERS: PCP Internal Medicine Medical Oncology; Visit Provider Psychiatry & Neurology Neurology
DX: R20.0 Anesthesia of skin (principal); G62.9 Polyneuropathy, unspecified
CPT/HCPCS: 95886; 95913

== ENCOUNTER → 2025-01-25 11:00 | Outpatient (BNV) | payer MEDICARE, SELFPAY ==
[2023-07-03 10:14] VITALS: BP 104/68; BP 116/60; BP 122/80; BMI 33.0
== END ==
PROVIDERS: PCP Internal Medicine Medical Oncology; Visit Provider Psychiatry & Neurology Neurology
DX: R20.2 Paresthesia of skin (principal)
CPT/HCPCS: 95886; 95913

== ENCOUNTER 2025-01-26 07:33 | Outpatient (REF) | payer MEDICARE, SELFPAY ==
[2023-07-03 10:14] VITALS: BP 104/68; BP 116/60; BP 122/80; BMI 33.0
--- OUTSIDE RECORDS SUMMARY | 2024-11-12 10:30 | XMS_ITS ---
Author Organization [facility] Address [address] [place] [address] Care Team Providers Care Instrumentation Supervisor Name Role Phone Rachel ARIAS, Suhial Primary Care Provider Unavailab Vianney Shane Unavailable [phone] Encounters Encounter Location Date [facility] [address] 11/12/2024 Vianney Jung Plan Of Treatment Next Appt Details Provider Name:Vianney mancilla, 05/27/2025 10:00:00 AM, [address] [place] [address], [phone], Progress Notes * Sylvie AYALADOB:1955 (69 yo F)Acc No.[id number]:11/12/2024 Progress Note Patient: Sylvie CRABTREE Provider: Wei Jung DPM :1955 A ge:69 Y S ex:Female Date:11/12/2024 Address:[address] [place], [place] [phone] Pcp:Suhail Ramos MD Subjective: * Chief Complaints: [...] Jung DPM Date: 11/12/2024 Generated for Printi ng/Farenettag/eTransmitting on: 01/26/2025 07:35 AM EDT
--- OUTSIDE RECORDS SUMMARY | 2024-11-23 06:43 | XMS_ITS ---
Author Organization Suhail Ramos III, MD Address [address] [place] [address] Support Name Relationship Address Phone MAXIMO CORRIGAN Caregiver [address] [place] [address] Octavia Richard Caregiver [address] [place] [address] TED BURCH Caregiver [address] [place], [place] [phone] ASHLYN CONTI Caregiver [address] [place], [place] [phone] PYRAMID NUTRITION, SERVICES Caregiver [address] [place] [address] Suhail Ramos Caregiver [address] [place] [address] [place] [address] NAM AYALA Emergency Contact [address] [place] [phone] Sylvie Ayala Guarantor Unknown [phone] Care Team Providers Care Placement Manager Name Role Phone Suhail Ramos Primary Care Provider [phone] Reason For Referral Reason neuropathy Diagnosis 1 [...] > I called Dr Boyer office at [phone] made patient appt for 12/30/2024 at 12 noon at [address] [facility] pt called and mailed this appt information. also ref/demo/progress note from Dr Ramos and Dr. Jung faxed to Dr Boyer office today Referral Priority Routine Referral Appointment Date 12/30/2024 REASON FOR VISIT Message Social History Sex Assigned At : Social History Observation Description Sex Assigned At Female Encounters Encounter Location Date Provider Diagnosis Suhail Ramos III, MD [address] [place] [address] [place] [address] 11/23/2024 Suhail Ramos Plan Of Treatment Referrals Referral Date Details 12/07/2024 12/07/2024, neuropat hy, Naren Boyer Next Appt Details Provider Name:Suhail Ramos, 02/05/2025 11:00:00 AM, [address] [place] [address] SOL[address] SANTO, [place], [address], Provider Name:Suhail Ramos, 07/12/2025 02:00:00 PM, [address] [place] [address] SOL[address] SANTO, J[place]I PATEL, [address], Progress Notes * Sylvie AYALADOB:1955 (69 yo F)Acc No.[id number]:11/23/2024 Patient: Sylvie CRABTREE :1955 A ge:69 Y S ex:Female Address:[address] [place] [phone] Subjective: * Chief Complaints: * M essage * Medical History: * Surgical History: * Hospitalization/Major Diagno stic Procedure: * Medications: Objective: * Vitals: * Physical Examination: Assessment: Plan: * Treatment: * Procedure Codes: * true * Date: Generated for Printi ng/Faxing/eTransmitting on: 0 01/26/2025 07:35 AM EDT Consultation Request Notes Referral Date Referring Provider Referred Provider Not es 12/07/2024 Suhail Ramos, Naren neuropathy
[2025-01-26 07:44] LABS: MANUAL DIFF FLAG NO
[2025-01-26 08:35] LABS: Hematocrit 42.7 % (37.0-47.0); Hemoglobin 15.1 g/dl (12.0-16.0); Imm Gran Abs Auto 0.00 X10*3/uL (0.00-0.03); Imm Gran Pct Auto 0.0 % (0.0-0.4); Lymphocytes Absolute Auto 2.2 X10*3/uL (1.2-4.9); Mean Corpuscular HGB Conc 35.4 g/dl (31.0-35.0); Mean Corpuscular Hemoglobin 31.9 pg (27.0-33.0); Mean Corpuscular Volume 90.3 fL (80.0-98.0); NRBC Abs Auto 0.000 X10*3/uL (0.0-0.012); NRBC Pct Auto 0.0 /100WBC (0.0-0.2); Platelet Count 181 X10*3/uL (160-400); Red Blood Count 4.73 X10*6/uL (4.20-5.50); White Blood Count 5.4 X10*3/uL (4.8-10.8)
[2025-01-26 08:40] LABS: Hemoglobin A1C 188.4437 umol/L; Total Hemoglobin (HGBA1C) 3999.1563 umol/L
[2025-01-26 09:09] LABS: Alanine Aminotransferase 42 U/L (0-31); Albumin Level 4.4 g/dL (3.5-5.0); Alkaline Phosphatase 72 U/L (39-117); Anion Gap 13 (12-20); Aspartate Amino Transferase 34 U/L (5-31); Blood Urea Nitrogen 17 mg/dL (9-16); Calcium 9.3 mg/dL (8.4-10.2); Carbon Dioxide 26 mmol/L (22-29); Chloride 105 mmol/L (96-108); Cholesterol 120 mg/dL (<200); Estimated Glomerular Filt Rate > 60; HDL Cholesterol 34 mg/dL (>40); Potassium 3.9 mmol/L (3.3-5.1); Sodium 140 mmol/L (135-145); Total Protein 7.1 g/dL (6.5-8.0); Triglycerides 118 mg/dL (<150)
[2025-01-26 09:40] LABS: Microalbum/Creatinine Ratio Ur 9.1 ug/mg cr (<30)
== END 2025-01-26 07:34 | disposition home or self-care (01) ==
LOC: HO.LAB 07:33
PROVIDERS: PCP Internal Medicine Medical Oncology; Visit Provider Internal Medicine Medical Oncology
DX: I10 Essential (primary) hypertension (principal); E78.5 Hyperlipidemia, unspecified; E66.9 Obesity, unspecified; R73.03 Prediabetes
CPT/HCPCS: 36415; 80053; 80061; 82043; 82570; 83036; 85025

== ENCOUNTER 2025-02-09 10:52 | Outpatient (AMB) | payer MEDICARE, SELFPAY ==
[2023-07-03 10:14] VITALS: BP 104/68; BP 116/60; BP 122/80; BMI 33.0
--- OUTSIDE RECORDS SUMMARY | 2024-11-12 10:30 | XMS_ITS ---
Author Organization [facility] Address [address] [place] [address] Care Team Providers Care High School Football Coach Name Role Phone Rachel ARIAS, Suhail Primary Care Provider Unavailab Vianney Shane Unavailable [phone] Encounters Encounter Location Date Provider Diagnosis [facility] [address] 11/12/2024 Vianney Jung Plan Of Treatment Next Appt Details Provider Name:Vianney mancilla, 05/27/2025 10:00:00 AM, [address] [place] [address], [address], Progress Notes * Sylvie AYALADOB:1955 (69 yo F)Acc No.[id number]:11/12/2024 Progress Note Patient: Sylvie CRABTREE Provider: Wei Jung DPM :1955 A ge:69 Y S ex:Female Date:11/12/2024 Address:[address] [place], [place] [phone] Pcp:Suhail Ramos MD Subjective: * Chief Complaints: * * Medical History: Objective: * Vitals: Assessment: Plan: * Treatment: * Images: * The named appointment provid er may or may not be the originator of this progress note, and it is not deemed complete until electronically signed by the appointment provider. Sign off status: Pending * Provider: Wei Jung DPM Date: 11/12/2024 Generated for Printi ng/Faxing/eTransmitting on: 02/09/2025 12:08 PM EDT
--- OUTSIDE RECORDS SUMMARY | 2025-02-05 07:00 | XMS_ITS ---
Author Organization Suhail Ramos III, MD Address [address] [place] [address] [place] [address] Support Name Relationship Address Phone MAXIMO CORRIGAN Caregiver [address] [place] [address] [place] [address] Octavia Richard Caregiver [address] [place] [address] [place] [address] TED BURCH Caregiver [address] [place], [place] [phone] ASHLYN CONTI Caregiver [address], [place] [phone] [employer] Caregiver [address] [place] [address] Suhail Ramos Caregiver [address] [place] [address] [place] [address] NAM AYALA Emergency Contact [address] [place] [phone] Sylvie Ayala Guarantor Unknown [phone] Care Team Providers Care Cotton Chopper Name Role Phone Suhail Ramos Primary Care Provider [phone] Allergies Allergen (clinical drug ingredient) Drug/Non Drug Allergy documented on EMR Reaction Allergy Type Onset Date Status No Known Drug Allergy Unknown Drug Allergy Active REASON FOR VISIT Hypertension, Hyperlipidemia, Obesity, Coronary artery disease, Diabetes, For referral Alexandra neuropathy Medications Medication SIG (Take, Route, Frequency, Duration) Notes Start Date End Date Status Gabapentin 300 MG TAKE 1 CAPSULE BY MO UTH THREE TIMES DAILY Oral Active Clopidogrel Bisulfate 75 MG TAKE 1 TABLE T BY MOUTH EVERY DAY Orally Once a day Active Atenolol 100 MG TAKE 1 TABLET BY EDOUARD TH ONCE DAILY Active Meclizine HCl 25 MG TAKE 1 TABLET BY EDOUARD TH 3 TIMES DAILY NEEDED Active Ezetimibe 10 MG TAKE 1 TABLET BY EDOUARD TH DAILY Oral Active Atorvastatin Calcium 80 MG TAKE 1 TABLET BY MOUTH EVERY DAY Active hydroCHLOROthiazide 25 MG 1 tablet in th e morning Orally Once a day 12/27/2023 Active Social History Tobacco Use: Social History Observation Description Date Details (start date - stop date) Never Smoker NA - NA Sex Assigned At : Social History Observation Description Sex Assigned At Female Tobacco Control (Standard) Question Answer Notes Tobacco use: Nonsmoker Additional Findings: Tobacco non-user Aggressive nonsmoker Vital Signs Temperature 97.2 degrees Fahrenheit 02/06/20 25 Blood pressure systolic 136 mm Hg 02/06/20 25 Blood pressure diastolic 80 mm Hg 025 Heart Rate 59 /min 02/05/2025 Height 63 in 02/05/2025 Weight 194 lbs 02/05/2025 BMI 34.36 kg/m2 02/05/2025 Encounters Encounter Location Date Provider Diagnosis Suhail Ramos III, MD [address] [place] [address] [place] [address] 02/05/2025 Suhail Ramos Obesity E66.9 ; Kieran nary artery disease involving [place] coronary artery of [place] heart without angina pectoris I25.10 ; Hypertension I10 ; Hyperlipidemia E78.5 ; Hyperglycemia R73.9 ; Neutropenia D70.9 ; Myocardial infarction, unspecified HI type, unspecified artery I21.9 and Neuropathy G62.9 Assessments Encounter Date Diagnosis (ICD Code) Assessment Notes Treat ment Notes Treatment Clinical Notes 02/05/2025 Obesity (ICD-10 - E66.9) She has lost 3 pounds and weighs 196. Her body mass index is 34.7. We reviewed her weight loss strategy in detail. 02/05/2025 Coronary artery disease involving [place] coronary artery of [place] heart without angina pectoris (ICD-10 - I25.10) She had a recent nonSTEMI and has recovered well after her cardiac catheterization. She is being managed medically. She has had no chest pain recently. If the angina returns or becomes unstable. She is a candidate for bypass surgery.She has had no angina since her last visit. 02/05/2025 Hypertension (ICD-10 - I10) Her blood pressure is currenntly stable and no change in her regimen is necessary. I strongly recommended aggressive sodium restriction and weight loss. 02/05/2025 Hyperlipidemia (ICD-10 - E78.5) Her current fasting lipid profile shows good control of her lipids in the target range. Her lipids have been stable and no change in her regimen was made today. We discussed her diet.Her total cholesterol was 135. 02/05/2025 Hyperglycemia (ICD-1 0 - R73.9) Her hemoglobin A1c was normal, which is an improvement. We discussed prediabetes today. I recommended aggressive weight loss and a healthy diet low in concentrated sweets and carbohydrates.Her current fasting glucose is 129. She is currently controlled with diet. She has gained 4 pounds. She will lose weight at a rate of one half of a pound per week. 02/05/2025 Neutropenia (ICD-10 - D70.9) The white blood cell count is now 4900 which is in the normal range. 02/05/2025 Myocardial infarction, unspecified HI type, unspecified artery (ICD-10 - I21.9) She has had no exertional chest pain. She has been compliant with her medications. She is up-to-date with cardiology. 02/05/2025 Neuropathy (ICD-10 - G62.9) The nerve conduction study demonstrates a neuropathy. A follow-up with neurology is pending. Plan Of Treatment Medication Medication Name Sig Start Date Stop Date Notes Gabapentin 300 MG TAKE 1 CAPSULE BY MO UTH THREE TIMES DAILY Oral Clopidogrel Bisulfate 75 MG TAKE 1 TABLE T BY MOUTH EVERY DAY Orally Once a day Atenolol 100 MG TAKE 1 TABLET BY EDOUARD TH ONCE DAILY Meclizine HCl 25 MG TAKE 1 TABLET BY EDOUARD TH 3 TIMES DAILY NEEDED Ezetimibe 10 MG TAKE 1 TABLET BY EDOUARD TH DAILY Oral Atorvastatin Calcium 80 MG TAKE 1 TABLET BY MOUTH EVERY DAY hydroCHLOROthiazide 25 MG 1 tablet in th e morning Orally Once a day 12/27/2023 Pending Test Test Name Order Date PROFILE, FASTING (COMPREHENSIVE METABOLI C) 02/05/2025 CBC w DIFF 02/05/2025 Lipid Panel 02/05/2025 Microalbumin, Random 02/05/2025 Hemoglobin A1c 02/05/2025 Next Appt Details Follow Up: 3 Months, Reason: OV Provider Name:Suhail Ramos, 05/10/2025 02:00:00 PM, [address] [place] [address] [address], [address], [place], [phone], Provider Name:Suhail Ramos, 07/12/2025 02:00:00 PM, [address] [place] [address] [address], [place], [address], Progress Notes * Sylvie AYALADOB:1955 (69 yo F)Acc No.[id number]:02/05/2025 Progress Notes Patient: Sylvie CRABTREE Provider: Joel Ramos MD :1955 A ge:69 Y S ex:Female Date:02/05/2025 Address:[address] [place] [address], [place] [id number] Subjective: * Chief Complaints: * H ypertensionHyperlipidemiaObesityCoronary artery diseaseDiabetesFor referral Alexandra neuropathy * HPI: C OVID-19 Screening: S he returns for medical management. She has had no further chest pain or shortness of breath. She has seen the neurologist because of complaints of tingling and numbness in her lower extremities. She has had a nerve conduction study that showed peripheral neuropathy. A follow-up visit with neurology is pending. Her blood work is unremarkable. Questions H ave you had any new onset fever, chills, cough, congestion, sore throat, shortness of breath, muscle aches? N o * ROS: G eneral/Constitutional: pain o nly normal aches and pains. C hills d enies.?Fatigue a dmits. F ever d enies. E NT: Decreased hearing d enies. R espiratory: Cough d enies. C ardiovascular: Chest pain with exertion d enies. D yspnea on exertion?denies. S hortness of breath d enies. G astrointestinal: Constipation o ccasional. D ecreased appetite d enies. D iarrhea d enies. H eartburn d enies. N ausea d enies. R ectal bleeding d enies. V omiting d enies. H ematology: bruising d enies. p etechiae d enies. S wollen glands n one have been noted. G enitourinary: Frequent urination d enies. M usculoskeletal: Muscle aches d enies. P ainful joints d enies. S ciatica d enies. W eakness d enies. S kin: Itching d enies. R kacy d enies. S kin lesion(s)?denies. N eurologic: Difficulty speaking d enies. D izziness d enies.?Headache d enies. L ow back pain d enies. P sychiatric: Depressed mood d enies. * Medical History: * Surgical History: e xcision fibroma tongue october 2009Cardiac stent placement 10/2022No history * Hospitalization/Major Diagno stic Procedure: D yspnea 11/21/2022No history * Family History: F ather: 60 yrs, head/neck cancer. M other: 62 yrs, heart related. S pouse: alive 57 yrs. 2 son(s) - healthy. . 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 She is a nonsmoker and has two sons, Trey and Yung. She was [place]. * Medications: T akingMeclizine HCl 25 MG Tablet TAKE 1 TABLET BY MOUTH 3 TIMES DAILY NEEDED Atorvastatin Calcium 80 MG Tablet TAKE 1 TABLET BY MOUTH EVERY DAY hydroCHLOROthiazide 25 MG Tablet 1 tablet in the morning Orally Once a day Ezetimibe 10 MG Tablet TAKE 1 TABLET BY MOUTH DAILY Oral Gabapentin 300 MG Capsule TAKE 1 CAPSULE BY MOUTH THREE TIMES DAILY Oral Atenolol 100 MG Tablet TAKE 1 TABLET BY MOUTH ONCE DAILY Clopidogrel Bisulfate 75 MG Tablet TAKE 1 TABLET BY MOUTH EVERY DAY Orally Once a day Medication List reviewed and reconciled with the patientTaking Meclizine HCl 25 MG Tablet TAKE 1 TABLET BY MOUTH 3 TIMES DAILY NEEDED Taking Atorvastatin Calcium 80 MG Tablet TAKE 1 TABLET BY MOUTH EVERY DAY Taking hydroCHLOROthiazide 25 MG Tablet 1 tablet in the morning Orally Once a day Taking Ezetimibe 10 MG Tablet TAKE 1 TABLET BY MOUTH DAILY Oral Taking Gabapentin 300 MG Capsule TAKE 1 CAPSULE BY MOUTH THREE TIMES DAILY Oral Taking Atenolol 100 MG Tablet TAKE 1 TABLET BY MOUTH ONCE DAILY Taking Clopidogrel Bisulfate 75 MG Tablet TAKE 1 TABLET BY MOUTH EVERY DAY Orally Once a day Medication List reviewed and reconciled with the patient * Allergies: N o Known Drug Allergyno[Allergies Verified] Objective: * Vitals: H t: 63, Wt:194, BMI:34.36, BP:136/80, HR:59, Temp:97.2, Ht-cm: 160.02, Wt-k. * P ast Orders: Lab:Hemoglobin A1c * Collection Date 01/26/2025 09/21/2024 09/20/2023 Collection Time 07:37 AM 08:54 AM 07:47 AM Order Date 01/26/2025 09/21/2024 09/20/2023 Hemoglobin A1c % 6.5 H (Ref Range: <6.0 %) 6.2 H (Ref Range: <6.0 %) 5.9 (Ref Range: <6.0 %) Estimated Average Glucose 140 (Ref Range: mg/dL) 131 (Ref Range: mg/dL) 123 (Ref Range: mg/dL) * Lab:Complete Blood Count Aut o Diff * Collection Date 01/26/2025 09/21/2024 06/26/2024 Collection Time 07:37 AM 08:54 AM 08:58 AM Order Date 01/26/2025 09/21/2024 06/26/2024 White Blood Count 5.4 (Ref Range: 4.8-10.8 X10*3/uL) 5.5 (Ref Range: 4.8-10.8 X10*3/uL) 5.3 (Ref Range: 4.8-10.8 X10*3/uL) Red Blood Count 4.73 (Ref Range: 4.20-5.50 X10*6/uL) 4.85 (Ref Range: 4.20-5.50 X10*6/uL) 4.81 (Ref Range: 4.20-5.50 X10*6/uL) Hemoglobin 15.1 (Ref Range: 12.0-16.0 g/dl) 15.5 (Ref Range: 12.0-16.0 g/dl) 15.6 (Ref Range: 12.0-16.0 g/dl) Hematocrit 42.7 (Ref Range: 37.0-47.0 %) 43.7 (Ref Range: 37.0-47.0 %) 43.0 (Ref Range: 37.0-47.0 %) Mean Corpuscular Volume 90.3 (Ref Range: 80.0-98.0 fL) 90.1 (Ref Range: 80.0-98.0 fL) 89.4 (Ref Range: 80.0-98.0 fL) Mean Corpuscular Hemoglobin 31.9 (Ref Range: 27.0-33.0 pg) 32.0 (Ref Range: 27.0-33.0 pg) 32.4 (Ref Range: 27.0-33.0 pg) Mean Corpuscular HGB Conc 35.4 H (Ref Range: 31.0-35.0 g/dl) 35.5 H (Ref Range: 31.0-35.0 g/dl) 36.3 H (Ref Range: 31.0-35.0 g/dl) Red Cell Distribution Width 12.1 (Ref Range: 11.0-16.0 %) 12.5 (Ref Range: 11.0-16.0 %) 11.8 (Ref Range: 11.0-16.0 %) Platelet Count 181 (Ref Range: 160-400 X10*3/uL) 192 (Ref Range: 160-400 X10*3/uL) 198 (Ref Range: 160-400 X10*3/uL) Mean Platelet Volume 11.8 (Ref Range: 9.4-12.3 fL) 11.9 (Ref Range: 9.4-12.3 fL) 11.3 (Ref Range: 9.4-12.3 fL) Neutrophils Percent Auto 48.3 (Ref Range: 45-73 %) 53.2 (Ref Range: 45-73 %) 54.3 (Ref Range: 45-73 %) Imm Gran Pct Auto 0.0 (Ref Range: 0.0-0.4 %) 0.2 (Ref Range: 0.0-0.4 %) 0.2 (Ref Range: 0.0-0.4 %) Lymphocytes Percent Auto 40.1 H (Ref Range: 20-40 %) 36.0 (Ref Range: 20-40 %) 35.1 (Ref Range: 20-40 %) Monocytes Percent Auto 8.8 (Ref Range: 2-11 %) 7.1 (Ref Range: 2-11 %) 7.8 (Ref Range: 2-11 %) Eosinophils Percent Auto 1.7 (Ref Range: 0-4 %) 2.2 (Ref Range: 0-4 %) 1.5 (Ref Range: 0-4 %) Basophils Percent Auto 1.1 (Ref Range: 0-2 %) 1.3 (Ref Range: 0-2 %) 1.1 (Ref Range: 0-2 %) NRBC Pct Auto 0.0 (Ref Range: 0.0-0.2 /100WBC) 0.0 (Ref Range: 0.0-0.2 /100WBC) 0.0 (Ref Range: 0.0-0.2 /100WBC) Neutrophils Absolute Auto 2.6 (Ref Range: 2.0-8.3 x10*3/uL) 3.0 (Ref Range: 2.0-8.3 x10*3/uL) 2.9 (Ref Range: 2.0-8.3 x10*3/uL) Imm Gran Abs Auto 0.00 (Ref Range: 0.00-0.03 X10*3/uL) 0.01 (Ref Range: 0.00-0.03 X10*3/uL) 0.01 (Ref Range: 0.00-0.03 X10*3/uL) Lymphocytes Absolute Auto 2.2 (Ref Range: 1.2-4.9 X10*3/uL) 2.0 (Ref Range: 1.2-4.9 X10*3/uL) 1.9 (Ref Range: 1.2-4.9 X10*3/uL) Monocytes Absolute Auto 0.5 (Ref Range: 0.1-1.2 X10*3/uL) 0.4 (Ref Range: [...] X10*3/uL) 0.000 (Ref Range: 0.0-0.012 X10*3/uL) * Lab:Dora Valenzuela. Elia l Fast * Collection Date 01/26/2025 09/21/2024 06/26/2024 Collection Time 07:37 AM 08:54 AM 08:58 AM Order Date 01/26/2025 09/21/2024 06/26/2024 Sodium 140 (Ref Range: 135-145 mmol/L) 142 (Ref Range: 135-145 mmol/L) 140 (Ref Range: 135-145 mmol/L) Bilirubin Total 1.0 (Ref Range: 0.0-1.0 mg/dL) 0.8 (Ref Range: 0.0-1.0 mg/dL) 0.7 (Ref Range: 0.0-1.0 mg/dL) Aspartate Amino Transferase 34 H (Ref Range: 5-31 U/L) 31 (Ref Range: 5-31 U/L) 41 H (Ref Range: 5-31 U/L) Alanine Aminotransferase 42 H (Ref Range: 0-31 U/L) 51 H (Ref Range: 0-31 U/L) 59 H (Ref Range: 0-31 U/L) Total Protein 7.1 (Ref Range: 6.5-8.0 g/dL) 7.8 (Ref Range: 6.5-8.0 g/dL) 7.6 (Ref Range: 6.5-8.0 g/dL) Albumin Level 4.4 (Ref Range: 3.5-5.0 g/dL) 4.3 (Ref Range: 3.5-5.0 g/dL) 4.3 (Ref Range: 3.5-5.0 g/dL) Alkaline Phosphatase 72 (Ref Range: 39-117 U/L) 70 (Ref Range: 39-117 U/L) 72 (Ref Range: 39-117 U/L) Potassium 3.9 (Ref Range: 3.3-5.1 mmol/L) 4.0 (Ref Range: 3.3-5.1 mmol/L) 3.4 (Ref Range: 3.3-5.1 mmol/L) Chloride 105 (Ref Range: 96-108 mmol/L) 105 (Ref Range: 96-108 mmol/L) 106 (Ref Range: 96-108 mmol/L) Carbon Dioxide 26 (Ref Range: 22-29 mmol/L) 27 (Ref Range: 22-29 mmol/L) 25 (Ref Range: 22-29 mmol/L) Anion Gap 13 (Ref Range: 12-20) 14 (Ref Range: 12-20) 12 (Ref Range: 12-20) Blood Urea Nitrogen 17 H (Ref Range: 9-16 mg/dL) 14 (Ref Range: 9-16 mg/dL) 13 (Ref Range: 9-16 mg/dL) Creatinine 0.73 (Ref Range: 0.5-1.4 mg/dL) 0.75 (Ref Range: 0.5-1.4 mg/dL) 0.70 (Ref Range: 0.5-1.4 mg/dL) Estimated Glomerular Filt Rate > 60 > 60 > 60 Glucose Fasting 134 H (Ref Range: 60-99 mg/dL) 125 H (Ref Range: 60-99 mg/dL) 134 H (Ref Range: 60-99 mg/dL) Calcium 9.3 (Ref Range: 8.4-10.2 mg/dL) 9.4 (Ref Range: 8.4-10.2 mg/dL) 9.8 (Ref Range: 8.4-10.2 mg/dL) * Lab:Lipid Panel * Collection Date 01/26/2025 09/21/2024 06/26/2024 Collection Time 07:37 AM 08:54 AM 08:58 AM Order Date 01/26/2025 09/21/2024 06/26/2024 Triglycerides 118 (Ref Range: <150 mg/dL) 123 (Ref Range: <150 mg/dL) 107 (Ref Range: <150 mg/dL) Cholesterol 120 (Ref Range: <200 mg/dL) 135 (Ref Range: <200 mg/dL) 162 (Ref Range: <200 mg/dL) LDL Cholesterol Calculated 63 (Ref Range: <100 mg/dL) 72 (Ref Range: <100 mg/dL) 103 H (Ref Range: <100 mg/dL) HDL Cholesterol 34 L (Ref Range: >40 mg/dL) 39 L (Ref Range: >40 mg/dL) 38 L (Ref Range: >40 mg/dL) ???Lab:Microalbumin, Random (Order Date - 01/26/2025) (Collection Date & Time - 01/26/2025 07:38 AM)?ValueReference Range?Creatinine Lwrov314.70- mg/dL?Microalbumin Urine12.0- mg/L?Microalbum Creatinine Ratio Ur 9.1<30 - ug/mg cr * Examination: G eneral Examination: GENERAL APPEARANCE: p paula, well nourished, well developed, in no acute distress, calm and relaxed, obese, woman. HEAD: a traumatic, normocephalic. EYES: e brant, perrla, anicteric, conjugate. EARS: n ormal. NOSE: s eptum intact. ORAL CAVITY: n ormal, unremarkable. NECK/THYROID: n o jugular venous distention, no carotid bruit, thyroid normal. LYMPH NODES: n o enlarged lymph nodes,spleen normal. SKIN: n o suspicious lesions, anicteric. HEART: n o clicks, gallops, murmurs, or rubs, regular rhythm, S1, S2 normal, no s3, or vascular bruits. LUNGS: c lear to auscultation . BREASTS: N ot examined. ABDOMEN: b owel sounds normal, no ascites, no organomegaly, no mass, centripital obesity. RECTAL EXAM: n ot examined. MUSCULOSKELETAL: e xtremities unremarkable, no clubbing, cyanosis or edema. PERIPHERAL PULSES: n ormal. NEUROLOGIC: a lert and oriented, cranial nerves 2-12 grossly intact, deep tendon reflexes 2+ symmetrical, motor strength normal upper and lower extremities, sensory exam intact. PSYCH: a lert, oriented. Assessment: * Assessment: 1. C oronary artery disease involving [place] coronary artery of [place] heart without angina pectoris - I25.10 (Primary) N otes :She had a recent nonSTEMI and has recovered well after her cardiac catheterization. She is being managed medically. She has had no chest pain recently. If the angina returns or becomes unstable. She is a candidate for bypass surgery.She has had no angina since her last visit. 2 . O besity - E66.9 N otes :She has lost 3 pounds and weighs 196. Her body mass index is 34.7. We reviewed her weight loss strategy in detail. 3 . H ypertension - I10 N otes :Her blood pressure is currenntly stable and no change in her regimen is necessary. I strongly recommended aggressive sodium restriction and weight loss. 4 . H yperlipidemia - E78.5 N otes :Her current fasting lipid profile shows good control of her lipids in the target range. Her lipids have been stable and no change in her regimen was made today. We discussed her diet.Her total cholesterol was 135. 5 . H yperglycemia - R73.9 N otes :Her hemoglobin A1c was normal, which is an improvement. We discussed prediabetes today. I recommended aggressive weight loss and a healthy diet low in concentrated sweets and carbohydrates.Her current fasting glucose is 129. She is currently controlled with diet. She has gained 4 pounds. She will lose weight at a rate of one half of a pound per week. 6 . N eutropenia - D70.9 N otes :The white blood cell count is now 4900 which is in the normal range. 7 . M yocardial infarction, unspecified HI type, unspecified artery - I21.9? Notes :She has had no exertional chest pain. She has been compliant with her medications. She is up-to-date with cardiology. 8 . N europathy - G62.9 N otes :The nerve conduction study demonstrates a neuropathy. A follow-up with neurology is pending. Plan: * Treatment: 2. H yperlipidemia Continue hydroCHLOROthiazide Tablet, 25 MG, 1 tablet in the morning, Orally, Once a day; C ontinue Ezetimibe Tablet, 10 MG, TAKE 1 TABLET BY MOUTH DAILY, Oral; C ontinue Gabapentin Capsule, 300 MG, TAKE 1 CAPSULE BY MOUTH THREE TIMES DAILY, Oral. L AB: PROFILE, FASTING (COMPREHENSIVE METABOLIC) L AB: CBC w DIFF L AB: Lipid Panel L AB: Microalbumin, Random L AB: Hemoglobin A1c 3. O thers Continue Clopidogrel Bisulfate Tablet, 75 MG, TAKE 1 TABLET BY MOUTH EVERY DAY, Orally, Once a day;?Continue Atenolol Tablet, 100 MG, TAKE 1 TABLET BY MOUTH ONCE DAILY; C ontinue Meclizine HCl Tablet, 25 MG, TAKE 1 TABLET BY MOUTH 3 TIMES DAILY NEEDED; C ontinue Atorvastatin Calcium Tablet, 80 MG, TAKE 1 TABLET BY MOUTH EVERY DAY. * Procedure Codes: * Preventive Medicine: Counseling: C are goal follow-up plan: Counseling for abnormal BMI given Y es Above Normal BMI Follow-up D ietary management education, guidance, and counseling, Dietary needs education, Exercise promotion: strength training, Exercise promotion: stretching, Feeding regime, Giving encouragement to exercise, Lifestyle education regarding diet, Nutrition / feeding management, Nutrition therapy, Prescribed activity/exercise education, Prescribed diet education, Prescribed dietary intake, Special diet education, Weight monitoring , Intervention, Order not done: Medical or Other reason not done DM Care Plan: P atient Lifestyle Goals P atient wants to have more education around DM, Patient wants to be able to manage diabetes without too much effort. T reatment Goals B lood Sugars less than < 115, HbA1C < 7.0. B arriers n o barriers. S elf-Managment Goals W ork on weight loss, with a goal of losing 1 lb per week. * Follow Up: 3 Months (Reason: OV) * Images: * Sign off status: Completed true * Provider: Joel Ramos MD Date: 02/05/2025 Generated for Ye thomas/Amalia/Souravitting on: 02/09/2025 12:08 PM EDT History and Physical Notes * HPI (History of Present Illness) Category Sub-Category Detail Notes COVID-19 Screening Questions Have you had any new onset fever, chills, cough, congestion, sore throat, shortness of breath, muscle aches?: No Examination Category Sub-Category Detail Notes General [...] lesion s, anicteric PERIPHERAL PULSES: normal BREASTS: Not examined MUSCULOSKELETAL: extremities unremark able, no clubbing, cyanosis or edema LYMPH NODES: no enlarged lymph no bhakti,spleen normal RECTAL EXAM: not examined PSYCH: alert, oriented ORAL CAVITY: normal, unremarkable
--- OUTSIDE RECORDS SUMMARY | 2025-02-06 23:59 | XMS_ITS | Continuity of Care Document ---
Author Organization [facility] ADMINISTRATIVE ASSISTANT Oncolog y Address [address] [place] [address]- Care Team Providers Care Grid Inspector Name Role Phone Rachel ARIAS, Suhail Copeland Primary Care Physician Encounter [facility] Date(s): 01/07/25 - 02/06/25 [facility] ADMINISTRATIVE ASSISTANT Oncology [address] [place] [id number] Encounter Type: Triage Allergies, Adverse Reactions, Alerts [...] Refills, Maintenance, 11/18/22 2:19:00 PM EDT, Tablet, [facility], Partial fill upon [...] 3:27:00 PM EDT, Route to Pharmacy Electronically, [facility], Partial fill upon [...] 0 Refills, Maintenance, 01/07/25 8:57:00 AM EDT, [facility], Partial fill upon [...] Active Hyperlipidemia Confirmed Active Hypertension Confirmed Active Non-Slovak speaking patient Confirmed Active Lichen sclerosus Confirmed Active STEMI (ST elevation myocardial infarction) Confirmed Active Obese class I Confirmed Active Fibroid uterus Confirmed Active Social History Social History Type Response Smoking Status Never (less than 100 in lifetime) entered on: 09/14/24 Sex Sex Representation Female (finding) Patient Care team information Care Team Personnel Name: Suhail Ramos MD Position: [facility] Physician - Oncology Member Role: PCP Address: [address] [place] [address] #[facility] Suhail Stefany Ramos III, [place], [place] [address] Telecom: Name: Sweta Davidson RN Position: [facility] RN Member Role: Primary Care Nurse Name: Rhoda Nugent RN Position: [facility] RN Member Role: Primary Care Nurse Care Team Related Persons Name: GAUTAM DARLING Insurance Providers Guarantor name: DUDLEYJULIO DARLING [facility] Information #: 1 Payer: [employer] ADV PPO Payer Identifier: KENNETH Member Number: [id number] Group Number: [id number] Subscriber Identifier: [id number] Relationship to Subscriber: self Coverage Type: Medicare PPO Coverage Verification Date: Telecom: NA Address:
--- NOTE | 2025-02-09 11:15 | A.OFFVIS_ITS ---
Intake Visit Reasons: results Allergies No Known Allergies Allergy (Mild, Verified 09/30/24 08:06) NKA Medication List - Last Reconciled 02/09/25 by Naren Boyer MD aspirin 1 tab PO DAILY atenolol mg PO DAILY atorvastatin 80 mg PO DAILY bisacodyl (Dulcolax (bisacodyl)) 20 mg (4 x 5 mg) PO ONCE 1 day clobetasol 0.05% 1 appl topical BID 2 weeks clopidogrel 75 mg PO DAILY ezetimibe 10 mg PO DAILY gabapentin mg PO 3XD hydrochlorothiazide 25 mg PO DAILY meclizine 25 mg PO TID PRN polyethylene glycol 3350 (Miralax) 238 grams PO ONCE HPI Comments Details: 69 yo woman with bilateral foot numbness and pain for couple of years. She had a heart attack around that time and she thought it was due to it. THis feeling was there every day but mostly at night. She did not notice much during daytime. Gabapentin was helping. This feeling was of burning type and affected soles of her feet. Her blood tests have repeatedly revealed fasting hyperglycemia. [facility] Medical History (Updated 02/09/25 @ 11:24 by Naren Boyer MD) Peripheral neuropathy STEMI (ST elevation myocardial infarction) Diverticulosis Right shoulder pain Left hip pain Hyperlipidemia Colonoscopy planned Vertigo Fibroma of tongue Back pain Elevated cholesterol HTN (hypertension) Surgical History History of cardiac cath History of dilatation and curettage Family History Mother Heart disease Father Throat cancer Social History Alcohol intake: never Patient Tobacco Use Status: Never used Tobacco Second Hand Smoke Exposure: Yes Female Reproductive History Menstrual Age of Menarche: 16 Review of Systems Const Details: Constitutional:?No fever, chills, fatigue, weight loss, or night sweats. HEENT:?No headache, vision changes, hearing loss, nasal congestion, sore throat. Neurological:?No dizziness, syncope, seizures, numbness, tingling, weakness, tr emors, memory loss. Psychiatric:?No anxiety, depression, mood swings, sleep disturbance, or hallucinations. Endocrine:?No heat/cold intolerance, polydipsia, polyuria, or hair/skin changes. Hematologic/Lymphatic:?No easy bruising, bleeding, or lymphadenopathy. Integumentary (Skin):?No rash, lesions, itching, or color changes. ? Physical Exam Neuro Other: Mental Status: Alert and oriented to person, place, and time. Normal attention. Normal spontaneous speech, fluency, and comprehension. No obvious issues with mood and memory. Affect is appropriate. Cranial Nerves: CN II: Visual rodriguez full to confrontation, visual acuity intact. CN III, IV, : Pupils equal, round, reactive to light and accommodation. Extraocular movements are normal. CN V: Facial sensation is normal. CN VII: Facial movements symmetrical. CN VIII: Hearing intact to bedside conversation is normal. CN IX, X: Palate elevates symmetrically. CN XI: Shoulder shrug and head turn symmetrical. CN XII: Tongue midline without atrophy or fasciculations. Extrapyramidal: Full facial expressions and blinking. No rigidity. Movements are appropriate with no tremor or abnormality. Speech: Normal; no dysarthria or tremor. Assessment & Plan Assessment & Plan (1) Small fiber neuropathy: Comment: EMG/NCS LEs at off in January 2025: WNL Code(s): G62.9 - Polyneuropathy, unspecified Category: Medical Plan Impression: Paresthesia of feet probably from small fiber neuropathy. Rec: a: May continue gabapentin 300mg one at night, as it affected her sleep b: Comfortable shoes with arch support c: Try to lose weight Coding Level of Care Code Tele New Pt Level 4 (40130) Diagnoses Small fiber neuropathy G62.9
== END 2025-02-09 12:14 | disposition home or self-care (01) ==
LOC: HO.HSM 10:52
PROVIDERS: PCP Internal Medicine Medical Oncology; Visit Provider Psychiatry & Neurology Neurology
DX: G62.9 Polyneuropathy, unspecified (principal)
CPT/HCPCS: 99214

== ENCOUNTER → 2025-02-09 10:52 | Outpatient (BNVA) | payer MEDICARE, SELFPAY ==
[2023-07-03 10:14] VITALS: BP 104/68; BP 116/60; BP 122/80; BMI 33.0
== END ==
PROVIDERS: PCP Internal Medicine Medical Oncology; Visit Provider Psychiatry & Neurology Neurology
DX: Z71.2 Person consulting for explanation of examination or test findings (principal); G62.9 Polyneuropathy, unspecified
CPT/HCPCS: 99212

== ENCOUNTER 2025-02-15 13:38 | Outpatient (AMB) | payer MEDICARE, SELFPAY ==
[2023-07-03 10:14] VITALS: BP 104/68; BP 116/60; BP 122/80; BMI 33.0
--- OUTSIDE RECORDS SUMMARY | 2024-11-12 10:30 | XMS_ITS ---
Author Organization [facility] Address [address] [place] [address] Care Team Providers Care Chief Accounting Officer Name Role Phone Rachel ARIAS, Suhail Primary Care Provider Unavailab Vianney Shane Unavailable [phone] Encounters Encounter Location Date [facility] [address] 11/12/2024 Vianney Jung Plan Of Treatment Next Appt Details Provider Name:Vianney mancilla, 05/27/2025 10:00:00 AM, [address] [place] [address], [phone], Progress Notes * Sylvie AYALADOB:1955 (69 yo F)Acc No.[id number]:11/12/2024 Progress Note Patient: Sylvie CRABTREE Provider: Wei Jung DPM :1955 A ge:69 Y S ex:Female Date:11/12/2024 Address:[address] [place], [place] [phone] Pcp:Suhail Ramos MD Subjective: * Chief Complaints: * * Medical History: Objective: * Vitals: Assessment: Plan: * Treatment: * Images: * The named appointment provid er may or may not be the originator of this progress note, and it is not deemed complete until electronically signed by the appointment provider. Sign off status: Pending * Provider: Wei Jnug DPM Date: 11/12/2024 Generated for Printi ng/Faxing/eTransmitting on: 02/15/2025 02:18 PM EDT
--- OUTSIDE RECORDS SUMMARY | 2025-02-05 07:00 | XMS_ITS ---
Author Organization Suhail Ramos III, MD Address [address] [place] [address] [place] [address] Support Name Relationship Address Phone MAXIMO CORRIGAN Caregiver [address] [place] [address] [place] [address] Octavia Richard Caregiver [address] [place] [address] [place] [address] TED BURCH Caregiver [address] [place], [place] [phone] ASHLYN CONTI Caregiver [address] [place], [place] [phone] [employer] Caregiver [address] [place] [address] Suhail Ramos Caregiver [address] [place] [address] [place] [address] NAM AYALA Emergency Contact [address] [place] [address] [phone] Sylvie Ayala Guarantor Unknown [phone] Care Team Providers Care Home [facility] R[facility] Name Role Phone Suhail Ramos Primary Care Provider [phone] Allergies Allergen (clinical drug ingredient) Drug/Non Drug [...] Date Provider Diagnosis Suhail Ramos III, MD [address] [place] [address] [place] [address] 02/05/2025 Suhail Ramos Obesity E66.9 ; Kieran nary artery disease involving [place] coronary artery of [place] heart without angina pectoris I25.10 ; Hypertension I10 ; Hyperlipidemia E78.5 ; Hyperglycemia R73.9 ; Neutropenia D70.9 ; Myocardial infarction, unspecified [place] type, unspecified artery I21.9 and Neuropathy G62.9 Assessments Encounter Date Diagnosis (ICD Code) Assessment Notes Treat ment Notes Treatment Clinical Notes 02/05/2025 Obesity (ICD-10 - E66.9) She has lost 3 pounds and weighs 196. Her body mass index is 34.7. We reviewed her weight loss strategy in detail. 02/05/2025 Coronary artery disease involving [place] coronary artery of nightmute heart without angina pectoris (ICD-10 - I25.10) [...] the normal range. 02/05/2025 Myocardial infarction, unspecified WI type, unspecified artery (ICD-10 - I21.9) She [...] OV Provider Name:Suhail Ramos, 05/10/2025 02:00:00 PM, [address] [place] [address] [address], [address], [place], [phone], Provider Name:Suhail Ramos, 07/12/2025 02:00:00 PM, [address] [place] [address] [address], [place], [address], Progress Notes * Sylvie AYALADOB:1955 (69 yo F)Acc No.[id number]:02/05/2025 Progress Notes Patient: Sylvie CRABTREE Provider: Joel Ramos MD :1955 A ge:69 Y S ex:Female Date:02/05/2025 Address:[address] [place] [address], [place] [id number] Subjective: * Chief Complaints: * H ypertensionHyperlipidemiaObesityCoronary artery diseaseDiabetesFor referral Alexanrda neuropathy * HPI: C OVID-19 Screening: S [...] ggressive nonsmoker 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 She is a nonsmoker and has two [...] & Time - 01/26/2025 07:38 AM)?ValueReference Range?Creatinine Pfkxf968.70- mg/dL?Microalbumin Urine12.0- mg/L?Microalbum Creatinine Ratio Ur 9.1<30 [...] Assessment: 1. C oronary artery disease involving [place] coronary artery of [place] heart without angina pectoris - I25.10 (Primary) [...] range. 7 . M yocardial infarction, unspecified [place] type, unspecified artery - I21.9? Notes :She [...] Date: 02/05/2025 Generated for Ye thomas/Amalia/Souravitting on: 02/15/2025 02:18 PM EDT History and Physical Notes * [...]
[2025-02-15 13:56] VITALS: BP 134/82; PULSE 60; BMI 34.5
--- NOTE | 2025-02-15 13:56 | MHC.OFFVIS ---
Vital Signs 02/15/25 13:56 Height 5 ft 3 in Weight 194 lb 14.218 oz BMI 34.5 BP 134/82 Blood Pressure Location Lt brachial Position Sitting Pulse 60 Pulse Source Monitor Intake Visit Reasons: 6m fu/ preop colonoscopy Handwriting Expert Required: No Allergies No Known Allergies Allergy (Mild, Verified 02/15/25 13:58) NKA Medication List - Last Reconciled 02/15/25 by Dalton Vazquez MD atenolol mg PO DAILY atorvastatin 80 mg PO DAILY clobetasol 0.05% 1 appl topical BID 2 weeks clopidogrel 75 mg PO DAILY ezetimibe 10 mg PO DAILY gabapentin mg PO 3XD hydrochlorothiazide 25 mg PO DAILY meclizine 25 mg PO TID PRN HPI Comments Details: Pleasant 69 year female who is here for follow-up. She was seen in [facility] for NSTEMI and was transferred cardiac catheterization. Cardiac catheterization shows severe diagonal and LAD stenosis. Lad had diffuse segment of 70% stenosis. Diagonal 1 was a large size branch and had severe stenosis and was culprit for NSTEMI. We decided to treat the diagonal artery and medically treat the LAD. She did fine after that and was discharged home. Subsequently she went back to [facility] with dyspnea and this was thought to be a side effect of Brilinta and she was changed to Plavix. Since then she has done well and has no symptoms. No bleeding concerns. Taking medications regularly. 05/08/2023: She returns for follow-up. She has been doing cardiac rehabilitation and has not had any significant symptoms there. She had severe LAD stenosis which was medically treated previously. Diagonal was stented as culprit. She is tolerating dual antiplatelet therapy. No bleeding concerns currently. 09/25/23: She returns for follow-up. She has been doing well from cardiovascular point of view. She has no chest discomfort shortness breath and has been physically active. She is saying that with activity she has no symptoms but at night when she laid down she gets very cold feet and tingling in her feet. He is not diabetic and does not have any history of alcohol use. 02/05/24: She is here for follow-up. Again complaining of some paresthesia in her feet. Denying any chest discomfort. 08/17/2024: She is here for follow-up. No exertional symptoms on follow-up. She walks daily. Taking medications regularly. 02/15/2025: She is here for follow-up. She has been doing well from cardiovascular point of view. She is in need of surgery for uterine fibroids and we will also need a colonoscopy by July 2025. She is on Plavix currently. She has been told that her Plavix has to be held before the surgery for uterine fibroids. No bleeding reported by the patient. [facility] Medical History (Updated 02/15/25 @ 14:02 by Dalton Vazquez MD) Peripheral neuropathy STEMI (ST elevation myocardial infarction) Diverticulosis Right shoulder pain Left hip pain Hyperlipidemia Colonoscopy planned Vertigo Fibroma of tongue Back pain Elevated cholesterol HTN (hypertension) Surgical History History of cardiac cath History of dilatation and curettage Family History Mother Heart disease Father Throat cancer Social History Alcohol intake: never Patient Tobacco Use Status: Never used Tobacco Second Hand Smoke Exposure: Yes Female Reproductive History Menstrual Age of Menarche: 16 Review of Systems ENT Reports dizziness Card Denies chest pain, Denies chest pain at rest, Denies chest pain with activity, Denies rapid heart rate, Denies pedal edema, Denies edema, Denies leg edema, Denies lightheadedness, Denies palpitations, Denies dyspnea, Denies dyspnea on exertion and Denies orthopnea Resp Denies cough, Denies dyspnea and Denies dyspnea on exertion GI Denies hematochezia and Denies change in stool character Musc Denies abnormal gait, Reports limited range of motion, Reports muscle cramps, Denies muscle weakness, Denies numbness, Denies radiating pain into limb, Denies stiffness and Denies tingling Neuro Denies abnormal gait, Reports dizziness, Denies numbness and Denies tingling Endo Denies palpitations Physical Exam Vital Signs: BMI result Body Mass Index 34.5 GENERAL APPEARANCE: in no acute distress, pleasant. NECK: no carotid bruit, no jugular venous distention. SKIN: no suspicious lesions, warm and dry. HEART: no murmurs, regular rate and rhythm. LUNGS: clear to auscultation bilaterally. ABDOMEN: soft, nontender. EXTREMITIES: no edema. PERIPHERAL PULSES: equal. NEUROLOGIC: No gross deficits, AAO X 3 Office Procedures EKG Details: Sinus rhythm 60 beats per minute, normal axis, normal ECG, QTC 450 milliseconds [id number], Complete Assessment & Plan Assessment & Plan (1) Stable angina: Code(s): I20.8 - Other forms of angina pectoris Category: Medical (2) Preop cardiovascular exam: Code(s): Z01.810 - Encounter for preprocedural cardiovascular examination Category: Medical Plan [age] year female who is presenting for follow-up. She has known history of coronary disease with diffuse LAD stenosis and severe diagonal stenosis which was culprit for NSTEMI. She underwent PCI to diagonal and LAD was medically managed. After 1 year we stopped the aspirin and left total Plavix monotherapy due to residual coronary artery disease. Blood pressure is well controlled. She does not have any anginal symptoms on follow-up today. She will need surgery for uterine fibroid. I think she can hold the Plavix for few days before that. Once she goes for colonoscopy and Plavix is her she should take baby aspirin at that time and should have colonoscopy while taking baby aspirin. She is intermediate risk for both procedures. Follow-up in few months. Thank you for allowing me to participate in the care of your patient. Please feel free to contact me if you have any questions. Coding Level of Care Code Est Pt Level 4 (58021) Diagnoses Stable angina I20.8 Preop cardiovascular exam Z01.810 CPT Codes EKG - CPT: 42297-[id number], Complete ([id number])
== END 2025-02-15 14:48 | disposition home or self-care (01) ==
LOC: HO.HCS 13:38
PROVIDERS: PCP Internal Medicine Medical Oncology; Visit Provider Internal Medicine Cardiovascular Disease
DX: I20.89 Other forms of angina pectoris (principal); Z01.810 Encounter for preprocedural cardiovascular examination
CPT/HCPCS: 93010; 99214

== ENCOUNTER → 2025-02-15 13:38 | Outpatient (BNVA) | payer MEDICARE, SELFPAY ==
[2023-07-03 10:14] VITALS: BP 104/68; BP 116/60; BP 122/80; BMI 33.0
== END ==
PROVIDERS: PCP Internal Medicine Medical Oncology; Visit Provider Internal Medicine Cardiovascular Disease
DX: Z01.810 Encounter for preprocedural cardiovascular examination (principal); I20.89 Other forms of angina pectoris
CPT/HCPCS: 93005; 99212

== ENCOUNTER 2025-04-28 07:35 | Outpatient (REF) | payer MEDICARE, SELFPAY ==
[2023-07-03 10:14] VITALS: BP 104/68; BP 116/60; BP 122/80; BMI 33.0
[2025-04-28 07:49] LABS: MANUAL DIFF FLAG NO
[2025-04-28 07:52] LABS: Hematocrit 42.2 % (37.0-47.0); Hemoglobin 15.1 g/dl (12.0-16.0); Imm Gran Abs Auto 0.01 X10*3/uL (0.00-0.03); Imm Gran Pct Auto 0.2 % (0.0-0.4); Lymphocytes Absolute Auto 2.2 X10*3/uL (1.2-4.9); Mean Corpuscular HGB Conc 35.8 g/dl (31.0-35.0); Mean Corpuscular Hemoglobin 32.0 pg (27.0-33.0); Mean Corpuscular Volume 89.4 fL (80.0-98.0); NRBC Abs Auto 0.000 X10*3/uL (0.0-0.012); NRBC Pct Auto 0.0 /100WBC (0.0-0.2); Platelet Count 221 X10*3/uL (160-400); Red Blood Count 4.72 X10*6/uL (4.20-5.50); White Blood Count 6.0 X10*3/uL (4.8-10.8)
[2025-04-28 08:07] LABS: Alanine Aminotransferase 52 U/L (0-31); Albumin Level 4.4 g/dL (3.5-5.0); Alkaline Phosphatase 72 U/L (39-117); Anion Gap 13 (12-20); Aspartate Amino Transferase 32 U/L (5-31); Blood Urea Nitrogen 13 mg/dL (9-16); Calcium 9.4 mg/dL (8.4-10.2); Carbon Dioxide 27 mmol/L (22-29); Chloride 106 mmol/L (96-108); Cholesterol 131 mg/dL (<200); Estimated Glomerular Filt Rate > 60; HDL Cholesterol 32 mg/dL (>40); Potassium 3.9 mmol/L (3.3-5.1); Sodium 142 mmol/L (135-145); Total Protein 7.3 g/dL (6.5-8.0); Triglycerides 128 mg/dL (<150)
[2025-04-28 12:17] LABS: Microalbum/Creatinine Ratio Ur 8.3 ug/mg cr (<30)
== END 2025-04-28 07:36 | disposition home or self-care (01) ==
LOC: HO.LAB 07:35
PROVIDERS: PCP Internal Medicine Medical Oncology; Visit Provider Internal Medicine Medical Oncology
DX: E78.5 Hyperlipidemia, unspecified (principal); E66.9 Obesity, unspecified; E11.9 Type 2 diabetes mellitus without complications
CPT/HCPCS: 36415; 80053; 80061; 82043; 82570; 83036; 85025

== ENCOUNTER 2025-05-17 13:22 | Outpatient (AMB) | payer MEDICARE, SELFPAY ==
[2023-07-03 10:14] VITALS: BP 104/68; BP 116/60; BP 122/80; BMI 33.0
--- NOTE | 2025-05-17 13:29 | A.OFFVIS_ITS ---
Vital Signs 05/17/25 13:31 Height 5 ft 3 in Weight 190 lb 14.725 oz BMI 33.8 BP 112/62 Blood Pressure Location Lt brachial Position Sitting Pulse 64 Pulse Source Pulse Oximeter Intake Visit Reasons: 3 month f/u Intake Note: 3 mth f/up Methods Time Analyst Required: No Accompanied by: Self / Same As Patient Allergies No Known Allergies Allergy (Mild, Verified 02/15/25 13:58) NKA Medication List - Last Reconciled 05/17/25 by Dalton Vazquez MD atenolol mg PO DAILY atorvastatin 80 mg PO DAILY clobetasol 0.05% 1 appl topical BID 2 weeks clopidogrel 75 mg PO DAILY ezetimibe 10 mg PO DAILY gabapentin mg PO 3XD hydrochlorothiazide 25 mg PO DAILY meclizine 25 mg PO TID PRN HPI Comments Details: Pleasant 69 year female who is here for follow-up. She was seen in [facility] for NSTEMI and was transferred cardiac catheterization. Cardiac catheterization shows severe diagonal and LAD stenosis. Lad had diffuse segment of 70% stenosis. Diagonal 1 was a large size branch and had severe stenosis and was culprit for NSTEMI. We decided to treat the diagonal artery and medically treat the LAD. She did fine after that and was discharged home. Subsequently she went back to [facility] with dyspnea and this was thought to be a side effect of Brilinta and she was changed to Plavix. Since then she has done well and has no symptoms. No bleeding concerns. Taking medications regularly. 05/08/2023: She returns for follow-up. She has been doing cardiac rehabilitation and has not had any significant symptoms there. She had severe LAD stenosis which was medically treated previously. Diagonal was stented as culprit. She is tolerating dual antiplatelet therapy. No bleeding concerns currently. 09/25/23: She returns for follow-up. She has been doing well from cardiovascular point of view. She has no chest discomfort shortness breath and has been physically active. She is saying that with activity she has no symptoms but at night when she laid down she gets very cold feet and tingling in her feet. He is not diabetic and does not have any history of alcohol use. 02/05/24: She is here for follow-up. Again complaining of some paresthesia in her feet. Denying any chest discomfort. 08/17/2024: She is here for follow-up. No exertional symptoms on follow-up. She walks daily. Taking medications regularly. 02/15/2025: She is here for follow-up. She has been doing well from cardiovascular point of view. She is in need of surgery for uterine fibroids and we will also need a colonoscopy by July 2025. She is on Plavix currently. She has been told that her Plavix has to be held before the surgery for uterine fibroids. No bleeding reported by the patient. 05/17/2025: Here for follow-up. She continues to be stable and has no chest discomfort shortness of breath with activities. Taking Plavix monotherapy at this point. Blood pressure well controlled. [facility] Medical History Peripheral neuropathy STEMI (ST elevation myocardial infarction) Diverticulosis Right shoulder pain Left hip pain Hyperlipidemia Colonoscopy planned Vertigo Fibroma of tongue Back pain Elevated cholesterol HTN (hypertension) Surgical History History of cardiac cath History of dilatation and curettage Family History Mother Heart disease Father Throat cancer Social History Alcohol intake: never Patient Tobacco Use Status: Never used Tobacco Second Hand Smoke Exposure: Yes Female Reproductive History Menstrual Age of Menarche: 16 Review of Systems Const Denies chills, Denies fatigue, Denies fever(s), Denies frequent falls, Denies weakness, Denies weight gain and Denies weight loss ENT Denies dizziness Card Denies chest pain, Denies leg edema, Denies lightheadedness, Denies palpitations, Denies dyspnea and Denies dyspnea on exertion Resp Denies cough, Denies dyspnea and Denies dyspnea on exertion GI Denies hematochezia Musc Denies abnormal gait, Denies muscle weakness, Denies numbness, Denies radiating pain into limb and Denies tingling Neuro Denies abnormal gait, Denies dizziness, Denies frequent falls, Denies numbness, Denies tingling and Denies weakness Endo Denies fatigue and Denies palpitations Physical Exam Vital Signs: Last Vital Signs Pulse 64 05/17/25 13:31 BP 112/62 05/17/25 13:31 BMI result Body Mass Index 33.8 GENERAL APPEARANCE: in no acute distress, pleasant. NECK: no carotid bruit, no jugular venous distention. SKIN: no suspicious lesions, warm and dry. HEART: no murmurs, regular rate and rhythm. LUNGS: clear to auscultation bilaterally. ABDOMEN: soft, nontender. EXTREMITIES: no edema. PERIPHERAL PULSES: equal. NEUROLOGIC: No gross deficits, AAO X 3 Assessment & Plan Assessment & Plan (1) Stable angina: Code(s): I20.8 - Other forms of angina pectoris Category: Medical Plan [age] year female who is presenting for follow-up. She has known history of coronary disease with diffuse LAD stenosis and severe diagonal stenosis which was culprit for NSTEMI. She underwent PCI to diagonal and LAD was medically managed. After 1 year we stopped the aspirin and left her on Plavix monotherapy due to residual coronary artery disease. Blood pressure is well controlled. She does not have any anginal symptoms on follow-up today. Clinically doing well. I have explained to her that she has residual disease in the LAD and if she gets any anginal symptoms in the future then we will consider diagnostic cardiac catheterization and potential PCI to LAD. Follow-up in 4 months. Thank you for allowing me to participate in the care of your patient. Please feel free to contact me if you have any questions. Coding Level of Care Code Est Pt Level 4 (30598) Diagnoses Stable angina I20.8
[2025-05-17 13:31] VITALS: BP 112/62; PULSE 64; BMI 33.8
== END 2025-05-17 14:05 | disposition home or self-care (01) ==
LOC: HO.HCS 13:23
PROVIDERS: PCP Internal Medicine Medical Oncology; Visit Provider Internal Medicine Cardiovascular Disease
DX: I20.89 Other forms of angina pectoris (principal)
CPT/HCPCS: 99214

== ENCOUNTER → 2025-05-17 13:22 | Outpatient (BNVA) | payer MEDICARE, SELFPAY ==
[2023-07-03 10:14] VITALS: BP 104/68; BP 116/60; BP 122/80; BMI 33.0
== END ==
PROVIDERS: PCP Internal Medicine Medical Oncology; Visit Provider Internal Medicine Cardiovascular Disease
DX: I20.89 Other forms of angina pectoris (principal)
CPT/HCPCS: 99212